=== PATIENT | female | born 1935 | race Caucasian/White ===

== ENCOUNTER 2016-07-29 18:49 | Inpatient (IN) | payer MEDICARE, OTHER ==
[~2016-07-29] VITALS: Ht 157.5 cm; Wt 47.8 kg
[~2016-07-29 18:49] MED LIST: LACT PO; LEVA500T PO; LEVO.15 PO; PROT40TA PO; SODI650T PO
[2016-07-29 19:39] VITALS: BP 130/79; PULSE 117; RESP 22; TEMP 97.9; O2SAT 98
[2016-07-29] MEDS ORDERED: SODIUM CHLOR 0.9% 1000 ML INJ 1,000 ML IV SCH ×2 (20:05→22:15)
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
[2016-07-29] MEDS ORDERED: LORazepam 2 MG/ML VIAL IM ONE (20:15)
[2016-07-29] MEDS ORDERED: SODIUM CHLORIDE 0.9% FLUSH 5 ML FLUSH IVF PRN (20:15)
--- NOTE | 2016-07-29 20:31 | RADRPT ---
EXAM DATE/TIME: 07/29/2016 20:06 [facility] COMPARISON: CHEST SINGLE AP, December 15, 2015, 15:33. INDICATIONS : Short of breath. MEDICAL HISTORY : Hypertension. SURGICAL HISTORY : Cholecystectomy. ENCOUNTER: Initial ACUITY: 1 day PAIN SCORE: Non-responsive. LOCATION: Bilateral chest FINDINGS: A single view of the chest demonstrates the lungs to be symmetrically aerated without evidence of mas s, infiltrate or effusion. The cardiomediastinal contours are unremarkable. Osseous structures are intact and stable CONCLUSION: No acute disease. No significant change has occurred. Omid Rios MD on July 29, 2016 at 20:29 Board Certified Radiologist. This report was verified electronically.
[2016-07-29 21:40] LABS: AUTOMATED NEUTROPHIL # 9.2 TH/MM3 (1.8-7.7); BASOPHIL # 0.1 TH/MM3 (0-0.2); BASOPHIL % 0.9 % (0.0-2.0); EOSINOPHIL # 0.1 TH/MM3 (0-0.4); EOSINOPHIL % 1.1 % (0.0-4.0); HEMATOCRIT 34.8 % (35.0-46.0); HEMO FLAGS DIFF FINAL; LYMPH % 8.1 % (9.0-44.0); LYMPHOCYTE # 0.9 TH/MM3 (1.0-4.8); MEAN CELL VOLUME 92.4 FL (80.0-100.0); MEAN CORPUSCULAR HGB CONC 34.6 % (32.0-36.0); MONO % 5.8 % (0.0-8.0); NEUT % 84.1 % (16.0-70.0); PLATELET COUNT 252 TH/MM3 (150-450); RED BLOOD COUNT 3.76 MIL/MM3 (4.00-5.30); RED CELL DISTRIBUTION WIDTH 12.8 % (11.6-17.2); WHITE BLOOD COUNT 10.9 TH/MM3 (4.0-11.0)
[2016-07-29 21:47] LABS: APTT (PATIENT) 27.8 SEC (24.3-30.1); PROTHROMBIN TIME - PATIENT 10.8 SEC (9.8-11.6)
[2016-07-29 21:52] VITALS: BP 127/72; PULSE 100; RESP 18; TEMP 99; O2SAT 100
[2016-07-29 21:52] LABS: ANION GAP 8 MEQ/L (5-15); AST (GOT) 31 U/L (15-37); BICARBONATE 23.9 MEQ/L (21.0-32.0); BLOOD UREA NITROGEN 12 MG/DL (7-18); CHLORIDE 106 MEQ/L (98-107); GLOMERULAR FILTRATION RATE 66 ML/MIN (>89); POTASSIUM 4.7 MEQ/L (3.5-5.1); SODIUM (NA) 138 MEQ/L (136-145)
[2016-07-29 21:53] LABS: ALKALINE PHOSPHATASE 158 U/L (45-117); ALT (GPT) 21 U/L (10-53); TOTAL BILIRUBIN ADULT 0.6 MG/DL (0.2-1.0)
[2016-07-29 23:32] LABS: BACTERIA, URINE OCC /hpf; BLOOD, URINE SMALL (NEG); COMMENT (UR) CATH-CULTURE IND; CULTURE IF INDICATED CATH CULTURE IND; GLUCOSE,URINE NEG (NEG); KETONE, URINE NEG (NEG); MUCUS URINE FEW /lpf (OCC); SQUAMOUS EPITHELIAL CELL URINE 26 /hpf (0-5); URINE COLOR LIGHT-YELLOW (YELLW/STRAW)
[2016-07-29 23:33] LABS: NITRITE,URINE POS (NEG)
[2016-07-29] MEDS ORDERED: CEPH-460 PO (23:53)
[2016-07-30] MEDS ORDERED: cefTRIAXone INJ 1,000 MG in SODIUM CHLORIDE 0.9% INJ 100 ML IV ONE ×2
[2016-07-30] MEDS ORDERED: NORC5TAB PO (00:08)
[2016-07-30] MEDS ORDERED: GABA100C4 PO (00:08)
[2016-07-30] MEDS ORDERED: CYMB60CA PO (00:08)
[2016-07-30] MEDS ORDERED: LEVO.15 PO (00:08)
[2016-07-30] MEDS ORDERED: SODI650T PO (00:08)
[2016-07-30] MEDS ORDERED: PANT40TA3 PO (00:08)
[2016-07-30] MEDS ORDERED: ZANT150T2 PO (00:08)
[2016-07-30] MEDS ORDERED: XANA1TAB2 PO (00:08)
[2016-07-30] MEDS ORDERED: COLA100C3 PO (00:08)
[2016-07-30 01:33] LABS: AMPHETAMINE, URINE NEG (NEG); BARBITURATES, URINE NEG (NEG); COCAINE, URINE NEG (NEG)
[2016-07-30] MEDS ORDERED: diphenhydrAMINE HCL 50 MG CAP PO PRN (02:00)
[2016-07-30] MEDS ORDERED: LORazepam 0.5 MG TAB age > 65 yrs PO PRN (02:15)
[2016-07-30] MEDS ORDERED: diphenhydrAMINE HCL 50 MG CAP - HS PRN PO (02:15)
[2016-07-30] MEDS ORDERED: hydrOXYzine HCL 50 MG TAB PO PRN (02:15)
[2016-07-30] MEDS ORDERED: MAGNESIUM HYDROXIDE SUSP 30 ML CUP PO PRN (02:15)
[2016-07-30] MEDS ORDERED: ALUMINUM/MAGNESIUM/SIMETH 30 ML CUP PO PRN (02:15)
[2016-07-30] MEDS ORDERED: LORazepam 2 MG/ML VIAL - age > 65 yrs IM PRN (02:15)
[2016-07-30] MEDS ORDERED: ACETAMINOPHEN 325 MG TAB PO PRN (02:15)
[2016-07-30] MEDS ORDERED: diphenhydrAMINE HCL 50 MG/ML VIAL IM PRN (02:15)
--- NOTE | 2016-07-30 04:06 | PD.CONS ---
[facility] Request[facility] By Dr Montes De Oca Reason for Consult medical conditions management Primary Care Physician Unknown Diagnoses: History of Present Illness History from EMR, nursing staff, and review of transfer notes from the nursing facility. Patient herself is an elderly lady with baseline psychiatry issue and dementia with auditory hallucinations. She is unable to give any history. At the time of our exam, patient is covered in her blanket and is quite paranoid and would not let us talk to her. She kept stating that last and her psychiatry turbine technician caregiver next to her is scaring her. What made it worse was that one of the patients in the unit also started screaming and yelling and that's even scares patient more. Per patient's daughter, she reported to ER that the mom usually is not confused although she does have dementia. Patient was also on antibiotics at the nursing facility recently for urinary tract infection. In the emergency room, patient received 1 g IV Rocephin. UA which was done in ER is also positive for nitrites. Culture pending. Review of Systems ROS Limitations: Poor Historian (unable to obtain review of system.) Except as stated in HPI: all other systems reviewed are Neg Past Family Social History Allergies: Coded Allergies: No Known Allergies (Verified , 07/29/16) Past Medical History Per EMR: Hypertension Anemia Metabolic encephalopathy history CAD COPD Chronic kidney disease History of dysphagia History of odynophagia. History of small bowel obstruction Past Surgical History EGDs and colonoscopies Family History Unknown Social History Unknown Physical Exam Vital Signs Vital Signs Date Time Temp Pulse Resp B/P Pulse Ox O2 Delivery O2 Flow Rate FiO2 07/29/16 21:52 99.0 100 18 127/72 100 07/29/16 19:39 97.9 117 22 130/79 98 Physical Exam GENERAL: This is a elderly lady, in no apparent distress. Quite disheveled SKIN: limted exam, pt is covered in blanket, won't let me see HEAD: Atraumatic. Normocephalic. EYES: No scleral icterus. No injection or drainage. ENT: Nose without bleeding, purulent drainage or septal hematoma.. Airway patent. NECK: Trachea midline. No JVD CARDIOVASCULAR: was not able to examine, refused RESPIRATORY: was not able to examine, refused GASTROINTESTINAL: was not able to examine, refused MUSCULOSKELETAL: was not able to examine, refused NEUROLOGICAL: Awake, confused, paranoid. Motor and sensory grossly within normal limits.Normal speech. Laboratory Laboratory Tests Test 07/29/16 07/29/16 21:11 22:58 White Blood Count 10.9 Red Blood Count 3.76 Hemoglobin 12.0 Hematocrit 34.8 Mean Corpuscular Volume 92.4 Mean Corpuscular Hemoglobin 32.0 Mean Corpuscular Hemoglobin 34.6 Concent Red Cell Distribution Width 12.8 Platelet Count 252 Mean Platelet Volume 7.5 Neutrophils (%) (Auto) 84.1 Lymphocytes (%) (Auto) 8.1 Monocytes (%) (Auto) 5.8 Eosinophils (%) (Auto) 1.1 Basophils (%) (Auto) 0.9 Neutrophils # (Auto) 9.2 Lymphocytes # (Auto) 0.9 Monocytes # (Auto) 0.6 Eosinophils # (Auto) 0.1 Basophils # (Auto) 0.1 CBC Comment DIFF FINAL Differential Comment Prothrombin Time 10.8 Prothromb Time International 1.0 Ratio Activated Partial 27.8 Thromboplast Time Sodium Level 138 Potassium Level 4.7 Chloride Level 106 Carbon Dioxide Level 23.9 Anion Gap 8 Blood Urea Nitrogen 12 Creatinine 0.83 Estimat Glomerular Filtration 66 Rate Random Glucose 102 Lactic Acid Level 1.9 Calcium Level 9.1 Total Bilirubin 0.6 Aspartate Amino Transf 31 (AST/SGOT) Alanine Aminotransferase 21 (ALT/SGPT) Alkaline Phosphatase 158 Total Protein 7.4 Albumin 3.1 Urine Color LIGHT-YELLOW Urine Turbidity CLOUDY Urine pH 8.0 Urine Specific [place] 1.013 Urine Protein 30 Urine Glucose (UA) NEG Urine Ketones NEG Urine Occult Blood SMALL Urine Nitrite POS Urine Bilirubin NEG Urine Urobilinogen LESS THAN 2.0 Urine Leukocyte Esterase LARGE Urine RBC 14 Urine WBC Urine WBC Clumps FEW Urine Squamous Epithelial 26 Cells Urine Bacteria OCC Urine Mucus FEW Microscopic Urinalysis Comment CATH-CULTURE IND Urine Opiates Screen NEG Urine Barbiturates Screen NEG Urine Amphetamines Screen NEG Urine Benzodiazepines Screen POS Urine Cocaine Screen NEG Urine Cannabinoids Screen NEG Date/Time Procedure Status Source Growth 07/29/16 22:58 Urine Culture Received Urine Catheterized Urine Pending Result Diagram: 07/29/16211007/29/162110 Imaging Last 48 hours Impressions Chest X-Ray 07/29/162004 Signed Impressions: Service Date/Time: Friday, July 29, 2016 20:06 - CONCLUSION: No acute disease. No significant change has occurred. Omid Rios MD Assessment and Plan Problem List: (1) Dementia with behavioral disturbance ICD Code: F03.91 Status: Acute (2) Urinary tract infection ICD Code: N39.0 Status: Acute Assessment and Plan Impression: Dementia with psychosis and auditory hallucinations UTI Hypertension Anemia Metabolic encephalopathy history CAD COPD Chronic kidney disease History of dysphagia History of odynophagia. History of small bowel obstruction Plan: Patient history and physical is quite limited since she is actively hallucinating and not participating in examination. Patient's urine cultures will be followed. For now, I started patient on levofloxacin by mouth. Per patient's daughter, patient's psychosis and hallucinations were not this bad previously. There for there might be a component of urinary tract infection worsening her situation. As to her comorbid medical conditions, her home medications have been restarted by psychiatry team. This was checked against the medications list from [facility]. Agree with continuation of meds. DVT prophylaxiswith ambulation. We will follow patient along with you. Discussed Condition With patient, her psychiatry nurse Problem Qualifiers (1) Dementia with behavioral disturbance: Qualified Code: F03.91 - Dementia with behavioral disturbance, unspecified dementia type Santos Blackburn MD Jul 30, 2016 04:06
[2016-07-30] MEDS: LEVOTHYROXINE SODIUM 150 MCG TAB PO SCH (05:39)
[2016-07-30 06:08] VITALS: BP 136/62; PULSE 96; RESP 17; TEMP 98.1; O2SAT 94
[2016-07-30] MEDS ORDERED: ACETAMINOPHEN/HYDROcodone 325 MG/5 MG TAB PO PRN (06:15)
--- NOTE | 2016-07-30 08:21 | HHI.PR ---
Subjective Remarks Follow-up UTI. Patient confused stating she is afraid to swim. She appears afraid of something. Discussed with RN Objective Vitals Vital Signs Date Time Temp Pulse Resp B/P Pulse Ox O2 Delivery O2 Flow Rate FiO2 07/30/16 06:08 98.1 96 17 136/62 94 07/29/16 21:52 99.0 100 18 127/72 100 07/29/16 19:39 97.9 117 22 130/79 98 Result Diagram: 07/29/16211007/29/162110 Objective Remarks GENERAL: This is a well-nourished, well-developed patient, in distress crying. CARDIOVASCULAR: Regular rate and rhythm without murmurs, gallops, or rubs. RESPIRATORY: Clear to auscultation. Breath sounds equal bilaterally. No wheezes , rales, or rhonchi. GASTROINTESTINAL: Abdomen soft, non-tender, nondistended. Normal active bowel sounds MUSCULOSKELETAL: Extremities without clubbing, cyanosis, or edema. CVA tenderness bilaterally NEURO: Awake and confused. Moves all ext x4 Procedures none A/P Problem List: (1) Dementia with behavioral disturbance ICD Code: F03.91 Status: Acute (2) Urinary tract infection ICD Code: N39.0 Status: Acute Assessment and Plan Dementia with psychosis and auditory hallucinations. Further management by psychiatry UTI. Status post Rocephin continue Levaquin. Follow urine culture Chronic medical conditions of Hypertension, CAD, COPD and Chronic kidney disease DVT prophylaxiswith ambulation. We will follow patient along with you. Discussed with RN to clarify with family advanced directives Problem Qualifiers (1) Dementia with behavioral disturbance: Qualified Code: F03.91 - Dementia with behavioral disturbance, unspecified dementia type Dejuan Monique MD Jul 30, 2016 08:21
[2016-07-30] MEDS ORDERED: DOCUSATE SODIUM 100 MG CAP PO SCH (09:00)
[2016-07-30] MEDS ORDERED: SODIUM BICARBONATE 650 MG TAB PO SCH (09:00)
[2016-07-30] MEDS: DOCUSATE SODIUM 100 MG CAP PO SCH ×2 (09:00→21:14)
[2016-07-30] MEDS ORDERED: PANTOPRAZOLE SOD 40 MG DELAYED RELEASE TAB PO SCH (09:00)
[2016-07-30] MEDS ORDERED: FAMOTIDINE 20 MG TAB PO SCH (09:00)
[2016-07-30] MEDS: PANTOPRAZOLE SOD 40 MG DELAYED RELEASE TAB PO SCH (09:00)
[2016-07-30] MEDS ORDERED: GABAPENTIN 100 MG CAP PO SCH (09:00)
[2016-07-30] MEDS ORDERED: LEVOTHYROXINE SODIUM 150 MCG TAB PO SCH (09:00)
[2016-07-30] MEDS ORDERED: DULoxetine HCl DR 60 MG CAP PO SCH (09:00)
[2016-07-30] MEDS ORDERED: RANITIDINE HCL 150 MG TAB PO SCH (09:00)
[2016-07-30] MEDS: GABAPENTIN 100 MG CAP PO SCH ×3 (09:59→18:35)
[2016-07-30] MEDS: DULoxetine HCl DR 60 MG CAP PO SCH (10:00)
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
[2016-07-30] MEDS: SODIUM BICARBONATE 650 MG TAB PO SCH ×2 (10:52→18:34)
[2016-07-30] MEDS: LEVOFLOXACIN 750 MG TAB PO SCH (10:52)
[2016-07-30] MEDS: LACTIC ACID (AMMONIUM LACTATE) 12% LOTION 225 GM BTL TOPICAL SCH ×2 (11:30→21:00)
--- NOTE | 2016-07-30 18:34 | RADRPT ---
EXAM DATE/TIME: 07/30/2016 17:56 [place] COMPARISON: CT BRAIN W/O CONTRAST, December 15, 2015, 15:42. INDICATIONS : Altered mental status. RADIATION DOSE: 33.35 CTDIvol (mGy) MEDICAL HISTORY : Dementia. Cerebrovascular disease. Hypertension. Renal failure SURGICAL HISTORY : None. ENCOUNTER: Initial ACUITY: 1 day PAIN SCALE: Non-responsive LOCATION: Cranial TECHNIQUE: Multiple contiguous axial images were obtained of the head. Using automated exposure control and adj ustment of the mA and/or kV according to patient size, radiation dose was kept as low as reasonably a chievable to obtain optimal diagnostic quality images. FINDINGS: Mild diffuse cerebral atrophy is noted. There is no acute infarct, acute hemorrhage, mass effect or extra-axial fluid collections. Mild periventricular and subcortical white matter small vessel ischem ic changes are noted bilaterally. There is evidence of fluid levels within the left maxillary sinus and bilateral sphenoid sinuses as well as opacification of the left frontal sinuses suggesting acute sinusitis. Opacification of the left anterior ethmoid air cells is also noted. CONCLUSION: 1. Mild diffuse cerebral atrophy. 2. Mild periventricular white matter small vessel ischemic changes bilaterally. 3. No acute infarct, acute hemorrhage, mass effect or extra-axial fluid collections. 4. Air-fluid levels and opacification of the bilateral sphenoid sinuses, left maxillary sinus, left f rontal sinuses and anterior ethmoid air cells on the left suggestive of acute sinusitis. Hong Sarabia MD on July 30, 2016 at 18:15 Board Certified Radiologist. This report was verified electronically.
[2016-07-30 20:19] VITALS: BP 135/71; PULSE 89; RESP 16; TEMP 98.2; O2SAT 95
[2016-07-30] MEDS: HALOPERIDOL 1 MG TAB PO SCH (21:00)
[2016-07-31] MEDS: HALOPERIDOL 1 MG TAB PO PRN ×2 (04:23→23:07)
[2016-07-31 05:55] VITALS: BP 161/90; PULSE 84; RESP 17; TEMP 97.7; O2SAT 98
[2016-07-31] MEDS: LEVOTHYROXINE SODIUM 150 MCG TAB PO SCH (06:00)
[2016-07-31 09:04] LABS: ANION GAP 9 MEQ/L (5-15); BICARBONATE 22.8 MEQ/L (21.0-32.0); BLOOD UREA NITROGEN 10 MG/DL (7-18); CHLORIDE 106 MEQ/L (98-107); FREE T4 1.36 NG/DL (0.76-1.46); GLOMERULAR FILTRATION RATE 77 ML/MIN (>89); LDL CHOLESTEROL 24 MG/DL (0-99); POTASSIUM 3.7 MEQ/L (3.5-5.1); SODIUM (NA) 138 MEQ/L (136-145)
[2016-07-31] MEDS: SODIUM BICARBONATE 650 MG TAB PO SCH ×2 (09:07→17:42)
[2016-07-31] MEDS: GABAPENTIN 100 MG CAP PO SCH ×3 (09:08→17:42)
[2016-07-31] MEDS: PANTOPRAZOLE SOD 40 MG DELAYED RELEASE TAB PO SCH (09:08)
[2016-07-31] MEDS: HALOPERIDOL 1 MG TAB PO SCH ×2 (09:08→20:22)
[2016-07-31] MEDS: LEVOFLOXACIN 750 MG TAB PO SCH (09:08)
[2016-07-31] MEDS: DULoxetine HCl DR 60 MG CAP PO SCH (09:08)
[2016-07-31] MEDS: DOCUSATE SODIUM 100 MG CAP PO SCH ×2 (09:08→20:22)
--- NOTE | 2016-07-31 09:54 | HHI.PR ---
Subjective Remarks Follow-up sinusitis and UTI. Complains of left facial tenderness and left lower quadrant pain but no nausea, vomiting, fever and chills. She is less confused. Discussed with RN Objective Vitals Vital Signs Date Time Temp Pulse Resp B/P Pulse Ox O2 Delivery O2 Flow Rate FiO2 07/31/16 05:55 97.7 84 17 161/90 98 07/30/16 20:19 98.2 89 16 135/71 95 I/O 07/30/16 07/30/16 07/30/16 07/31/16 07/31/16 07/31/16 07:00 15:00 23:00 07:00 15:00 23:00 Intake Total 480 ml Balance 480 ml Intake Oral 480 ml # Voids 2 2 Result Diagram: 07/29/16 2111 07/31/16 0635 Imaging Last Impressions Head CT 07/30/16 0000 Signed Impressions: Service Date/Time: Saturday, July 30, 2016 17:56 - CONCLUSION: 1. Mild diffuse cerebral atrophy. 2. Mild periventricular white matter small vessel ischemic changes bilaterally. 3. No acute infarct, acute hemorrhage, mass effect or extra-axial fluid collections. 4. Air-fluid levels and opacification of the bilateral sphenoid sinuses, left maxillary sinus, left frontal sinuses and anterior ethmoid air cells on the left suggestive of acute sinusitis. Hong Sarabia MD Chest X-Ray 07/29/162004 Signed Impressions: Service Date/Time: Friday, July 29, 2016 20:06 - CONCLUSION: No acute disease. No significant change has occurred. Omid Rios MD Objective Remarks GENERAL: This is a well-nourished, well-developed patient, in no distress HEENT: There is tenderness over left frontal and left maxillary sinuses CARDIOVASCULAR: Regular rate and rhythm without murmurs, gallops, or rubs. RESPIRATORY: Clear to auscultation. Breath sounds equal bilaterally. No wheezes , rales, or rhonchi. GASTROINTESTINAL: Abdomen soft, slightly tender left lower quadrant, nondistended. Normal active bowel sounds MUSCULOSKELETAL: Extremities without clubbing, cyanosis, or edema. CVA tenderness bilaterally NEURO: Awake and confused. Moves all ext x4 Procedures none A/P Problem List: (1) Dementia with behavioral disturbance ICD Code: F03.91 Status: Acute (2) Urinary tract infection ICD Code: N39.0 Status: Acute Assessment and Plan Dementia with psychosis and auditory hallucinations. Further management by psychiatry UTI. Status post Rocephin continue Levaquin. Follow urine culture growing Escherichia coli Acute sinusitis. We'll change Levaquin to 750 mg daily for total of 10 days. Chronic medical conditions of Hypertension, CAD, COPD and Chronic kidney disease. BP slightly elevated start clonidine as needed and continue to monitor EKG tracing reviewed with sinus rhythm, poor R-wave progression QTc of 401 DVT prophylaxiswith ambulation. Follow-up advance directives with the family Problem Qualifiers (1) Dementia with behavioral disturbance: Qualified Code: F03.91 - Dementia with behavioral disturbance, unspecified dementia type Dejuan Monique MD Jul 31, 2016 09:53
[2016-07-31] MEDS ORDERED: cloNIDine HCL 0.1 MG TAB PO PRN (10:00)
[2016-07-31] MEDS: LACTIC ACID (AMMONIUM LACTATE) 12% LOTION 225 GM BTL TOPICAL SCH ×2 (10:04→20:22)
--- NOTE | 2016-07-31 11:06 | EKG ---
Date Performed: 07/30/2016 Time Performed: 13:20:13 PTAGE: 81 years EKG: Sinus rhythm SEPTAL MYOCARDIAL INFARCTION , PROBABLY OLD ABNORMAL ECG PREVIOUS TRACING : 12/15/2015 16.30 DOCTOR: Jesse Hawkins Interpretating Date/Time 07/31/2016 11:05:12
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
--- NOTE | 2016-07-31 11:36 | HHI.PYPN ---
Subjective Remarks Patient seen and examined. Chart reviewed. Patient did receive a PRN dose of Haldol yesterday for anxiety. Case discussed with nursing staff. On my examination today, patient is sitting on the day area. She is calm and pleasant but remains extremely confused on examination. She is oriented to person at most. Speech remains word salad and thought process remains disorganized. She is requiring assistance with ADLs such as toileting. No evident side effects from medications. Review of Systems ROS Limitations: Poor Historian Other No reported physical complaints Objective Alert: Yes [place]: Person Mood: Calm Affect: Blunted Memory Intact: Comment (impaired) Hallucinations: Other (no AVH) Delusions: No Delusion Type: Other (no ryan delusions) Suicidal: Ideation (no SI) Homicidal: Ideation (no HI) Insight/Judgement Poor, chronically so Remarks No abnormal motor movements noted. No hand tremor, no dystonia, no dyskinesia. Thought process disorganized. Speech rambling. Grooming and hygiene fair but only with assistance from staff. Labs Test 07/31/16 06:35 Sodium Level 138 MEQ/L Potassium Level 3.7 MEQ/L Chloride Level 106 MEQ/L Carbon Dioxide Level 22.8 MEQ/L Anion Gap 9 MEQ/L Blood Urea Nitrogen 10 MG/DL Creatinine 0.73 MG/DL Estimat Glomerular Filtration 77 ML/MIN Rate Random Glucose 81 MG/DL Calcium Level 9.3 MG/DL Triglycerides Level 110 MG/DL Cholesterol Level 100 MG/DL LDL Cholesterol 24 MG/DL HDL Cholesterol 54.0 MG/DL Cholesterol/HDL Ratio 1.85 RATIO Free Thyroxine 1.36 NG/DL Thyroid Stimulating Hormone 3.280 uIU/ML 3rd Gen Date/Time Procedure Status Source Growth 07/29/16 22:58 Urine Culture - Final Complete Urine Catheterized Urine Escherichia Coli Labs reviewed. Interval improvement in GFR. Urine culture is growing out Escherichia coli resistant only to amoxicillin Last Impressions Head CT 07/30/16 0000 Signed Impressions: Service Date/Time: Saturday, July 30, 2016 17:56 - CONCLUSION: 1. Mild diffuse cerebral atrophy. 2. Mild periventricular white matter small vessel ischemic changes bilaterally. 3. No acute infarct, acute hemorrhage, mass effect or extra-axial fluid collections. 4. Air-fluid levels and opacification of the bilateral sphenoid sinuses, left maxillary sinus, left frontal sinuses and anterior ethmoid air cells on the left suggestive of acute sinusitis. Hong Sarabia MD Chest X-Ray 07/29/162004 Signed Impressions: Service Date/Time: Friday, July 29, 2016 20:06 - CONCLUSION: No acute disease. No significant change has occurred. Omid Rios MD Vitals/IOs Vital Signs Date Time Temp Pulse Resp B/P Pulse Ox O2 Delivery O2 Flow Rate FiO2 07/31/16 05:55 97.7 84 17 161/90 98 Intake and Output 07/30/16 07/30/16 07/31/16 08:00 16:00 00:00 Intake Total 480 ml Balance 480 ml Assessment & Plan Problem List: (1) Delirium due to another medical condition Assessment & Plan: Due to UTI ICD Code: F05 (2) Dementia ICD Code: F03.90 Assessment & Plan Patient is presently calm and pleasant with treatment of UTI and addition of Haldol. Continue Haldol 1 mg twice daily with additional Haldol as needed for agitation. Continue other psychotropics as ordered. Continue other medications and care as ordered. Justification for Cont. Inpt. Monitoring for impairments in safety, so far none noted. Impairment in self- care. Complicating conditions, namely UTI with associated delirium. Discharge Planning Return to facility, hopefully within the next 1-2 days barring some clinical worsening. Request HC Surrog/Guard Advoc?: Yes Problem Qualifiers (1) Dementia: Qualified Code: G30.8 - Alzheimer's dementia with behavioral disturbance, unspecified timing of dementia onset Kolton Finney MD Jul 31, 2016 11:36
[2016-07-31 17:16] LABS: HEMOGLOBIN A1a 0.7 %; HEMOGLOBIN A1b 1.6 %; HEMOGLOBIN Ao 87.4 %; HEMOGLOBIN LA1C 1.7 %; HEMOGLOBIN P3 3.4 %
[2016-07-31 19:55] VITALS: BP 138/64; PULSE 91; RESP 17; TEMP 98.2; O2SAT 97
[2016-08-01 05:24] VITALS: BP 146/75; PULSE 83; RESP 17; TEMP 98.2; O2SAT 96
[2016-08-01] MEDS: LEVOTHYROXINE SODIUM 150 MCG TAB PO SCH ×3 (06:00→11:50)
[2016-08-01] MEDS: GABAPENTIN 100 MG CAP PO SCH ×3 (08:19→17:43)
[2016-08-01] MEDS: HALOPERIDOL 1 MG TAB PO SCH ×2 (08:19→21:48)
[2016-08-01] MEDS: DULoxetine HCl DR 60 MG CAP PO SCH ×2 (08:19→09:00)
[2016-08-01] MEDS: SODIUM BICARBONATE 650 MG TAB PO SCH ×3 (08:19→17:44)
[2016-08-01] MEDS: PANTOPRAZOLE SOD 40 MG DELAYED RELEASE TAB PO SCH ×2 (08:19→09:00)
[2016-08-01] MEDS: LEVOFLOXACIN 750 MG TAB PO SCH (09:00)
[2016-08-01] MEDS: LACTIC ACID (AMMONIUM LACTATE) 12% LOTION 225 GM BTL TOPICAL SCH ×2 (09:41→21:00)
--- NOTE | 2016-08-01 10:10 | HHI.PR ---
Subjective Remarks Follow-up sinusitis and UTI. States she is not feeling well today and wants to go home. Remains confused Objective Vitals Vital Signs Date Time Temp Pulse Resp B/P Pulse Ox O2 Delivery O2 Flow Rate FiO2 08/01/16 05:24 98.2 83 17 146/75 96 07/31/16 19:55 98.2 91 17 138/64 97 I/O 07/31/16 07/31/16 07/31/16 08/01/16 08/01/16 08/01/16 07:00 15:00 23:00 07:00 15:00 23:00 Intake Total 240 ml Balance 240 ml Intake Oral 240 ml # Voids 2 1 3 # Bowel Movements 1 Result Diagram: 07/29/16 2111 07/31/16 0635 Imaging Last Impressions Head CT 07/30/16 0000 Signed Impressions: Service Date/Time: Saturday, July 30, 2016 17:56 - CONCLUSION: 1. Mild diffuse cerebral atrophy. 2. Mild periventricular white matter small vessel ischemic changes bilaterally. 3. No acute infarct, acute hemorrhage, mass effect or extra-axial fluid collections. 4. Air-fluid levels and opacification of the bilateral sphenoid sinuses, left maxillary sinus, left frontal sinuses and anterior ethmoid air cells on the left suggestive of acute sinusitis. Hong Sarabia MD Chest X-Ray 07/29/162004 Signed Impressions: Service Date/Time: Friday, July 29, 2016 20:06 - CONCLUSION: No acute disease. No significant change has occurred. Omid Rios MD Objective Remarks GENERAL: This is a well-nourished, well-developed patient, in no distress HEENT: There is tenderness over left frontal and left maxillary sinuses CARDIOVASCULAR: Regular rate and rhythm without murmurs, gallops, or rubs. RESPIRATORY: Clear to auscultation. Breath sounds equal bilaterally. No wheezes , rales, or rhonchi. GASTROINTESTINAL: Abdomen soft, slightly tender left lower quadrant, nondistended. Normal active bowel sounds MUSCULOSKELETAL: Extremities without clubbing, cyanosis, or edema. No CVA tenderness bilaterally NEURO: Confused. Moves all ext x4 Procedures none A/P Problem List: (1) Dementia with behavioral disturbance ICD Code: F03.91 Status: Acute (2) Urinary tract infection ICD Code: N39.0 Status: Acute Assessment and Plan Dementia with psychosis and auditory hallucinations. Further management by psychiatry UTI. Status post Rocephin continue Levaquin. Follow urine culture growing Escherichia coli Acute sinusitis. We'll change Levaquin to 750 mg daily for total of 10 days till August 09 Chronic medical conditions of Hypertension, CAD, COPD and Chronic kidney disease. BP slightly elevated start clonidine as needed and continue to monitor EKG tracing reviewed with sinus rhythm, poor R-wave progression QTc of 401 DVT prophylaxiswith ambulation. Follow-up advance directives with the family Discharge Planning Patient medically stable, we'll sign off. Reconsult as needed Problem Qualifiers (1) Dementia with behavioral disturbance: Qualified Code: F03.91 - Dementia with behavioral disturbance, unspecified dementia type Dejuan Monique MD Aug 01, 2016 10:10
[2016-08-01] MEDS: HALOPERIDOL LACTATE 5 MG/ML AMP IM PRN (12:10)
--- NOTE | 2016-08-01 12:17 | HHI.PYPN ---
Subjective Remarks Patient seen and examined. Chart reviewed. Case discussed with nursing staff who reports patient refused her oral Haldol this morning. On my examination today, patient is sitting in the day room. She is crying and asking to go home. She is not aggressive or assaultive. She remains quite confused. No evident side effects from medications. Review of Systems ROS Limitations: Poor Historian Other No reported physical complaints Objective Alert: Yes [place]: Person Mood: Anxious Affect: Blunted Memory Intact: Comment (Remains impaired) Hallucinations: Other (no AVH) Delusions: No Delusion Type: Other (No delusions) Suicidal: Ideation (No SI) Homicidal: Ideation (No HI) Insight/Judgement Poor Remarks No abnormal motor movements noted. TP disorganized consistent with cognitive impairment. Speech rambling. Grooming and hygiene adequate only with staff assist. Labs Date/Time Procedure Status Source Growth 07/29/16 22:58 Urine Culture - Final Complete Urine Catheterized Urine Escherichia Coli Labs reviewed. Vitals/IOs Vital Signs Date Time Temp Pulse Resp B/P Pulse Ox O2 Delivery O2 Flow Rate FiO2 08/01/16 05:24 98.2 83 17 146/75 96 Intake and Output 07/31/16 07/31/16 08/01/16 08:00 16:00 00:00 Intake Total 240 ml Balance 240 ml Assessment & Plan Problem List: (1) Delirium due to another medical condition ICD Code: F05 (2) Dementia ICD Code: F03.90 Assessment & Plan Titrate scheduled Haldol to 1mg TID to target anxious distress in setting of delirium/dementia. I have added an IM backup option. Continue Haldol PRN. Continue Cymbalta. Hospitalist input noted. Antibiotic recs noted. Continue to monitor on the inpatient unit. Continue other medications and care as ordered. Justification for Cont. Inpt. Impairment in self-care. Impairment in reality construction secondary to dementia and delirium. Impairment in social function. Complicating conditions , namely delirium and UTI. Medication changes. Discharge Planning Return to her facility, hopefully tomorrow or perhaps shortly after the weekend. Request HC Surrog/Guard Advoc?: Yes Problem Qualifiers (1) Dementia: Qualified Code: G30.8 - Alzheimer's dementia with behavioral disturbance, unspecified timing of dementia onset Kolton Finney MD Aug 01, 2016 12:17
[2016-08-01] MEDS ORDERED: HALOPERIDOL LACTATE 5 MG/ML AMP IM PRN ×2 (12:30→21:00)
[2016-08-01 16:30] VITALS: BP 129/63; PULSE 82; RESP 17; TEMP 98.7; O2SAT 95
[2016-08-01] MEDS: HALOPERIDOL 1 MG TAB PO PRN (23:27)
[2016-08-02] MEDS: LEVOTHYROXINE SODIUM 150 MCG TAB PO SCH (05:17)
[2016-08-02 06:00] VITALS: BP 133/73; PULSE 89; RESP 18; TEMP 99.6
[2016-08-02] MEDS: HALOPERIDOL 1 MG TAB PO SCH ×3 (09:00→21:16)
[2016-08-02] MEDS: GABAPENTIN 100 MG CAP PO SCH ×3 (09:00→18:02)
[2016-08-02] MEDS: LACTIC ACID (AMMONIUM LACTATE) 12% LOTION 225 GM BTL TOPICAL SCH ×2 (09:00→21:16)
[2016-08-02] MEDS: HALOPERIDOL LACTATE 5 MG/ML AMP IM PRN (09:28)
[2016-08-02] MEDS: SODIUM BICARBONATE 650 MG TAB PO SCH ×3 (09:30→11:57)
[2016-08-02] MEDS: DULoxetine HCl DR 60 MG CAP PO SCH (09:30)
[2016-08-02] MEDS: LEVOFLOXACIN 750 MG TAB PO SCH (09:30)
[2016-08-02] MEDS: PANTOPRAZOLE SOD 40 MG DELAYED RELEASE TAB PO SCH (09:31)
--- NOTE | 2016-08-02 14:09 | HHI.PYPN ---
Subjective Remarks Patient seen on unit with nurse Ana, patient showing some decrease in the fluid intake appears to be somewhat dehydrated. Is being treated for UTI. Will reconsult hospitalist, and order CBC CMP and UA to assist them. Patient otherwise compliant medications continues confused and somewhat irritable labile Review of Systems Constitutional: DENIES: Diaphoretic episodes, Fatigue, Fever, Weight gain, Weight loss, Chills, Dizziness, Change in appetite, Night Sweats Endocrine: DENIES: Abnorml menstrual pattern, Heat/cold intolerance, Polydipsia , Polyuria, Polyphagia Eyes: DENIES: Blurred vision, Diplopia, Eye inflammation, Eye pain, Vision loss , Photosensitivity, Double Vision Ears, nose, mouth, throat: DENIES: Tinnitus, Hearing loss, Vertigo, Nasal discharge, Oral lesions, Throat pain, Hoarseness, Ear Pain, Running Nose, Epistaxis, Sinus Pain, Toothache, Odynophagia Respiratory: DENIES: Apneas, Cough, Snoring, Wheezing, Hemoptysis, Sputum production, Shortness of breath Cardiovascular: DENIES: Chest pain, Palpitations, Syncope, Dyspnea on Exertion , PND, Lower Extremity Edema, Orthopnea, Claudication Genitourinary: DENIES: Abnormal vaginal bleeding, Dysmenorrhea, Dyspareunia, Sexual dysfunction, Urinary frequency, Urinary incontinence, Urgency, Hematuria , Dysuria, Nocturia, Vaginal discharge Musculoskeletal: DENIES: Joint pain, Muscle aches, Stiffness, Joint Swelling, Back pain, Neck pain Integumentary: DENIES: Abnormal pigmentation, Pruritus, Rash, Nail changes, Breast masses, Breast skin changes, Nipple discharge Hematologic/lymphatic: DENIES: Bruising, Lymphadenopathy Immunologic/allergic: DENIES: Eczema, Urticaria Neurologic: DENIES: Abnormal gait, Headache, Localized weakness, Paresthesias, Seizures, Speech Problems, Tremor, Poor Balance Other Patient with history UTI appears to be showing some dehydration will reconsult hospitalist routine labs ordered Objective Alert: Yes [place]: Person Mood: Anxious Affect: Blunted Memory Intact: Comment (Remains impaired) Hallucinations: Other (no AVH) Delusions: No Delusion Type: Other (No delusions) Suicidal: Ideation (No SI) Homicidal: Ideation (No HI) Insight/Judgement Very poor Labs Date/Time Procedure Status Source Growth 07/29/16 22:58 Urine Culture - Final Complete Urine Catheterized Urine Escherichia Coli Vitals/IOs Vital Signs Date Time Temp Pulse Resp B/P Pulse Ox O2 Delivery O2 Flow Rate FiO2 08/02/16 06:00 99.6 89 18 133/73 08/01/16 16:30 95 Intake and Output 08/01/16 08/01/16 08/02/16 08:00 16:00 00:00 Intake Total 0 ml 240 ml 960 ml Balance 0 ml 240 ml 960 ml Assessment & Plan Problem List: (1) Delirium due to another medical condition ICD Code: F05 (2) Dementia ICD Code: F03.90 Assessment & Plan Estimated LOS: days patient continues confused disoriented will be getting hospitalist reconsult related to possible live UTI continuing Justification for Cont. Inpt. At this time patient will decompensate placed in the lower level of care Discharge Planning To be determined Request HC Surrog/Guard Advoc?: Yes Problem Qualifiers (1) Dementia: Qualified Code: G30.8 - Alzheimer's dementia with behavioral disturbance, unspecified timing of dementia onset Dominic Montes De Oca MD Aug 02, 2016 14:09
[2016-08-02 18:00] VITALS: BP 143/65; PULSE 100; RESP 17; TEMP 98.2; O2SAT 95
[2016-08-02 18:05] LABS: BASOPHIL % 0.3 % (0.0-2.0); EOSINOPHIL # 0.1 TH/MM3 (0-0.4); EOSINOPHIL % 1.2 % (0.0-4.0); HEMATOCRIT 38.5 % (35.0-46.0); HEMO FLAGS DIFF FINAL; LYMPH % 11.8 % (9.0-44.0); MEAN CELL VOLUME 93.3 FL (80.0-100.0); MEAN CORPUSCULAR HEMOGLOBIN 31.5 PG (27.0-34.0); MEAN CORPUSCULAR HGB CONC 33.7 % (32.0-36.0); MONO % 7.7 % (0.0-8.0); PLATELET COUNT 251 TH/MM3 (150-450); RED BLOOD COUNT 4.13 MIL/MM3 (4.00-5.30); RED CELL DISTRIBUTION WIDTH 12.9 % (11.6-17.2); WHITE BLOOD COUNT 8.8 TH/MM3 (4.0-11.0)
[2016-08-02 18:30] LABS: ALKALINE PHOSPHATASE 158 U/L (45-117); ALT (GPT) 21 U/L (10-53); ANION GAP 10 MEQ/L (5-15); AST (GOT) 20 U/L (15-37); BICARBONATE 25.4 MEQ/L (21.0-32.0); BLOOD UREA NITROGEN 16 MG/DL (7-18); CHLORIDE 105 MEQ/L (98-107); GLOMERULAR FILTRATION RATE 68 ML/MIN (>89); POTASSIUM 3.7 MEQ/L (3.5-5.1); SODIUM (NA) 140 MEQ/L (136-145); TOTAL BILIRUBIN ADULT 0.3 MG/DL (0.2-1.0)
[2016-08-02] MEDS: diphenhydrAMINE HCL 25 MG CAP PO SCH (21:15)
[2016-08-03 05:20] VITALS: BP 130/68; PULSE 77; RESP 16; TEMP 98.9; O2SAT 98
[2016-08-03] MEDS: LEVOTHYROXINE SODIUM 150 MCG TAB PO SCH (06:02)
[2016-08-03] MEDS: GABAPENTIN 100 MG CAP PO SCH ×3 (09:00→17:55)
[2016-08-03] MEDS: LEVOFLOXACIN 750 MG TAB PO SCH (09:00)
[2016-08-03] MEDS: HALOPERIDOL 1 MG TAB PO SCH ×3 (09:00→21:49)
[2016-08-03] MEDS: LACTIC ACID (AMMONIUM LACTATE) 12% LOTION 225 GM BTL TOPICAL SCH ×2 (09:00→21:00)
[2016-08-03] MEDS: SODIUM BICARBONATE 650 MG TAB PO SCH ×2 (09:00→17:55)
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
--- NOTE | 2016-08-03 12:46 | HHI.PYPN ---
Subjective Remarks Patient was seen and case discussed with nursing. Patient refuses her medications this morning. He was alert and oriented 1. Not cooperative and uninterested in the interview. Behaving well per nursing. Objective Alert: Yes [place]: Person Mood: Oppositional Affect: Blunted Memory Intact: Comment (Remains impaired) Hallucinations: Other (no AVH) Delusions: No Delusion Type: Other (No delusions) Suicidal: Ideation (No SI) Homicidal: Ideation (No HI) Insight/Judgement Poor Labs Test 08/02/16 17:44 White Blood Count 8.8 TH/MM3 Red Blood Count 4.13 MIL/MM3 Hemoglobin 13.0 GM/DL Hematocrit 38.5 % Mean Corpuscular Volume 93.3 FL Mean Corpuscular Hemoglobin 31.5 PG Mean Corpuscular Hemoglobin 33.7 % Concent Red Cell Distribution Width 12.9 % Platelet Count 251 TH/MM3 Mean Platelet Volume 6.6 FL Neutrophils (%) (Auto) 79.0 % Lymphocytes (%) (Auto) 11.8 % Monocytes (%) (Auto) 7.7 % Eosinophils (%) (Auto) 1.2 % Basophils (%) (Auto) 0.3 % Neutrophils # (Auto) 7.0 TH/MM3 Lymphocytes # (Auto) 1.0 TH/MM3 Monocytes # (Auto) 0.7 TH/MM3 Eosinophils # (Auto) 0.1 TH/MM3 Basophils # (Auto) 0.0 TH/MM3 CBC Comment DIFF FINAL Differential Comment Sodium Level 140 MEQ/L Potassium Level 3.7 MEQ/L Chloride Level 105 MEQ/L Carbon Dioxide Level 25.4 MEQ/L Anion Gap 10 MEQ/L Blood Urea Nitrogen 16 MG/DL Creatinine 0.81 MG/DL Estimat Glomerular Filtration 68 ML/MIN Rate Random Glucose 120 MG/DL Calcium Level 9.7 MG/DL Total Bilirubin 0.3 MG/DL Aspartate Amino Transf 20 U/L (AST/SGOT) Alanine Aminotransferase 21 U/L (ALT/SGPT) Alkaline Phosphatase 158 U/L Total Protein 7.6 GM/DL Albumin 3.3 GM/DL Date/Time Procedure Status Source Growth 07/29/16 22:58 Urine Culture - Final Complete Urine Catheterized Urine Escherichia Coli Vitals/IOs Vital Signs Date Time Temp Pulse Resp B/P Pulse Ox O2 Delivery O2 Flow Rate FiO2 08/03/16 05:20 98.9 77 16 130/68 98 Intake and Output 08/02/16 08/02/16 08/03/16 08:00 16:00 00:00 Intake Total 1320 ml 240 ml Balance 1320 ml 240 ml Assessment & Plan Problem List: (1) Delirium due to another medical condition ICD Code: F05 (2) Dementia ICD Code: F03.90 Assessment & Plan Continue current treatment plan Justification for Cont. Inpt. Patient will decompensate in a less restrictive setting Request HC Surrog/Guard Advoc?: Yes Problem Qualifiers (1) Dementia: Qualified Code: G30.8 - Alzheimer's dementia with behavioral disturbance, unspecified timing of dementia onset Darrin Alvarado DO Aug 03, 2016 12:46
[2016-08-03 18:42] VITALS: BP 135/70; PULSE 83; RESP 18; TEMP 97.4
[2016-08-03] MEDS: diphenhydrAMINE HCL 25 MG CAP PO SCH (21:49)
[2016-08-03] MEDS: CIPROFLOXACIN 250 MG TAB PO SCH (21:49)
[2016-08-04] MEDS: LEVOTHYROXINE SODIUM 150 MCG TAB PO SCH (06:03)
[2016-08-04 06:28] VITALS: BP 138/68; PULSE 73; RESP 17; TEMP 98; O2SAT 98
[2016-08-04] MEDS: PANTOPRAZOLE SOD 40 MG DELAYED RELEASE TAB PO SCH (09:00)
[2016-08-04] MEDS: LACTIC ACID (AMMONIUM LACTATE) 12% LOTION 225 GM BTL TOPICAL SCH (09:00)
[2016-08-04] MEDS: CIPROFLOXACIN 250 MG TAB PO SCH (09:00)
[2016-08-04] MEDS: SODIUM BICARBONATE 650 MG TAB PO SCH (09:00)
[2016-08-04] MEDS: HALOPERIDOL 1 MG TAB PO SCH ×2 (09:18→13:29)
[2016-08-04] MEDS: DULoxetine HCl DR 60 MG CAP PO SCH (09:18)
[2016-08-04] MEDS: GABAPENTIN 100 MG CAP PO SCH ×2 (09:19→13:29)
--- NOTE | 2016-08-04 11:20 | HHI.PYPN ---
Subjective Remarks Patient was seen and case discussed with nursing. Patient is alert and oriented 1. She is hard of hearing and mumbling and is difficult to understand for the interview. She is compliant with her medications and behaving well on the unit Objective Alert: Yes [place]: Person Mood: Anxious Affect: Restricted Memory Intact: Comment (poor) Hallucinations: Other (no AVH) Delusions: No Delusion Type: Other (unclear) Suicidal: Ideation (No SI) Homicidal: Ideation (No HI) Insight/Judgement Poor Vitals/IOs Vital Signs Date Time Temp Pulse Resp B/P Pulse Ox O2 Delivery O2 Flow Rate FiO2 08/04/16 06:28 98.0 73 17 138/68 98 Intake and Output 08/03/16 08/03/16 08/04/16 08:00 16:00 00:00 Intake Total 120 ml 600 ml 600 ml Balance 120 ml 600 ml 600 ml Assessment & Plan Problem List: (1) Delirium due to another medical condition ICD Code: F05 (2) Dementia ICD Code: F03.90 Assessment & Plan Continue current treatment plan Justification for Cont. Inpt. Patient will decompensate in a less restrictive setting Request HC Surrog/Guard Advoc?: Yes Problem Qualifiers (1) Dementia: Qualified Code: G30.8 - Alzheimer's dementia with behavioral disturbance, unspecified timing of dementia onset Darrin Alvarado DO Aug 04, 2016 11:20
[2016-08-04 16:59] LABS: BLOOD GAS BASE EXCESS -0.4 mmol/L (-2-2); BLOOD GAS HCO3 23 mmol/L (22-26); BLOOD GAS METHEMOGLOBIN 0.2 % (0-2); BLOOD GAS O2 HGB SATURATION 95 % (90-100); BLOOD GAS OXYGEN CONTENT 19.6 Vol % (12.0-20.0); BLOOD GAS PCO2 34 mmHg (38-42); BLOOD GAS PO2 78 mmHG (61-120); BLOOD GAS TOTAL HGB 14.7 G/DL (12.0-16.0); CRITICAL VALUE NO; DRAW SITE RT BRACHIAL; NUMBER OF ARTERIAL PUNCTURES 1; OXYGEN DEVICE ROOM AIR; STAT YES; TEMP CORR TO 98.6; ULNAR PULSE PRESENT
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
== END 2016-08-04 17:10 | disposition short-term general hospital (02) | DRG 57 ==
LOC: NEPC 18:49 → NEDA 07-30 01:01 → H250 07-30 01:45
PROVIDERS: ADMIT Psychiatry & Neurology Psychiatry; ATTEND Psychiatry & Neurology Psychiatry
PROC: 4A133B3 Monitoring of Arterial Pressure, Pulmonary, Percutaneous Approach (ICD-10-PCS; principal; 2016-08-04)
DX: G30.8 Other Alzheimer's disease (principal); F05 Delirium due to known physiological condition; N39.0 Urinary tract infection, site not specified; F02.81 Dementia in other diseases classified elsewhere, unspecified severity, with behavioral disturbance; R44.0 Auditory hallucinations; E78.5 Hyperlipidemia, unspecified; I25.10 Atherosclerotic heart disease of native coronary artery without angina pectoris; J44.9 Chronic obstructive pulmonary disease, unspecified; M19.90 Unspecified osteoarthritis, unspecified site; I12.9 Hypertensive chronic kidney disease with stage 1 through stage 4 chronic kidney disease, or unspecified chronic kidney disease; N18.9 Chronic kidney disease, unspecified; B96.20 Unspecified Escherichia coli [E. coli] as the cause of diseases classified elsewhere; J01.90 Acute sinusitis, unspecified; Z91.14 Patient's other noncompliance with medication regimen; E86.0 Dehydration; H91.90 Unspecified hearing loss, unspecified ear; Z91.81 History of falling; Z86.73 Personal history of transient ischemic attack (TIA), and cerebral infarction without residual deficits
CPT/HCPCS: 36600; 70450; 71010; 80048; 80053; 80061; 80307; 81001; 82805; 83036; 83605; 84439; 84443; 85025; 85610; 85730; 87077; 87086; 87186; 93005; 96361; 96365; 96372; J0696; J1630; J2060; J7030

== ENCOUNTER 2016-08-04 16:45 | Inpatient (IN) | payer MEDICARE, OTHER ==
[~2016-08-04 16:45] MED LIST changes: +CEPH-460 PO; +COLA100C3 PO; +CYMB60CA PO; +GABA100C4 PO; -LACT PO; -LEVA500T PO; +NORC5TAB PO; +PANT40TA3 PO; -PROT40TA PO; +XANA1TAB2 PO; +ZANT150T2 PO
[2016-08-04] MEDS ORDERED: NALOXONE HCL 0.4 MG/ML AMP IV PRN (17:45)
[2016-08-04] MEDS ORDERED: SODIUM CHLORIDE 0.9% FLUSH 10 ML FLUSH IV FLUSH PRN (17:45)
[2016-08-04] MEDS ORDERED: ONDANSETRON HCL 4 MG/2 ML VIAL IVP PRN (17:45)
[2016-08-04] MEDS ORDERED: ACETAMINOPHEN 325 MG TAB PO PRN (17:45)
[2016-08-04] MEDS ORDERED: DOCUSATE SODIUM 100 MG CAP PO SCH (18:00)
--- NOTE | 2016-08-04 18:03 | HHI.HP ---
[facility] Admission Diagnosis Diagnoses: Chief Complaint: DEVONTE Zaragoza Travel History International Travel<30 Days: No Contact w/Intl Traveler <30 Da: No Traveled to Known Affected Are: No History of Present Illness This is a 81 year old female patient with past medical history which includes hypertension, anemia, metabolic encephalopathy history, CAD, COPD, chronic kidney disease, dysphagia, odontophobia and small bowel obstruction. Information gathered from patient as well as prior computerized charting. Patient was transferred from inpatient psychiatric center due to change in status, altered mental status. The patient was reportedly in her regular state of health until approximately 4 PM this afternoon. At baseline patient is alert and oriented to person and confused but typically awake and alert throughout the day. Patient did have history of UTI which she had been intermittently refusing antibiotics. Patient had received Rocephin IV times 1, Levaquin by mouth 2 and Cipro times one by mouth. Patient had also been given Haldol 1 mg by mouth at 1329. Patient also found to have small hematoma on forehead. Patient was found to be lethargic and minimally responsive. Therefore probably/rapid response was called. Vital signs obtained with pressure 121/57 oxygen saturation 97% heart rate 68 respiratory rate 10, ABG reviewed and includes: PH 7.45 PCO2 34 PO2 78 O2 saturation 95 base excess -0.4 bicarbonate 23 on room air. At this time patient continues to be lethargic and with an minimally responsive does withdrawal to pain and able to verbalize the word ouch. Pupils equally dilated and reactive. No focal deficits identified. Review of Systems ROS Limitations: Clinical Condition Except as stated in HPI: all other systems reviewed are Neg Past Family Social History Past Medical History hypertension, anemia, metabolic encephalopathy history, CAD, COPD, chronic kidney disease, dysphagia, odontophobia and small bowel obstruction Past Surgical History EGDs and colonoscopies Reported Medications Colace (Docusate Sodium) 100 Mg Cap 100 Mg PO BID Synthroid (Levothyroxine Sodium) 150 Mcg Tab 150 Mcg PO DAILY [place] (Hydrocodone-Acetaminophen) 5-325 mg Tab 1 Tab PO Q8HR PRN Xanax (Alprazolam) 1 Mg Tab 1 Mg PO BID PRN Gabapentin 100 Mg Cap 200 Mg PO TID Zantac (Ranitidine HCl) 150 Mg Tab 150 Mg PO BID Sodium Bicarbonate 650 Mg Tab 650 Mg PO BIDPC Pantoprazole (Pantoprazole Sodium) 40 Mg Tab 40 Mg PO DAILY Cymbalta DR (Duloxetine HCl) 60 Mg Capdr 60 Mg PO DAILY Allergies: Coded Allergies: No Known Allergies (Verified , 07/29/16) Active Ordered Medications Current Medications Medications (Trade) Dose Ordered Sig/[place] Route Start Time Stop Time Status Last Admin (NS 1000 ml Inj) 1,000 ml @ 75 mls/hr [id number] IV 08/04/16 17:38 UNV (NS Flush) 2 ml UNSCH PRN IV FLUSH 08/04/16 17:45 UNV (NS Flush) 2 ml BID IV FLUSH 08/04/16 21:00 UNV (Tylenol) 650 mg Q4H PRN PO 08/04/16 17:45 UNV (Zofran Inj) 4 mg Q6H PRN IVP 08/04/16 17:45 UNV (Colace) 100 mg Q12H PO 08/04/16 17:45 UNV (Narcan Inj) 0.4 mg UNSCH PRN IV 08/04/16 17:45 UNV Family History Unable to obtain at this time due to clinical condition Social History Unable to obtain at this time due to clinical condition Physical Exam Physical Exam GENERAL: This is a frail elderly 89-year-old female patient withdraws to pain appears lethargic SKIN: Scattered ecchymotic areas bilateral upper extremities, small hematoma noted hematoma noted on forehead HEAD: small hematoma noted hematoma noted on forehead EYES: Pupils are equally dilated and reactive Extraocular motions intact. No scleral icterus. No injection or drainage. CARDIOVASCULAR: Regular rate and rhythm without murmurs, gallops, or rubs. RESPIRATORY: Clear to auscultation. Breath sounds equal bilaterally. No wheezes , rales, or rhonchi. GASTROINTESTINAL: Abdomen soft, non-tender, nondistended. No guarding. MUSCULOSKELETAL: Extremities without clubbing, cyanosis, or edema. No joint tenderness, effusion, or edema noted. No calf tenderness. Negative Homans sign bilaterally. NEUROLOGICAL: Lethargic No focal deficits identified- withdraws all 4 extremities equally to pain. 3 out of 5 muscle strength in all muscle groups. Assessment and Plan Assessment and Plan This is a 81 year old female patient with past medical history which includes hypertension, anemia, metabolic encephalopathy history, CAD, COPD, chronic kidney disease, dysphagia, odontophobia and small bowel obstruction. Patient was transferred from inpatient psychiatric center due to change in status, altered mental status. The patient was reportedly in her regular state of health until approximately 4 PM this afternoon. At baseline patient is alert and oriented to person and confused but typically awake and alert throughout the day. Patient did have history of UTI which she had been intermittently refusing antibiotics. Patient had also been given Haldol 1 mg by mouth at 1329. Patient also found to have small hematoma on forehead. Patient was found to be lethargic and minimally responsive. Altered mental status: possible metabolic encephalopathy secondary to urinary tract infection and noncompliance with medication versus reaction to medication versus trauma versus CVA Stat CT of the head Stat Twelve-lead EKG Stat CBC, BMP, troponin ABG reviewed by myself as well as Dr. Dykes: ABG reviewed and includes: PH 7.45 PCO2 34 PO2 78 O2 saturation 95 base excess -0.4 bicarbonate 23 on room air Start Rocephin 1 g every 24 hours, repeat UA Continuous telemetry monitoring Nothing by mouth at this time Dementia with psychosis and hallucinations- consult psychiatry Chronic medical conditions of Hypertension, CAD, COPD and Chronic kidney disease - stable continue home medications DVT prophylaxiswith SCDs Discussed with family Nurse, psychiatric and MedSurg RN Written by Yasmine Sanchez, acting as scribe for Dr. Dykes on 08/04/16 at 17:58. All or portions of this note were transcribed by scribe Yasmine sanchez. I , Dr. Karson Martinez personally performed the history, physical exam, and medical decision making; and confirmed the accuracy of the information in the transcribed note. Authenticated by Dr. Karson Martinez on 08/11/16 at 23:48. Physician Certification 2 Midnight Certification Type: Admission for Inpatient Services Order for Inpatient Services The services are ordered in accordance with Medicare regulations or non- Medicare payer requirements, as applicable. In the case of services not specified as inpatient-only, they are appropriately provided as inpatient services in accordance with the 2-midnight benchmark. Estimated LOS (days): 3 days is the estimated time the patient will need to remain in the hospital, assuming treatment plan goals are met and no additional complications. Post-Hospital Plan: Not yet determined Yasmine Sanchez Aug 04, 2016 18:03 Karson Suresh MD Aug 11, 2016 23:49
[2016-08-04 18:32] LABS: BLOOD GAS BASE EXCESS -0.4 mmol/L (-2-2); BLOOD GAS HCO3 23 mmol/L (22-26); BLOOD GAS METHEMOGLOBIN 0.2 % (0-2); BLOOD GAS O2 HGB SATURATION 95 % (90-100); BLOOD GAS OXYGEN CONTENT 19.6 Vol % (12.0-20.0); BLOOD GAS PCO2 34 mmHg (38-42); BLOOD GAS PO2 78 mmHG (61-120); BLOOD GAS TOTAL HGB 14.7 G/DL (12.0-16.0); CRITICAL VALUE NO; FIO2 21 %; OXYGEN DEVICE ROOM AIR; TEMP CORR TO 98.6
[2016-08-04 18:33] LABS: DRAW SITE RT BRACHIAL; NUMBER OF ARTERIAL PUNCTURES 1; STAT YES
--- NOTE | 2016-08-04 18:41 | RADRPT ---
EXAM DATE/TIME: 08/04/2016 18:25 [facility] COMPARISON: No previous studies available for comparison. INDICATIONS : Altered mental status. RADIATION DOSE: 40.96 CTDIvol (mGy) MEDICAL HISTORY : Stroke. Dementia. Hypertension. SURGICAL HISTORY : None. ENCOUNTER: Initial ACUITY: 1 day PAIN SCALE: 0/10 LOCATION: Bilateral head TECHNIQUE: Multiple contiguous axial images were obtained of the head. Using automated exposure control and adj ustment of the mA and/or kV according to patient size, radiation dose was kept as low as reasonably a chievable to obtain optimal diagnostic quality images. FINDINGS: CEREBRUM: The ventricles are normal for age. No evidence of midline shift, mass lesion, hemorrhage or acute in farction. No extra-axial fluid collections are seen. POSTERIOR FOSSA: The cerebellum and brainstem are intact. The 4th ventricle is midline. The cerebellopontine angle i s unremarkable. EXTRACRANIAL: The visualized portion of the orbits is intact. Partial opacification of the frontal sinus. SKULL: The calvaria is intact. No evidence of skull fracture. CONCLUSION: 1. No acute intracranial abnormalities. Frontal sinus disease. Albino Callaway MD on August 04, 2016 at 18:38 Board Certified Radiologist. This report was verified electronically.
[2016-08-04] MEDS: SODIUM CHLOR 0.9% 1000 ML INJ 1,000 ML IV SCH (18:46)
[2016-08-04] MEDS: cefTRIAXone INJ 1,000 MG in SODIUM CHLORIDE 0.9% INJ 100 ML IV SCH (18:46)
[2016-08-04 19:08] VITALS: BP 139/67; PULSE 77; RESP 18; TEMP 95.7; O2SAT 98
[2016-08-04 19:29] LABS: AUTOMATED NEUTROPHIL # 5.5 TH/MM3 (1.8-7.7); BASOPHIL # 0.1 TH/MM3 (0-0.2); BASOPHIL % 0.7 % (0.0-2.0); EOSINOPHIL # 0.4 TH/MM3 (0-0.4); EOSINOPHIL % 4.3 % (0.0-4.0); HEMATOCRIT 44.9 % (35.0-46.0); HEMO FLAGS DIFF FINAL; LYMPH % 21.8 % (9.0-44.0); MEAN CORPUSCULAR HEMOGLOBIN 31.4 PG (27.0-34.0); MONO % 11.9 % (0.0-8.0); NEUT % 61.3 % (16.0-70.0); PLATELET COUNT 196 TH/MM3 (150-450); RED BLOOD COUNT 4.58 MIL/MM3 (4.00-5.30); RED CELL DISTRIBUTION WIDTH 13.5 % (11.6-17.2)
--- NOTE | 2016-08-04 19:36 | RADRPT ---
EXAM DATE/TIME: 08/04/2016 18:30 [facility] COMPARISON: CHEST SINGLE AP, July 29, 2016, 20:06. INDICATIONS : Short of Breath MEDICAL HISTORY : Stroke. Dementia. Hypertension. SURGICAL HISTORY : None. ENCOUNTER: Subsequent ACUITY: 1 day PAIN SCORE: Non-responsive. LOCATION: Bilateral chest FINDINGS: A single view of the chest demonstrates the lungs to be symmetrically aerated without evidence of mas s, infiltrate or effusion. The cardiomediastinal contours are unremarkable. Osseous structures are intact. CONCLUSION: 1. No focal consolidation or effusion. Mildly tortuous aorta. Albino Callaway MD on August 04, 2016 at 19:33 Board Certified Radiologist. This report was verified electronically.
[2016-08-04 19:55] LABS: ALKALINE PHOSPHATASE 160 U/L (45-117); ALT (GPT) 22 U/L (10-53); ANION GAP 8 MEQ/L (5-15); AST (GOT) 27 U/L (15-37); BICARBONATE 22.9 MEQ/L (21.0-32.0); BLOOD UREA NITROGEN 17 MG/DL (7-18); CHLORIDE 107 MEQ/L (98-107); GLOMERULAR FILTRATION RATE 83 ML/MIN (>89); POTASSIUM 4.6 MEQ/L (3.5-5.1); SODIUM (NA) 138 MEQ/L (136-145); TOTAL BILIRUBIN ADULT 0.6 MG/DL (0.2-1.0)
[2016-08-04] MEDS: DOCUSATE SODIUM 100 MG CAP PO SCH (20:34)
[2016-08-04] MEDS: SODIUM CHLORIDE 0.9% FLUSH 10 ML FLUSH IV FLUSH SCH (20:35)
[2016-08-04 21:00] VITALS: PULSE 88
[2016-08-05] VITALS (9 sets, daily range): BP systolic 132–163; BP diastolic 67–87; PULSE 87–99; RESP 16–20; TEMP 96.1–98; O2SAT 95–99
[2016-08-05] MEDS ORDERED: HALOPERIDOL LACTATE 5 MG/ML AMP IM PRN (00:30)
[2016-08-05] MEDS: LEVOTHYROXINE SODIUM 150 MCG TAB PO SCH (06:23)
[2016-08-05] MEDS: SODIUM CHLOR 0.9% 1000 ML INJ 1,000 ML IV SCH ×2 (07:20→20:40)
[2016-08-05 08:17] LABS: AUTOMATED NEUTROPHIL # 7.4 TH/MM3 (1.8-7.7); BASOPHIL # 0.1 TH/MM3 (0-0.2); BASOPHIL % 0.8 % (0.0-2.0); EOSINOPHIL # 0.3 TH/MM3 (0-0.4); HEMATOCRIT 40.1 % (35.0-46.0); HEMO FLAGS DIFF FINAL; LYMPH % 14.9 % (9.0-44.0); LYMPHOCYTE # 1.5 TH/MM3 (1.0-4.8); MEAN CELL VOLUME 93.7 FL (80.0-100.0); MEAN CORPUSCULAR HEMOGLOBIN 31.2 PG (27.0-34.0); MEAN CORPUSCULAR HGB CONC 33.3 % (32.0-36.0); MONO % 7.5 % (0.0-8.0); NEUT % 73.8 % (16.0-70.0); PLATELET COUNT 216 TH/MM3 (150-450); RED BLOOD COUNT 4.28 MIL/MM3 (4.00-5.30); RED CELL DISTRIBUTION WIDTH 12.6 % (11.6-17.2)
[2016-08-05 08:45] LABS: ANION GAP 9 MEQ/L (5-15); BICARBONATE 22.4 MEQ/L (21.0-32.0); BLOOD UREA NITROGEN 15 MG/DL (7-18); CHLORIDE 110 MEQ/L (98-107); GLOMERULAR FILTRATION RATE 90 ML/MIN (>89); POTASSIUM 4.3 MEQ/L (3.5-5.1); SODIUM (NA) 141 MEQ/L (136-145)
[2016-08-05] MEDS: SODIUM CHLORIDE 0.9% FLUSH 10 ML FLUSH IV FLUSH SCH ×2 (09:00→21:00)
[2016-08-05] MEDS: DOCUSATE SODIUM 100 MG CAP PO SCH ×2 (09:38→21:46)
[2016-08-05] MEDS: PANTOPRAZOLE SOD 40 MG DELAYED RELEASE TAB PO SCH (09:38)
[2016-08-05] MEDS ORDERED: HALOPERIDOL LACTATE 5 MG/ML AMP IV PRN (11:15)
--- NOTE | 2016-08-05 11:38 | HHI.PYPN ---
Subjective Remarks Patient was seen today for psychiatric evaluation, she was found agitated, restless, screaming in the bed, trying actually to jump over the bed, stating that she is seeing fire in the building is on fire, patient keep asking me to take it out of the building. Patient is not redirectable verbally, in spite of reassurance she perseverates. She seems to be very anxious, distressed and scared. As per nurse in charge, patient has been agitated on and off, disorganized, requesting to have a personal with her all the time because she is afraid that the building is going to explode. I recommended to give 1 mg of Haldol IV stat to calm the patient down. Review of Systems ROS Limitations: Uncooperative Objective Alert: Yes [place]: Person Mood: Angry, Other Affect: Other (euphoric) Memory Intact: Comment (unable to be assessed ) Hallucinations: Visual Delusions: No Delusion Type: Paranoid Suicidal: Ideation (unable to be assessed) Homicidal: Ideation (unable to be assessed) Insight/Judgement poor Labs Test 08/04/16 08/04/16 08/05/16 08/05/16 16:45 18:56 00:17 08:06 Blood Gas Puncture Site RT BRACHIAL Blood Gas Patient Temperature 98.6 Blood Gas HCO3 23 mmol/L Blood Gas Base Excess -0.4 mmol/L Blood Gas Oxygen Saturation 95 % Arterial Blood pH 7.45 Arterial Blood Partial 34 mmHg Pressure CO2 Arterial Blood Partial 78 mmHG Pressure O2 Arterial Blood Oxygen Content 19.6 Vol % Arterial Blood 1.0 % Carboxyhemoglobin Arterial Blood Methemoglobin 0.2 % Blood Gas Hemoglobin 14.7 G/DL Oxygen Delivery Device ROOM AIR Blood Gas Inspired Oxygen 21 % White Blood Count 9.0 TH/MM3 10.0 TH/MM3 Red Blood Count 4.58 MIL/MM3 4.28 MIL/MM3 Hemoglobin 14.4 GM/DL 13.3 GM/DL Hematocrit 44.9 % 40.1 % Mean Corpuscular Volume 98.0 FL 93.7 FL Mean Corpuscular Hemoglobin 31.4 PG 31.2 PG Mean Corpuscular Hemoglobin 32.0 % 33.3 % Concent Red Cell Distribution Width 13.5 % 12.6 % Platelet Count 196 TH/MM3 216 TH/MM3 Mean Platelet Volume 7.0 FL 6.9 FL Neutrophils (%) (Auto) 61.3 % 73.8 % Lymphocytes (%) (Auto) 21.8 % 14.9 % Monocytes (%) (Auto) 11.9 % 7.5 % Eosinophils (%) (Auto) 4.3 % 3.0 % Basophils (%) (Auto) 0.7 % 0.8 % Neutrophils # (Auto) 5.5 TH/MM3 7.4 TH/MM3 Lymphocytes # (Auto) 2.0 TH/MM3 1.5 TH/MM3 Monocytes # (Auto) 1.1 TH/MM3 0.7 TH/MM3 Eosinophils # (Auto) 0.4 TH/MM3 0.3 TH/MM3 Basophils # (Auto) 0.1 TH/MM3 0.1 TH/MM3 CBC Comment DIFF FINAL DIFF FINAL Differential Comment Sodium Level 138 MEQ/L 141 MEQ/L Potassium Level 4.6 MEQ/L 4.3 MEQ/L Chloride Level 107 MEQ/L 110 MEQ/L Carbon Dioxide Level 22.9 MEQ/L 22.4 MEQ/L Anion Gap 8 MEQ/L 9 MEQ/L Blood Urea Nitrogen 17 MG/DL 15 MG/DL Creatinine 0.68 MG/DL 0.64 MG/DL Estimat Glomerular Filtration 83 ML/MIN 90 ML/MIN Rate Random Glucose 82 MG/DL 105 MG/DL Calcium Level 9.7 MG/DL 9.5 MG/DL Total Bilirubin 0.6 MG/DL Aspartate Amino Transf 27 U/L (AST/SGOT) Alanine Aminotransferase 22 U/L (ALT/SGPT) Alkaline Phosphatase 160 U/L Troponin I LESS THAN 0.02 LESS THAN 0.02 LESS THAN 0.02 NG/ML NG/ML NG/ML Total Protein 7.7 GM/DL Albumin 3.5 GM/DL Vitals/IOs Vital Signs Date Time Temp Pulse Resp B/P Pulse Ox O2 Delivery O2 Flow Rate FiO2 08/05/16 09:30 96.2 99 20 136/87 96 08/05/16 08:33 21 Assessment & Plan Problem List: (1) Delirium due to another medical condition Assessment & Plan: Patient is acutely delirious, unable to participate in the psychiatric reevaluation due to the level of agitation, disorientation and disorganization. Order Haldol 1 mg IV stat to calm the patient down. Start Seroquel 25 mg twice a day for psychosis and behavior control. Patient will need to continue her psychiatric hospitalization after medically stable, could be transferred to the med psych floor o or regular psychiatry, if fully medically clear. ICD Code: F05 Assessment & Plan Estimated LOS: days Justification for Cont. Inpt. Patient is to continue psychiatric hospitalization for stabilization, she might benefit of being transferred to the med/psych to continue medical treatment and also for behavioral control. Maximo Lombardi MD Aug 05, 2016 11:38
[2016-08-05] MEDS: cefTRIAXone INJ 1,000 MG in SODIUM CHLORIDE 0.9% INJ 100 ML IV SCH (16:34)
--- NOTE | 2016-08-05 17:04 | HHI.PR ---
Objective Vitals Vital Signs Date Time Temp Pulse Resp B/P Pulse Ox O2 Delivery O2 Flow Rate FiO2 08/05/16 16:11 96.7 97 18 150/77 98 08/05/16 12:35 97.7 91 18 154/83 97 08/05/16 09:30 96.2 99 20 136/87 96 08/05/16 08:33 95 21 08/05/16 08:00 90 08/05/16 05:27 97.3 90 16 132/78 98 08/05/16 00:00 98.0 87 18 138/67 99 08/04/16 21:00 88 08/04/16 19:08 95.7 77 18 139/67 98 Result Diagram: 08/05/16 0806 08/05/16 0806 Karson Suresh MD Aug 05, 2016 17:04
--- NOTE | 2016-08-05 17:31 | HHI.PR ---
Subjective Remarks Patient is awake - as per RN combative and getting agitated vital signs stable afebrile Objective Vitals Vital Signs Date Time Temp Pulse Resp B/P Pulse Ox O2 Delivery O2 Flow Rate FiO2 08/05/16 16:11 96.7 97 18 150/77 98 08/05/16 12:35 97.7 91 18 154/83 97 08/05/16 09:30 96.2 99 20 136/87 96 08/05/16 08:33 95 21 08/05/16 08:00 90 08/05/16 05:27 97.3 90 16 132/78 98 08/05/16 00:00 98.0 87 18 138/67 99 08/04/16 21:00 88 08/04/16 19:08 95.7 77 18 139/67 98 Result Diagram: 08/05/16 0806 08/05/16 0806 Imaging Last Impressions Head CT 08/04/16 0000 Signed Impressions: Service Date/Time: Thursday, August 04, 2016 18:25 - CONCLUSION: 1. No acute intracranial abnormalities. Frontal sinus disease. Albino Callaway MD Chest X-Ray 08/04/16 0000 Signed Impressions: Service Date/Time: Thursday, August 04, 2016 18:30 - CONCLUSION: 1. No focal consolidation or effusion. Mildly tortuous aorta. Albino Callaway MD Objective Remarks GENERAL: This is a frail elderly 89-year-old female in [facility] SKIN: Scattered ecchymotic areas bilateral upper extremities, small hematoma noted hematoma noted on forehead HEAD: small hematoma noted hematoma noted on forehead EYES: Pupils are equally dilated and reactive Extraocular motions intact. No scleral icterus. No injection or drainage. CARDIOVASCULAR: Regular rate and rhythm without murmurs, gallops, or rubs. RESPIRATORY: Clear to auscultation. Breath sounds equal bilaterally. No wheezes , rales, or rhonchi. GASTROINTESTINAL: Abdomen soft, non-tender, nondistended. No guarding. MUSCULOSKELETAL: Extremities without clubbing, cyanosis, or edema. No joint tenderness, effusion, or edema noted. No calf tenderness. Negative Homans sign bilaterally. NEUROLOGICAL:Awake and alert. No focal deficits identified- withdraws all 4 extremities equally to pain. 3 out of 5 muscle strength in all muscle groups. Medications and IVs Current Medications Medications (Trade) Dose Ordered Sig/Jaydon Route Start Time Stop Time Status Last Admin (NS 1000 ml Inj) 1,000 ml @ 75 mls/hr [id number] IV 08/04/16 18:00 08/05/16 07:20 (NS Flush) 2 ml UNSCH PRN IV FLUSH 08/04/16 17:45 (NS Flush) 2 ml BID IV FLUSH 08/04/16 21:00 08/05/16 09:00 (Tylenol) 650 mg Q4H PRN PO 08/04/16 17:45 (Zofran Inj) 4 mg Q6H PRN IVP 08/04/16 17:45 Naloxone HCl 0.4 mg 0.4 mg UNSCH PRN IV 08/04/16 17:45 (Rocephin Inj/NS Inj) 100 ml @ 200 mls/hr Q24H IV 08/04/16 18:00 08/05/16 16:34 (Colace) 100 mg BID PO 08/04/16 21:00 08/05/16 09:38 (Synthroid) 150 mcg DAILY@06 PO 08/05/16 06:00 08/05/16 06:23 (Protonix) 40 mg DAILY PO 08/05/16 09:00 08/05/16 09:38 (Haldol Inj) 1 mg Q12H PRN IV 08/05/16 11:15 (SEROquel) 25 mg BID PO 08/05/16 21:00 Urinary Catheter: No Vascular Central Line Catheter: No A/P Assessment and Plan This is a 81 year old female patient with past medical history which includes hypertension, anemia, metabolic encephalopathy history, CAD, COPD, chronic kidney disease, dysphagia, odontophobia and small bowel obstruction. Patient was transferred from inpatient psychiatric center due to change in status, altered mental status. The patient was reportedly in her regular state of health until approximately 4 PM this afternoon. At baseline patient is alert and oriented to person and confused but typically awake and alert throughout the day. Patient did have history of UTI which she had been intermittently refusing antibiotics. Patient had also been given Haldol 1 mg by mouth at 1329. Patient also found to have small hematoma on forehead. Patient was found to be lethargic and minimally responsive. Acute encephalopathy: Toxic to the hospital versus metabolic due to UTI. Suspect more to be toxic. Head CT did not show any intracranial abnormalities. Twelve-lead EKG shows sinus rhythm and 67 bpm, no ST-T changes. Reviewed by me. Troponin negative 3. ABG reviewed by myself : PH 7.45 PCO2 34 PO2 78 O2 saturation 95 base excess - 0.4 bicarbonate 23 on room air. Continue Rocephin 1 g every 24 hours. Repeat urinalysis pending. No evidence on telemetry. Continue to monitor telemetry. Dementia with psychosis and hallucinations- Appreciate psychiatry recommendations. Patient was started on Seroquel 25 mg by mouth twice a day. Patient will need to be transferred to the med psych floor or regular psychiatry if fully medically clear. Chronic medical conditions of Hypertension, CAD, COPD and Chronic kidney disease - stable continue home medications DVT prophylaxiswith SCDs Discharge Planning Continue to monitor and the medical floor. Possible discharge to psychiatry in a.[place]. Karson Suresh MD Aug 05, 2016 17:31
--- NOTE | 2016-08-05 18:13 | EKG ---
Date Performed: 08/04/2016 Time Performed: 18:02:06 PTAGE: 81 years EKG: Sinus rhythm BORDERLINE LEFT AXIS DEVIATION LOW QRS VOLTAGE IN PRECORDIAL LEADS Septal myocardial infarction-age undetermined. Since previous tracing, no significant change noted BORDERLINE ECG PREVIOUS TRACING : 07/30/2016 13.20 DOCTOR: Ascencion Sánchez Interpretating Date/Time 08/05/2016 18:11:36
[2016-08-05 18:24] LABS: BLOOD, URINE NEG (NEG); GLUCOSE,URINE NEG (NEG); KETONE, URINE NEG (NEG); MUCUS URINE FEW /lpf (OCC); NITRITE,URINE NEG (NEG); URINE COLOR YELLOW (YELLW/STRAW)
[2016-08-05 18:25] LABS: COMMENT (UR) CATH-CULT NOT IND; CULTURE IF INDICATED CATH CULTURE NOT IND
[2016-08-05] MEDS: QUEtiapine FUMARATE 25 MG TAB PO SCH (21:46)
[2016-08-06 00:33] VITALS: BP 134/76; PULSE 92; RESP 18; TEMP 95.7; O2SAT 100
[2016-08-06 05:06] VITALS: BP 134/72; PULSE 88; RESP 18; TEMP 97.3; O2SAT 96
[2016-08-06] MEDS: SODIUM CHLOR 0.9% 1000 ML INJ 1,000 ML IV SCH (05:53)
[2016-08-06] MEDS: LEVOTHYROXINE SODIUM 150 MCG TAB PO SCH (05:53)
[2016-08-06 08:00] VITALS: PULSE 80
[2016-08-06 08:12] VITALS: BP 144/71; PULSE 80; RESP 18; TEMP 96.6; O2SAT 98
[2016-08-06] MEDS: DOCUSATE SODIUM 100 MG CAP PO SCH (08:46)
[2016-08-06] MEDS: SODIUM CHLORIDE 0.9% FLUSH 10 ML FLUSH IV FLUSH SCH (08:46)
[2016-08-06] MEDS: PANTOPRAZOLE SOD 40 MG DELAYED RELEASE TAB PO SCH (08:46)
[2016-08-06] MEDS: QUEtiapine FUMARATE 25 MG TAB PO SCH (08:46)
[2016-08-06 12:00] VITALS: BP 129/66; PULSE 98; RESP 18; TEMP 97.6; O2SAT 100
--- NOTE | 2016-08-06 12:02 | HHI.PYPN ---
Subjective Remarks Patient was seen for psychiatric reevaluation today, she was found in the nurse station seating and chatting with the nurse aide, she was calm, superficially cooperative, pleasantly confused and disoriented, she says that she feels fine, she doesn't have any pain, she denies depressive symptoms, she denies anxiety, she denies perceptual disturbances, she denies suicidal or homicidal ideation, she denies visual and auditory hallucinations. Patient is just oriented in person. As per nurses patient has been episodically combative, agitated and aggressive, but last night a little less severe than previous nights. Review of Systems Constitutional: DENIES: Diaphoretic episodes, Fatigue, Fever, Weight gain, Weight loss, Chills, Dizziness, Change in appetite, Night Sweats Endocrine: DENIES: Abnorml menstrual pattern, Heat/cold intolerance, Polydipsia , Polyuria, Polyphagia Eyes: DENIES: Blurred vision, Diplopia, Eye inflammation, Eye pain, Vision loss , Photosensitivity, Double Vision Ears, nose, mouth, throat: DENIES: Tinnitus, Hearing loss, Vertigo, Nasal discharge, Oral lesions, Throat pain, Hoarseness, Ear Pain, Running Nose, Epistaxis, Sinus Pain, Toothache, Odynophagia Respiratory: DENIES: Apneas, Cough, Snoring, Wheezing, Hemoptysis, Sputum production, Shortness of breath Cardiovascular: DENIES: Chest pain, Palpitations, Syncope, Dyspnea on Exertion , PND, Lower Extremity Edema, Orthopnea, Claudication Gastrointestinal: DENIES: Abdominal pain, Black stools, Bloody stools, Constipation, Diarrhea, Nausea, Vomiting, Difficulty Swallowing, Anorexia Musculoskeletal: DENIES: Joint pain, Muscle aches, Stiffness, Joint Swelling, Back pain, Neck pain Integumentary: DENIES: Abnormal pigmentation, Pruritus, Rash, Nail changes, Breast masses, Breast skin changes, Nipple discharge Hematologic/lymphatic: DENIES: Bruising, Lymphadenopathy Immunologic/allergic: DENIES: Eczema, Urticaria Neurologic: DENIES: Abnormal gait, Headache, Localized weakness, Paresthesias, Seizures, Speech Problems, Tremor, Poor Balance Psychiatric: COMPLAINS OF: Agitation, DENIES: Anxiety, Confusion, Mood changes , Depression, Hallucinations, Suicidal Ideation, Homicidal Ideation, Delusions Objective Alert: Yes [place]: Person Mood: Angry, Other Affect: Other (euphoric) Memory Intact: Comment (unable to be assessed ) Hallucinations: Visual Delusions: No Delusion Type: Paranoid Suicidal: Ideation (unable to be assessed) Homicidal: Ideation (unable to be assessed) Insight/Judgement poor Labs Test 08/05/16 18:00 Urine Color YELLOW Urine Turbidity CLEAR Urine pH 6.0 Urine Specific [place] 1.017 Urine Protein NEG mg/dL Urine Glucose (UA) NEG mg/dL Urine Ketones NEG mg/dL Urine Occult Blood NEG Urine Nitrite NEG Urine Bilirubin NEG Urine Urobilinogen LESS THAN 2.0 MG/DL Urine Leukocyte Esterase NEG Urine RBC 1 /hpf Urine WBC 2 /hpf Urine Mucus FEW /lpf Microscopic Urinalysis Comment CATH-CULT NOT IND Vitals/IOs Vital Signs Date Time Temp Pulse Resp B/P Pulse Ox O2 Delivery O2 Flow Rate FiO2 08/06/16 08:12 96.6 80 18 144/71 98 08/05/16 08:33 21 Intake and Output 08/05/16 08/05/16 08/06/16 08:00 16:00 00:00 Intake Total 304 ml Balance 304 ml Assessment & Plan Problem List: (1) Delirium due to another medical condition Assessment & Plan: Patient continues to be agitated, combative episodically. Will continue current medications. Patient can be transfer either to regular psych or MedPsych depending of the medical need. I spoke personally with Dr. Dykes who feels that the patient would be better in the MedPsych unit. ICD Code: F05 (2) Dementia ICD Code: F03.90 Assessment & Plan Estimated LOS: days Justification for Cont. Inpt. Patient needs to continue the process of psychiatric hospitalization for stabilization Problem Qualifiers (1) Dementia: Maximo Lombardi MD Aug 06, 2016 12:02
[2016-08-06] MEDS ORDERED: QUET1TAB7 PO (12:23)
[2016-08-06] MEDS ORDERED: HALO5P IV (12:23)
--- NOTE | 2016-08-06 12:24 | HHI.DCPOC ---
Discharge Care Plan Diagnosis: (1) Dementia with behavioral disturbance (2) Delirium (3) Urinary tract infection (4) Hypothyroidism (5) Acute kidney injury (6) Toxic encephalopathy Goals to Promote Your Health * To prevent worsening of your condition and complications * To maintain your health at the optimal level Directions to Meet Your Goals Take your medications as prescribed Follow your dietary instruction Follow activity as directed Keep your appointments as scheduled Take your immunizations and boosters as scheduled If your symptoms worsen call your PCP, if no PCP go to Urgent Care Center or Emergency Room Smoking is Dangerous to Your Health. Avoid second hand smoke Call the 24-hour hour crisis hotline for domestic abuse at Karson Suresh MD Aug 06, 2016 12:24
[2016-08-06] MEDS ORDERED: AUGM250S2 PO (12:26)
--- NOTE | 2016-08-06 12:32 | HHI.DS ---
Discharge Summary Admission Date Aug 04, 2016 at 16:45 Discharge Date: Aug 06, 2016 Admitting Diagnosis Encephalopathy, Dementia, UTI (1) Dementia with behavioral disturbance ICD Code: F03.91 Diagnosis: Principal (2) Hypothyroidism ICD Code: E03.9 Diagnosis: Principal (3) Toxic encephalopathy ICD Code: G92 Diagnosis: Principal (4) Urinary tract infection ICD Code: N39.0 Diagnosis: Principal (5) Delirium ICD Code: R41.0 Diagnosis: Principal Procedures none Brief History - From Admission This is a 81 year old female patient with past medical history which includes hypertension, anemia, metabolic encephalopathy history, CAD, COPD, chronic kidney disease, dysphagia, odontophobia and small bowel obstruction. Information gathered from patient as well as prior computerized charting. Patient was transferred from inpatient psychiatric center due to change in status, altered mental status. The patient was reportedly in her regular state of health until approximately 4 PM this afternoon. At baseline patient is alert and oriented to person and confused but typically awake and alert throughout the day. Patient did have history of UTI which she had been intermittently refusing antibiotics. Patient had received Rocephin IV times 1, Levaquin by mouth 2 and Cipro times one by mouth. Patient had also been given Haldol 1 mg by mouth at 1329. Patient also found to have small hematoma on forehead. Patient was found to be lethargic and minimally responsive. Therefore probably/rapid response was called. Vital signs obtained with pressure 121/57 oxygen saturation 97% heart rate 68 respiratory rate 10, ABG reviewed and includes: PH 7.45 PCO2 34 PO2 78 O2 saturation 95 base excess -0.4 bicarbonate 23 on room air. At this time patient continues to be lethargic and with an minimally responsive does withdrawal to pain and able to verbalize the word ouch. Pupils equally dilated and reactive. No focal deficits identified. CBC/BMP: 08/05/16 0806 08/05/16 0806 Significant Findings Laboratory Tests Test 08/04/16 08/04/16 08/05/16 08/05/16 16:45 18:56 00:17 08:06 Arterial Blood pH 7.45 (7.380-7.420) Arterial Blood Partial 34 mmHg (38-42) Pressure CO2 Monocytes (%) (Auto) 11.9 % (0.0-8.0) Eosinophils (%) (Auto) 4.3 % (0.0-4.0) Monocytes # (Auto) 1.1 TH/MM3 (0-0.9) Estimat Glomerular Filtration 83 ML/MIN (>89) Rate Alkaline Phosphatase 160 U/L (45-117) Troponin I LESS THAN 0.02 LESS THAN 0.02 LESS THAN 0.02 NG/ML NG/ML NG/ML (0.02-0.05) (0.02-0.05) (0.02-0.05) Mean Platelet Volume 6.9 FL (7.0-11.0) Neutrophils (%) (Auto) 73.8 % (16.0-70.0) Chloride Level 110 MEQ/L (98-107) Test 08/05/16 18:00 Urine Mucus FEW /lpf (OCC) Imaging Last Impressions Head CT 08/04/16 0000 Signed Impressions: Service Date/Time: Thursday, August 04, 2016 18:25 - CONCLUSION: 1. No acute intracranial abnormalities. Frontal sinus disease. Albino Callaway MD Chest X-Ray 08/04/16 0000 Signed Impressions: Service Date/Time: Thursday, August 04, 2016 18:30 - CONCLUSION: 1. No focal consolidation or effusion. Mildly tortuous aorta. Albino Callaway MD PE at Discharge GENERAL: This is a frail elderly 89-year-old female in [facility] SKIN: Scattered ecchymotic areas bilateral upper extremities, small hematoma noted hematoma noted on forehead HEAD: small hematoma noted hematoma noted on forehead EYES: Pupils are equally dilated and reactive Extraocular motions intact. No scleral icterus. No injection or drainage. CARDIOVASCULAR: Regular rate and rhythm without murmurs, gallops, or rubs. RESPIRATORY: Clear to auscultation. Breath sounds equal bilaterally. No wheezes , rales, or rhonchi. GASTROINTESTINAL: Abdomen soft, non-tender, nondistended. No guarding. MUSCULOSKELETAL: Extremities without clubbing, cyanosis, or edema. No joint tenderness, effusion, or edema noted. No calf tenderness. Negative Homans sign bilaterally. NEUROLOGICAL:Awake and alert. No focal deficits identified- withdraws all 4 extremities equally to pain. 3 out of 5 muscle strength in all muscle groups. Pt update on day of discharge Patient awake. Less agitated. UA negative. Will discharge patient back to psychiatry. Patient is medically cleared to go back to psychiatry. Hospital Course Acute encephalopathy: Toxic to the hospital versus metabolic due to UTI. Suspect more to be toxic. Head CT did not show any intracranial abnormalities. Twelve-lead EKG shows sinus rhythm and 67 bpm, no ST-T changes. Reviewed by me. Troponin negative 3. ABG reviewed by myself : PH 7.45 PCO2 34 PO2 78 O2 saturation 95 base excess - 0.4 bicarbonate 23 on room air. Continue Rocephin 1 g every 24 hours. Repeat urinalysis pending. Encephalopathy most likely toxic Dementia with psychosis and hallucinations- Appreciate psychiatry recommendations. Patient was started on Seroquel 25 mg by mouth twice a day. Patient will need to be transferred to the [facility] psych floor or regular psychiatry if fully medically clear. Chronic medical conditions of Hypertension, CAD, COPD and Chronic kidney disease - stable continue home medications DVT prophylaxiswith SCDs Pt Condition on Discharge: Stable Discharge Disposition: Disc to Psych Care Fac Discharge Time: > 30 minutes Discharge Instructions DIET: Follow Instructions for: As Tolerated, No Restrictions Speech Therapy-Diet Recommends: Soft, [place] Thickened Liquids Activities you can perform: Regular-No Restrictions New Medications: Amoxicillin-Clavulanate Liq (Augmentin Liq) 250-62.5 Mg/5 Ml Susp 500 MG PO BID 500 mg (10 mL). Substitute the 250-62.5 mg/5 ml susp. for the 500 mg tab for adults having difficulty swallowing. Infection #200 Ref 0 ML Haloperidol Inj (Haldol Inj) 5 Mg/Ml Inj 1 MG IV Q12H PRN SEVERE AGITATION #2 INJECTION Quetiapine (Quetiapine) 25 Mg Tab 25 MG PO BID Agitation #62 TAB Continued Medications: Docusate Sodium (Colace) 100 Mg Cap 100 MG PO BID Constipation #[address] (Cymbalta DR) 60 Mg Capdr 60 MG PO DAILY #30 Ref 0 CAP Gabapentin (Gabapentin) 100 Mg Cap 200 MG PO TID #90 Ref 0 CAP Levothyroxine (Synthroid) 150 Mcg Tab 150 MCG PO DAILY Thyroid #30 Ref 0 TAB Ranitidine (Zantac) 150 Mg Tab 150 MG PO BID Reduce Stomach Acid #60 Ref 0 TAB Discontinued Medications: Alprazolam (Xanax) 1 Mg Tab 1 MG PO BID PRN ANXIETY Ref 0 TAB Cephalexin (Keflex) 500 Mg Cap 500 MG PO Q8H Infection #30 Ref 0 CAP Hydrocodone-Acetaminophen ([place]) 5-325 mg Tab 1 TAB PO Q8HR PRN PAIN Ref 0 TAB Pantoprazole (Pantoprazole) 40 Mg Tab 40 MG PO DAILY Reflux #30 Ref 0 TAB Sodium Bicarbonate (Sodium Bicarbonate) 650 Mg Tab 650 MG PO BIDPC #60 Ref 0 TAB Karson Suresh MD Aug 06, 2016 12:32
== END 2016-08-06 18:45 | DRG 92 ==
LOC: N05B 16:45
PROVIDERS: ADMIT Hospitalist; ATTEND Hospitalist
DX: G92 Toxic encephalopathy (principal); F05 Delirium due to known physiological condition; N39.0 Urinary tract infection, site not specified; F03.91 Unspecified dementia, unspecified severity, with behavioral disturbance; J44.9 Chronic obstructive pulmonary disease, unspecified; I12.9 Hypertensive chronic kidney disease with stage 1 through stage 4 chronic kidney disease, or unspecified chronic kidney disease; N18.9 Chronic kidney disease, unspecified; I25.10 Atherosclerotic heart disease of native coronary artery without angina pectoris; S00.83XA Contusion of other part of head, initial encounter; E03.9 Hypothyroidism, unspecified; R13.10 Dysphagia, unspecified; Z91.14 Patient's other noncompliance with medication regimen
CPT/HCPCS: 36600; 70450; 71010; 80048; 80053; 81001; 82805; 84484; 85025; 93005; J0696; J1630; J7030

== ENCOUNTER 2016-08-06 15:00 | Inpatient (IN) | payer MEDICARE, OTHER ==
[~2016-08-06 15:00] MED LIST changes: +AUGM250S2 PO; +HALO5P IV; +QUET1TAB7 PO
[2016-08-06 20:08] VITALS: BP 146/72; PULSE 92; RESP 17; TEMP 99.4; O2SAT 99
[2016-08-06] MEDS ORDERED: HALOPERIDOL LACTATE 5 MG/ML AMP IM PRN (22:00)
[2016-08-06] MEDS ORDERED: MAGNESIUM HYDROXIDE SUSP 30 ML CUP PO PRN (22:00)
[2016-08-06] MEDS ORDERED: ALUMINUM/MAGNESIUM/SIMETH 30 ML CUP PO PRN (22:00)
[2016-08-07 05:20] VITALS: BP 126/69; PULSE 86; RESP 17; TEMP 97; O2SAT 97
[2016-08-07 08:10] LABS: ANION GAP 8 MEQ/L (5-15); BLOOD UREA NITROGEN 11 MG/DL (7-18); CHLORIDE 112 MEQ/L (98-107); GLOMERULAR FILTRATION RATE 90 ML/MIN (>89); POTASSIUM 3.7 MEQ/L (3.5-5.1); SODIUM (NA) 142 MEQ/L (136-145)
[2016-08-07 08:19] LABS: FREE T4 1.43 NG/DL (0.76-1.46); HDL CHOLESTEROL 47.3 MG/DL (40.0-60.0); LDL CHOLESTEROL 13 MG/DL (0-99)
--- NOTE | 2016-08-07 10:40 | HHI.HP ---
Provisional Diagnosis Admission Date Aug 06, 2016 at 15:00 [place] I. 1. Dementia, likely of the Alzheimer's type with behavioral disturbance [place] II. Deferred Certification of Person's Competence To Provide Express and Informed Consent I have personally examined Brandy Carter , a person being served at [facility] on, Aug 07, 2016 10:40. Express and informed consent means consent voluntarily given in writing, by a competent person, after sufficient explanation and disclosure of the subject matter involved to enable the person to make a knowing and willful decision without any element of force, fraud, deceit, duress, or other form of constraint or coercion. This person is 18 years of age or older, is not now known to be incompetent to consent to treatment with a guardian advocate, and does not have a health care surrogate or proxy currently making medical treatment decisions. I have found this person to be one of the following: [] Competent to provide express and informed consent, as defined above, for voluntary admission to this facility and is competent to provide express and informed consent for treatment. He/she has the consistent capacity to make well reasoned, willful, and knowing decisions concerning his or her medical or mental health treatment. The person fully and consistently understands the purpose of the admission for examination/placement and is fully capable of personally exercising all rights assured [place] [x] Incompetent to provide express and informed consent to voluntary admission, and this is incompetent to provide express and informed consent to treatment. The person must be transferred to involuntary status and a petition for a guardian advocate filed with the Circuit Court. [] Refusing to provide express and informed consent to voluntary admission but is competent to provide express and informed consent for treatment. The person must be discharged or transferred to involuntary status. Form shall be completed within 24 hours of a person's arrival at the receiving facility and filed in the clinical record of each person: 1. Admitted on a voluntary basis 2. Permitted to provide express and informed consent to his/her own treatment 3. Allowed to transfer from involuntary to voluntary status 4. Prior to permitting a person to consent to his or her own treatment after having been previously found incompetent to consent to treatment. History of Present Illness Capacity: Lacks Capacity HPI Ms. Carter is a 81-year-old female with a history of dementia transferred back to the inpatient psychiatric unit following medical clearance. She is presently on involuntary status with a healthcare surrogate/guardian advocate and will go to [place] [facility] tomorrow, 08/08. Patient was admitted to the psychiatric unit on 07/30 for agitation at her nursing facility, and her hospital course was fairly uneventful until 08/04 when the patient was noted to be somewhat more lethargic. A [facility] was called and the patient was taken to the medical floor for further evaluation. Patient was seen in consultation by Dr. Lombardi on the medical floor, and he started patient on Seroquel. I have reviewed the electronic medical record including the records from patient's medical hospital stay. Patient seen and examined. Chart reviewed. Case discussed with nursing staff. On my examination today, patient is dozing in the day area. She awakens easily to voice. She remains quite confused and mental status testing is limited because of her baseline poor mental state, but I suspect her memory remains markedly impaired. She is not able to follow simple commands. She resists efforts to reposition her arms, e.g. for examination of motor tone. She says no more than a few words, and these are largely non-sensical. Psychiatric interview remains limited because of her mental state, and I am unable to obtain any past psychiatric, family, chem dep or social history from this patient for this reason. Review of Systems ROS Limitations: Poor Historian Other Patient does not verbalize any physical complaints. Past Psych History Violence risk - others (6 mos) Unpredictable secondary to dementia, but she is presently calm. Violence risk - self (6 mos) Lower risk. Substance Abuse History Drugs/Alcohol past 12 months Unable to obtain from patient. Past Family Social History Coded Allergies: No Known Allergies (Verified , 07/29/16) Past Medical History See EMR Active Scripts Amoxicillin-Clavulanate Liq (Augmentin Liq)250-62.5 Mg/5 Ml [id number] Mg PO BID # 200 ML Ref 0 500 mg (10 mL). Substitute the 250-62.5 mg/5 ml susp. for the 500 mg tab for adults having difficulty swallowing. Prov:Karson Suresh MD 08/06/16 Haloperidol Inj (Haldol Inj)5 Mg/Ml Inj1 Mg IV Q12H PRN (SEVERE AGITATION) #2 INJECTION Prov:Karson Suresh MD 08/06/16 Quetiapine 25 Mg Tab25 Mg PO BID #62 TAB Prov:Karson Suresh MD 08/06/16 Reported Medications Docusate Sodium (Colace)100 Mg [id number] Mg PO BID #60 CAP Ref 0 07/30/16 Levothyroxine (Synthroid)150 Mcg Qjs272 Mcg PO DAILY #30 TAB Ref 0 07/30/16 Gabapentin 100 Mg Xmq290 Mg PO TID #90 CAP Ref 0 07/30/16 Ranitidine (Zantac)150 Mg Tmw007 Mg PO BID #60 TAB Ref 0 07/30/[address] (Cymbalta DR)60 Mg Capdr60 Mg PO DAILY #30 CAP Ref 0 07/30/16 Discontinued Reported Medications Hydrocodone-Acetaminophen ([place])5-325 mg Tab1 Tab PO Q8HR PRN (PAIN) Ref 0 07/30/16 Alprazolam (Xanax)1 Mg Tab1 Mg PO BID PRN (ANXIETY) Ref 0 07/30/16 Sodium Bicarbonate 650 Mg Jcc370 Mg PO BIDPC #60 TAB Ref 0 07/30/16 Pantoprazole 40 Mg Tab40 Mg PO DAILY #30 TAB Ref 0 07/30/16 Discontinued Scripts Cephalexin (Keflex)500 Mg Bmk329 Mg PO Q8H #30 CAP Ref 0 Prov:Yue Livingston MD 07/29/16 Current Medications Medications (Trade) Dose Ordered Sig/[place] Route Start Time Stop Time Status Last Admin (SEROquel) 50 mg HS PO 08/07/16 21:00 (Haldol Inj) 2 mg Q8H PRN IM 08/06/16 22:00 (Tylenol) 650 mg Q4H PRN PO 08/06/16 22:00 (Milk Of Magnesia Liq) 30 ml DAILY PRN PO 08/06/16 22:00 (Mag-Al Plus Susp Liq) 30 ml Q6H PRN PO 08/06/16 22:00 Family History Unable to obtain from patient. Social History Unable to obtain from patient. Patient's Strengths (min. 2) In a monitored setting. Not lethargic. Physical Exam PE completed by hospitalist prior to transfer back to inpatient psychiatry. On my exam, patient is sitting in eneida-chair in no acute distress. No abnormal motor movements noted. Labs and vital signs reviewed: Vital Signs Vital Signs Date Time Temp Pulse Resp B/P Pulse Ox O2 Delivery O2 Flow Rate FiO2 08/07/16 05:20 97.0 86 17 126/69 97 Lab Results Item Value Date Time White Blood Count 10.0 TH/MM3 08/05/16 0806 Hemoglobin 13.3 GM/DL 08/05/16 0806 Platelet Count 216 TH/MM3 08/05/16 0806 Sodium Level 142 MEQ/L 08/07/16 0620 Potassium Level 3.7 MEQ/L 08/07/16 0620 Chloride Level 112 MEQ/L H 08/07/16 0620 Carbon Dioxide Level 22.0 MEQ/L 08/07/16 0620 Blood Urea Nitrogen 11 MG/DL 08/07/16 0620 Creatinine 0.64 MG/DL 08/07/16 0620 Estimat Glomerular Filtration Rate 90 ML/MIN 08/07/16 0620 Hemoglobin A1c 4.8 % 07/31/16 0635 Aspartate Amino Transf (AST/SGOT) 27 U/L 08/04/16 1856 Alanine Aminotransferase (ALT/SGPT) 22 U/L 08/04/16 1856 Alkaline Phosphatase 160 U/L H 08/04/16 1856 Troponin I LESS THAN 0.02 NG/ML L 08/05/16 0806 Free Thyroxine 1.43 NG/DL 08/07/16 0620 Thyroid Stimulating Hormone 3rd Gen 1.100 uIU/ML 08/07/16 0620 Chest XR and Head CT obtained on medical floor were both negative for acute process. Mental Status Examination Patient is in hospital gown. She is somewhat disheveled and maintaining basic hygiene only with assistance of staff. No motor abnormalities noted. Language and fund of knowledge are reduced for age. Memory likely remains significantly impaired by formal mental status testing is limited by patient's degree of cognitive impairment. Minimal spontaneous speech, most of which is nonsensical. Difficult therefore to assess mood or thought content; the patient does not spontaneously verbalize any SI, HI or AVH or delusional material. Affect is blunted. Thought process disorganized consistent with dementia diagnosis. Insight and judgment are poor. Assessment & Plan Problem List: (1) Dementia ICD Code: F03.90 Assessment & Plan This is a 81-year-old female readmitted to the inpatient psychiatric unit after having been taken to the medical floor for evaluation of altered mental status. Patient appears to be back to her baseline mental status on my examination today him although she remains quite cognitively impaired. She is presently calm and pleasant and was started on some Seroquel by the psychiatric [facility] w[facility] consultant on the medical floor. I will plan to admit the patient to the psychiatric unit for further observation for her dementia with behavioral disturbance, and it is my hope to place her in relatively short order. Admit inpatient. Involuntary status. Petition and request for healthcare surrogate and guardian advocate have already been completed. Consult of the hospitalist to continue to follow for the medical floor. Consult PT and falls precautions. I have adjusted patient's diet to soft with nectar liquids as recommended on discharge from medical floor. Continue Seroquel 25 mg twice daily with Haldol as needed for agitation. Continue Cymbalta for now. Continue Synthroid, gabapentin and Augmentin pending adjustments by the hospitalist. I will once again switch her ranitidine to a PPI as H2 receptor antagonists can worsen mental status. Vitals every shift. Counselor to see. Disposition planning. Estimated length of stay: 5-7 days Discharge Planning Placement, either at originating facility or new facility. I have left a VM for counselor to discuss dispo planning options. Request HC Surrog/Guard Advoc?: Yes Problem Qualifiers (1) Dementia: Qualified Code: G30.8 - Alzheimer's dementia with behavioral disturbance, unspecified timing of dementia onset Kolton Finney MD Aug 07, 2016 10:40
[2016-08-07] MEDS ORDERED: HALOPERIDOL LACTATE 5 MG/ML AMP IV PRN (11:30)
[2016-08-07] MEDS ORDERED: GABAPENTIN 100 MG CAP PO SCH (13:00)
[2016-08-07 15:59] LABS: HEMOGLOBIN A1a 0.7 %; HEMOGLOBIN A1b 1.6 %; HEMOGLOBIN Ao 87.5 %; HEMOGLOBIN LA1C 1.7 %; HEMOGLOBIN P3 3.4 %
--- NOTE | 2016-08-07 16:11 | PD.CONS ---
HPI Service [facility] Consult Requested By Psychiatry team Reason for Consult Medical management Primary Care Physician Unknown Diagnoses: History of Present Illness Patient is a 81 year old female with past medical history of hypertension, anemia, metabolic encephalopathy, CAD, COPD, CK D, dysphasia, dementia, small bowel obstruction. As per review of records, patient was transferred from inpatient psychiatric unit due to change in mental status. She was found to be lethargic and minimally responsive. Patient with a history of urinary tract infection and was treated intermittently secondary to refusal of antibiotic use. She was admitted in the medical floor with acute encephalopathy and urinary tract infection. Diagnostic studies including CT of the head was done with negative results. Patient was treated with IV antibiotic for urinary tract infection. Her medical condition has improved. However, patient continues to have poor by mouth intake secondary to dementia. She is now in inpatient psychiatry unit for further management. Consulted for medical management. Patient seen today. She is sitting in a Hannah chair. Eyes were closed. Able to open her eyes with tactile stimulation. Unable to follow commands or response to questions. Appears to be lethargic. As per nursing, patient was given her Neurontin medication. Review of Systems ROS Limitations: Clinical Condition, Altered Mental Status Past Family Social History Allergies: Coded Allergies: No Known Allergies (Verified , 07/29/16) Past Medical History Per review of records hypertension, anemia, metabolic encephalopathy history, CAD, COPD, chronic kidney disease, dysphagia, odontophobia and small bowel obstruction Past Surgical History Per review of records EGDs and colonoscopies Reported Medications Colace (Docusate Sodium) 100 Mg Cap 100 Mg PO BID Synthroid (Levothyroxine Sodium) 150 Mcg Tab 150 Mcg PO DAILY [place] (Hydrocodone-Acetaminophen) 5-325 mg Tab 1 Tab PO Q8HR PRN Xanax (Alprazolam) 1 Mg Tab 1 Mg PO BID PRN Gabapentin 100 Mg Cap 200 Mg PO TID Zantac (Ranitidine HCl) 150 Mg Tab 150 Mg PO BID Sodium Bicarbonate 650 Mg Tab 650 Mg PO BIDPC Pantoprazole (Pantoprazole Sodium) 40 Mg Tab 40 Mg PO DAILY Cymbalta DR (Duloxetine HCl) 60 Mg Capdr 60 Mg PO DAILY Active Ordered Medications Current Medications Medications (Trade) Dose Ordered Sig/[place] Route Start Time Stop Time Status Last Admin (Tylenol) 650 mg Q4H PRN PO 08/06/16 22:00 (Milk Of Magnesia Liq) 30 ml DAILY PRN PO 08/06/16 22:00 (Mag-Al Plus Susp Liq) 30 ml Q6H PRN PO 08/06/16 22:00 (Augmentin 250 Mg/5 ml Liq) 500 mg BID PO 08/07/16 21:00 (Colace) 100 mg BID PO 08/07/16 21:00 (Cymbalta Dr) 60 mg DAILY PO 08/08/16 09:00 (Neurontin) 200 mg TID PO 08/07/16 13:00 08/07/16 13:00 (SEROquel) 25 mg BID PO 08/07/16 21:00 (Synthroid) 150 mcg DAILY@06 PO 08/08/16 06:00 (Haldol Inj) 1 mg Q8HR PRN IM 08/07/16 14:00 (Protonix) 20 mg DAILY PO 08/08/16 09:00 Family History Unable to obtain Social History Unable to obtain Physical Exam Vital Signs Vital Signs Date Time Temp Pulse Resp B/P Pulse Ox O2 Delivery O2 Flow Rate FiO2 08/07/16 05:20 97.0 86 17 126/69 97 08/06/16 20:08 99.4 92 17 146/72 99 Physical Exam GENERAL: This is a frail elderly 89-year-old female, appears lethargic SKIN: Scattered ecchymotic areas bilateral upper extremities, small hematoma noted hematoma noted on forehead HEAD: small hematoma noted hematoma noted on forehead EYES: Pupils are equally dilated and reactive Extraocular motions intact. No scleral icterus. No injection or drainage. CARDIOVASCULAR: Regular rate and rhythm without murmurs, gallops, or rubs. RESPIRATORY: Clear to auscultation. Breath sounds equal bilaterally. No wheezes , rales, or rhonchi. GASTROINTESTINAL: Abdomen soft, non-tender, nondistended. Bowel sounds hypoactive MUSCULOSKELETAL: Extremities without clubbing, cyanosis, trace bilateral lower extremity edema. NEUROLOGICAL: Lethargic. Minimal incomprehensible verbalization. Does not follow commands. Does not respond to any questions. Laboratory Laboratory Tests Test 08/07/16 06:20 Sodium Level 142 Potassium Level 3.7 Chloride Level 112 Carbon Dioxide Level 22.0 Anion Gap 8 Blood Urea Nitrogen 11 Creatinine 0.64 Estimat Glomerular Filtration 90 Rate Random Glucose 83 Calcium Level 9.3 Triglycerides Level 117 Cholesterol Level 84 LDL Cholesterol 13 HDL Cholesterol 47.3 Cholesterol/HDL Ratio 1.77 Free Thyroxine 1.43 Thyroid Stimulating Hormone 1.100 3rd Gen Result Diagram: 08/07/16 0620 Assessment and Plan Problem List: (1) Dementia ICD Code: F03.90 Status: Acute (2) Acute kidney injury ICD Code: N17.9 Status: Acute (3) Hypothyroidism ICD Code: E03.9 Status: Chronic Assessment and Plan Patient is a 81 year old female with past medical history of hypertension, anemia, metabolic encephalopathy, CAD, COPD, CK D, dysphasia, dementia, small bowel obstruction. As per review of records, patient was transferred from inpatient psychiatric unit due to change in mental status. She was found to be lethargic and minimally responsive. Patient with a history of urinary tract infection and was treated intermittently secondary to refusal of antibiotic use. She was admitted in the medical floor with acute encephalopathy and urinary tract infection. Diagnostic studies including CT of the head was done with negative results. Patient was treated with IV antibiotic for urinary tract infection. Her medical condition has improved. However, patient continues to have poor by mouth intake secondary to dementia. She is now in inpatient psychiatry unit for further management. Consulted for medical management Dementia with behavioral disturbance - managed by psychiatry team Urinary tract infection, recurrent - Review of records showed, Head CT negative for any intracranial abnormalities. EKG shows sinus rhythm rate of 67, no ST changes, troponin negative 3 - Patient was treated with IV ceftriaxone, Cipro by mouth - Continues to be lethargic on and off. May need to discontinue some of her medications with sedative effect. - Continue with Augmentin. May benefit with switching over to suspension if patient is having difficulty taking by mouth pills Poor by mouth intake - Patient possibly with end stage dementia/ advanced dementia that mainly contributes to not recognizing the need to eat or drink - Primary team to consider discussing Hospice/palliative care vs PEG with family as she is unlikely to survive the following weeks to months without proper nutrition. Chronic medical conditions of Hypertension, CAD, COPD and Chronic kidney disease - stable continue home medications DVT prop teds/ SCD Thank you for this consultation. We will follow patient with you. Written by Manisha Quan, acting as scribe for Dr. Iqbal on 08/07/16 at 16: 10. All or portions of this note were transcribed by scribe [Manisha Quan]. I, Dr. Stephanie Iqbal personally performed the history, physical exam, and medical decision making; and confirmed the accuracy of the information in the transcribed note. Authenticated by Dr. Stephanie Iqbal on 08/07/16 at 1630. Code Status Full code Discussed Condition With Discussed with patient, nursing, Dr. Finney Problem Qualifiers (1) Dementia: Qualified Code: G30.8 - Alzheimer's dementia with behavioral disturbance, unspecified timing of dementia onset Manisha Solorio Aug 07, 2016 16:11 Stephanie Iqbal MD Aug 07, 2016 20:56
[2016-08-07 18:45] VITALS: BP 135/73; PULSE 85; RESP 16; TEMP 97.9; O2SAT 100
[2016-08-07] MEDS: AMOXICILLIN/CLAVUL SUSP 250 MG/5 ML 100 ML BTL PO SCH (20:35)
[2016-08-07] MEDS: DOCUSATE SODIUM 100 MG CAP PO SCH (20:36)
[2016-08-07] MEDS ORDERED: QUEtiapine FUMARATE 25 MG TAB PO SCH ×2 (21:00)
[2016-08-08 05:00] VITALS: BP 134/64; PULSE 88; RESP 17; TEMP 98.1; O2SAT 97
[2016-08-08] MEDS: LEVOTHYROXINE SODIUM 150 MCG TAB PO SCH (06:00)
[2016-08-08] MEDS ORDERED: LEVOTHYROXINE SODIUM 150 MCG TAB PO SCH (09:00)
[2016-08-08] MEDS: DOCUSATE SODIUM 100 MG CAP PO SCH ×2 (09:25→21:00)
[2016-08-08] MEDS: PANTOPRAZOLE SOD 20 MG DELAYED RELEASE TAB PO SCH (09:25)
[2016-08-08] MEDS: AMOXICILLIN/CLAVUL SUSP 250 MG/5 ML 100 ML BTL PO SCH ×2 (09:37→21:00)
--- NOTE | 2016-08-08 11:45 | HHI.PYPN ---
Subjective Remarks Patient seen and case discussed with nursing staff. Chart reviewed. Oral intake has picked up somewhat. For me today, the patient is sitting in a Hannah chair. She is considerably more awake and alert today. I do note that she did not receive any Seroquel overnight due to lack of consent. She remains profoundly confused. She is asking for some soda. Later, when she has been given some on her lunch tray, she pours it on the floor. Spoke with pt's granddaughter, Ms. Jonnathan Carter, who was appointed by diving judge as patient's HCS. Ms. Carter notes that patient has no history of aggressive behaviors, and so the report that she received from patient's nursing facility that she had become violent came as a surprise. She does note that the facility had been suggesting to her to place the patient in a different facility. I have reviewed treatment plan with granddaughter and discussed use of medications, including Seroquel. We discuss R/B/A of this med, and I highlight the black box warning re: increased risk of in demented elderly along with more typical side effects from this agent. We discuss possible need for PEG, and granddaughter says that pt's daughter had pursued aggressive measures in the last years of her life and seeing this, patient had articulated a clear preference NOT to have a PEG. If PO intake becomes consistently poor, granddaughter wants us to pursue hospice. Review of Systems ROS Limitations: Poor Historian (severe cognitive impairment) Other Offers no physical complaints but severe cognitive impairment interferes Objective Alert: Yes [place]: Person (disoriented) Mood: Calm Affect: Restricted (mildly dysphoric) Memory Intact: Comment (suspect this remains profoundly impaired) Hallucinations: Other (no AVH) Delusions: No Delusion Type: Other (no ryan delusions) Suicidal: Ideation (no SI) Homicidal: Ideation (no HI) Insight/Judgement Poor Remarks No motor abnormalities noted. Grooming and hygiene maintained only with staff assist. Able to form some sentences. Labs Labs reviewed. No new labs. Vitals/IOs Vital Signs Date Time Temp Pulse Resp B/P Pulse Ox O2 Delivery O2 Flow Rate FiO2 08/08/16 05:00 98.1 88 17 134/64 97 Intake and Output 08/07/16 08/07/16 08/08/16 08:00 16:00 00:00 Intake Total 60 ml 60 ml 0 ml Balance 60 ml 60 ml 0 ml Assessment & Plan Problem List: (1) Dementia ICD Code: F03.90 Assessment & Plan Patient seems more alert today. I wonder if this is from not being on Seroquel. I do think she could benefit from a smaller dose of Seroquel to manage behaviors and anxiety, and so I will taper Seroquel to 12.5mg BID. Continue other psychotropics as ordered. Hospitalist clinical program consultant input noted and appreciated. Oral intake seems to be improving but patient's healthcare surrogate articulates a clear preference not to pursue PEG should oral intake become poor. Patient's case was presented to the [place] act court and the case was placed in continuance for a period of 4 weeks. Justification for Cont. Inpt. Impairment and self-care. Impairment in reality construction. Medication changes. High risk for decompensation in a less restrictive environment. Discharge Planning Patient will likely require new placement, and this is what granddaughter prefers anyway. I have asked the counselor to begin making referrals. Request HC Surrog/Guard Advoc?: Yes Problem Qualifiers (1) Dementia: Qualified Code: G30.8 - Alzheimer's dementia with behavioral disturbance, unspecified timing of dementia onset Kolton Finney MD Aug 08, 2016 11:45
[2016-08-08] MEDS ORDERED: PILL SPLITTER OTHER PRN (12:30)
[2016-08-08 17:55] VITALS: BP 153/77; PULSE 98; RESP 16; TEMP 97.7; O2SAT 97
[2016-08-08] MEDS: QUEtiapine FUMARATE 25 MG TAB PO SCH (20:45)
[2016-08-09 04:59] VITALS: BP 138/77; PULSE 87; RESP 16; TEMP 98.1
[2016-08-09] MEDS: LEVOTHYROXINE SODIUM 150 MCG TAB PO SCH (05:40)
[2016-08-09] MEDS: DOCUSATE SODIUM 100 MG CAP PO SCH ×2 (09:00→20:38)
[2016-08-09] MEDS: PANTOPRAZOLE SOD 20 MG DELAYED RELEASE TAB PO SCH (09:00)
[2016-08-09] MEDS: QUEtiapine FUMARATE 25 MG TAB PO SCH ×2 (09:00→20:38)
[2016-08-09] MEDS: DULoxetine HCl DR 60 MG CAP PO SCH (09:00)
[2016-08-09] MEDS: AMOXICILLIN/CLAVUL SUSP 250 MG/5 ML 100 ML BTL PO SCH ×2 (09:00→20:37)
--- NOTE | 2016-08-09 13:40 | HHI.PYPN ---
Subjective Remarks Patient seen and examined. Chart reviewed. Case discussed with nursing staff reports that the patient is considerably more alert. Charting indicates that patient's oral intake continues to improve. On my examination today, the patient is sitting calmly in the day area. No problematic behaviors noted. She remains extremely confused. She is requesting a piece of pound cake. No evident side effects from medications. Review of Systems ROS Limitations: Poor Historian Other Severe cognitive impairment limits review of systems Objective Alert: Yes [place]: Person (remains disoriented) Mood: Calm Affect: Blunted Memory Intact: Comment (profoundly impaired) Hallucinations: Other (no AVH) Delusions: No Delusion Type: Other (no delusions) Suicidal: Ideation (no SI) Homicidal: Ideation (no HI) Insight/Judgement Poor Remarks No motor abnormalities noted. Grooming and hygiene maintained only with staff assist. Labs Labs reviewed. No new labs. Vitals/IOs Vital Signs Date Time Temp Pulse Resp B/P Pulse Ox O2 Delivery O2 Flow Rate FiO2 08/09/16 04:59 98.1 87 16 138/77 08/08/16 17:55 97 Intake and Output 08/08/16 08/08/16 08/09/16 08:00 16:00 00:00 Intake Total 0 ml 600 ml 720 ml Balance 0 ml 600 ml 720 ml Assessment & Plan Problem List: (1) Dementia ICD Code: F03.90 Assessment & Plan Continue Seroquel 12.5 mg twice daily. Continue Cymbalta as ordered. Continue to monitor on the inpatient unit. Continue other medications and care as ordered. Patient's oral intake has improved, but should it persistently worsen , patient's healthcare surrogate does not wish to pursue PEG and so hospice consult would be appropriate at that time. Justification for Cont. Inpt. Impairment in self-care. High risk for decompensation in a less restrictive environment. Discharge Planning Placement. Request HC Surrog/Guard Advoc?: Yes Problem Qualifiers (1) Dementia: Qualified Code: G30.8 - Alzheimer's dementia with behavioral disturbance, unspecified timing of dementia onset Kolton Finney MD Aug 09, 2016 13:40
[2016-08-09 17:35] VITALS: BP 122/66; PULSE 86; RESP 16; TEMP 97.6; O2SAT 97
[2016-08-09 19:12] VITALS: BP 122/66; PULSE 86; RESP 16; TEMP 97.6; O2SAT 97
[2016-08-10 06:12] VITALS: BP 139/65; PULSE 88; RESP 16; TEMP 98; O2SAT 98
[2016-08-10] MEDS: LEVOTHYROXINE SODIUM 150 MCG TAB PO SCH (06:13)
[2016-08-10] MEDS: DOCUSATE SODIUM 100 MG CAP PO SCH ×2 (09:00→20:31)
[2016-08-10] MEDS: PANTOPRAZOLE SOD 20 MG DELAYED RELEASE TAB PO SCH (09:24)
[2016-08-10] MEDS: DULoxetine HCl DR 60 MG CAP PO SCH (09:24)
[2016-08-10] MEDS: AMOXICILLIN/CLAVUL SUSP 250 MG/5 ML 100 ML BTL PO SCH ×2 (09:25→20:30)
[2016-08-10] MEDS: QUEtiapine FUMARATE 25 MG TAB PO SCH ×2 (09:26→20:31)
[2016-08-10] MEDS ORDERED: LOPERAMIDE HCL 2 MG CAP PO ONE (14:00)
--- NOTE | 2016-08-10 14:01 | HHI.PYPN ---
Subjective Remarks Pt seen and discussed with staff. She remains confused and agitated at times. She is selectively mute. No aggression today. No SI/HI. Review of Systems Psychiatric: COMPLAINS OF: Confusion, Agitation Objective Alert: Yes [place]: Person (remains disoriented) Mood: Calm Affect: Blunted Memory Intact: Comment (severe impairment) Hallucinations: Other (no AVH) Delusions: No Delusion Type: Other (no delusions) Suicidal: Ideation (no SI) Homicidal: Ideation (no HI) Insight/Judgement poor Vitals/IOs Vital Signs Date Time Temp Pulse Resp B/P Pulse Ox O2 Delivery O2 Flow Rate FiO2 08/10/16 06:12 98.0 88 16 139/65 98 Intake and Output 08/09/16 08/09/16 08/10/16 08:00 16:00 00:00 Intake Total 0 ml 1080 ml 1320 ml Balance 0 ml 1080 ml 1320 ml Assessment & Plan Problem List: (1) Dementia ICD Code: F03.90 Assessment & Plan Continue current tx plan. Estimated LOS: days Justification for Cont. Inpt. agitation Request HC Surrog/Guard Advoc?: Yes Problem Qualifiers (1) Dementia: Qualified Code: G30.8 - Alzheimer's dementia with behavioral disturbance, unspecified timing of dementia onset Gala De La Garza MD Aug 10, 2016 14:01
--- NOTE | 2016-08-10 15:51 | HHI.PR ---
Subjective Remarks Follow-up visit HTN, anemia, COPD, CAD, dementia. Patient seen today. More awake and alert. Confused but able to follow commands. As per staff, patient likes to eat cake doesn't want to drink water. Patient states he likes to drink soda more than water or juice. Requesting for Pepsi. Otherwise, denies pain and discomfort. Denies SOB/ dyspnea. Denies chestpain, palpitations, headaches, dizziness. Denies fevers, chills, n/v/d. Objective Vitals Vital Signs Date Time Temp Pulse Resp B/P Pulse Ox O2 Delivery O2 Flow Rate FiO2 08/10/16 06:12 98.0 88 16 139/65 98 08/09/16 19:12 97.6 86 16 122/66 97 08/09/16 17:35 97.6 86 16 122/66 97 I/O 08/09/16 08/09/16 08/09/16 08/10/16 08/10/16 08/10/16 07:00 15:00 23:00 07:00 15:00 23:00 Intake Total 0 ml 1080 ml 480 ml 1020 ml 720 ml Output Total 4 ml Balance 0 ml 1080 ml 480 ml 1016 ml 720 ml Intake Oral 0 ml 1080 ml 480 ml 1020 ml 720 ml Output Stool Total 4 ml # Voids 1 2 3 Result Diagram: 08/07/16619 Objective Remarks GENERAL: This is a frail elderly 89-year-old female, appears lethargic SKIN: Scattered ecchymotic areas bilateral upper extremities, small hematoma noted hematoma noted on forehead HEAD: small hematoma noted hematoma noted on forehead EYES: Pupils are equally dilated and reactive Extraocular motions intact. No scleral icterus. No injection or drainage. CARDIOVASCULAR: Regular rate and rhythm without murmurs, gallops, or rubs. RESPIRATORY: Clear to auscultation. Breath sounds equal bilaterally. No wheezes , rales, or rhonchi. GASTROINTESTINAL: Abdomen soft, non-tender, nondistended. Bowel sounds hypoactive MUSCULOSKELETAL: Extremities without clubbing, cyanosis, trace bilateral lower extremity edema. NEUROLOGICAL: Awake and alert. Able to follow commands. Answers some of the questions. A/P Problem List: (1) Dementia ICD Code: F03.90 Status: Acute (2) Acute kidney injury ICD Code: N17.9 Status: Acute (3) Hypothyroidism ICD Code: E03.9 Status: Chronic Assessment and Plan Patient is a 81 year old female with past medical history of hypertension, anemia, metabolic encephalopathy, CAD, COPD, CK D, dysphasia, dementia, small bowel obstruction. As per review of records, patient was transferred from inpatient psychiatric unit due to change in mental status. She was found to be lethargic and minimally responsive. Patient with a history of urinary tract infection and was treated intermittently secondary to refusal of antibiotic use. She was admitted in the medical floor with acute encephalopathy and urinary tract infection. Diagnostic studies including CT of the head was done with negative results. Patient was treated with IV antibiotic for urinary tract infection. Her medical condition has improved. However, patient continues to have poor by mouth intake secondary to dementia. She is now in inpatient psychiatry unit for further management. Consulted for medical management Dementia with behavioral disturbance - managed by psychiatry team Urinary tract infection, recurrent - Review of records showed, Head CT negative for any intracranial abnormalities. EKG shows sinus rhythm rate of 67, no ST changes, troponin negative 3 - Patient was treated with IV ceftriaxone, Cipro by mouth - Continues to be lethargic on and off. May need to discontinue some of her medications with sedative effect. - Continue with Augmentin. May benefit with switching over to suspension if patient is having difficulty taking by mouth pills. To complete 08/19/16 Poor by mouth intake - Patient possibly with end stage dementia/ advanced dementia that mainly contributes to not recognizing the need to eat or drink - As per psychiatry note, they have discussed patient condition to the family. Family would like to proceed with hospice if the patient continues to decline with by mouth intake. Chronic medical conditions of Hypertension, CAD, COPD and Chronic kidney disease - stable continue home medications DVT prop teds/ SCD Stable from Hospitalist standpoint. We will sign off. Reconsult as needed. Problem Qualifiers (1) Dementia: Qualified Code: G30.8 - Alzheimer's dementia with behavioral disturbance, unspecified timing of dementia onset Manisha Solorio Aug 10, 2016 15:51 Dejuan Monique MD Aug 10, 2016 18:22
[2016-08-10 21:04] VITALS: BP 122/78; PULSE 90; TEMP 98.8; O2SAT 98
[2016-08-10] MEDS: HALOPERIDOL LACTATE 5 MG/ML AMP IM PRN (23:10)
[2016-08-11 05:10] VITALS: BP 137/66; PULSE 79; RESP 18; TEMP 98.1; O2SAT 97
[2016-08-11] MEDS: LEVOTHYROXINE SODIUM 150 MCG TAB PO SCH (06:41)
[2016-08-11] MEDS: PANTOPRAZOLE SOD 20 MG DELAYED RELEASE TAB PO SCH (09:00)
[2016-08-11] MEDS: DULoxetine HCl DR 60 MG CAP PO SCH (09:00)
[2016-08-11] MEDS: QUEtiapine FUMARATE 25 MG TAB PO SCH ×2 (09:00→20:33)
[2016-08-11] MEDS: DOCUSATE SODIUM 100 MG CAP PO SCH ×2 (09:00→20:33)
[2016-08-11] MEDS: AMOXICILLIN/CLAVUL SUSP 250 MG/5 ML 100 ML BTL PO SCH ×2 (09:12→20:32)
--- NOTE | 2016-08-11 15:36 | HHI.PYPN ---
Subjective Remarks Pt seen and discussed with staff. Pt has not been agitated today and has been compliant with care. She c/o of mild epigastric chest discomfort which was alleviated with Maalox. PO intake continues to be poor and pt has to be strongly encouraged to eat. No SI/HI Objective Alert: Yes [place]: Person Mood: Calm Affect: Blunted Memory Intact: Comment (severe impairment) Hallucinations: Other (no AVH) Delusions: No Delusion Type: Other (no delusions) Suicidal: Ideation (no SI) Homicidal: Ideation (no HI) Insight/Judgement poor Vitals/IOs Vital Signs Date Time Temp Pulse Resp B/P Pulse Ox O2 Delivery O2 Flow Rate FiO2 08/11/16 05:10 98.1 79 18 137/66 97 Intake and Output 08/10/16 08/10/16 08/11/16 08:00 16:00 00:00 Intake Total 660 ml 960 ml 480 ml Output Total 4 ml Balance 656 ml 960 ml 480 ml Assessment & Plan Problem List: (1) Dementia ICD Code: F03.90 Assessment & Plan Continue current tx plan. Estimated LOS: days Justification for Cont. Inpt. risk of decompensation Request HC Surrog/Guard Advoc?: Yes Problem Qualifiers (1) Dementia: Qualified Code: G30.8 - Alzheimer's dementia with behavioral disturbance, unspecified timing of dementia onset Gala De La Garza MD Aug 11, 2016 3:36 pm
[2016-08-11 16:48] LABS: CREATINE KINASE 57 U/L (26-192)
[2016-08-11 19:20] VITALS: BP 134/63; PULSE 86; RESP 17; TEMP 98.1; O2SAT 98
[2016-08-11 21:28] LABS: CREATINE KINASE 31 U/L (26-192)
[2016-08-11] MEDS: HALOPERIDOL LACTATE 5 MG/ML AMP IM PRN (23:26)
[2016-08-12] MEDS: LEVOTHYROXINE SODIUM 150 MCG TAB PO SCH (06:01)
[2016-08-12 06:09] VITALS: BP 131/69; PULSE 89; RESP 18; TEMP 97.7; O2SAT 97
[2016-08-12 07:07] LABS: CREATINE KINASE 61 U/L (26-192)
[2016-08-12] MEDS: DOCUSATE SODIUM 100 MG CAP PO SCH ×2 (09:00→21:08)
[2016-08-12] MEDS: PANTOPRAZOLE SOD 20 MG DELAYED RELEASE TAB PO SCH (09:42)
[2016-08-12] MEDS: QUEtiapine FUMARATE 25 MG TAB PO SCH ×2 (09:42→21:08)
[2016-08-12] MEDS: ACETAMINOPHEN 325 MG TAB PO PRN ×2 (09:42→23:00)
[2016-08-12] MEDS: DULoxetine HCl DR 60 MG CAP PO SCH (09:42)
[2016-08-12] MEDS: AMOXICILLIN/CLAVUL SUSP 250 MG/5 ML 100 ML BTL PO SCH ×2 (09:43→21:00)
--- NOTE | 2016-08-12 10:42 | HHI.PYPN ---
Subjective Remarks Patient seen and examined. Chart reviewed. Case discussed with nursing staff. Sleep reportedly somewhat poor overnight but patient has been no behavioral problem. On my examination today, patient is dozing in the day area. She is calm and pleasant. I see that oral intake is somewhat improved but this is with staff assist for the most part. Counselor reports [facility] is considering patient, and they told counselor they often collaborate with hospice. No evident side effects from medications. Review of Systems ROS Limitations: Poor Historian Except as stated in HPI: all other systems reviewed are Neg Objective Alert: Yes [place]: Person Mood: Calm Affect: Blunted Memory Intact: Comment (remains severely impaired) Hallucinations: Other (no AVH) Delusions: No Delusion Type: Other (no delusional material) Suicidal: Ideation (no SI) Homicidal: Ideation (no HI) Insight/Judgement Poor Remarks No motor abnormalities noted. Labs Test 08/11/16 08/11/16 08/12/16 15:09 20:45 06:08 Total Creatine Kinase 57 U/L 31 U/L 61 U/L Troponin I LESS THAN 0.02 LESS THAN 0.02 LESS THAN 0.02 NG/ML NG/ML NG/ML Labs reviewed. Vitals/IOs Vital Signs Date Time Temp Pulse Resp B/P Pulse Ox O2 Delivery O2 Flow Rate FiO2 08/12/16 06:09 97.7 89 18 131/69 97 Intake and Output 08/11/16 08/11/16 08/12/16 08:00 16:00 00:00 Intake Total 360 ml 1320 ml 960 ml Balance 360 ml 1320 ml 960 ml Assessment & Plan Problem List: (1) Dementia ICD Code: F03.90 Assessment & Plan Continue Seroquel and Cymbalta as ordered. I will go ahead and request hospice consultation to see if they can provide services. I did try to reach patient's granddaughter to discuss this but was unfortunately unable to do so due to the widespread [employer] outage. Continue other medications and care as ordered. Justification for Cont. Inpt. Risk for decompensation Discharge Planning Possible placement as noted above. Request HC Surrog/Guard Advoc?: Yes Problem Qualifiers (1) Dementia: Qualified Code: G30.8 - Alzheimer's dementia with behavioral disturbance, unspecified timing of dementia onset Kolton Finney MD Aug 12, 2016 10:42
--- NOTE | 2016-08-12 10:44 | EKG ---
Date Performed: 08/11/2016 Time Performed: 13:44:21 PTAGE: 81 years EKG: Sinus rhythm BORDERLINE LEFT AXIS DEVIATION LOW QRS VOLTAGE IN PRECORDIAL LEADS BORDERLINE ECG PREVIOUS TRACING : 08/04/2016 18.02 DOCTOR: Uday Boykin Interpretating Date/Time 08/12/2016 10:41:40
[2016-08-12 16:30] VITALS: BP 115/58; PULSE 86; RESP 18; TEMP 97.3; O2SAT 99
[2016-08-13] MEDS: LEVOTHYROXINE SODIUM 150 MCG TAB PO SCH (06:19)
[2016-08-13 06:21] VITALS: BP 132/68; PULSE 79; RESP 17; TEMP 98.1; O2SAT 98
[2016-08-13] MEDS: AMOXICILLIN/CLAVUL SUSP 250 MG/5 ML 100 ML BTL PO SCH ×2 (09:00→21:11)
[2016-08-13] MEDS: DULoxetine HCl DR 60 MG CAP PO SCH (09:12)
[2016-08-13] MEDS: PANTOPRAZOLE SOD 20 MG DELAYED RELEASE TAB PO SCH (09:12)
[2016-08-13] MEDS: QUEtiapine FUMARATE 25 MG TAB PO SCH ×2 (09:12→21:10)
[2016-08-13] MEDS: DOCUSATE SODIUM 100 MG CAP PO SCH ×2 (09:12→21:10)
[2016-08-13] MEDS ORDERED: LOPERAMIDE HCL 2 MG CAP PO PRN (12:15)
[2016-08-13 13:24] LABS: MAGNESIUM 2.6 MG/DL (1.5-2.5); POTASSIUM 4.2 MEQ/L (3.5-5.1)
--- NOTE | 2016-08-13 14:29 | HHI.PYPN ---
Subjective Remarks Patient seen and examined with nurse. Chart reviewed. Case discussed in treatment team with nurse, counselor and occupational therapist. Per nursing staff, patient was able to say her name but then speech was largely word salad. On my examination today, the patient seems a little more awake and interactive. She tells me "I don't know where I'm at." Remains quite confused. No behavioral problem. No evident side effects from medications. Nursing staff did subsequently inform me that the patient has had 2 episodes of copious diarrhea. I have ordered C. difficile PCR as well as a BMP and magnesium and have requested the hospitalist to follow up on this issue. Review of Systems ROS Limitations: Poor Historian Except as stated in HPI: all other systems reviewed are Neg Objective Alert: Yes [place]: Person Mood: Calm Affect: Appropriate Memory Intact: Comment (severely impaired) Hallucinations: Other (no AVH) Delusions: No Delusion Type: Other (no delusions) Suicidal: Ideation (no SI) Homicidal: Ideation (no HI) Insight/Judgement Poor Remarks No motor abnormalities noted Labs Test 08/13/16 12:58 Sodium Level 145 MEQ/L Potassium Level 4.2 MEQ/L Chloride Level 111 MEQ/L Carbon Dioxide Level 28.0 MEQ/L Anion Gap 6 MEQ/L Blood Urea Nitrogen 12 MG/DL Creatinine 0.78 MG/DL Estimat Glomerular Filtration 71 ML/MIN Rate Random Glucose 107 MG/DL Calcium Level 9.7 MG/DL Magnesium Level 2.6 MG/DL Labs reviewed. Mildly decreased GFR. Vitals/IOs Vital Signs Date Time Temp Pulse Resp B/P Pulse Ox O2 Delivery O2 Flow Rate FiO2 08/13/16 06:21 98.1 79 17 132/68 98 Intake and Output 08/12/16 08/12/16 08/13/16 08:00 16:00 00:00 Intake Total 360 ml 1350 ml Balance 360 ml 1350 ml Assessment & Plan Problem List: (1) Dementia ICD Code: F03.90 Assessment & Plan Continue Seroquel and Cymbalta as ordered. Appreciate hospitalist input. Awaiting C. difficile PCR. Awaiting hospice input, I did call down today to the hospice office to request they sent someone to evaluate the patient. Continue to monitor on the inpatient unit. Continue other medications include as ordered. Justification for Cont. Inpt. Impairment in self-care. Complicating conditions. High risk for decompensation in a less restrictive environment. Discharge Planning Counselor is optimistic that she has a facility ready to accept the patient, hopefully before the end of the week. Request HC Surrog/Guard Advoc?: Yes Problem Qualifiers (1) Dementia: Qualified Code: G30.8 - Alzheimer's dementia with behavioral disturbance, unspecified timing of dementia onset Kolton Finney MD Aug 13, 2016 14:29
[2016-08-13 17:21] LABS: C. DIFF EPI 027 PRESUMPTIVE POSITIVE (NEGATIVE); C. DIFF TOXIN PCR POSITIVE (NEGATIVE)
[2016-08-13 18:06] VITALS: BP 131/68; PULSE 82; RESP 17; TEMP 98; O2SAT 96
[2016-08-14] MEDS: metroNIDAZOLE 500 MG TAB PO SCH ×4 (00:08→17:51)
[2016-08-14] MEDS: LEVOTHYROXINE SODIUM 150 MCG TAB PO SCH (05:41)
[2016-08-14 06:00] VITALS: BP 133/67; PULSE 81; RESP 18; TEMP 97.8; O2SAT 99
[2016-08-14 07:45] LABS: AUTOMATED NEUTROPHIL # 5.5 TH/MM3 (1.8-7.7); BASOPHIL # 0.1 TH/MM3 (0-0.2); BASOPHIL % 0.7 % (0.0-2.0); EOSINOPHIL # 0.4 TH/MM3 (0-0.4); EOSINOPHIL % 4.5 % (0.0-4.0); HEMATOCRIT 39.9 % (35.0-46.0); HEMO FLAGS DIFF FINAL; LYMPH % 18.6 % (9.0-44.0); LYMPHOCYTE # 1.5 TH/MM3 (1.0-4.8); MEAN CELL VOLUME 94.6 FL (80.0-100.0); MEAN CORPUSCULAR HEMOGLOBIN 31.5 PG (27.0-34.0); MEAN CORPUSCULAR HGB CONC 33.3 % (32.0-36.0); MONO % 6.7 % (0.0-8.0); NEUT % 69.5 % (16.0-70.0); PLATELET COUNT 153 TH/MM3 (150-450); RED BLOOD COUNT 4.21 MIL/MM3 (4.00-5.30); RED CELL DISTRIBUTION WIDTH 13.2 % (11.6-17.2); WHITE BLOOD COUNT 7.9 TH/MM3 (4.0-11.0)
[2016-08-14 08:17] LABS: MAGNESIUM 2.3 MG/DL (1.5-2.5); POTASSIUM 3.6 MEQ/L (3.5-5.1)
[2016-08-14 08:19] LABS: BICARBONATE 26.9 MEQ/L (21.0-32.0)
[2016-08-14] MEDS: PANTOPRAZOLE SOD 20 MG DELAYED RELEASE TAB PO SCH (08:28)
[2016-08-14] MEDS: QUEtiapine FUMARATE 25 MG TAB PO SCH ×2 (08:29→22:22)
[2016-08-14] MEDS: LACTOBACILLUS ACIDOPHILUS TAB PO SCH ×3 (08:29→17:51)
[2016-08-14] MEDS: DULoxetine HCl DR 60 MG CAP PO SCH (08:29)
[2016-08-14] MEDS ORDERED: POTASSIUM CHLORIDE 10 MEQ CONTROLLED RELEASE TAB PO ONE (08:45)
--- NOTE | 2016-08-14 11:45 | HHI.PYPN ---
Subjective Remarks Patient seen and examined. Chart reviewed. I note that patient's C. difficile PCR has come back positive. Patient has been placed on isolation precautions. Hospitalist is following along. Plan is for transfer to [facility] psych unit. Case discussed with nursing staff. On my examination today, patient is somewhat ill- appearing. She is sleeping but easily awakened. She remains confused. No evident side effects from medications. Review of Systems ROS Limitations: Poor Historian Except as stated in HPI: all other systems reviewed are Neg Objective Alert: Yes [place]: Person Mood: Calm Affect: Blunted Memory Intact: Comment (remains impaired) Hallucinations: Other (no AVH) Delusions: No Delusion Type: Other (no delusions elicited) Suicidal: Ideation (no SI) Homicidal: Ideation (no HI) Insight/Judgement Poor Remarks No motor abnormalities noted Labs Test 08/13/16 08/13/16 08/14/16 12:41 12:58 06:05 Stool C. difficile Toxin (PCR) POSITIVE Stl C. difficile Toxin PRESUMPTIVE Epiderm 027 POSITIVE Sodium Level 145 MEQ/L 144 MEQ/L Potassium Level 4.2 MEQ/L 3.6 MEQ/L Chloride Level 111 MEQ/L 108 MEQ/L Carbon Dioxide Level 28.0 MEQ/L 26.9 MEQ/L Anion Gap 6 MEQ/L 9 MEQ/L Blood Urea Nitrogen 12 MG/DL 10 MG/DL Creatinine 0.78 MG/DL 0.71 MG/DL Estimat Glomerular Filtration 71 ML/MIN 79 ML/MIN Rate Random Glucose 107 MG/DL 74 MG/DL Calcium Level 9.7 MG/DL 9.6 MG/DL Magnesium Level 2.6 MG/DL 2.3 MG/DL White Blood Count 7.9 TH/MM3 Red Blood Count 4.21 MIL/MM3 Hemoglobin 13.3 GM/DL Hematocrit 39.9 % Mean Corpuscular Volume 94.6 FL Mean Corpuscular Hemoglobin 31.5 PG Mean Corpuscular Hemoglobin 33.3 % Concent Red Cell Distribution Width 13.2 % Platelet Count 153 TH/MM3 Mean Platelet Volume 7.6 FL Neutrophils (%) (Auto) 69.5 % Lymphocytes (%) (Auto) 18.6 % Monocytes (%) (Auto) 6.7 % Eosinophils (%) (Auto) 4.5 % Basophils (%) (Auto) 0.7 % Neutrophils # (Auto) 5.5 TH/MM3 Lymphocytes # (Auto) 1.5 TH/MM3 Monocytes # (Auto) 0.5 TH/MM3 Eosinophils # (Auto) 0.4 TH/MM3 Basophils # (Auto) 0.1 TH/MM3 CBC Comment DIFF FINAL Differential Comment Labs reviewed. Vitals/IOs Vital Signs Date Time Temp Pulse Resp B/P Pulse Ox O2 Delivery O2 Flow Rate FiO2 08/14/16 06:00 97.8 81 18 133/67 99 Intake and Output 08/13/16 08/13/16 08/14/16 08:00 16:00 00:00 Intake Total 1120 ml 1200 ml Balance 1120 ml 1200 ml Assessment & Plan Problem List: (1) Dementia ICD Code: F03.90 Assessment & Plan Continue Seroquel as ordered. Continue Cymbalta as ordered. Hospitalist has added metronidazole for C. difficile. Transfer to the medical psychiatric unit for further care. Appreciate hospitalist input. Continue other medications and care as ordered. Nursing staff has notified patient's granddaughter. Justification for Cont. Inpt. Complicating conditions. Impairment in self-care. High risk for decompensation in a less restrictive environment. Discharge Planning Plan for placement is on hold pending resolution of C. difficile. Request HC Surrog/Guard Advoc?: Yes Problem Qualifiers (1) Dementia: Qualified Code: G30.8 - Alzheimer's dementia with behavioral disturbance, unspecified timing of dementia onset Kolton Finney MD Aug 14, 2016 11:45
[2016-08-14] MEDS: NS + KCL 20 MEQ INJ 1,000 ML IV SCH (14:43)
--- NOTE | 2016-08-14 15:38 | HHI.PR ---
Subjective Remarks Reconsulted for diarrhea. C. difficile positive. Patient complains of abdominal pain but no nausea. Discussed with RN, patient will be started on IV hydration secondary to continued diarrhea and decreased oral intake. She is a DO NOT RESUSCITATE per family. Objective Vitals Vital Signs Date Time Temp Pulse Resp B/P Pulse Ox O2 Delivery O2 Flow Rate FiO2 08/14/16 06:00 97.8 81 18 133/67 99 08/13/16 18:06 98.0 82 17 131/68 96 I/O 08/13/16 08/13/16 08/13/16 08/14/16 08/14/16 08/14/16 07:00 15:00 23:00 07:00 15:00 23:00 Intake Total 1120 ml 480 ml 780 ml 0 ml Balance 1120 ml 480 ml 780 ml 0 ml Intake Oral 1120 ml 480 ml 780 ml 0 ml # Voids 2 2 3 # Bowel Movements 3 Result Diagram: 08/14/16 0608/14/16 06 Objective Remarks GENERAL: This is a frail elderly 89-year-old female SKIN: Scattered ecchymotic areas bilateral upper extremities, small hematoma noted hematoma noted on forehead HEAD: small hematoma noted hematoma noted on forehead EYES: Pupils are equally dilated and reactive Extraocular motions intact. No scleral icterus. No injection or drainage. Mouth: Dry oral mucosa CARDIOVASCULAR: Regular rate and rhythm without murmurs, gallops, or rubs. RESPIRATORY: Clear to auscultation. Breath sounds equal bilaterally. No wheezes , rales, or rhonchi. GASTROINTESTINAL: Abdomen soft, non-tender, nondistended. Bowel sounds normoactive MUSCULOSKELETAL: Extremities without clubbing, cyanosis, trace bilateral lower extremity edema. NEUROLOGICAL: Awake and alert. Able to follow commands. Answers some of the questions. Procedures None A/P Problem List: (1) Dementia ICD Code: F03.90 Status: Acute (2) Acute kidney injury ICD Code: N17.9 Status: Acute (3) Hypothyroidism ICD Code: E03.9 Status: Chronic Assessment and Plan Patient is a 81 year old female with past medical history of hypertension, anemia, metabolic encephalopathy, CAD, COPD, CK D, dysphasia, dementia, small bowel obstruction. As per review of records, patient was transferred from inpatient psychiatric unit due to change in mental status. She was found to be lethargic and minimally responsive. Patient with a history of urinary tract infection and was treated intermittently secondary to refusal of antibiotic use. She was admitted in the medical floor with acute encephalopathy and urinary tract infection. Diagnostic studies including CT of the head was done with negative results. Patient was treated with IV antibiotic for urinary tract infection. Her medical condition has improved. However, patient continues to have poor by mouth intake secondary to dementia. She is now in inpatient psychiatry unit for further management. Consulted for medical management C. difficile colitis. Discontinue Augmentin and start Flagyl for 2 weeks and Lactinex. She has increased risk of dehydration, we'll start IV hydration and transferred to med psych floor. Dementia with behavioral disturbance - managed by psychiatry team Urinary tract infection, recurrent - Review of records showed, Head CT negative for any intracranial abnormalities. EKG shows sinus rhythm rate of 67, no ST changes, troponin negative 3 - Patient was treated with IV ceftriaxone, Cipro by mouth - Continues to be lethargic on and off. May need to discontinue some of her medications with sedative effect. - Discontinue Augmentin. Poor by mouth intake - Patient possibly with end stage dementia/ advanced dementia that mainly contributes to not recognizing the need to eat or drink - As per psychiatry note, they have discussed patient condition to the family. Family would like to proceed with hospice if the patient continues to decline with by mouth intake. Chronic medical conditions of Hypertension, CAD, COPD and Chronic kidney disease - stable continue home medications DVT prop teds/ SCD Problem Qualifiers (1) Dementia: Qualified Code: G30.8 - Alzheimer's dementia with behavioral disturbance, unspecified timing of dementia onset Dejuan Monique MD Aug 14, 2016 15:37
[2016-08-14 17:22] VITALS: BP 130/60; PULSE 88; RESP 16; TEMP 98.3; O2SAT 96
[2016-08-14] MEDS: ACETAMINOPHEN 325 MG TAB PO PRN (17:57)
[2016-08-15] MEDS: ACETAMINOPHEN 325 MG TAB PO PRN (00:24)
[2016-08-15 05:47] VITALS: BP 127/75; PULSE 83; RESP 16; TEMP 98.2; O2SAT 96
[2016-08-15] MEDS: LEVOTHYROXINE SODIUM 150 MCG TAB PO SCH (06:46)
[2016-08-15] MEDS: metroNIDAZOLE 500 MG TAB PO SCH ×3 (06:46→12:00)
[2016-08-15] MEDS: NS + KCL 20 MEQ INJ 1,000 ML IV SCH (07:00)
[2016-08-15] MEDS: DULoxetine HCl DR 60 MG CAP PO SCH (09:34)
[2016-08-15] MEDS: LACTOBACILLUS ACIDOPHILUS TAB PO SCH ×2 (09:34→12:53)
[2016-08-15] MEDS: QUEtiapine FUMARATE 25 MG TAB PO SCH ×2 (09:34→20:47)
[2016-08-15] MEDS: PANTOPRAZOLE SOD 20 MG DELAYED RELEASE TAB PO SCH (09:34)
--- NOTE | 2016-08-15 10:41 | HHI.PR ---
Subjective Remarks Follow-up on reconsult for diarrhea secondary to C. difficile infection. Patient seen and examined today. States she is still sick. Denies any abdominal pain or nausea/vomiting. Observed eating breakfast. Discussed with nursing staff, only one loose stool since yesterday afternoon. Patient denies any acute medical complaints at this time. Objective Vitals Vital Signs Date Time Temp Pulse Resp B/P Pulse Ox O2 Delivery O2 Flow Rate FiO2 08/15/16 05:47 98.2 83 16 127/75 96 08/14/16 17:22 98.3 88 16 130/60 96 I/O 08/14/16 08/14/16 08/14/16 08/15/16 08/15/16 08/15/16 07:00 15:00 23:00 07:00 15:00 23:00 Intake Total 780 ml 0 ml 740 ml 400 ml Balance 780 ml 0 ml 740 ml 400 ml Intake Oral 780 ml 0 ml 740 ml 400 ml # Voids 3 1 3 # Bowel Movements 1 Result Diagram: 08/14/1660408/14/16604 Objective Remarks GENERAL: This is a frail elderly 81-year-old female. Sitting up in hospital bed eating breakfast. SKIN: Scattered ecchymotic areas bilateral upper extremities HEAD: small hematoma noted on forehead EYES: Pupils are equally dilated and reactive. Extraocular motions intact. No scleral icterus. No injection or drainage. Mouth: MMM. CARDIOVASCULAR: Regular rate and rhythm without murmurs, gallops, or rubs. RESPIRATORY: Clear to auscultation. Breath sounds equal bilaterally. No wheezes , rales, or rhonchi. GASTROINTESTINAL: Abdomen soft, non-tender, nondistended. Bowel sounds normoactive MUSCULOSKELETAL: Extremities without clubbing, cyanosis, trace bilateral lower extremity edema. NEUROLOGICAL: Awake and alert. Able to follow commands. Answers some of the questions. Procedures None Medications and IVs Current Medications Medications (Trade) Dose Ordered Sig/Jaydon Route Start Time Stop Time Status Last Admin (Tylenol) 650 mg Q4H PRN PO 08/06/16 22:00 08/15/16 00:24 (Milk Of Magnesia Liq) 30 ml DAILY PRN PO 08/06/16 22:00 (Mag-Al Plus Susp Liq) 30 ml Q6H PRN PO 08/06/16 22:00 08/11/16 13:11 (Cymbalta Dr) 60 mg DAILY PO 08/08/16 09:00 08/15/16 09:34 (Neurontin) 200 mg TID PO 08/07/16 13:00 Hold 08/07/16 13:00 (Synthroid) 150 mcg DAILY@06 PO 08/08/16 06:00 08/15/16 06:46 (Haldol Inj) 1 mg Q8HR PRN IM 08/07/16 14:00 08/11/16 23:26 (Protonix) 20 mg DAILY PO 08/08/16 09:00 08/15/16 09:34 (SEROquel) 12.5 mg BID PO 08/08/16 21:00 08/15/16 09:34 (Pill Splitter) 1 ea UNSCH PRN OTHER 08/08/16 12:30 (Lactinex) 1 tab TID PO 08/14/16 09:00 08/15/16 09:34 Metronidazole 500 mg 500 mg Q6HR PO 08/14/16 00:00 08/27/16 23:59 08/15/16 06:46 (NS + KCl 20 Meq Inj) 1,000 ml @ 50 mls/hr Q20H IV 08/14/16 11:00 08/15/16 07:00 A/P Problem List: (1) Dementia ICD Code: F03.90 Status: Acute (2) Acute kidney injury ICD Code: N17.9 Status: Acute (3) Hypothyroidism ICD Code: E03.9 Status: Chronic Assessment and Plan Patient is a 81 year old female with past medical history of hypertension, anemia, metabolic encephalopathy, CAD, COPD, CKD, dysphasia, dementia, small bowel obstruction. As per review of records, patient was transferred from inpatient psychiatric unit due to change in mental status. She was found to be lethargic and minimally responsive. Patient with a history of urinary tract infection and was treated intermittently secondary to refusal of antibiotic use. She was admitted in the medical floor with acute encephalopathy and urinary tract infection. Diagnostic studies including CT of the head was done with negative results. Patient was treated with IV antibiotic for urinary tract infection. Her medical condition has improved. However, patient continues to have poor by mouth intake secondary to dementia. She is now in inpatient psychiatry unit for further management. Consulted for medical management C. difficile colitis. Decreasing amount of loose stools. Tolerating diet. Continue on Flagyl for 2 weeks and Lactinex. Continue with IVF. Dementia with behavioral disturbance - managed by psychiatry team - Review of records showed, Head CT negative for any intracranial abnormalities. EKG shows sinus rhythm rate of 67, no ST changes, troponin negative 3 Urinary tract infection, recurrent - Patient was treated with IV ceftriaxone, Cipro by mouth - Continues to be lethargic on and off. May need to discontinue some of her medications with sedative effect. - Augmentin discontinued. Poor by mouth intake - Witnessed eating some breakfast this morning - Patient possibly with end stage dementia/ advanced dementia that mainly contributes to not recognizing the need to eat or drink - As per psychiatry note, they have discussed patient condition to the family. Family would like to proceed with hospice if the patient continues to decline with by mouth intake. Inguinal rash, candidiasis - Discussed with nursing staff, will begin nystatin powder application twice a day Chronic medical conditions of Hypertension, CAD, COPD and Chronic kidney disease - stable continue home medications DVT prop teds/ SCD Written by Marissa Arizmendi PA-C acting as scribe for Dr. Monique on 08/15/16 at 10:36. All or portions of this note were transcribed by scribe Marissa Arizmendi PA-C . I, Dr. Dejuan Monique personally performed the history, physical exam, and medical decision making; and confirmed the accuracy of the information in the transcribed note. Authenticated by Dr. Dejuan Monique on 08/15/16 at 15:29. Problem Qualifiers (1) Dementia: Qualified Code: G30.8 - Alzheimer's dementia with behavioral disturbance, unspecified timing of dementia onset Marissa Arizmendi Aug 15, 2016 10:41 Dejuan Monique MD Aug 15, 2016 15:29
[2016-08-15 10:44] LABS: BICARBONATE 24.6 MEQ/L (21.0-32.0); POTASSIUM 4.2 MEQ/L (3.5-5.1)
[2016-08-15 10:49] LABS: MAGNESIUM 2.2 MG/DL (1.5-2.5)
--- NOTE | 2016-08-15 15:33 | HHI.PYPN ---
Subjective Remarks Patient seen today for psychiatric evaluation, patient is found eating cookies, pleasantly disoriented and confused, she says that she is happy, denies pain, denies discomfort, denies depressive symptoms, denies suicidal and homicidal ideation, she is compliant with medications, no aggressive behavior or agitation observed. Review of Systems Other No somatic complaints Objective Alert: Yes Donna: Person Mood: Calm Affect: Blunted Memory Intact: Comment (remains impaired) Hallucinations: Other (no AVH) Delusions: No Delusion Type: Other (no delusions elicited) Suicidal: Ideation (no SI) Homicidal: Ideation (no HI) Insight/Judgment Poor Labs Test 08/15/16 09:01 Sodium Level 144 MEQ/L Potassium Level 4.2 MEQ/L Chloride Level 112 MEQ/L Carbon Dioxide Level 24.6 MEQ/L Anion Gap 7 MEQ/L Blood Urea Nitrogen 8 MG/DL Creatinine 0.71 MG/DL Estimat Glomerular Filtration 79 ML/MIN Rate Random Glucose 88 MG/DL Calcium Level 9.5 MG/DL Magnesium Level 2.2 MG/DL Vitals/IOs Vital Signs Date Time Temp Pulse Resp B/P Pulse Ox O2 Delivery O2 Flow Rate FiO2 08/15/16 05:47 98.2 83 16 127/75 96 Intake and Output 08/14/16 08/14/16 08/15/16 08:00 16:00 00:00 Intake Total 60 ml 740 ml Balance 60 ml 740 ml Assessment & Plan Problem List: (1) Dementia Assessment & Plan: No psychotropic changes, patient would continue aggressive medical care for C. difficile, continue monitoring closely behavior and mood. ICD Code: F03.90 Assessment & Plan Estimated LOS: days Justification for Cont. Inpt. Patient has an elevated risk to decompensate out of the psychiatric unit. Request HC Surrog/Guard Advoc?: Yes Problem Qualifiers (1) Dementia: Qualified Code: G30.8 - Alzheimer's dementia with behavioral disturbance, unspecified timing of dementia onset Maximo Lombardi MD Aug 15, 2016 15:33
[2016-08-15 18:00] VITALS: BP 140/82; PULSE 86; RESP 17; TEMP 98; O2SAT 95
[2016-08-16] MEDS: NYSTATIN 100,000 U/GM PWD 15 GM BTL TOPICAL SCH ×3 (00:03→22:16)
[2016-08-16] MEDS: NS + KCL 20 MEQ INJ 1,000 ML IV SCH ×2 (03:53→22:10)
[2016-08-16] MEDS: HALOPERIDOL LACTATE 5 MG/ML AMP IM PRN (04:37)
[2016-08-16 05:40] LABS: BICARBONATE 21.5 MEQ/L (21.0-32.0); MAGNESIUM 2.1 MG/DL (1.5-2.5); POTASSIUM 4.2 MEQ/L (3.5-5.1)
[2016-08-16] MEDS: metroNIDAZOLE 500 MG TAB PO SCH ×4 (06:00→17:02)
[2016-08-16] MEDS: LEVOTHYROXINE SODIUM 150 MCG TAB PO SCH (06:00)
[2016-08-16] MEDS: LACTOBACILLUS ACIDOPHILUS TAB PO SCH ×4 (09:00→17:02)
--- NOTE | 2016-08-16 10:12 | HHI.PR ---
Subjective Remarks Follow-up on reconsult for diarrhea secondary to C. difficile infection. Patient seen and examined today. Patient continues to be pleasantly confused. Gives inappropriate responses to questions. No complaints of abdominal pain or nausea/vomiting. Discussed with nursing staff who states patient had 2 stools but was not documented if they were loose or formed. Objective Vitals Vital Signs Date Time Temp Pulse Resp B/P Pulse Ox O2 Delivery O2 Flow Rate FiO2 08/15/16 18:00 98.0 86 17 140/82 95 I/O 08/15/16 08/15/16 08/15/16 08/16/16 08/16/16 08/16/16 07:00 15:00 23:00 07:00 15:00 23:00 Intake Total 400 ml 480 ml 990 ml 0 ml Output Total 1 ml Balance 400 ml 480 ml 989 ml 0 ml Intake Oral 400 ml 480 ml 590 ml 0 ml IV Total 400 ml Output Stool Total 1 ml # Voids 3 2 2 # Bowel Movements 2 Result Diagram: 08/14/16 0605 08/16/16 0434 Objective Remarks GENERAL: This is a frail elderly 81-year-old female. Sitting up in bedside chair. Confused. SKIN: Scattered ecchymotic areas bilateral upper extremities HEAD: small hematoma noted on forehead EYES: Pupils are equally dilated and reactive. Extraocular motions intact. No scleral icterus. No injection or drainage. Mouth: MMM. CARDIOVASCULAR: Regular rate and rhythm without murmurs, gallops, or rubs. RESPIRATORY: Clear to auscultation. Breath sounds equal bilaterally. No wheezes , rales, or rhonchi. GASTROINTESTINAL: Abdomen soft, non-tender, nondistended. Bowel sounds normoactive MUSCULOSKELETAL: Extremities without clubbing, cyanosis, trace bilateral lower extremity edema. NEUROLOGICAL: Awake and alert. Able to follow commands. Answers some of the questions but inappropriately. Procedures None Medications and IVs Current Medications Medications (Trade) Dose Ordered Sig/Jaydon Route Start Time Stop Time Status Last Admin (Tylenol) 650 mg Q4H PRN PO 08/06/16 22:00 08/15/16 00:24 (Milk Of Magnesia Liq) 30 ml DAILY PRN PO 08/06/16 22:00 (Mag-Al Plus Susp Liq) 30 ml Q6H PRN PO 08/06/16 22:00 08/11/16 13:11 (Cymbalta Dr) 60 mg DAILY PO 08/08/16 09:00 08/15/16 09:34 (Neurontin) 200 mg TID PO 08/07/16 13:00 Hold 08/07/16 13:00 (Synthroid) 150 mcg DAILY@06 PO 08/08/16 06:00 08/15/16 06:46 (Haldol Inj) 1 mg Q8HR PRN IM 08/07/16 14:00 08/16/16 04:37 (Protonix) 20 mg DAILY PO 08/08/16 09:00 08/15/16 09:34 (SEROquel) 12.5 mg BID PO 08/08/16 21:00 08/15/16 20:47 (Pill Splitter) 1 ea UNSCH PRN OTHER 08/08/16 12:30 (Lactinex) 1 tab TID PO 08/14/16 09:00 08/15/16 12:53 Metronidazole 500 mg 500 mg Q6HR PO 08/14/16 00:00 08/27/16 23:59 08/16/16 00:00 (NS + KCl 20 Meq Inj) 1,000 ml @ 50 mls/hr Q20H IV 08/14/16 11:00 08/16/16 03:53 (Mycostatin Powder) 1 applic Q12HR TOPICAL 08/15/16 21:00 08/16/16 00:03 A/P Problem List: (1) Dementia ICD Code: F03.90 Status: Acute (2) Acute kidney injury ICD Code: N17.9 Status: Acute (3) Hypothyroidism ICD Code: E03.9 Status: Chronic Assessment and Plan Patient is a 81 year old female with past medical history of hypertension, anemia, metabolic encephalopathy, CAD, COPD, CKD, dysphasia, dementia, small bowel obstruction. As per review of records, patient was transferred from inpatient psychiatric unit due to change in mental status. She was found to be lethargic and minimally responsive. Patient with a history of urinary tract infection and was treated intermittently secondary to refusal of antibiotic use. She was admitted in the medical floor with acute encephalopathy and urinary tract infection. Diagnostic studies including CT of the head was done with negative results. Patient was treated with IV antibiotic for urinary tract infection. Her medical condition has improved. However, patient continues to have poor by mouth intake secondary to dementia. She is now in inpatient psychiatry unit for further management. Consulted for medical management C. difficile colitis. Decreasing amount of loose stools. Tolerating diet. Continue on Flagyl for 2 weeks and Lactinex. Continue with IVF. 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 Discussed with dayshift nurse who will administer the medication. She will also document today any continued stooling and its consistency. Dementia with behavioral disturbance - managed by psychiatry team - Review of records showed, Head CT negative for any intracranial abnormalities. EKG shows sinus rhythm rate of 67, no ST changes, troponin negative 3 Urinary tract infection, recurrent - Patient was treated with IV ceftriaxone, Cipro by mouth - Continues to be lethargic on and off. May need to discontinue some of her medications with sedative effect. - Augmentin discontinued. Poor by mouth intake - Patient possibly with end stage dementia/ advanced dementia that mainly contributes to not recognizing the need to eat or drink - As per psychiatry note, they have discussed patient condition to the family. Family would like to proceed with hospice if the patient continues to decline with by mouth intake. Inguinal rash, candidiasis - Discussed with nursing staff, continue nystatin powder application twice a day Chronic medical conditions of Hypertension, CAD, COPD and Chronic kidney disease - stable continue home medications DVT prop teds/ SCD DNR to be signed by daughter Discussed with patient and nursing staff Written by Marissa Arizmendi PA-C acting as scribe for Dr. Monique on 08/16/16 at 10:06. All or portions of this note were transcribed by scribe Marissa Arizmendi PA-C. I, Dr. Dejuan Monique personally performed the history, physical exam, and medical decision making; and confirmed the accuracy of the information in the transcribed note. Authenticated by Dr. Dejuan Monique on 08/16/16 at 16:47. Problem Qualifiers (1) Dementia: Qualified Code: G30.8 - Alzheimer's dementia with behavioral disturbance, unspecified timing of dementia onset Marissa Arizmendi Aug 16, 2016 10:12 Dejuan Monique MD Aug 16, 2016 16:47
[2016-08-16] MEDS: PANTOPRAZOLE SOD 20 MG DELAYED RELEASE TAB PO SCH (10:17)
[2016-08-16] MEDS: DULoxetine HCl DR 60 MG CAP PO SCH (10:18)
[2016-08-16] MEDS: QUEtiapine FUMARATE 25 MG TAB PO SCH ×2 (10:18→21:00)
--- NOTE | 2016-08-16 13:48 | HHI.PYPN ---
Subjective Remarks On psychiatric evaluation patient is calm, continues to be pleasantly demented, disoriented in time person and place, she says that she feels good and happy, but she has periods of irritability and hostility, as per medical notes review she is getting better medically, compliant with medications. Review of Systems Other She doesn't have any somatic complaints Objective Alert: Yes [place]: Person Mood: Calm Affect: Blunted Memory Intact: Comment (remains impaired) Hallucinations: Other (no AVH) Delusions: No Delusion Type: Other (no delusions elicited) Suicidal: Ideation (no SI) Homicidal: Ideation (no HI) Insight/Judgment Poor Labs Test 08/16/16 04:34 Sodium Level 141 MEQ/L Potassium Level 4.2 MEQ/L Chloride Level 110 MEQ/L Carbon Dioxide Level 21.5 MEQ/L Anion Gap 10 MEQ/L Blood Urea Nitrogen 7 MG/DL Creatinine 0.56 MG/DL Estimat Glomerular Filtration 104 ML/MIN Rate Random Glucose 81 MG/DL Calcium Level 9.5 MG/DL Magnesium Level 2.1 MG/DL Vitals/IOs Vital Signs Date Time Temp Pulse Resp B/P Pulse Ox O2 Delivery O2 Flow Rate FiO2 08/15/16 18:00 98.0 86 17 140/82 95 Intake and Output 08/15/16 08/15/16 08/16/16 08:00 16:00 00:00 Intake Total 400 ml 480 ml 990 ml Output Total 1 ml Balance 400 ml 480 ml 989 ml Assessment & Plan Problem List: (1) Dementia Assessment & Plan: Continue current psychotropics ICD Code: F03.90 Assessment & Plan Estimated LOS: days Justification for Cont. Inpt. Patient is to continue psychiatric hospitalization for stabilization of behavior and treatment of C. difficile infection. Request HC Surrog/Guard Advoc?: Yes Problem Qualifiers (1) Dementia: Qualified Code: G30.8 - Alzheimer's dementia with behavioral disturbance, unspecified timing of dementia onset Maximo Lombardi MD Aug 16, 2016 13:48
[2016-08-16 18:00] VITALS: BP 142/74; PULSE 89; RESP 15; TEMP 98.9; O2SAT 92
[2016-08-17] MEDS: metroNIDAZOLE 500 MG TAB PO SCH ×4 (06:00→18:00)
[2016-08-17] MEDS: LEVOTHYROXINE SODIUM 150 MCG TAB PO SCH (06:00)
[2016-08-17 06:22] VITALS: BP 136/75; PULSE 75; RESP 14; TEMP 98.4; O2SAT 98
[2016-08-17] MEDS: PANTOPRAZOLE SOD 20 MG DELAYED RELEASE TAB PO SCH (09:00)
[2016-08-17] MEDS: QUEtiapine FUMARATE 25 MG TAB PO SCH ×2 (09:45→21:00)
[2016-08-17] MEDS: LACTOBACILLUS ACIDOPHILUS TAB PO SCH ×3 (09:45→18:00)
[2016-08-17] MEDS: DULoxetine HCl DR 60 MG CAP PO SCH (09:45)
[2016-08-17] MEDS: NYSTATIN 100,000 U/GM PWD 15 GM BTL TOPICAL SCH ×2 (09:46→21:00)
[2016-08-17] MEDS ORDERED: LACTOBACILLUS ACIDOPHILUS TAB PO SCH (10:30)
--- NOTE | 2016-08-17 11:49 | HHI.PR ---
Subjective Remarks Follow-up visit C. difficile diarrhea. Patient seen today. States she continues to have some loose stools. As per nursing, patient still has loose stools but improved frequency. Patient continues to be confused but able to follow some commands and responds to some questions appropriately. Denies pain or discomfort, shortness of breath/dyspnea denies chest pain, palpitations, fevers, chills, nausea, vomiting. Objective Vitals Vital Signs Date Time Temp Pulse Resp B/P Pulse Ox O2 Delivery O2 Flow Rate FiO2 08/17/16 06:22 98.4 75 14 136/75 98 08/16/16 18:00 98.9 89 15 142/74 92 I/O 08/16/16 08/16/16 08/16/16 08/17/16 08/17/16 08/17/16 07:00 15:00 23:00 07:00 15:00 23:00 Intake Total 480 ml 420 ml Balance 480 ml 420 ml Intake Oral 480 ml 420 ml # Voids 1 # Bowel Movements 0 Result Diagram: 08/14/16 0605 08/16/16 0434 Objective Remarks GENERAL: This is a frail elderly 89-year-old female, no acute distress. SKIN: Scattered ecchymotic areas bilateral upper extremities HEAD: small hematoma noted hematoma noted on forehead EYES: Pupils are equally dilated and reactive. No scleral icterus. No injection or drainage. CARDIOVASCULAR: Regular rate and rhythm without murmurs, gallops, or rubs. RESPIRATORY: Clear to auscultation. Breath sounds equal bilaterally. No wheezes , rales, or rhonchi. GASTROINTESTINAL: Abdomen soft, non-tender, nondistended. Bowel sounds active 4. MUSCULOSKELETAL: Extremities without clubbing, cyanosis, trace bilateral lower extremity edema. NEUROLOGICAL: Awake and alert. Able to follow commands. Answers some of the questions. Procedures None A/P Problem List: (1) Dementia ICD Code: F03.90 Status: Acute (2) Acute kidney injury ICD Code: N17.9 Status: Acute (3) Hypothyroidism ICD Code: E03.9 Status: Chronic (4) C. difficile diarrhea ICD Code: A04.7 Status: Acute Assessment and Plan Patient is a 81 year old female with past medical history of hypertension, anemia, metabolic encephalopathy, CAD, COPD, CK D, dysphasia, dementia, small bowel obstruction. As per review of records, patient was transferred from inpatient psychiatric unit due to change in mental status. She was found to be lethargic and minimally responsive. Patient with a history of urinary tract infection and was treated intermittently secondary to refusal of antibiotic use. She was admitted in the medical floor with acute encephalopathy and urinary tract infection. Diagnostic studies including CT of the head was done with negative results. Patient was treated with IV antibiotic for urinary tract infection. Her medical condition has improved. However, patient continues to have poor by mouth intake secondary to dementia. She is now in inpatient psychiatry unit for further management. Consulted for medical management Dementia with behavioral disturbance - managed by psychiatry team C. difficile diarrhea - Continue Flagyl - Continue Lactinex twice a day - Encourage by mouth fluid intake. Continue IV fluids for now. Urinary tract infection, recurrent - Review of records showed, Head CT negative for any intracranial abnormalities. EKG shows sinus rhythm rate of 67, no ST changes, troponin negative 3 - Patient was treated with IV ceftriaxone, Cipro by mouth - Patient was on Augmentin prior to her period has been discontinued secondary to C. difficile. Poor by mouth intake - Patient possibly with end stage dementia/ advanced dementia that mainly contributes to not recognizing the need to eat or drink - As per psychiatry note, they have discussed patient condition to the family. Family would like to proceed with hospice if the patient continues to decline with by mouth intake. Inguinal rash, candidiasis - Discussed with nursing staff, continue nystatin powder application twice a day Chronic medical conditions of Hypertension, CAD, COPD and Chronic kidney disease - stable continue home medications DVT prop teds/ SCD Discussed with patient, nursing Written by Manisha Quan, on behalf of Dr. Dominguez on 08/17/16 at 11:48. All or portions of this note were transcribed by burak MARTINEZ. I, Dr. Aracelis Dominguez personally performed the history, physical exam, and medical decision making; and confirmed the accuracy of the information in the transcribed note. Authenticated by Dr. Aracelis Dominguez on 08/17/16 at 11:48. Problem Qualifiers (1) Dementia: Qualified Code: G30.8 - Alzheimer's dementia with behavioral disturbance, unspecified timing of dementia onset Manisha Solorio Aug 17, 2016 11:49 Aracelis Dominguez MD Aug 17, 2016 15:53
--- NOTE | 2016-08-17 14:27 | HHI.PYPN ---
Subjective Remarks Patient seen in the floor staff, chart review, patient, pleasant with me, possibly confused, though staff states towards late afternoon to evening she at times becomes more irritable. Compliant medications. For now continue treatment Review of Systems Except as stated in HPI: all other systems reviewed are Neg Objective Alert: Yes [place]: Person Mood: Calm Affect: Blunted Memory Intact: Comment (remains impaired) Hallucinations: Other (no AVH) Delusions: No Delusion Type: Other (no delusions elicited) Suicidal: Ideation (no SI) Homicidal: Ideation (no HI) Insight/Judgment Very poor Vitals/IOs Vital Signs Date Time Temp Pulse Resp B/P Pulse Ox O2 Delivery O2 Flow Rate FiO2 08/17/16 06:22 98.4 75 14 136/75 98 Intake and Output 08/16/16 08/16/16 08/17/16 08:00 16:00 00:00 Intake Total 0 ml 480 ml Balance 0 ml 480 ml Assessment & Plan Problem List: (1) Dementia ICD Code: F03.90 Assessment & Plan Estimated LOS: days patient continues confused demented, but no significant behavioral problems Justification for Cont. Inpt. At this time patient will decompensate if placed in a lower level of care Discharge Planning To be determined Request HC Surrog/Guard Advoc?: Yes Problem Qualifiers (1) Dementia: Qualified Code: G30.8 - Alzheimer's dementia with behavioral disturbance, unspecified timing of dementia onset Dominic Montes De Oca MD Aug 17, 2016 14:27
[2016-08-17 17:38] LABS: BICARBONATE 24.1 MEQ/L (21.0-32.0); POTASSIUM 4.1 MEQ/L (3.5-5.1)
[2016-08-17 19:00] VITALS: BP 137/72; PULSE 98; RESP 18; TEMP 97.9; O2SAT 98
[2016-08-17] MEDS: NS + KCL 20 MEQ INJ 1,000 ML IV SCH (19:00)
[2016-08-18] MEDS: HALOPERIDOL LACTATE 5 MG/ML AMP IM PRN (00:37)
[2016-08-18] MEDS: metroNIDAZOLE 500 MG TAB PO SCH ×5 (06:00→20:37)
[2016-08-18] MEDS: LEVOTHYROXINE SODIUM 150 MCG TAB PO SCH (06:00)
[2016-08-18 06:27] VITALS: BP 129/60; PULSE 77; RESP 16; TEMP 97.8; O2SAT 97
[2016-08-18 07:15] VITALS: BP 141/73; PULSE 67; RESP 15; TEMP 97.5; O2SAT 98
--- NOTE | 2016-08-18 08:39 | HHI.PYPN ---
Subjective Remarks Patient seen in her room with nurse 1, somewhat sedated due to her receiving when necessary of IM Haldol around midnight last night. Patient received when necessary I am Haldol's late in the evening on 08/10, 08/11, 08/16, and 08/18. Will adjust scheduled Seroquel to 12.5 mg by mouth 8 AM and 4 PM and and Seroquel 25 mg at at bedtime. Patient remains confused was pleasant but drowsy this morning Review of Systems Except as stated in HPI: all other systems reviewed are Neg Objective Alert: Yes [place]: Person Mood: Calm Affect: Blunted Memory Intact: Comment (remains impaired) Hallucinations: Other (no AVH) Delusions: No Delusion Type: Other (no delusions elicited) Suicidal: Ideation (no SI) Homicidal: Ideation (no HI) Insight/Judgment Very poor Labs Test 08/17/16 16:33 Sodium Level 140 MEQ/L Potassium Level 4.1 MEQ/L Chloride Level 109 MEQ/L Carbon Dioxide Level 24.1 MEQ/L Anion Gap 7 MEQ/L Blood Urea Nitrogen 13 MG/DL Creatinine 0.71 MG/DL Estimat Glomerular Filtration 79 ML/MIN Rate Random Glucose 110 MG/DL Calcium Level 9.3 MG/DL Vitals/IOs Vital Signs Date Time Temp Pulse Resp B/P Pulse Ox O2 Delivery O2 Flow Rate FiO2 08/18/16 07:15 97.5 67 15 141/73 98 Intake and Output 08/17/16 08/17/16 08/18/16 08:00 16:00 00:00 Intake Total 420 ml 240 ml Balance 420 ml 240 ml Assessment & Plan Problem List: (1) Dementia ICD Code: F03.90 Assessment & Plan Estimated LOS: days patient continues demented confused with psychotic features thinking she is seeing a small dog in her room. See medication adjustments above Justification for Cont. Inpt. At this time patient will decompensate if placed in a lower level of care Discharge Planning To be determined Request HC Surrog/Guard Advoc?: Yes Problem Qualifiers (1) Dementia: Qualified Code: G30.8 - Alzheimer's dementia with behavioral disturbance, unspecified timing of dementia onset Dominic Montes De Oca MD Aug 18, 2016 08:39
[2016-08-18] MEDS: LACTOBACILLUS ACIDOPHILUS TAB PO SCH ×3 (08:43→18:00)
[2016-08-18] MEDS: DULoxetine HCl DR 60 MG CAP PO SCH (08:43)
[2016-08-18] MEDS: PANTOPRAZOLE SOD 20 MG DELAYED RELEASE TAB PO SCH (08:44)
[2016-08-18] MEDS: NYSTATIN 100,000 U/GM PWD 15 GM BTL TOPICAL SCH ×3 (08:44→22:00)
--- NOTE | 2016-08-18 11:18 | HHI.PR ---
Subjective Remarks Follow-up visit C. difficile diarrhea. Patient seen today. Patient to sleep in. Arousable to tactile stimulation. Confuse. Unable to respond to questions. As per staff, patient has been hallucinating overnight she was given Haldol. Loose stools this morning 1. Patient appears comfortable. Objective Vitals Vital Signs Date Time Temp Pulse Resp B/P Pulse Ox O2 Delivery O2 Flow Rate FiO2 08/18/16 07:15 97.5 67 15 141/73 98 08/18/16 06:27 97.8 77 16 129/60 97 08/17/16 19:00 97.9 98 18 137/72 98 I/O 08/17/16 08/17/16 08/17/16 08/18/16 08/18/16 08/18/16 07:00 15:00 23:00 07:00 15:00 23:00 Intake Total 420 ml 240 ml 120 ml Balance 420 ml 240 ml 120 ml Intake Oral 420 ml 240 ml 120 ml # Voids 3 Result Diagram: 08/14/16 0605 08/17/16 1633 Objective Remarks GENERAL: This is a frail elderly 89-year-old female, no acute distress. SKIN: Scattered ecchymotic areas bilateral upper extremities HEAD: small hematoma noted hematoma noted on forehead EYES: Pupils are equally dilated and reactive. No scleral icterus. No injection or drainage. CARDIOVASCULAR: Regular rate and rhythm without murmurs, gallops, or rubs. RESPIRATORY: Clear to auscultation. Breath sounds equal bilaterally. No wheezes , rales, or rhonchi. GASTROINTESTINAL: Abdomen soft, non-tender, nondistended. Bowel sounds active 4. MUSCULOSKELETAL: Extremities without clubbing, cyanosis, trace bilateral lower extremity edema. NEUROLOGICAL: Drowsy. Able to follow some commands. Answers some of the questions. Procedures None A/P Problem List: (1) Dementia ICD Code: F03.90 Status: Acute (2) Acute kidney injury ICD Code: N17.9 Status: Acute (3) Hypothyroidism ICD Code: E03.9 Status: Chronic (4) C. difficile diarrhea ICD Code: A04.7 Status: Acute Assessment and Plan Patient is a 81 year old female with past medical history of hypertension, anemia, metabolic encephalopathy, CAD, COPD, CK D, dysphasia, dementia, small bowel obstruction. As per review of records, patient was transferred from inpatient psychiatric unit due to change in mental status. She was found to be lethargic and minimally responsive. Patient with a history of urinary tract infection and was treated intermittently secondary to refusal of antibiotic use. She was admitted in the medical floor with acute encephalopathy and urinary tract infection. Diagnostic studies including CT of the head was done with negative results. Patient was treated with IV antibiotic for urinary tract infection. Her medical condition has improved. However, patient continues to have poor by mouth intake secondary to dementia. She is now in inpatient psychiatry unit for further management. Consulted for medical management Dementia with behavioral disturbance - managed by psychiatry team C. difficile diarrhea - Continue Flagyl - Continue Lactinex twice a day - Encourage by mouth fluid intake. - Patient gives on pulling IV access. Will DC for now. Encourage by mouth intake. Monitor labs. Urinary tract infection, recurrent - Review of records showed, Head CT negative for any intracranial abnormalities. EKG shows sinus rhythm rate of 67, no ST changes, troponin negative 3 - Patient was treated with IV ceftriaxone, Cipro by mouth - Patient was on Augmentin prior to her period has been discontinued secondary to C. difficile. Poor by mouth intake - Patient possibly with end stage dementia/ advanced dementia that mainly contributes to not recognizing the need to eat or drink - As per psychiatry note, they have discussed patient condition to the family. Family would like to proceed with hospice if the patient continues to decline with by mouth intake. Inguinal rash, candidiasis - Discussed with nursing staff, continue nystatin powder application twice a day Chronic medical conditions of Hypertension, CAD, COPD and Chronic kidney disease - stable continue home medications DVT prop teds/ SCD Discussed with patient, nursing Written by Manisha Quan, acting as scribe for Dr. Dominguez on 08/18/16 at 11:17. All or portions of this note were transcribed by burak MARTINEZ. I, Dr. Aracelis Dominguez personally performed the history, physical exam, and medical decision making; and confirmed the accuracy of the information in the transcribed note. Authenticated by Dr. Aracelis Dominguez on 08/18/16 at 11:17. Problem Qualifiers (1) Dementia: Qualified Code: G30.8 - Alzheimer's dementia with behavioral disturbance, unspecified timing of dementia onset Manisha Solorio Aug 18, 2016 11:18 Aracelis Dominguez MD Aug 18, 2016 18:59
[2016-08-18] MEDS: NS + KCL 20 MEQ INJ 1,000 ML IV SCH (15:00)
[2016-08-18] MEDS: QUEtiapine FUMARATE 25 MG TAB PO SCH (16:00)
[2016-08-18 18:00] VITALS: BP 139/75; PULSE 95; RESP 16; TEMP 95.5; O2SAT 99
[2016-08-18 20:14] VITALS: BP 113/54; PULSE 95; RESP 16; TEMP 98.1; O2SAT 94
[2016-08-18] MEDS ORDERED: QUEtiapine FUMARATE 25 MG TAB PO SCH (21:00)
[2016-08-19 06:07] VITALS: BP 154/74; PULSE 86; RESP 16; TEMP 97.7; O2SAT 99
[2016-08-19] MEDS: LEVOTHYROXINE SODIUM 150 MCG TAB PO SCH (06:14)
[2016-08-19] MEDS: metroNIDAZOLE 500 MG TAB PO SCH ×2 (06:15→12:00)
[2016-08-19] MEDS: QUEtiapine FUMARATE 25 MG TAB PO SCH (08:00)
[2016-08-19] MEDS: LACTOBACILLUS ACIDOPHILUS TAB PO SCH ×2 (09:00→12:38)
[2016-08-19] MEDS: DULoxetine HCl DR 60 MG CAP PO SCH (09:00)
[2016-08-19] MEDS: PANTOPRAZOLE SOD 20 MG DELAYED RELEASE TAB PO SCH (09:00)
[2016-08-19] MEDS: NYSTATIN 100,000 U/GM PWD 15 GM BTL TOPICAL SCH (09:00)
[2016-08-19] MEDS ORDERED: NYST10007 TOPICAL (10:45)
[2016-08-19] MEDS ORDERED: METR-1 PO (10:45)
[2016-08-19] MEDS ORDERED: LACT PO (10:45)
--- NOTE | 2016-08-19 10:46 | HHI.PR ---
Objective Vitals Vital Signs Date Time Temp Pulse Resp B/P Pulse Ox O2 Delivery O2 Flow Rate FiO2 08/19/16 06:07 97.7 86 16 154/74 99 08/18/16 20:14 98.1 95 16 113/54 94 08/18/16 18:00 95.5 95 16 139/75 99 I/O 08/18/16 08/18/16 08/18/16 08/19/16 08/19/16 08/19/16 07:00 15:00 23:00 07:00 15:00 23:00 Intake Total 240 ml 760 ml 540 ml 360 ml Balance 240 ml 760 ml 540 ml 360 ml Intake Oral 240 ml 360 ml 240 ml 360 ml IV Total 400 ml 300 ml # Voids 2 1 # Bowel Movements 2 Result Diagram: 08/17/16 1633 Objective Remarks GENERAL: This is a frail elderly 89-year-old female, no acute distress. SKIN: Scattered ecchymotic areas bilateral upper extremities HEAD: small hematoma noted hematoma noted on forehead EYES: Pupils are equally dilated and reactive. No scleral icterus. No injection or drainage. CARDIOVASCULAR: Regular rate and rhythm without murmurs, gallops, or rubs. RESPIRATORY: Clear to auscultation. Breath sounds equal bilaterally. No wheezes , rales, or rhonchi. GASTROINTESTINAL: Abdomen soft, non-tender, nondistended. Bowel sounds active 4. MUSCULOSKELETAL: Extremities without clubbing, cyanosis, trace bilateral lower extremity edema. NEUROLOGICAL: Drowsy. Able to follow some commands. Answers some of the questions. Procedures None A/P Problem List: (1) Dementia ICD Code: F03.90 Status: Acute (2) Acute kidney injury ICD Code: N17.9 Status: Acute (3) Hypothyroidism ICD Code: E03.9 Status: Chronic (4) C. difficile diarrhea ICD Code: A04.7 Status: Acute Assessment and Plan Patient is a 81 year old female with past medical history of hypertension, anemia, metabolic encephalopathy, CAD, COPD, CK D, dysphasia, dementia, small bowel obstruction. As per review of records, patient was transferred from inpatient psychiatric unit due to change in mental status. She was found to be lethargic and minimally responsive. Patient with a history of urinary tract infection and was treated intermittently secondary to refusal of antibiotic use. She was admitted in the medical floor with acute encephalopathy and urinary tract infection. Diagnostic studies including CT of the head was done with negative results. Patient was treated with IV antibiotic for urinary tract infection. Her medical condition has improved. However, patient continues to have poor by mouth intake secondary to dementia. She is now in inpatient psychiatry unit for further management. Consulted for medical management Dementia with behavioral disturbance - managed by psychiatry team C. difficile diarrhea - Continue Flagyl - Continue Lactinex twice a day - Encourage by mouth fluid intake. - Patient gives on pulling IV access. Will DC for now. Encourage by mouth intake. Monitor labs. Urinary tract infection, recurrent - Review of records showed, Head CT negative for any intracranial abnormalities. EKG shows sinus rhythm rate of 67, no ST changes, troponin negative 3 - Patient was treated with IV ceftriaxone, Cipro by mouth - Patient was on Augmentin prior to her period has been discontinued secondary to C. difficile. Poor by mouth intake - Patient possibly with end stage dementia/ advanced dementia that mainly contributes to not recognizing the need to eat or drink - As per psychiatry note, they have discussed patient condition to the family. Family would like to proceed with hospice if the patient continues to decline with by mouth intake. Inguinal rash, candidiasis - Discussed with nursing staff, continue nystatin powder application twice a day Chronic medical conditions of Hypertension, CAD, COPD and Chronic kidney disease - stable continue home medications DVT prop teds/ SCD Discussed with patient, nursing Written by Manisha Quan, acting as scribe for Dr. Dominguez on 08/18/16 at 11:17. Problem Qualifiers (1) Dementia: Qualified Code: G30.8 - Alzheimer's dementia with behavioral disturbance, unspecified timing of dementia onset Manisha Solorio Aug 19, 2016 10:46
[2016-08-19] MEDS: NS + KCL 20 MEQ INJ 1,000 ML IV SCH (11:00)
[2016-08-19] MEDS ORDERED: QUET1TAB7 PO (12:36)
[2016-08-19] MEDS ORDERED: DULO1CAP3 PO (12:37)
[2016-08-19] MEDS ORDERED: LEVO.15 PO (12:37)
--- NOTE | 2016-08-19 12:46 | HHI.DS ---
Psychiatry Discharge Summary Inpatient Psychiatric care?: Yes Advance Directive: No Reason Not Provided: REFUSED Mental Health AdvanceDirective: No Health Care Proxy: Yes Admission Admission Date Aug 06, 2016 at 15:00 Admission Diagnosis: (1) Dementia with behavioral disturbance ICD Code: F03.91 Brief History Ms. Carter is a 81-year-old female with a history of dementia transferred back to the inpatient psychiatric unit following medical clearance. She is presently on involuntary status with a healthcare surrogate/guardian advocate and will go to [facility] tomorrow, 08/08. Patient was admitted to the psychiatric unit on 07/30 for agitation at her nursing facility, and her hospital course was fairly uneventful until 08/04 when the patient was noted to be somewhat more lethargic. A [facility] was called and the patient was taken to the medical floor for further evaluation. Patient was seen in consultation by Dr. Lombardi on the medical floor, and he started patient on Seroquel. I have reviewed the electronic medical record including the records from patient's medical hospital stay. Patient seen and examined. Chart reviewed. Case discussed with nursing staff. On my examination today, patient is dozing in the day area. She awakens easily to voice. She remains quite confused and mental status testing is limited because of her baseline poor mental state, but I suspect her memory remains markedly impaired. She is not able to follow simple commands. She resists efforts to reposition her arms, e.g. for examination of motor tone. She says no more than a few words, and these are largely non-sensical. Psychiatric interview remains limited because of her mental state, and I am unable to obtain any past psychiatric, family, chem dep or social history from this patient for this reason. Tobacco Use In Past 30 Days: No Tobacco Past 30 Days Alcohol Use: Never Hospital Course Patient was admitted in the hospital due to dementia with behavioral disturbances. Psychosocial and psychiatric assessment were immediately completed. Patient was restarted inappropriate psychotherapy, group activities , individual therapy and psychotropics. Patient showed good response, without significant side effects. During her stay in the hospital she had periods of agitation, hostility, but she was redirectable. She was mostly pleasantly confused and demented. During the hospitalization she develop C. difficile diarrhea, was transferred to the med psych unit to continue psychiatric treatment concomitantly with medical treatment. She got appropriate medications and was medically cleared. At the moment of the discharge patient is at baseline, and at her lowest risk of dangerousness. Results Blood Pressure 154 / 74 Vital Signs Date Time Temp Pulse Resp B/P Pulse Ox O2 Delivery O2 Flow Rate FiO2 08/19/16 06:07 97.7 86 16 154/74 99 Laboratory Tests Test 08/17/16 16:33 Chloride Level 109 MEQ/L (98-107) Estimat Glomerular Filtration 79 ML/MIN (>89) Rate Random Glucose 110 MG/DL (74-106) Summary of Major Lab Results Reviewed Summary of Procedures None Pending results at discharge: No Medications # of Antipsychotic meds at D/C: 1 Approp Antipsych med options 1 - Minimum of three failed multiple trials of monotherapy. 2 - Documented plan to taper to monotherapy due to previous use of multiple meds OR cross-taper in progress at D/C. 3 - Documentation of augmentation of Clozapine. 4 - Justification other than those listed in allowable values 1-3, document here : Discharge Discharge Date: Aug 19, 2016 Discharge Diagnosis: (1) Dementia ICD Code: F03.90 Mental Status Exam at Disch Elderly woman, superficially cooperative, distant, pleasantly confused and demented, good hygiene, in [employer], age appropriate, her speech is reticent and incoherent. Her mood is "okay". Affect is restricted. Thought process is illogical and tangential. Thought content is devoid of suicidal ideation, homicidal ideation, visual and auditory hallucinations. Insight is poor, judgment is poor, impulse control is good, memory is impaired. Pt Condition on Discharge: Stable Discharge Disposition: Discharge Home Discharge Instructions Diet Instructions: As Tolerated, No Restrictions, Heart Healthy Diet Activities you can perform: Non Weight Bearing Scheduled Appointment: [facility] Discharge Time > 30 minutes Discharge/Advance Care Plan Health Problems: (1) Dementia Goals to promote your health * To prevent worsening of your condition and complications * To maintain your health at the optimal level Directions to meet your goals Take your medications as prescribed Follow your dietary instruction Follow activity as directed Keep your appointments as scheduled Take your immunizations and boosters as scheduled If your symptoms worsen call your PCP, if no PCP go to Urgent Care Center or Emergency Room For 02/12 questions related to your inpatient stay or results of tests pending at discharge, please contact Dr. Maximo Lombardi at Smoking is Dangerous to Your Health. Avoid second hand smoking Problem Qualifiers (1) Dementia: Qualified Code: G30.8 - Alzheimer's dementia with behavioral disturbance, unspecified timing of dementia onset Maximo Lombardi MD Aug 19, 2016 12:46
--- NOTE | 2016-08-19 14:54 | HHI.PR ---
Subjective Remarks Follow-up visit C. difficile diarrhea. Patient seen today. Awake and alert. Confuse. Follows commands. Responds to some questions. BM is now slightly formed, pasty. Patient appears comfortable. Plan for discharge by primary team to [facility] facility for continued care. Objective Vitals Vital Signs Date Time Temp Pulse Resp B/P Pulse Ox O2 Delivery O2 Flow Rate FiO2 08/19/16 06:07 97.7 86 16 154/74 99 08/18/16 20:14 98.1 95 16 113/54 94 08/18/16 18:00 95.5 95 16 139/75 99 I/O 08/18/16 08/18/16 08/18/16 08/19/16 08/19/16 08/19/16 07:00 15:00 23:00 07:00 15:00 23:00 Intake Total 240 ml 760 ml 540 ml 4960 ml Balance 240 ml 760 ml 540 ml 4960 ml Intake Oral 240 ml 360 ml 240 ml 4960 ml IV Total 400 ml 300 ml # Voids 2 1 2 # Bowel Movements 2 1 Result Diagram: 08/17/16 1633 Objective Remarks GENERAL: This is a frail elderly 89-year-old female, no acute distress. SKIN: Scattered ecchymotic areas bilateral upper extremities HEAD: small hematoma noted hematoma noted on forehead EYES: Pupils are equally dilated and reactive. No scleral icterus. No injection or drainage. CARDIOVASCULAR: Regular rate and rhythm without murmurs, gallops, or rubs. RESPIRATORY: Clear to auscultation. Breath sounds equal bilaterally. No wheezes , rales, or rhonchi. GASTROINTESTINAL: Abdomen soft, non-tender, nondistended. Bowel sounds active 4. MUSCULOSKELETAL: Extremities without clubbing, cyanosis, trace bilateral lower extremity edema. NEUROLOGICAL: Drowsy. Able to follow some commands. Answers some of the questions. Procedures None A/P Problem List: (1) Dementia ICD Code: F03.90 Status: Acute (2) Acute kidney injury ICD Code: N17.9 Status: Acute (3) Hypothyroidism ICD Code: E03.9 Status: Chronic (4) C. difficile diarrhea ICD Code: A04.7 Status: Acute Assessment and Plan Patient is a 81 year old female with past medical history of hypertension, anemia, metabolic encephalopathy, CAD, COPD, CK D, dysphasia, dementia, small bowel obstruction. As per review of records, patient was transferred from inpatient psychiatric unit due to change in mental status. She was found to be lethargic and minimally responsive. Patient with a history of urinary tract infection and was treated intermittently secondary to refusal of antibiotic use. She was admitted in the medical floor with acute encephalopathy and urinary tract infection. Diagnostic studies including CT of the head was done with negative results. Patient was treated with IV antibiotic for urinary tract infection. Her medical condition has improved. However, patient continues to have poor by mouth intake secondary to dementia. She is now in inpatient psychiatry unit for further management. Consulted for medical management Dementia with behavioral disturbance - managed by psychiatry team C. difficile diarrhea - Continue Flagyl - Continue Lactinex twice a day - Encourage by mouth fluid intake. - Patient gives on pulling IV access. Will DC for now. Encourage by mouth intake. Urinary tract infection, recurrent - Review of records showed, Head CT negative for any intracranial abnormalities. EKG shows sinus rhythm rate of 67, no ST changes, troponin negative 3 - Patient was treated with IV ceftriaxone, Cipro by mouth - Patient was on Augmentin prior to her period has been discontinued secondary to C. difficile. Poor by mouth intake - Patient possibly with end stage dementia/ advanced dementia that mainly contributes to not recognizing the need to eat or drink - As per psychiatry note, they have discussed patient condition to the family. Family would like to proceed with hospice if the patient continues to decline with by mouth intake. Inguinal rash, candidiasis - Discussed with nursing staff, continue nystatin powder application twice a day Chronic medical conditions of Hypertension, CAD, COPD and Chronic kidney disease - stable continue home medications DVT prop teds/ SCD Discussed with patient, nursing Stable from Hospitalist standpoint. Cleared for discharge from hospitalist standpoint. Written by Manisha Quan, acting as scribe for Dr. Dominguez on 08/19/16 at 14:53. All or portions of this note were transcribed by burak MARTINEZ. I, Dr. Aracelis Dominguez personally performed the history, physical exam, and medical decision making; and confirmed the accuracy of the information in the transcribed note. Authenticated by Dr. Aracelis Dominguez on 08/19/16 at 14:53. Problem Qualifiers (1) Dementia: Qualified Code: G30.8 - Alzheimer's dementia with behavioral disturbance, unspecified timing of dementia onset Manisha Solorio Aug 19, 2016 14:54 Aracelis Dominguez MD Aug 20, 2016 18:24
== END 2016-08-19 14:45 | DRG 56 ==
LOC: H250 15:00 → H4EA 08-14 13:53
PROVIDERS: ADMIT Psychiatry & Neurology Psychiatry; ATTEND Psychiatry & Neurology Psychiatry
DX: G30.9 Alzheimer's disease, unspecified (principal); G93.40 Encephalopathy, unspecified; N17.9 Acute kidney failure, unspecified; A04.7 Enterocolitis due to Clostridium difficile; F02.81 Dementia in other diseases classified elsewhere, unspecified severity, with behavioral disturbance; B37.9 Candidiasis, unspecified; D64.9 Anemia, unspecified; N39.0 Urinary tract infection, site not specified; I12.9 Hypertensive chronic kidney disease with stage 1 through stage 4 chronic kidney disease, or unspecified chronic kidney disease; E03.9 Hypothyroidism, unspecified; F94.0 Selective mutism; N18.9 Chronic kidney disease, unspecified; I25.10 Atherosclerotic heart disease of native coronary artery without angina pectoris; J44.9 Chronic obstructive pulmonary disease, unspecified; R47.02 Dysphasia; Z66 Do not resuscitate
CPT/HCPCS: 76937; 80048; 80061; 82550; 83036; 83735; 84439; 84443; 84484; 85025; 87493; 93005; J1630; J3480

== ENCOUNTER 2016-09-13 21:05 | Inpatient (IN) | payer MEDICARE, OTHER ==
[~2016-09-13 21:05] MED LIST changes: -AUGM250S2 PO; -CEPH-460 PO; -CYMB60CA PO; +DULO1CAP3 PO; +LACT PO; +METR-1 PO; -NORC5TAB PO; +NYST10007 TOPICAL; -PANT40TA3 PO; -SODI650T PO; -XANA1TAB2 PO
[2016-09-13 21:26] VITALS: BP 157/75; PULSE 92; RESP 18; TEMP 98.2; TEMP 99; O2SAT 96
--- NOTE | 2016-09-13 21:29 | PD ---
Data Data Last Documented VS Vital Signs Date Time Temp Pulse Resp B/P Pulse Ox O2 Delivery O2 Flow Rate FiO2 09/13/16 21:26 98.2 92 18 157/75 96 Orders Electrocardiogram (09/13/16 21:21) Complete Blood Count With Diff (09/13/16 21:21) Basic Metabolic Panel (Bmp) (09/13/16 21:21) Prothrombin Time / Inr (Pt) (09/13/16 21:21) Act Partial Throm Time (Ptt) (09/13/16 21:21) Magnesium (Mg) (09/13/16 21:21) Chest, Single Ap (09/13/16 21:21) Iv Access Insert/Monitor (09/13/16 21:21) Hip, Uni(Ap&Lat) W Ap Pelvis (09/13/16 21:21) MDM Supervised Visit with ARIANNA: Yes Narrative Course The history, exam, and medical decision-making in the associated midlevel provider note were completed with my assistance. I reviewed and agree with the findings presented. I attest that I had a [id number] encounter with the patient on the same day, and personally performed and documented my assessment and findings in the medical record. *My assessment and Findings: This is a 81-year-old female who has a history of dementia who presents to the emergency department having had a fall 2 days ago. She has evidence of a femoral neck fracture on x-ray. She will be admitted for surgical management. Ludy Hodges MD September 13, 2016 21:29
--- NOTE | 2016-09-13 21:54 | RADRPT ---
EXAM DATE/TIME: 09/13/2016 21:42 [facility] COMPARISON: CT BRAIN W/O CONTRAST, August 04, 2016, 18:25. INDICATIONS : Trauma, fall. RADIATION DOSE: 56.35 CTDIvol (mGy) MEDICAL HISTORY : Non-responsive. SURGICAL HISTORY : Non-responsive. ENCOUNTER: Initial ACUITY: 1 day PAIN SCALE: Non-responsive LOCATION: cranial TECHNIQUE: Multiple contiguous axial images were obtained of the head. Using automated exposure control and adj ustment of the mA and/or kV according to patient size, radiation dose was kept as low as reasonably a chievable to obtain optimal diagnostic quality images. FINDINGS: CEREBRUM: The ventricles are normal for age. No evidence of midline shift, mass lesion, hemorrhage or acute in farction. No extra-axial fluid collections are seen. Chronic low attenuation again seen in the periv entricular white matter. POSTERIOR FOSSA: The cerebellum and brainstem are intact. The 4th ventricle is midline. The cerebellopontine angle i s unremarkable. EXTRACRANIAL: Mucoperiosteal thickening and fluid again seen in the left frontal and left sphenoid air cells. SKULL: The calvaria is intact. No evidence of skull fracture. CONCLUSION: No acute intracranial abnormality. Chronic white matter changes. Sinus disease as above. Dominic Pena MD on September 13, 2016 at 21:51 Board Certified Radiologist. This report was verified electronically.
--- NOTE | 2016-09-13 22:01 | RADRPT ---
EXAM DATE/TIME: 09/13/2016 21:32 [facility] COMPARISON: CHEST SINGLE AP, August 04, 2016, 18:30. INDICATIONS : Trauma to chest post fall 1 days ago MEDICAL HISTORY : None. SURGICAL HISTORY : None. ENCOUNTER: Initial ACUITY: 2 days PAIN SCORE: Non-responsive. LOCATION: Bilateral chest FINDINGS: There is a small left pleural effusion, new. Visualized osseous structures are grossly intact. No inf iltrate or pneumothorax seen. CONCLUSION: Small, nonspecific left pleural effusion. Dominic Pena MD on September 13, 2016 at 21:57 Board Certified Radiologist. This report was verified electronically.
--- NOTE | 2016-09-13 22:02 | RADRPT ---
EXAM DATE/TIME: 09/13/2016 21:32 [facility] COMPARISON: No previous studies available for comparison. INDICATIONS : Left hip pain after fall 1 days ago MEDICAL HISTORY : None. SURGICAL HISTORY : None. ENCOUNTER: Initial ACUITY: 2 days PAIN SCORE: 10/10 LOCATION: Left hip FINDINGS: There is an impacted subcapital fracture of the left femoral neck. Mild superior displacement present . Articular surfaces appear intact. No subluxation. CONCLUSION: Impacted and mildly displaced left femoral neck fracture. Dominic Pena MD on September 13, 2016 at 21:59 Board Certified Radiologist. This report was verified electronically.
[2016-09-13] MEDS ORDERED: LEXA10TA PO (22:04)
[2016-09-13] MEDS ORDERED: ACET325T PO (22:04)
[2016-09-13] MEDS ORDERED: CLON.5 PO (22:04)
[2016-09-13] MEDS ORDERED: MEMA1CAP2 PO (22:04)
[2016-09-13] MEDS ORDERED: VANC250C2 PO (22:04)
--- NOTE | 2016-09-13 22:29 | PD ---
HPI Chief Complaint: Fall Time Seen by Provider: 22:25 Travel History International Travel<30 days: No Contact w/Intl Traveler<30days: No Traveled to known affect area: No History of Present Illness HPI 81-year-old female that presents to the ED for evaluation of fall. Patient is not a good historian at all. She has a chronic history of dementia and lives at custodial. Unclear as to what happened but apparently she fell 2 days ago. Patient had x-rays performed at an outside facility which show a left hip fracture she was brought here. No other information is provided. Patient did come with paperwork from the custodial with labs from August but there is no other family member or anybody in the room with her. Patient has definite shortening of the left leg compared to the right. Some bruising noted on the hip. Patient cannot really tell me how much is her pain. No other signs of trauma noted. Again history is limited. patient does have pain when I move her leg. PFSH Past Medical History Arthritis: Yes Asthma: No Autoimmune Disease: No Heart Rhythm Problems: No Cancer: No Cardiovascular Problems: Yes High Cholesterol: Yes Chemotherapy: No Chest Pain: No Congestive Heart Failure: No COPD: Yes Cerebrovascular Accident: Yes (AHD, HTN ) Dementia: Yes Diabetes: No Diminished Hearing: No Endocrine: Yes Gastrointestinal Disorders: Yes (CHOLELITHIASIS, CHOLECYSTITIS ) GERD: Yes Genitourinary: No Headaches: No Hiatal Hernia: No Hypertension: Yes Immune Disorder: No Musculoskeletal: Yes Neurologic: No Psychiatric: Yes (dementia with behavioral disturbance) Reproductive: No Respiratory: Yes Migraines: No Radiation Therapy: No Renal Failure: Yes Seizures: No Sleep Apnea: No Thyroid Disease: Yes Ulcer: No Menopausal: Yes Past Surgical History Abdominal Surgery: No Cardiac Surgery: No Cholecystectomy: Yes Ear Surgery: No Endocrine Surgery: No Eye Surgery: No Genitourinary Surgery: No Gynecologic Surgery: Yes (C section) Oral Surgery: No Thoracic Surgery: No Other Surgery: Yes Social History Alcohol Use: No Tobacco Use: No Substance Use: No Allergies-Medications (Allergen,Severity, Reaction): Coded Allergies: No Known Allergies (Verified , 07/29/16) Reported Meds & Prescriptions Reported Meds & Active Scripts Active Synthroid (Levothyroxine Sodium) 150 Mcg Tab 150 Mcg PO DAILY@[address] (Duloxetine HCl) 60 Mg Capdr 60 Mg PO DAILY Quetiapine (Quetiapine Fumarate) 25 Mg Tab 12.5 Mg PO DAILY@08,16 Acidophilus/l-Sporogenes (Lactobacillus Acidophilus) 1 Tab Tab 1 Tab PO TID 10 Days Nystop Topical (Nystatin Topical) 100,000 Unit/Gm Powd 1 Applic TOPICAL Q12HR 7 Days Flagyl (Metronidazole) 500 Mg Tab 500 Mg PO Q6HR 8 Days Quetiapine (Quetiapine Fumarate) 25 Mg Tab 25 Mg PO BID Reported Zantac (Ranitidine HCl) 150 Mg Tab 150 Mg PO BID Review of Systems Except as stated in HPI: all other systems reviewed are Neg Physical Exam Narrative GENERAL: SKIN: Warm and dry. HEAD: Atraumatic. Normocephalic. EYES: Pupils equal and round. No scleral icterus. No injection or drainage. ENT: No nasal bleeding or discharge. Mucous membranes pink and moist. Tongue is midline. No uvula deviation. NECK: Trachea midline. No JVD. CARDIOVASCULAR: Regular rate and rhythm. No murmurs, S3, S4. RESPIRATORY: No accessory muscle use. Clear to auscultation. Breath sounds equal bilaterally. GASTROINTESTINAL: Abdomen soft, non-tender, nondistended. Hepatic and splenic margins not palpable. MUSCULOSKELETAL: Extremities without clubbing, cyanosis, or edema. No obvious deformities. Patient has pain with range of motion of the left hip. I cannot flex or extend it with the patient complaining of severe pain. Patient does have shortening of the left leg compared to the right. 2+ pulses bilaterally. Full range of motion of the upper extremities with no pain. No obvious cervical , thoracic, lumbar spine tenderness to palpation. NEUROLOGICAL: Awake and alert. No obvious cranial nerve deficits. Motor grossly within normal limits. Five out of 5 muscle strength in the arms and legs. Normal speech. PSYCHIATRIC: Appropriate mood and affect; insight and judgment normal. Data Data Last Documented VS Vital Signs Date Time Temp Pulse Resp B/P Pulse Ox O2 Delivery O2 Flow Rate FiO2 09/13/16 21:26 99.0 92 18 157/75 96 Orders Electrocardiogram (09/13/16 21:21) Complete Blood Count With Diff (09/13/16 21:21) Basic Metabolic Panel (Bmp) (09/13/16 21:21) Prothrombin Time / Inr (Pt) (09/13/16 21:21) Act Partial Throm Time (Ptt) (09/13/16 21:21) Magnesium (Mg) (09/13/16 21:21) Chest, Single Ap (09/13/16 21:21) Iv Access Insert/Monitor (09/13/16 21:21) Hip, Uni(Ap&Lat) W Ap Pelvis (09/13/16 21:21) Ct Brain W/O Iv Contrast(Rout) (09/13/16 ) Isolation 08,20 (09/13/16 21:31) Equip, Isolation Cart (09/13/16 21:31) Urinalysis - C+S If Indicated (09/13/16 22:11) Urinary Catheter Insert/Apply (09/13/16 22:11) Labs Laboratory Tests Test 09/13/16 22:30 White Blood Count 10.9 TH/MM3 Red Blood Count 4.41 MIL/MM3 Hemoglobin 14.2 GM/DL Hematocrit 41.3 % Mean Corpuscular Volume 93.8 FL Mean Corpuscular Hemoglobin 32.3 PG Mean Corpuscular Hemoglobin 34.4 % Concent Red Cell Distribution Width 13.3 % Platelet Count 121 TH/MM3 Mean Platelet Volume 7.5 FL Neutrophils (%) (Auto) 85.3 % Lymphocytes (%) (Auto) 6.4 % Monocytes (%) (Auto) 6.4 % Eosinophils (%) (Auto) 1.6 % Basophils (%) (Auto) 0.3 % Neutrophils # (Auto) 9.3 TH/MM3 Lymphocytes # (Auto) 0.7 TH/MM3 Monocytes # (Auto) 0.7 TH/MM3 Eosinophils # (Auto) 0.2 TH/MM3 Basophils # (Auto) 0.0 TH/MM3 CBC Comment DIFF FINAL Differential Comment MDM Medical Decision Making Medical Screen Exam Complete: Yes Emergency Medical Condition: Yes Medical Record Reviewed: Yes Interpretation(s) Last Impressions Hip and Pelvis X-Ray 09/13/162120 Signed Impressions: Service Date/Time: Tuesday, September 13, 2016 21:32 - CONCLUSION: Impacted and mildly displaced left femoral neck fracture. Dominic Pena MD Chest X-Ray 09/13/162120 Signed Impressions: Service Date/Time: Tuesday, September 13, 2016 21:32 - CONCLUSION: Small, nonspecific left pleural effusion. Dominic Pena MD Head CT 09/13/16 0000 Signed Impressions: Service Date/Time: Tuesday, September 13, 2016 21:42 - CONCLUSION: No acute intracranial abnormality. Chronic white matter changes. Sinus disease as above. Dominic Pena MD Differential Diagnosis Fracture versus sprain versus strain versus head injury Narrative Course 81-year-old female that presents to the ED for evaluation of left hip injury. Patient was properly examined and was found to have signs and symptoms concerning for fractures. Patient had imaging performed a different facility with a report that shows that she has a left femoral hip fracture. Patient was brought here for evaluation of this. No family members present at the time. At this time x-rays and imaging were ordered as there is no other history of what happened. X-ray here did show the left femoral neck fracture. Ortho was consulted and Albert from Dr. Alvarez's service recommends admission to medicine and clearance for patient to have surgery. Diagnosis Primary Impression: Hip fracture Qualified Code: S72.002A - Hip fracture, left, closed, initial encounter Additional Impressions: C. difficile diarrhea Dementia Qualified Code: G30.1 - Late onset Alzheimer's disease without behavioral disturbance Admitting Information Admitting Physician Requests: Admit Kobe Meyer September 13, 2016 22:29
[2016-09-13 22:42] LABS: AUTOMATED NEUTROPHIL # 9.3 TH/MM3 (1.8-7.7); BASOPHIL % 0.3 % (0.0-2.0); EOSINOPHIL # 0.2 TH/MM3 (0-0.4); EOSINOPHIL % 1.6 % (0.0-4.0); HEMATOCRIT 41.3 % (35.0-46.0); HEMO FLAGS DIFF FINAL; LYMPH % 6.4 % (9.0-44.0); LYMPHOCYTE # 0.7 TH/MM3 (1.0-4.8); MEAN CELL VOLUME 93.8 FL (80.0-100.0); MEAN CORPUSCULAR HEMOGLOBIN 32.3 PG (27.0-34.0); MEAN CORPUSCULAR HGB CONC 34.4 % (32.0-36.0); MONO % 6.4 % (0.0-8.0); NEUT % 85.3 % (16.0-70.0); PLATELET COUNT 121 TH/MM3 (150-450); RED BLOOD COUNT 4.41 MIL/MM3 (4.00-5.30); RED CELL DISTRIBUTION WIDTH 13.3 % (11.6-17.2); WHITE BLOOD COUNT 10.9 TH/MM3 (4.0-11.0)
[2016-09-13 23:16] LABS: BICARBONATE 22.1 MEQ/L (21.0-32.0); MAGNESIUM 2.3 MG/DL (1.5-2.5)
[2016-09-13 23:18] LABS: POTASSIUM 4.3 MEQ/L (3.5-5.1)
[2016-09-13 23:36] LABS: APTT (PATIENT) 28.9 SEC (24.3-30.1); PROTHROMBIN TIME - PATIENT 10.7 SEC (9.8-11.6)
[2016-09-14] VITALS (7 sets, daily range): BP systolic 114–162; BP diastolic 62–97; PULSE 86–92; RESP 16–18; TEMP 96.6–97.7; O2SAT 94–100
[2016-09-14] MEDS ORDERED: BISACODYL 10 MG SUPP RECTAL PRN (00:15)
[2016-09-14] MEDS ORDERED: ACETAMINOPHEN 325 MG TAB PO PRN (00:15)
[2016-09-14] MEDS ORDERED: SODIUM CHLORIDE 0.9% FLUSH 10 ML FLUSH IV FLUSH PRN (00:15)
[2016-09-14] MEDS ORDERED: ONDANSETRON HCL 4 MG/2 ML VIAL IVP PRN (00:15)
--- NOTE | 2016-09-14 00:23 | HHI.HP ---
[facility] Unknown Admission Diagnosis femoral neck fracture Diagnoses: (1) Fall Diagnosis: Principal (2) Hip fracture Diagnosis: Principal (3) C. difficile diarrhea Diagnosis: Principal (4) Dementia Diagnosis: Principal (5) Thrombocytopenia Diagnosis: Principal Travel History International Travel<30 Days: No Contact w/Intl Traveler <30 Da: No Traveled to Known Affected Are: No History of Present Illness This is a 81-year-old female with a PMH of HTN, COPD, CVA, C. Diff Colitis and Dementia who was sent to the ER from SNF for left hip fracture. Per report, pt had fall 2 days ago, details unclear as pt unable to provide history. Today, outpatient X-ray w/ left femoral neck fracture and pt sent to ER. On arrival, BP 157/75, HR 92, O2 sat 96% on RA, Temp 99.0. CBC unremarkable except for platelets 121, previously 153 on 08/14/16. INR 1.0. CT Head with no acute findings. Hip/Pelvis X-ray with impacted mildly displaced left femoral neck fracture. CXR with no acute findings except for small left pleural effusion. Ortho consulted by ER physician, plan is for surgical intervention, however pt currently undergoing treatment for C Diff Colitis w/ Vanc PO. Review of Systems Except as stated in HPI: all other systems reviewed are Neg Past Family Social History Past Medical History PMH: HTN, COPD, CVA, C. Diff Colitis and Dementia Past Surgical History PAST SURGICAL HISTORY: Allergies: Coded Allergies: No Known Allergies (Verified , 07/29/16) Family History PAST FAMILY HISTORY: Reviewed. No h/o DM or CAD Social History PAST SOCIAL HISTORY: Negative for alcohol, tobacco or drugs. Physical Exam Vital Signs Vital Signs Date Time Temp Pulse Resp B/P Pulse Ox O2 Delivery O2 Flow Rate FiO2 09/13/16 21:26 99.0 92 18 157/75 96 Physical Exam PE: GENERAL: Elderly female in no acute distress. HEENT: PERRLA, EOMI. No scleral icterus or conjunctival pallor. No lid lag or facial droop. CARDIOVASCULAR: Regular rate and rhythm. No obvious murmurs to auscultation. No chest tenderness to palpation. RESPIRATORY: No obvious rhonchi or wheezing. Clear to auscultation. Breath sounds equal bilaterally. GASTROINTESTINAL: Abdomen soft, non-tender, nondistended. BS normal. MUSCULOSKELETAL: Decreased ROM of LLE due to injury. Pulses intact. NEUROLOGICAL: Awake, alert. No focal neurologic deficits. Moving both upper and lower extremities spontaneously. Laboratory Laboratory Tests Test 09/13/16 22:30 White Blood Count 10.9 Red Blood Count 4.41 Hemoglobin 14.2 Hematocrit 41.3 Mean Corpuscular Volume 93.8 Mean Corpuscular Hemoglobin 32.3 Mean Corpuscular Hemoglobin 34.4 Concent Red Cell Distribution Width 13.3 Platelet Count 121 Mean Platelet Volume 7.5 Neutrophils (%) (Auto) 85.3 Lymphocytes (%) (Auto) 6.4 Monocytes (%) (Auto) 6.4 Eosinophils (%) (Auto) 1.6 Basophils (%) (Auto) 0.3 Neutrophils # (Auto) 9.3 Lymphocytes # (Auto) 0.7 Monocytes # (Auto) 0.7 Eosinophils # (Auto) 0.2 Basophils # (Auto) 0.0 CBC Comment DIFF FINAL Differential Comment Prothrombin Time 10.7 Prothromb Time International 1.0 Ratio Activated Partial 28.9 Thromboplast Time Sodium Level 142 Potassium Level 4.3 Chloride Level 109 Carbon Dioxide Level 22.1 Anion Gap 11 Blood Urea Nitrogen 13 Creatinine 0.71 Estimat Glomerular Filtration 79 Rate Random Glucose 108 Calcium Level 9.6 Magnesium Level 2.3 Result Diagram: 09/13/16222909/13/162229 Assessment and Plan Problem List: (1) Fall ICD Code: W19.XXXA Status: Acute (2) Hip fracture ICD Code: S72.009A Status: Acute (3) C. difficile diarrhea ICD Code: A04.7 Status: Acute (4) Thrombocytopenia ICD Code: D69.6 Status: Acute (5) Dementia ICD Code: F03.90 Status: Acute Assessment and Plan A/P: 1. Fall: s/p fall at SNF 2 days ago, details unclear, pt unable to provided history. CT Head w/ no acute findings, images reviewed by me. 2. Left Hip Fx: Outpatient X-ray 09/13/16 w/ left femoral neck fracture, Hip/ Pelvis X-ray confirming impacted and mildly displaced left femoral neck fracture , images reviewed by me. Ortho consulted by ER physician, plan is for surgical intervention. NPO, IVF, analgesics, antiemetics as needed. 3. C Diff Colitis: Currently undergoing treatment for C Diff. Isolation Precautions. Resume home Vanc PO. 4. Thrombocytopenia: Platelets 121, previously 153 on 08/14/16. No active bleeding at this time. Will monitor. Caution w/ anticoagulation. 5. Dementia: At baseline per reports. Resume home medications. 6. DVT Prophylaxis: Anticoagulation post op per Ortho 7. Social work for d/c planning as needed. 8. Case discussed w/ ER physician at length. Physician Certification 2 Midnight Certification Type: Admission for Inpatient Services Order for Inpatient Services The services are ordered in accordance with Medicare regulations or non- Medicare payer requirements, as applicable. In the case of services not specified as inpatient-only, they are appropriately provided as inpatient services in accordance with the 2-midnight benchmark. Estimated LOS (days): 2 days is the estimated time the patient will need to remain in the hospital, assuming treatment plan goals are met and no additional complications. Post-Hospital Plan: Not yet determined Problem Qualifiers (1) Hip fracture: Qualified Code: S72.002A - Hip fracture, left, closed, initial encounter (2) Dementia: Qualified Code: G30.1 - Late onset Alzheimer's disease without behavioral disturbance Abena Ring MD September 14, 2016 00:23
[2016-09-14 00:44] LABS: BACTERIA, URINE RARE /hpf; BLOOD, URINE SMALL (NEG); COMMENT (UR) CATH-CULTURE IND; CULTURE IF INDICATED CATH CULTURE IND; GLUCOSE,URINE NEG (NEG); KETONE, URINE NEG (NEG); MUCUS URINE FEW /lpf (OCC); NITRITE,URINE NEG (NEG); SQUAMOUS EPITHELIAL CELL URINE 3 /hpf (0-5); URINE COLOR YELLOW (YELLW/STRAW)
[2016-09-14] MEDS: SODIUM CHLOR 0.9% 1000 ML INJ 1,000 ML IV SCH ×3 (00:56→20:44)
[2016-09-14] MEDS: MORPHINE SULFATE 4 MG/ML INJ IV PRN ×3 (00:57→20:47)
[2016-09-14] MEDS: cefTRIAXone INJ 1,000 MG in SODIUM CHLORIDE 0.9% INJ 100 ML IV SCH (03:41)
[2016-09-14] MEDS: LEVOTHYROXINE SODIUM 150 MCG TAB PO SCH (06:26)
--- NOTE | 2016-09-14 06:46 | PD.ORT.PN ---
Subjective Subjective Remarks Patient confused from assisted. Fell 2 days ago with left hip pain. Patient has dementia and also C. difficile Objective Vitals Vital Signs Date Time Temp Pulse Resp B/P Pulse Ox O2 Delivery O2 Flow Rate FiO2 09/14/16 02:15 97.0 91 18 142/97 95 09/14/16 00:00 92 16 135/80 99 Room Air 09/13/16 21:26 99.0 92 18 157/75 96 I/O 09/13/16 09/13/16 09/13/16 09/14/16 09/14/16 09/14/16 07:00 15:00 23:00 07:00 15:00 23:00 Intake Total 0 ml Output Total 300 ml Balance -300 ml Intake Oral 0 ml Output Urine Total 300 ml # Bowel Movements 1 Result Diagram: 09/13/16222909/13/162229 Other Results Laboratory Tests Test 09/13/16 22:30 Prothrombin Time 10.7 SEC (9.8-11.6) Prothromb Time International 1.0 RATIO Ratio Imaging Last 24 hours Impressions Hip and Pelvis X-Ray 09/13/162120 Signed Impressions: Service Date/Time: Tuesday, September 13, 2016 21:32 - CONCLUSION: Impacted and mildly displaced left femoral neck fracture. Dominic Pena MD Chest X-Ray 09/13/162120 Signed Impressions: Service Date/Time: Tuesday, September 13, 2016 21:32 - CONCLUSION: Small, nonspecific left pleural effusion. Dominic Pena MD Objective Remarks Bilateral upper extremities: Full range of motion neurovascular intact Right lower extremity: Full range of motion neurovascular intact Left lower extremity: Pain with motion of hip. Distally intact sensation and movement of ankle and toes Assessment & Plan Assessment and Plan Left femoral neck fracture Nothing by mouth Sign consents Plan for surgery for left hip hemiarthroplasty with Praneeth Whitfield Jr. September 14, 2016 06:46
[2016-09-14] MEDS ORDERED: TRANEXAMIC ACID INJ 720 MG in SODIUM CHLORIDE 0.9% INJ 100 ML IV ONE (08:00)
[2016-09-14] MEDS ORDERED: PROPOFOL 200 MG/20 ML AMP IV ONE (08:58)
[2016-09-14] MEDS ORDERED: NEOSTIGMINE 3 MG/3 ML SYR IV ONE (08:58)
[2016-09-14] MEDS ORDERED: SODIUM CHLOR 0.9% 250 ML INJ 250 ML IV ONE (08:58)
[2016-09-14] MEDS ORDERED: PHENYLEPH/NS 1000 MCG/10 ML SYR IV ONE (08:58)
[2016-09-14] MEDS ORDERED: ONDANSETRON HCL 4 MG/2 ML VIAL IV PUSH ONE (08:58)
[2016-09-14] MEDS: SODIUM CHLORIDE 0.9% FLUSH 10 ML FLUSH IV FLUSH SCH ×2 (09:00→20:46)
[2016-09-14] MEDS: DULoxetine HCl DR 60 MG CAP PO SCH (09:00)
[2016-09-14] MEDS: ESCITALOPRAM OXALATE 10 MG TAB PO SCH (09:01)
[2016-09-14] MEDS: clonazePAM 0.5 MG TAB PO SCH ×2 (09:01→20:44)
[2016-09-14] MEDS: VANCOMYCIN 500 MG VIAL (FOR ORAL USE ONLY) PO SCH ×3 (09:01→17:18)
[2016-09-14] MEDS: LACTOBACILLUS ACIDOPHILUS TAB PO SCH ×3 (09:01→17:18)
[2016-09-14] MEDS: FAMOTIDINE 20 MG TAB PO SCH ×2 (09:01→20:44)
[2016-09-14] MEDS: QUEtiapine FUMARATE 25 MG TAB PO SCH ×2 (09:01→20:44)
--- NOTE | 2016-09-14 09:29 | MB ---
cc: BRIAN RUST DATE OF CONSULTATION: 09/14/2016 REASON FOR CONSULTATION: Left femoral neck fracture. CONSULTING PHYSICIAN Dr. Ring. HISTORY OF PRESENT ILLNESS: Brandy is a 81-year-old female who has history of hypertension, COPD, history of CVA, history of C diff colitis. She also has dementia. She lives in the [facility]. She had a fall approximately 2 days ago. The patient unable to give any clear history. She complains of left hip pain. Pain is worse with movement. She has been unable to stand or ambulate. PAST MEDICAL HISTORY The patient is in an unable to give any information regarding past medical history, Social history, family history or review of systems. Chart was reviewed. ILLNESSES: Hypertension COPD History of CVA. C-Difficile colitis Dementia. PAST SURGICAL HISTORY: section. ALLERGIES NONE. FAMILY HISTORY Unobtainable. SOCIAL HISTORY Unobtainable. REVIEW OF SYSTEMS Unobtainable PHYSICAL EXAMINATION IN GENERAL: The patient is a 81-year female who is confused. She is awake. VITAL SIGNS: Temperature 97.0, pulse 91, respirations 18, blood pressure 142/92, O2 sat 95% on room air. HEAD, EYES, EARS, NOSE, AND THROAT: Head: The patient is normocephalic. Pupils are equal. NECK: Soft, nontender. Trachea is midline. ABDOMEN: Soft, nontender, nondistended. EXTREMITIES: Examination of bilateral upper extremities reveals no pain with shoulder, elbow or wrist motion. She has good cap refill fingers. Skin is intact both hands. Examination of left leg reveals pain with any hip motion. She has no tension on the tibia or ankle. Skin is intact. Dorsalis pedis pulses palpable. Examination of right leg reveals no pain with hip, knee or ankle motion. Skin is intact. Dorsalis pedis pulses palpable. X-RAYS X-rays of left hip reviewed it the patient has a displaced left femoral neck fracture. IMPRESSION 1. Dementia 2. History of CVA 3. Recent C diff colitis infection. 4. Osteoporosis 5. Displaced left femoral neck fracture. PLAN The treatment options, at this point we include a left hip hemiarthroplasty versus open reduction internal fixation. Given the patient's osteoporosis and displacement of fracture. She would be the best suited for a left hip hemiarthroplasty. Risks of surgery include bleeding, infection, injuries to arteries, nerves or blood vessels, hip dislocation, leg length discrepancies, infection as well as medical complications including blood clot, stroke, heart attack and . All questions were answered. I will attempt to contact family for consents. A mid-level provider in my office (nurse practitioner or physician video library assistant) may see this patient on follow-up visits and continue to implement the objectives of this plan including: Starting or adjusting medications, injections , cast application, orthotics, brace application, physical therapy, radiological studies (including x-ray, MRI, CT, ultrasound, bone scan), vascular studies, neurologic studies, specialist consultation, and proceeding with surgical management, as appropriate. MD WILLARD Brannon/winsome /6:46 AM /9:04 AM MTDRa
--- NOTE | 2016-09-14 10:03 | EKG ---
Date Performed: 09/13/2016 Time Performed: 22:12:42 PTAGE: 81 years EKG: Sinus rhythm SEPTAL MYOCARDIAL INFARCTION ABNORMAL ECG PREVIOUS TRACING : 08/11/2016 13.44 DOCTOR: Rakel Khalil Interpretating Date/Time 09/14/2016 10:02:37
[2016-09-14] MEDS ORDERED: GENTAMICIN SULFATE 80 MG/2 ML VIAL ONE (10:38)
[2016-09-14] MEDS ORDERED: ceFAZolin 2 GM PREMIX 50 ML ONE (10:38)
[2016-09-14] MEDS ORDERED: VANCOMYCIN HCL 1000 MG VIAL ONE (10:38)
[2016-09-14] MEDS ORDERED: TRANEXAMIC ACID INJ 1,000 MG/10 ML AMP ONE (10:39)
--- NOTE | 2016-09-14 11:04 | PD.OP ---
cc: Leonard Alvarez MD Operative Report Date of Surgery: September 14, 2016 Preoperative Diagnosis: Displaced left femoral neck fracture Postoperative Diagnosis: Procedure: Left hip bipolar jono-arthroplasty Anesthesia: Gen. Surgeon: Leonard Alvarez [employer] Mechanical Designer(s): PARADISE Ferreira PA-C The surgical procedure was assisted by my physician legal support assistant. My P.A. presence was necessary throughout this case for the manipulation and positioning of the surgical extremity. My P.A. was assisting me throughout the duration of this procedure. The skill set of a physician legal support assistant was medically necessary to complete this procedure. During the surgical case the surgical consultant was working at the back table and the physician legal support assistant was directly assisting me. Operation and Findings: PLAN OF ACTIVITY Weight bear as tolerated. IMPLANTS USED DePuy Corail size [12] stem with size [44] bipolar head and [1.5] neck. DRAIN: 7 mm Farooq-Villafana drain DETAILS OF PROCEDURE This patient was brought into the operating room and placed on the OR table. The patient was given anesthesia. The patient received IV antibiotics. The patient was then placed in lateral decubitus position. The hip and leg were prepped with alcohol, followed by Hibiclens and draped in a usual sterile fashion. Clean air was used for this procedure. Time out procedure was performed. The procedure began with a 5 inch incision over the posterolateral hip. The subcutaneous tissue was dissected with the Bovie. The iliotibial band were split in line with fibers. The Charnley retractor was placed. The piriformis and external rotators were released from the femur and tagged with a #1 Vicryl suture. The capsule is now incised and tagged with #1 Vicryl. The femoral neck fracture was now visualized. A corkscrew was now used to remove the femoral head. The femoral head was sized and measured. Soft tissue was now protected. The hip skid was placed underneath the femoral neck. An oscillating saw was used to make a femoral neck cut. At this point attention was turned to preparation of the proximal femur. A box osteotome was used to remove the lateral cortex of the femoral neck. The T- handle reamer was used to open the femoral canal. Next, the canal was broached. A lateralizing reamer was used to help lateralize the prosthesis. At this point a trial head and neck were placed. The hip was reduced. The patient was found to have excellent stability with good range of motion. Trial components were removed. Soft tissue and bone were thoroughly irrigated. A Corail stem was now opened. The stem was now impacted into the proximal femur. Care was taken to keep appropriate anteversion. The head and neck were now impacted onto the stem. The hip was again reduced. The hip was found to have good range of motion and good stability. Leg lengths were clinically equal. The wound was thoroughly irrigated. The capsule, piriformis and iliotibial band were closed with #1 Vicryl. Subcutaneous tissue was closed with 3-0 Vicryl. The skin was closed with tameka. A sterile dressing was applied with Primapore. The patient was placed into a knee immobilizer. The patient was awakened and transferred to the recovery room in stable condition. Needle and sponge counts were correct. Leonard Alvarez MD September 14, 2016 11:04
[2016-09-14] MEDS ORDERED: MORPHINE SULFATE 4 MG/ML INJ IV PUSH PRN (11:15)
[2016-09-14] MEDS ORDERED: SODIUM CHLORIDE 0.9% FLUSH 5 ML FLUSH IVF PRN (11:15)
[2016-09-14] MEDS ORDERED: Post-op Orders (for Pharmacy) MISC XX ONE (11:15)
[2016-09-14] MEDS ORDERED: ceFAZolin INJ 1,000 MG VIAL IV ONE (11:20)
[2016-09-14] MEDS ORDERED: ERGOCALCIFEROL (VIT D2) 50,000 UNIT CAP PO ONE (11:30)
[2016-09-14] MEDS ORDERED: DO NOT ADM ANY ANTICOAGULANT DRUGS PRN (12:21)
[2016-09-14] MEDS ORDERED: *morphine SULFATE 8 MG/ML PERIprocedure ONLY ONE ×2 (13:20→13:50)
--- NOTE | 2016-09-14 13:29 | RADRPT ---
EXAM DATE/TIME: 09/14/2016 13:02 [facility] COMPARISON: HIP LEFT (AP&LAT 2/3VWS) W AP PELVIS, September 13, 2016, 21:32. INDICATIONS : Post op left total hip replacement. MEDICAL HISTORY : None. SURGICAL HISTORY : None. ENCOUNTER: Initial ACUITY: 1 day PAIN SCORE: Non-responsive. LOCATION: Left hip. FINDINGS: AP and crosstable lateral views of the left hip were obtained and demonstrate the patient is status p ost arthroplasty. The femoral and acetabular components are intact and in normal alignment. There is an adjacent surgical drain and soft tissue swelling. CONCLUSION: Expected postoperative change status post arthroplasty. Praneeth Fuller MD on September 14, 2016 at 13:24 Board Certified Radiologist. This report was verified electronically.
[2016-09-14] MEDS ORDERED: ceFAZolin 2 GM PREMIX 50 ML IV SCH (17:00)
[2016-09-14] MEDS: SODIUM CHLORIDE 0.9% FLUSH 5 ML FLUSH IVF SCH (20:46)
[2016-09-14] MEDS ORDERED: NAMZARIC PO SCH (21:00)
[2016-09-15] VITALS: BP 118/66; PULSE 84; RESP 18; TEMP 97.3; O2SAT 98
[2016-09-15] MEDS: VANCOMYCIN INJ 1,000 MG in SODIUM CHLOR 0.9% 250 ML INJ 250 ML IV SCH ×2 (00:27→11:28)
[2016-09-15 04:00] VITALS: BP 131/68; PULSE 76; RESP 18; TEMP 96.5; O2SAT 100
[2016-09-15] MEDS: cefTRIAXone INJ 1,000 MG in SODIUM CHLORIDE 0.9% INJ 100 ML IV SCH (04:14)
[2016-09-15 04:17] LABS: HEMATOCRIT 36.1 % (35.0-46.0); REVIEW FLAG FINAL
[2016-09-15 04:20] LABS: AUTOMATED NEUTROPHIL # 7.1 TH/MM3 (1.8-7.7); BASOPHIL % 0.2 % (0.0-2.0); EOSINOPHIL % 0.1 % (0.0-4.0); HEMATOCRIT 35.7 % (35.0-46.0); LYMPH % 5.3 % (9.0-44.0); LYMPHOCYTE # 0.4 TH/MM3 (1.0-4.8); MEAN CELL VOLUME 96.3 FL (80.0-100.0); MEAN CORPUSCULAR HEMOGLOBIN 31.6 PG (27.0-34.0); MEAN CORPUSCULAR HGB CONC 32.8 % (32.0-36.0); MONO % 7.8 % (0.0-8.0); NEUT % 86.6 % (16.0-70.0); PLATELET COUNT 97 TH/MM3 (150-450); RED BLOOD COUNT 3.71 MIL/MM3 (4.00-5.30); WHITE BLOOD COUNT 8.2 TH/MM3 (4.0-11.0)
[2016-09-15 04:24] LABS: ALT (GPT) 443 U/L (10-53); ANION GAP 6 MEQ/L (5-15); AST (GOT) 405 U/L (15-37); BICARBONATE 25.1 MEQ/L (21.0-32.0); BLOOD UREA NITROGEN 13 MG/DL (7-18); CHLORIDE 114 MEQ/L (98-107); GLOMERULAR FILTRATION RATE 100 ML/MIN (>89); HEMO FLAGS AUTO DIFF; POTASSIUM 4.5 MEQ/L (3.5-5.1); SODIUM (NA) 145 MEQ/L (136-145)
[2016-09-15 04:26] LABS: ALKALINE PHOSPHATASE 252 U/L (45-117); TOTAL BILIRUBIN ADULT 1.8 MG/DL (0.2-1.0)
[2016-09-15] MEDS: SODIUM CHLOR 0.9% 1000 ML INJ 1,000 ML IV SCH ×2 (05:15→19:55)
[2016-09-15] MEDS: LEVOTHYROXINE SODIUM 150 MCG TAB PO SCH (05:15)
[2016-09-15 08:00] VITALS: BP 132/65; PULSE 72; RESP 17; TEMP 96.9; O2SAT 99
[2016-09-15] MEDS: SODIUM CHLORIDE 0.9% FLUSH 5 ML FLUSH IVF SCH ×2 (08:05→19:54)
[2016-09-15] MEDS: FAMOTIDINE 20 MG TAB PO SCH ×2 (08:07→19:53)
[2016-09-15] MEDS: LACTOBACILLUS ACIDOPHILUS TAB PO SCH ×3 (08:07→16:59)
[2016-09-15] MEDS: ESCITALOPRAM OXALATE 10 MG TAB PO SCH (08:07)
[2016-09-15] MEDS: SODIUM CHLORIDE 0.9% FLUSH 10 ML FLUSH IV FLUSH SCH ×2 (08:08→19:54)
[2016-09-15] MEDS: VANCOMYCIN 500 MG VIAL (FOR ORAL USE ONLY) PO SCH ×3 (08:08→17:00)
[2016-09-15] MEDS: clonazePAM 0.5 MG TAB PO SCH ×2 (08:08→19:54)
[2016-09-15] MEDS: DULoxetine HCl DR 60 MG CAP PO SCH (08:08)
[2016-09-15] MEDS: CHOLECALCIFEROL (VIT D3) 5000 UNIT CAP PO SCH (08:08)
[2016-09-15] MEDS: QUEtiapine FUMARATE 25 MG TAB PO SCH ×2 (08:08→19:53)
[2016-09-15] MEDS: MORPHINE SULFATE 4 MG/ML INJ IV PRN ×2 (08:23→16:55)
[2016-09-15 08:32] LABS: PLATELET ESTIMATE SMEAR LOW (NORMAL); PLATELET MORPHOLOGY NORMAL (NORMAL); SCAN/DIFF AUTO DIFF CONFIRMED
--- NOTE | 2016-09-15 09:32 | PD.ORT.PN ---
Subjective Subjective Remarks Dimension, confused Objective Vitals Vital Signs Date Time Temp Pulse Resp B/P Pulse Ox O2 Delivery O2 Flow Rate FiO2 09/15/16 08:00 96.9 72 17 132/65 99 09/15/16 04:00 96.5 76 18 131/68 100 09/15/16 00:00 97.3 84 18 118/66 98 09/14/16 20:00 96.6 91 18 162/90 98 09/14/16 16:00 96.9 89 16 119/66 100 09/14/16 14:00 97.4 92 16 122/64 98 09/14/16 13:45 97.3 95 10 129/68 100 Nasal Cannula 3 09/14/16 13:30 98 10 134/68 100 Nasal Cannula 3 09/14/16 13:15 97 12 151/81 99 Nasal Cannula 3 09/14/16 13:00 100 11 100 Nasal Cannula 3 09/14/16 12:45 101 12 100 Nasal Cannula 3 09/14/16 12:30 101 13 99 Nasal Cannula 3 09/14/16 12:22 97.5 103 10 133/67 100 Nasal Cannula 3 09/14/16 11:30 97.1 90 17 114/62 94 I/O 09/14/16 09/14/16 09/14/16 09/15/16 09/15/16 09/15/16 07:00 15:00 23:00 07:00 15:00 23:00 Intake Total 0 ml 1020 ml 920 ml 1000 ml 120 ml Output Total 300 ml 629 ml 550 ml 555 ml Balance -300 ml 391 ml 370 ml 445 ml 120 ml Intake Oral 0 ml 120 ml 120 ml 0 ml 120 ml IV Total 400 ml 800 ml 1000 ml Other 500 ml Output Urine Total 300 ml 600 ml 550 ml 550 ml Drainage Total 4 ml 0 ml 5 ml Estimated Blood Loss 25 ml # Bowel Movements 1 0 Result Diagram: 09/15/1630109/15/16301 Imaging Last 24 hours Impressions Hip and Pelvis X-Ray 09/13/162120 Signed Impressions: Service Date/Time: Tuesday, September 13, 2016 21:32 - CONCLUSION: Impacted and mildly displaced left femoral neck fracture. Dominic Pena MD Chest X-Ray 09/13/162120 Signed Impressions: Service Date/Time: Tuesday, September 13, 2016 21:32 - CONCLUSION: Small, nonspecific left pleural effusion. Dominic Pena MD Objective Remarks Bilateral upper extremities: Full range of motion neurovascular intact Right lower extremity: Full range of motion neurovascular intact Left lower extremity: Clean dry dressings and intact.Distally intact sensation and movement of ankle and toes Assessment & Plan Assessment and Plan Left hip hemiarthroplasty POD 1 PT weightbearing as tolerated with posterior hip precautions Discontinue drain and begin daily dressing changes POD [address] when in bed Lovenox Discharge to rehabilitation when medically stable in bed available Follow-up with Dr. Alvarez or PA in 2 weeks Praneeth Moreno Jr. September 15, 2016 09:32
[2016-09-15] MEDS ORDERED: XARE10TA PO (09:39)
[2016-09-15] MEDS ORDERED: NORC5TAB PO (09:39)
[2016-09-15] MEDS: ENOXAPARIN SODIUM 30 MG/0.3 ML SYRINGE SQ SCH (11:28)
--- NOTE | 2016-09-15 11:54 | HHI.PR ---
Subjective Remarks patient drowsy- just got medicated complained of pain earlier per staff- baseline dementia- not ff commands worked with PT earlier baseline ? have to find out from facility- looks like she is not that much ambulatory with baseline dementia ate 100% per staff Objective Vitals Vital Signs Date Time Temp Pulse Resp B/P Pulse Ox O2 Delivery O2 Flow Rate FiO2 09/15/16 08:00 96.9 72 17 132/65 99 09/15/16 04:00 96.5 76 18 131/68 100 09/15/16 00:00 97.3 84 18 118/66 98 09/14/16 20:00 96.6 91 18 162/90 98 09/14/16 16:00 96.9 89 16 119/66 100 09/14/16 14:00 97.4 92 16 122/64 98 09/14/16 13:45 97.3 95 10 129/68 100 Nasal Cannula 3 09/14/16 13:30 98 10 134/68 100 Nasal Cannula 3 09/14/16 13:15 97 12 151/81 99 Nasal Cannula 3 09/14/16 13:00 100 11 100 Nasal Cannula 3 09/14/16 12:45 101 12 100 Nasal Cannula 3 09/14/16 12:30 101 13 99 Nasal Cannula 3 09/14/16 12:22 97.5 103 10 133/67 100 Nasal Cannula 3 I/O 09/14/16 09/14/16 09/14/16 09/15/16 09/15/16 09/15/16 07:00 15:00 23:00 07:00 15:00 23:00 Intake Total 0 ml 1020 ml 920 ml 1000 ml 120 ml Output Total 300 ml 629 ml 550 ml 555 ml Balance -300 ml 391 ml 370 ml 445 ml 120 ml Intake Oral 0 ml 120 ml 120 ml 0 ml 120 ml IV Total 400 ml 800 ml 1000 ml Other 500 ml Output Urine Total 300 ml 600 ml 550 ml 550 ml Drainage Total 4 ml 0 ml 5 ml Estimated Blood Loss 25 ml # Bowel Movements 1 0 Result Diagram: 09/15/1630109/15/16 030 Imaging Last Impressions Hip and Pelvis X-Ray 09/14/16 1102 Signed Impressions: Service Date/Time: Wednesday, September 14, 2016 13:02 - CONCLUSION: Expected postoperative change status post arthroplasty. Praneeth Fuller MD Chest X-Ray 09/13/161 Signed Impressions: Service Date/Time: Tuesday, September 13, 2016 21:32 - CONCLUSION: Small, nonspecific left pleural effusion. Dominic Pena MD Head CT 09/13/16 0000 Signed Impressions: Service Date/Time: Tuesday, September 13, 2016 21:42 - CONCLUSION: No acute intracranial abnormality. Chronic white matter changes. Sinus disease as above. Dominic Pena MD Objective Remarks anicteric, drowsy no nuchal rigdity no rales regular rhtyhm abdomen-soft + bowel sounds extremities- post op dressing- EVARISTO bulb in place withdraws all extremities to stimulus Procedures left hip arthroplasty- 09/14 Urinary Catheter: Yes Loo insert reason: Prolonged Immobilization Date of Insertion: September 13, 2016 A/P Problem List: (1) Fall ICD Code: W19.XXXA Status: Acute (2) Hip fracture ICD Code: S72.009A Status: Acute (3) C. difficile diarrhea ICD Code: A04.7 Status: Acute (4) Thrombocytopenia ICD Code: D69.6 Status: Acute (5) Dementia ICD Code: F03.90 Status: Acute Assessment and Plan A/P: 1. Fall: s/p fall at [facility] 2 [facility] ago, details unclear, pt unable to provided history. CT Head w/ no acute findings, images reviewed by me. 2. Left Hip Fx: Outpatient X-ray 09/13/16 w/ left femoral neck fracture, Hip/ Pelvis X-ray confirming impacted and mildly displaced left femoral neck fracture , S/P hip arthroplasty 09/14 3. C Diff Colitis: Currently undergoing treatment for C Diff. Isolation Precautions. on Vanc PO. 4. Thrombocytopenia: Platelets 121, previously 153 on 08/14/16. No active bleeding at this time. Will monitor. Caution w/ anticoagulation. 5. Dementia: At baseline per reports. Resume home medications. 6. DVT Prophylaxis: Anticoagulation post op per Ortho 7. Social work for d/c planning as needed. - ff along with us Problem Qualifiers (1) Hip fracture: Qualified Code: S72.002A - Hip fracture, left, closed, initial encounter (2) Dementia: Qualified Code: G30.1 - Late onset Alzheimer's disease without behavioral disturbance Maribell Weller MD September 15, 2016 11:54
[2016-09-15 12:00] VITALS: BP 99/57; PULSE 87; RESP 18; TEMP 97.6; O2SAT 96
[2016-09-15 16:00] VITALS: BP 123/67; PULSE 90; RESP 17; TEMP 97.6; O2SAT 97
[2016-09-15] MEDS: ACETAMINOPHEN/HYDROcodone 325 MG/5 MG TAB PO PRN (18:38)
[2016-09-15 20:00] VITALS: BP 125/62; PULSE 90; RESP 19; TEMP 97.7; O2SAT 97
[2016-09-16] VITALS: BP 118/61; PULSE 83; RESP 18; TEMP 97.9; O2SAT 100
[2016-09-16] MEDS: cefTRIAXone INJ 1,000 MG in SODIUM CHLORIDE 0.9% INJ 100 ML IV SCH (02:49)
[2016-09-16] MEDS: LEVOTHYROXINE SODIUM 150 MCG TAB PO SCH (04:58)
[2016-09-16] MEDS ORDERED: WALKER/ADULT/FO1 MIS (06:51)
--- NOTE | 2016-09-16 06:51 | PD.ORT.PN ---
Subjective Subjective Remarks POD 2 s/p left hip hemiarthroplasty doing well. pain controlled. resting comfortably Objective Vitals Vital Signs Date Time Temp Pulse Resp B/P Pulse Ox O2 Delivery O2 Flow Rate FiO2 09/16/16 00:00 97.9 83 18 118/61 100 09/15/16 20:00 97.7 90 19 125/62 97 09/15/16 16:00 97.6 90 17 123/67 97 09/15/16 12:00 97.6 87 18 99/57 96 09/15/16 08:00 96.9 72 17 132/65 99 I/O 09/15/16 09/15/16 09/15/16 09/16/16 09/16/16 09/16/16 07:00 15:00 23:00 07:00 15:00 23:00 Intake Total 1000 ml 2727 ml 360 ml 240 ml Output Total 555 ml 610 ml 600 ml 250 ml Balance 445 ml 2117 ml -240 ml -10 ml Intake Oral 0 ml 360 ml 240 ml 240 ml IV Total 1000 ml 2367 ml 120 ml Output Urine Total 550 ml 600 ml 600 ml 250 ml Drainage Total 5 ml 10 ml 0 ml 0 ml # Bowel Movements 0 Result Diagram: 09/15/16 0302 09/15/16 0302 Imaging Last 24 hours Impressions Hip and Pelvis X-Ray 09/13/162120 Signed Impressions: Service Date/Time: Tuesday, September 13, 2016 21:32 - CONCLUSION: Impacted and mildly displaced left femoral neck fracture. Dominic Pena MD Chest X-Ray 09/13/162120 Signed Impressions: Service Date/Time: Tuesday, September 13, 2016 21:32 - CONCLUSION: Small, nonspecific left pleural effusion. Dominic Pena MD Objective Remarks Left lower extremity: Clean dry dressings and intact.Distally intact sensation and movement of ankle and toes. +knee brace Assessment & Plan Assessment and Plan 1) Left hip hemiarthroplasty POD 2 PT weightbearing as tolerated with posterior hip precautions Discontinue drain and begin daily dressing changes POD [address] when in bed Lovenox Discharge to rehabilitation when medically stable in bed available Follow-up with Dr. Alvarez or PA in 2 weeks Albert Porras September 16, 2016 06:50
[2016-09-16 08:00] VITALS: BP 128/64; PULSE 87; RESP 18; TEMP 97; O2SAT 99
[2016-09-16] MEDS: DULoxetine HCl DR 60 MG CAP PO SCH (08:10)
[2016-09-16] MEDS: LACTOBACILLUS ACIDOPHILUS TAB PO SCH ×2 (08:10→12:35)
[2016-09-16] MEDS: clonazePAM 0.5 MG TAB PO SCH (08:10)
[2016-09-16] MEDS: QUEtiapine FUMARATE 25 MG TAB PO SCH (08:10)
[2016-09-16] MEDS: FAMOTIDINE 20 MG TAB PO SCH (08:10)
[2016-09-16] MEDS: ESCITALOPRAM OXALATE 10 MG TAB PO SCH (08:10)
[2016-09-16] MEDS: CHOLECALCIFEROL (VIT D3) 5000 UNIT CAP PO SCH (08:10)
[2016-09-16] MEDS: VANCOMYCIN 500 MG VIAL (FOR ORAL USE ONLY) PO SCH ×2 (08:11→12:35)
[2016-09-16] MEDS: ACETAMINOPHEN/HYDROcodone 325 MG/5 MG TAB PO PRN ×2 (08:28→12:51)
--- NOTE | 2016-09-16 08:57 | HHI.PR ---
Subjective Remarks awake and alert, appears comfortable, smiled po 100% - needs to be redirected earlier was in pain, crying, cussing at night nurse per initial PT assessment- likely non ambulatory Objective Vitals Vital Signs Date Time Temp Pulse Resp B/P Pulse Ox O2 Delivery O2 Flow Rate FiO2 09/16/16 00:00 97.9 83 18 118/61 100 09/15/16 20:00 97.7 90 19 125/62 97 09/15/16 16:00 97.6 90 17 123/67 97 09/15/16 12:00 97.6 87 18 99/57 96 I/O 09/15/16 09/15/16 09/15/16 09/16/16 09/16/16 09/16/16 07:00 15:00 23:00 07:00 15:00 23:00 Intake Total 1000 ml 2727 ml 360 ml 240 ml Output Total 555 ml 610 ml 600 ml 250 ml Balance 445 ml 2117 ml -240 ml -10 ml Intake Oral 0 ml 360 ml 240 ml 240 ml IV Total 1000 ml 2367 ml 120 ml Output Urine Total 550 ml 600 ml 600 ml 250 ml Drainage Total 5 ml 10 ml 0 ml 0 ml # Bowel Movements 0 Result Diagram: 09/15/16 0302 09/15/16 0302 Imaging Last Impressions Hip and Pelvis X-Ray 09/14/16 1102 Signed Impressions: Service Date/Time: Wednesday, September 14, 2016 13:02 - CONCLUSION: Expected postoperative change status post arthroplasty. Praneeth Fuller MD Chest X-Ray 09/13/161 Signed Impressions: Service Date/Time: Tuesday, September 13, 2016 21:32 - CONCLUSION: Small, nonspecific left pleural effusion. Dominic Pena MD Head CT 09/13/16 0000 Signed Impressions: Service Date/Time: Tuesday, September 13, 2016 21:42 - CONCLUSION: No acute intracranial abnormality. Chronic white matter changes. Sinus disease as above. Dominic Pena MD Objective Remarks anicteric, alert no nuchal rigidity no rales regular rhythm abdomen-soft + bowel sounds extremities- post op dressing- EVARISTO bulb in place, immobilizer in place- left LE- good pulses withdraws toes/feet to stimulus Procedures left hip arthroplasty- 09/14 Date of Insertion: September 13, 2016 A/P Problem List: (1) Fall ICD Code: W19.XXXA Status: Acute (2) Hip fracture ICD Code: S72.009A Status: Acute (3) C. difficile diarrhea ICD Code: A04.7 Status: Acute (4) Thrombocytopenia ICD Code: D69.6 Status: Acute (5) Dementia ICD Code: F03.90 Status: Acute Assessment and Plan A/P: 1. Fall: s/p fall at [facility] 2 days ago, details unclear, pt unable to provided history. CT Head w/ no acute findings, 2. Left Hip Fx: S/P left hip arthroplasty 09/14. PT 3. C Diff Colitis: Currently undergoing treatment for C Diff ? . No diarrhea here. Isolation Precautions. on Vanc PO per investigation she has been on it x 3 weeks. will give x 5 dyas more since we will place her on augmentin for Grp D UTI. 4. Thrombocytopenia: Platelets 121, previously 153 on 08/14/16. No active bleeding at this time. Will monitor. Caution w/ anticoagulation. 5. Dementia: At baseline per reports. Resume home medications. 6. DVT Prophylaxis: Anticoagulation post op per Ortho- Lovenox. Xarelto on DC 7. Social work for d/c planning as needed. 8 elevated LFTs. no baseline deshawn comparison. recheck in am at [facility] to ff 9 UTI- Group D. start Augmentin 875 mg po bid x 5 days. . we will ff final C and S - CM ff along with us DC planning today if arranged DC jameson in am 09/17 Problem Qualifiers (1) Hip fracture: Qualified Code: S72.002A - Hip fracture, left, closed, initial encounter (2) Dementia: Qualified Code: G30.1 - Late onset Alzheimer's disease without behavioral disturbance Maribell Weller MD September 16, 2016 08:57
[2016-09-16] MEDS: SODIUM CHLORIDE 0.9% FLUSH 5 ML FLUSH IVF SCH (09:00)
[2016-09-16] MEDS ORDERED: clonazePAM 0.5 MG TAB PO SCH (09:00)
[2016-09-16] MEDS: SODIUM CHLORIDE 0.9% FLUSH 10 ML FLUSH IV FLUSH SCH (09:00)
[2016-09-16] MEDS ORDERED: PILL SPLITTER OTHER PRN (09:15)
[2016-09-16] MEDS ORDERED: QUEtiapine FUMARATE 25 MG TAB PO SCH (09:15)
[2016-09-16] MEDS ORDERED: DULO1CAP3 PO (09:51)
[2016-09-16] MEDS ORDERED: VANC500I3 PO (09:51)
[2016-09-16] MEDS ORDERED: CLON.5 PO (09:51)
[2016-09-16] MEDS ORDERED: CHOL5000 PO (09:51)
[2016-09-16] MEDS ORDERED: AMOX875T2 PO (09:51)
[2016-09-16] MEDS ORDERED: QUET1TAB7 PO (09:51)
--- NOTE | 2016-09-16 10:04 | HHI.DS ---
Discharge Summary Admission Date September 13, 2016 at 23:50 Discharge Date: September 16, 2016 Admitting Diagnosis femoral neck fracture (1) Fall ICD Code: W19.XXXA Diagnosis: Principal (2) Hip fracture ICD Code: S72.009A Diagnosis: Principal (3) elevLFTS Diagnosis: Secondary (4) C. difficile diarrhea ICD Code: A04.7 Diagnosis: Secondary (5) Thrombocytopenia ICD Code: D69.6 Diagnosis: Secondary (6) Dementia ICD Code: F03.90 Diagnosis: Secondary Procedures left hip arthroplasty- 09/14 Brief History - From Admission This is a 81-year-old female with a PMH of HTN, COPD, CVA, C. Diff Colitis and Dementia who was sent to the ER from SNF for left hip fracture. Per report, pt had fall 2 days ago, details unclear as pt unable to provide history. Today, outpatient X-ray w/ left femoral neck fracture and pt sent to ER. On arrival, BP 157/75, HR 92, O2 sat 96% on RA, Temp 99.0. CBC unremarkable except for platelets 121, previously 153 on 08/14/16. INR 1.0. CT Head with no acute findings. Hip/Pelvis X-ray with impacted mildly displaced left femoral neck fracture. CXR with no acute findings except for small left pleural effusion. Ortho consulted by ER physician, plan is for surgical intervention, however pt currently undergoing treatment for C Diff Colitis w/ Vanc PO. CBC/BMP: 09/15/16 0302 09/15/16 0302 Significant Findings Laboratory Tests Test 09/13/16 09/14/16 09/15/16 22:30 00:15 03:02 Platelet Count 121 TH/MM3 97 TH/MM3 (150-450) (150-450) Neutrophils (%) (Auto) 85.3 % 86.6 % (16.0-70.0) (16.0-70.0) Lymphocytes (%) (Auto) 6.4 % 5.3 % (9.0-44.0) (9.0-44.0) Neutrophils # (Auto) 9.3 TH/MM3 (1.8-7.7) Lymphocytes # (Auto) 0.7 TH/MM3 0.4 TH/MM3 (1.0-4.8) (1.0-4.8) Chloride Level 109 MEQ/L 114 MEQ/L (98-107) (98-107) Estimat Glomerular Filtration 79 ML/MIN (>89) Rate Random Glucose 108 MG/DL (74-106) Urine Turbidity HAZY (CLEAR) Urine Occult Blood SMALL (NEG) Urine Leukocyte Esterase MOD (NEG) Urine WBC 10 /hpf (0-5) Urine Bacteria RARE /hpf (NONE) Urine Mucus FEW /lpf (OCC) Red Blood Count 3.71 MIL/MM3 (4.00-5.30) Platelet Estimate LOW (NORMAL) Total Bilirubin 1.8 MG/DL (0.2-1.0) Aspartate Amino Transf 405 U/L (15-37) (AST/SGOT) Alanine Aminotransferase 443 U/L (10-53) (ALT/SGPT) Alkaline Phosphatase 252 U/L (45-117) Total Protein 6.0 GM/DL (6.4-8.2) Albumin 2.7 GM/DL (3.4-5.0) 25-Hydroxy Vitamin D Total 7.4 ng/ML (30-100) Imaging Last Impressions Hip and Pelvis X-Ray 09/14/16 1102 Signed Impressions: Service Date/Time: Wednesday, September 14, 2016 13:02 - CONCLUSION: Expected postoperative change status post arthroplasty. Praneeth Fuller MD Chest X-Ray 09/13/16 2121 Signed Impressions: Service Date/Time: Tuesday, September 13, 2016 21:32 - CONCLUSION: Small, nonspecific left pleural effusion. Dominic Pena MD Head CT 09/13/16 0000 Signed Impressions: Service Date/Time: Tuesday, September 13, 2016 21:42 - CONCLUSION: No acute intracranial abnormality. Chronic white matter changes. Sinus disease as above. Dominic Pena MD PE at Discharge anicteric, alert no nuchal rigidity no rales regular rhythm abdomen-soft + bowel sounds extremities- post op dressing- EVARISTO bulb in place, immobilizer in place- left LE- good pulses withdraws toes/feet to stimulus Pt update on day of discharge awake and alert, good po comfortable PT ongoing Hospital Course 1. Fall: s/p fall at SNF 2 days ago, details unclear, pt unable to provided history. CT Head w/ no acute findings, 2. Left Hip Fx: S/P left hip arthroplasty 09/14. PT 3. C Diff Colitis: Currently undergoing treatment for C Diff ? . No diarrhea here. Isolation Precautions. on Vanc PO per investigation she has been on it x 3 weeks. will give x 5 dyas more since we will place her on augmentin for Grp D UTI. 4. Thrombocytopenia: Platelets 121, previously 153 on 08/14/16. No active bleeding at this time. Will monitor. Caution w/ anticoagulation. 5. Dementia: At baseline per reports. Resume home medications. 6. DVT Prophylaxis: Anticoagulation post op per Ortho- Lovenox. Xarelto on DC 7. Social work for d/c planning as needed. 8 elevated LFTs. recheck in 09/27 [facility] MD to ff. CT of abdomen- unremarkable. If persistently elevated- further blood work. avoid hepatotoxic drugs. No Acetaminophen products. last LFTs from 07/2016- normal. r/o drug induced. Recheck hepatic panel in SNF in 1-2 days 9 UTI- culture back- VRE > 100,000. Start on Macrobid bid x 5 days. Morgagnella is less than 10,000 colonies. Dc augmentin. Repeat UA as OP after course of Macrobid - ff along with DC planning today if arranged DC barba in am 09/17 Pt Condition on Discharge: Stable Discharge Disposition: Discharge to [facility] Discharge Time: <= 30 minutes Discharge Instructions DIET: Follow Instructions for: As Tolerated, No Restrictions Speech Therapy-Diet Recommends: Regular Activities you can perform: Weight Bearing as Stephanie Activities to Avoid: Prolonged Standing, Strenuous Activity Other Activity Instructions: Please do barba catheter tomorrow 09/17 Follow up Referrals: Orthopedics - 2 Weeks [facility] with Leonard Siddiqi MD New Orders: HEPATIC FUNCTION GRANT - 09/18/16 URINALYSIS - 09/23/16 US Abdomen Complete - 09/18/16 New Medications: Nitrofurantoin Monohydrate Macrocrystals (Macrobid) 100 Mg Cap 100 MG PO BID Infection Days 5 Ref 0 CAP Oxycodone (Roxicodone) 5 Mg Tab 5 MG PO Q6H PRN PAIN #20 Ref 0 TAB Rivaroxaban (Xarelto) 10 Mg Tab 10 MG PO DAILY Blood Clot Prevention #14 Ref 0 TAB Walker/Adult/Folding (Walker/Adult/Folding) 1 Mis Mis 1 EA .ROUTE DIRECTED #1 Ref 0 EA Cholecalciferol (Vitamin D3) 5,000 Unit Cap 5000 UNITS PO DAILY vitsupp #30 CAP Clonazepam (Klonopin) 0.5 Mg Tab 0.25 MG PO BID dem Days [address] (Duloxetine DR) 60 Mg Capdr 60 MG PO DAILY dem Days 30 CAP Quetiapine (Quetiapine) 25 Mg Tab 12.5 MG PO BID dem Days 10 TAB Vancomycin Inj (Vancomycin Inj) 500 Mg Inj 250 MG PO TID Infection Days 5 INJECTION Continued Medications: Escitalopram (Lexapro) 10 Mg Tab 10 MG PO DAILY #30 Ref 0 TAB Lactobacillus Acidophilus (Acidophilus/l-Sporogenes) 1 Tab Tab 1 TAB PO TID Probiotic Days 10 TAB Levothyroxine (Synthroid) 150 Mcg Tab 150 MCG PO DAILY@06 health #30 TAB Memantine-Donepezil (Namzaric) 28-10 Mg Cap 1 CAP PO HS Alzheimer Dementia #30 Ref 0 CAP Discontinued Medications: Acetaminophen (Acetaminophen) 325 Mg Tab 650 MG PO Q4H PRN PAIN SCALE 1 TO 10 TAB Clonazepam (Klonopin) 0.5 Mg Tab 0.5 MG PO BID #60 Ref 0 TAB Quetiapine (Quetiapine) 25 Mg Tab 25 MG PO BID Agitation #62 TAB Ranitidine (Zantac) 150 Mg Tab 150 MG PO BID Reduce Stomach Acid #60 Ref 0 TAB Vancomycin (Vancomycin) 250 Mg Cap 250 MG PO TID Infection Ref 0 CAP Maribell Weller MD September 16, 2016 10:04
[2016-09-16] MEDS ORDERED: AMOXICILLIN/CLAVULANATE K 875 MG TAB PO SCH (11:00)
--- NOTE | 2016-09-16 11:45 | RADRPT ---
EXAM DATE/TIME: 09/16/2016 11:09 [facility] COMPARISON: No previous studies available for comparison. INDICATIONS : Abnormal liver function test. ORAL CONTRAST: No oral contrast ingested. RADIATION DOSE: 9.96 CTDIvol (mGy) MEDICAL HISTORY : Cardiovascular disease. Renal failure, chronic. Hypertension.Alzheimers SURGICAL HISTORY : Cholecystectomy. Dementia ENCOUNTER: Initial ACUITY: 1 day PAIN SCALE: 0/10 LOCATION: abdomen TECHNIQUE: Volumetric scanning of the abdomen was performed. Using automated exposure control and adjustment of the mA and/or kV according to patient size, radiation dose was kept as low as reasonably achievable to obtain optimal diagnostic quality images. FINDINGS: Minimal bibasilar parenchymal changes are noted worse on the left. The liver is free of focal defects. There is no intrahepatic biliary duct dilatation. The spleen is unremarkable. The adrenals and kidneys are unremarkable Pelvis are previous colonic surgery is seen in the right upper quadrant. Diverticuli are present in the sigmoid colon Review of bone windows reveals significant degenerative changes in the lumbar spine and about both SI joints. CONCLUSION: 1. Gallbladder is surgically absent. 2. There is no intrahepatic biliary duct dilatation 3. Evidence for previous colonic surgery is noted 4. Lack of intravenous contrast makes detection of subtle lesions difficult. Juan M Silverio MD FACR on September 16, 2016 at 11:39 Board Certified Radiologist. This report was verified electronically.
[2016-09-16 12:00] VITALS: BP 103/57; PULSE 79; RESP 17; TEMP 98.7; O2SAT 94
[2016-09-16] MEDS: ENOXAPARIN SODIUM 30 MG/0.3 ML SYRINGE SQ SCH (12:35)
[2016-09-16] MEDS ORDERED: OXYC1TAB13 PO ×2 (14:34→14:40)
[2016-09-16] MEDS ORDERED: MACR100C2 PO (15:23)
== END 2016-09-16 16:30 | DRG 470 ==
LOC: NEPE 21:05 → NEDA 23:50 → N07A 09-14 01:57
PROVIDERS: ADMIT Internal Medicine; ATTEND Internal Medicine
PROC: 0SRS0JA Replacement of Left Hip Joint, Femoral Surface with Synthetic Substitute, Uncemented, Open Approach (ICD-10-PCS; principal; 2016-09-15)
DX: S72.002A Fracture of unspecified part of neck of left femur, initial encounter for closed fracture (principal); D69.6 Thrombocytopenia, unspecified; G30.1 Alzheimer's disease with late onset; N39.0 Urinary tract infection, site not specified; F02.80 Dementia in other diseases classified elsewhere, unspecified severity, without behavioral disturbance, psychotic disturbance, mood disturbance, and anxiety; J44.9 Chronic obstructive pulmonary disease, unspecified; I10 Essential (primary) hypertension; W18.30XA Fall on same level, unspecified, initial encounter; Y93.9 Activity, unspecified; Y92.129 Unspecified place in nursing home as the place of occurrence of the external cause; Y99.9 Unspecified external cause status; Z86.73 Personal history of transient ischemic attack (TIA), and cerebral infarction without residual deficits; M81.0 Age-related osteoporosis without current pathological fracture; Z86.19 Personal history of other infectious and parasitic diseases
CPT/HCPCS: 70450; 71010; 73502; 74150; 80048; 80053; 81001; 82306; 83735; 85014; 85018; 85025; 85610; 85730; 87077; 87086; 87186; 93005; C1776; J0690; J0696; J1580; J1650; J2270; J2370; J2405; J2710; J3010; J3370; J7030; J7050; L1830

== ENCOUNTER 2016-11-21 13:10 | Inpatient (IN) | payer MEDICARE, OTHER ==
[~2016-11-21] VITALS: Ht 152.4 cm; Wt 50.6 kg
[~2016-11-21 13:10] MED LIST changes: +CHOL5000 PO; +CLON.5 PO; -COLA100C3 PO; -GABA100C4 PO; -HALO5P IV; +LEXA10TA PO; +MACR100C2 PO; +MEMA1CAP2 PO; -METR-1 PO; -NYST10007 TOPICAL; +OXYC1TAB13 PO; +VANC500I3 PO; +WALKER/ADULT/FO1 MIS; +XARE10TA PO; -ZANT150T2 PO
[2016-11-21 13:20] VITALS: BP 138/65; PULSE 70; RESP 16; TEMP 99; O2SAT 96
--- NOTE | 2016-11-21 13:28 | PD ---
HPI Chief Complaint: altered mental status Time Seen by Provider: 13:25 Travel History International Travel<30 days: No Contact w/Intl Traveler<30days: No Traveled to known affect area: No History of Present Illness HPI 81-year-old female was brought in by EMS from half-way for being found poorly responsive. Patient on a baseline has dementia but usually she is talkative. Today she was found after breakfast to be poorly responsive. Her blood sugar was within normal range. When EMS arrived she was nonverbal. Eyes closed. Vital signs were stable otherwise. She has been pretty much nonverbal and eyes closed and she is been here in the emergency room. She is unable to give any history at this point given her state. Patient is a DNR. [facility] Past Medical History Narrative Medical List of her past medical, surgical, social and family history is reviewed from the nursing note. Alzheimer's Disease: Yes Arthritis: Yes Asthma: No Autoimmune Disease: No Heart Rhythm Problems: No Cancer: No Cardiovascular Problems: Yes High Cholesterol: Yes Chemotherapy: No Chest Pain: No Congestive Heart Failure: No COPD: Yes Cerebrovascular Accident: Yes (AHD, HTN ) Dementia: Yes Diabetes: No Diminished Hearing: No Endocrine: Yes Gastrointestinal Disorders: Yes (CHOLELITHIASIS, CHOLECYSTITIS ) GERD: Yes Genitourinary: No Headaches: No Hiatal Hernia: No Hypertension: Yes Immune Disorder: No Implanted Vascular Access Dvce: Yes Musculoskeletal: Yes Neurologic: No Psychiatric: Yes (dementia with behavioral disturbance) Reproductive: No Respiratory: Yes Migraines: No Radiation Therapy: No Renal Failure: Yes Seizures: No Sleep Apnea: No Thyroid Disease: Yes Ulcer: No Menopausal: Yes Past Surgical History Abdominal Surgery: No Cardiac Surgery: No Cholecystectomy: Yes Ear Surgery: No Endocrine Surgery: No Eye Surgery: No Genitourinary Surgery: No Gynecologic Surgery: Yes (C section) Oral Surgery: No Thoracic Surgery: No Other Surgery: Yes Social History Alcohol Use: No Tobacco Use: No Substance Use: No Allergies-Medications (Allergen,Severity, Reaction): Coded Allergies: *MDRO Multi-Drug Resistant Organism (Verified Adverse Reaction, Unknown, ) VRE (urine)-09/14/16 Comments List of her allergies reviewed from the nursing note. Reported Meds & Prescriptions Reported Meds & Active Scripts Active Roxicodone (Oxycodone HCl) 5 Mg Tab 5 Mg PO Q6H PRN Vitamin D3 (Cholecalciferol) 5,000 Unit Cap 5,000 Units PO DAILY Synthroid (Levothyroxine Sodium) 150 Mcg Tab 150 Mcg PO DAILY@[address] (Duloxetine HCl) 60 Mg Capdr 60 Mg PO DAILY Reported Acidophilus Capsule (L. Acidophilus/Pectin, [place]) 1 Each Capsule 1 Cap PO TID Klonopin (Clonazepam) 0.5 Mg Tab 0.5 Mg PO Q12HR Klonopin (Clonazepam) 0.5 Mg Tab 0.5 Mg PO Q6HR PRN Namzaric (Memantine-Donepezil) 28-10 Mg Cap 1 Cap PO HS Lexapro (Escitalopram Oxalate) 10 Mg Tab 10 Mg PO DAILY Risperdal Consta Inj (Risperidone) 25 Mg Inj 25 Mg IM Q14D Narrative Medication List of her home medications reviewed from the nursing note. Review of Systems Except as stated in HPI: all other systems reviewed are Neg Physical Exam Narrative GENERAL: Nonverbal, poorly responsive, elderly and frail, looks older than her age SKIN: Focused skin assessment warm/dry. HEAD: Atraumatic. Normocephalic. EYES: Pupils equal and round. No scleral icterus. No injection or drainage. ENT: No nasal bleeding or discharge. Mucous membranes pink and moist. NECK: Trachea midline. No JVD. CARDIOVASCULAR: Regular rate and rhythm. No murmur appreciated. RESPIRATORY: No accessory muscle use. Clear to auscultation. Breath sounds equal bilaterally. GASTROINTESTINAL: Abdomen soft, non-tender, nondistended. Hepatic and splenic margins not palpable. MUSCULOSKELETAL: No obvious deformities. No clubbing. No cyanosis. No edema. NEUROLOGICAL: GCS of 10, nonverbal PSYCHIATRIC: Unable to assess Data Data Last Documented VS Vital Signs Date Time Temp Pulse Resp B/P Pulse Ox O2 Delivery O2 Flow Rate FiO2 11/21/16 13:20 99.0 70 16 138/[address] Brain W/O Iv Contrast(Rout) (11/21/16 ) Complete Blood Count With Diff (11/21/16 13:59) Comprehensive Metabolic Panel (11/21/16 13:59) Creatine Kinase (Cpk) (11/21/16 13:59) Prothrombin Time / Inr (Pt) (11/21/16 13:59) Troponin I (11/21/16 13:59) Thyroid Stimulating Hormone (11/21/16 13:59) Urinalysis - C+S If Indicated (11/21/16 13:59) Lactic Acid Sepsis Protocol (11/21/16 13:59) Blood Culture (11/21/16 13:59) Chest, Single Ap (11/21/16 13:59) Blood Glucose (11/21/16 13:59) Ecg Monitoring (11/21/16 13:59) Iv Access Insert/Monitor (11/21/16 13:59) Oximetry (11/21/16 13:59) Sodium Chloride 0.9% Flush (Ns Flush) (11/21/16 14:00) Urinary Catheter Insert/Apply (11/21/16 14:16) Urine Culture (11/21/16 14:30) Ceftriaxone Inj (Rocephin Inj) (11/21/16 15:45) Admit Order (Ed Use Only) (11/21/16 16:37) Labs Laboratory Tests Test 11/21/16 11/21/16 11/21/16 14:15 14:30 14:40 Prothrombin Time 10.5 SEC Prothromb Time International 1.0 RATIO Ratio Sodium Level 141 MEQ/L Potassium Level 4.1 MEQ/L Chloride Level 106 MEQ/L Carbon Dioxide Level 26.2 MEQ/L Anion Gap 9 MEQ/L Blood Urea Nitrogen 15 MG/DL Creatinine 0.82 MG/DL Estimat Glomerular Filtration 67 ML/MIN Rate Random Glucose 74 MG/DL Calcium Level 9.7 MG/DL Total Bilirubin 0.5 MG/DL Aspartate Amino Transf 21 U/L (AST/SGOT) Alanine Aminotransferase 19 U/L (ALT/SGPT) Alkaline Phosphatase 108 U/L Total Creatine Kinase 34 U/L Troponin I LESS THAN 0.02 NG/ML Total Protein 7.9 GM/DL Albumin 3.4 GM/DL Thyroid Stimulating Hormone 1.160 uIU/ML 3rd Gen White Blood Count 6.6 TH/MM3 Red Blood Count 4.39 MIL/MM3 Hemoglobin 13.6 GM/DL Hematocrit 41.2 % Mean Corpuscular Volume 93.8 FL Mean Corpuscular Hemoglobin 31.0 PG Mean Corpuscular Hemoglobin 33.0 % Concent Red Cell Distribution Width 14.0 % Platelet Count 148 TH/MM3 Mean Platelet Volume 7.6 FL Neutrophils (%) (Auto) 70.8 % Lymphocytes (%) (Auto) 16.7 % Monocytes (%) (Auto) 7.1 % Eosinophils (%) (Auto) 4.8 % Basophils (%) (Auto) 0.6 % Neutrophils # (Auto) 4.6 TH/MM3 Lymphocytes # (Auto) 1.1 TH/MM3 Monocytes # (Auto) 0.5 TH/MM3 Eosinophils # (Auto) 0.3 TH/MM3 Basophils # (Auto) 0.0 TH/MM3 CBC Comment DIFF FINAL Differential Comment Urine Color YELLOW Urine Turbidity CLOUDY Urine pH 6.0 Urine Specific [place] 1.019 Urine Protein TRACE mg/dL Urine Glucose (UA) NEG mg/dL Urine Ketones NEG mg/dL Urine Occult Blood MOD Urine Nitrite POS Urine Bilirubin NEG Urine Urobilinogen LESS THAN 2.0 MG/DL Urine Leukocyte Esterase LARGE Urine RBC 3 /hpf Urine WBC /hpf Urine Squamous Epithelial 4 /hpf Cells Urine Amorphous Sediment RARE Urine Bacteria MANY /hpf Microscopic Urinalysis Comment CATH-CULTURE IND Lactic Acid Level 1.7 mmol/L MDM Medical Decision Making Medical Screen Exam Complete: Yes Emergency Medical Condition: Yes Medical Record Reviewed: Yes Differential Diagnosis UTI, sepsis, pneumonia, intracranial bleed Narrative Course 4:27 PM the test results are back. UA strongly positive for UTI. Chemistry is within normal range. CT head and chest x-ray do not show any acute changes. Patient was given 1 g of Rocephin and IV fluid bolus. I to admit her. Awaiting for the admitting team to call back. Procedures EKG Prior to Arrival: No Diagnosis Primary Impression: Altered mental status Qualified Code: R41.82 - Altered mental status, unspecified altered mental status type Additional Impressions: Dementia Qualified Code: F03.90 - Dementia without behavioral disturbance, unspecified dementia type UTI (urinary tract infection) Qualified Code: N39.0 - Urinary tract infection without hematuria, site unspecified Admitting Information Admitting Physician Requests: it Olivia Pierce MD Nov 21, 2016 13:28
[2016-11-21] MEDS ORDERED: SODIUM CHLORIDE 0.9% FLUSH 5 ML FLUSH IV FLUSH PRN (14:00)
--- NOTE | 2016-11-21 14:05 | RADRPT ---
EXAM DATE/TIME: 11/21/2016 13:44 [facility] COMPARISON: CT BRAIN W/O CONTRAST, August 04, 2016, 18:25. INDICATIONS : Fell yesterday. Lethargy today. RADIATION DOSE: 53.48 CTDIvol (mGy) MEDICAL HISTORY : Dementia. Alzheimer's. Cardiovascular diseaseHypertension. SURGICAL HISTORY : None. ENCOUNTER: Initial ACUITY: 1 day PAIN SCALE: Non-responsive LOCATION: cranial TECHNIQUE: Multiple contiguous axial images were obtained of the head. Using automated exposure control and adj ustment of the mA and/or kV according to patient size, radiation dose was kept as low as reasonably a chievable to obtain optimal diagnostic quality images. DICOM format image data is available electro nically for review and comparison. FINDINGS: There is no evidence for intracranial hemorrhage, mass effect, mass lesions, or edema. The visualize d bony structures appear intact. Slight degree of brain atrophy is seen. Slight periventricular whit e matter changes are seen nonspecific mostly consistent with chronic small vessel ischemic changes. There are no signs of acute infarction for technique. There is mild mucoperiosteal thickening within the left frontal sinus. CONCLUSION: There is no evidence of any significant hemorrhage or mass effect. Samira Garibay MD on November 21, 2016 at 14:02 Board Certified Radiologist. This report was verified electronically.
--- NOTE | 2016-11-21 14:28 | RADRPT ---
EXAM DATE/TIME: 11/21/2016 14:07 [facility] COMPARISON: CHEST SINGLE AP, September 13, 2016, 21:32. INDICATIONS : Unresponsive MEDICAL HISTORY : Unresponsive SURGICAL HISTORY : Unresponsive ENCOUNTER: Initial ACUITY: 1 day PAIN SCORE: Non-responsive. LOCATION: Bilateral chest FINDINGS: A single view of the chest demonstrates the lungs to be symmetrically aerated without evidence of mas s, infiltrate or effusion. The cardiomediastinal contours are unremarkable. Osseous structures are intact. A degenerative thoracic spine. Cholecystectomy clips. CONCLUSION: No acute disease. José Antonio Jacobs Jr., MD on November 21, 2016 at 14:25 Board Certified Radiologist. This report was verified electronically.
[2016-11-21] MEDS ORDERED: CLON.5 PO ×2 (14:44)
[2016-11-21] MEDS ORDERED: RISP25P IM (14:44)
[2016-11-21] MEDS ORDERED: L. A1CAP PO (14:44)
[2016-11-21 15:17] LABS: AUTOMATED NEUTROPHIL # 4.6 TH/MM3 (1.8-7.7); BASOPHIL % 0.6 % (0.0-2.0); EOSINOPHIL # 0.3 TH/MM3 (0-0.4); EOSINOPHIL % 4.8 % (0.0-4.0); HEMATOCRIT 41.2 % (35.0-46.0); HEMO FLAGS DIFF FINAL; LYMPH % 16.7 % (9.0-44.0); LYMPHOCYTE # 1.1 TH/MM3 (1.0-4.8); MEAN CELL VOLUME 93.8 FL (80.0-100.0); MONO % 7.1 % (0.0-8.0); NEUT % 70.8 % (16.0-70.0); PLATELET COUNT 148 TH/MM3 (150-450); RED BLOOD COUNT 4.39 MIL/MM3 (4.00-5.30); WHITE BLOOD COUNT 6.6 TH/MM3 (4.0-11.0)
[2016-11-21 15:30] LABS: PROTHROMBIN TIME - PATIENT 10.5 SEC (9.8-11.6)
[2016-11-21 15:31] LABS: BACTERIA, URINE MANY /hpf; BLOOD, URINE MOD (NEG); GLUCOSE,URINE NEG (NEG); KETONE, URINE NEG (NEG); SQUAMOUS EPITHELIAL CELL URINE 4 /hpf (0-5); URINE COLOR YELLOW (YELLW/STRAW)
[2016-11-21 15:32] LABS: COMMENT (UR) CATH-CULTURE IND; CULTURE IF INDICATED CATH CULTURE IND; NITRITE,URINE POS (NEG)
[2016-11-21] MEDS ORDERED: cefTRIAXone INJ 1,000 MG in SODIUM CHLORIDE 0.9% INJ 100 ML IV ONE (15:45)
[2016-11-21 16:22] LABS: ALKALINE PHOSPHATASE 108 U/L (45-117); ALT (GPT) 19 U/L (10-53); ANION GAP 9 MEQ/L (5-15); AST (GOT) 21 U/L (15-37); BICARBONATE 26.2 MEQ/L (21.0-32.0); BLOOD UREA NITROGEN 15 MG/DL (7-18); CHLORIDE 106 MEQ/L (98-107); CREATINE KINASE 34 U/L (26-192); GLOMERULAR FILTRATION RATE 67 ML/MIN (>89); POTASSIUM 4.1 MEQ/L (3.5-5.1); SODIUM (NA) 141 MEQ/L (136-145); TOTAL BILIRUBIN ADULT 0.5 MG/DL (0.2-1.0)
[2016-11-21 18:06] VITALS: BP 160/78; PULSE 79; RESP 17; O2SAT 97
[2016-11-21] MEDS ORDERED: clonazePAM 0.5 MG TAB PO PRN (18:15)
--- NOTE | 2016-11-21 18:46 | HHI.HP ---
HPI Service [facility] Primary Care Physician Unknown Admission Diagnosis UTI, altered mental status Diagnoses: Chief Complaint: Encephalopathy change in mental status Travel History International Travel<30 Days: No Contact w/Intl Traveler <30 Da: No Traveled to Known Affected Are: No History of Present Illness Patient is a 81-year-old female who was sent here from a nearby retirement facility, with history of baseline dementia however patient is still interactive alert to self wheelchair-bound still however this morning was noted to be lethargic. Was sent in here and on evaluation by the ER physician placed a Loo catheter and drained very cloudy urine. Full of sediments. Patient was given 1 L IV bolus and patient seems to be more awake after the bolus per staff nurse. Patient admitted for further evaluation. Review of Systems ROS Limitations: Clinical Condition Past Family Social History Past Medical History Review of medical records Baseline dementia History of elevated LFTs History of UTI History of hypertension History of cerebrovascular accident History C. 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 Very dry oral mucosa SKIN: Some ecchymoses or lesions. Cool and dry. HEAD: Atraumatic. Normocephalic. No temporal or scalp tenderness. EYES: Pupils equal round and reactive. Extraocular motions intact. No scleral icterus. No injection or drainage. ENT: Nose without bleeding, very dry oral mucosa Throat without erythema, tonsillar hypertrophy or exudate. Uvula midline. Airway patent. NECK: Trachea midline. No JVD or lymphadenopathy. Supple, nontender, no meningeal signs. CARDIOVASCULAR: Regular rate and rhythm RESPIRATORY: Decreased breath sounds no Rales wheezes GASTROINTESTINAL: Abdomen soft, non-tender, . No guarding. MUSCULOSKELETAL: Extremities without clubbing, cyanosis, or edema. Some spontaneous movement. Withdraws or biology specialist when hands are held and withdrawal state from stimulation. NEUROLOGICAL: Lethargic cranial nerves grossly intact weak gag reflex was all extremities to withdrawal Laboratory Laboratory Tests Test 11/21/16 11/21/16 11/21/16 14:15 14:30 14:40 White Blood Count 6.6 Red Blood Count 4.39 Hemoglobin 13.6 Hematocrit 41.2 Mean Corpuscular Volume 93.8 Mean Corpuscular Hemoglobin 31.0 Mean Corpuscular Hemoglobin 33.0 Concent Red Cell Distribution Width 14.0 Platelet Count 148 Mean Platelet Volume 7.6 Neutrophils (%) (Auto) 70.8 Lymphocytes (%) (Auto) 16.7 Monocytes (%) (Auto) 7.1 Eosinophils (%) (Auto) 4.8 Basophils (%) (Auto) 0.6 Neutrophils # (Auto) 4.6 Lymphocytes # (Auto) 1.1 Monocytes # (Auto) 0.5 Eosinophils # (Auto) 0.3 Basophils # (Auto) 0.0 CBC Comment DIFF FINAL Differential Comment Prothrombin Time 10.5 Prothromb Time International 1.0 Ratio Sodium Level 141 Potassium Level 4.1 Chloride Level 106 Carbon Dioxide Level 26.2 Anion Gap 9 Blood Urea Nitrogen 15 Creatinine 0.82 Estimat Glomerular Filtration 67 Rate Random Glucose 74 Calcium Level 9.7 Total Bilirubin 0.5 Aspartate Amino Transf 21 (AST/SGOT) Alanine Aminotransferase 19 (ALT/SGPT) Alkaline Phosphatase 108 Total Creatine Kinase 34 Troponin I LESS THAN 0.02 Total Protein 7.9 Albumin 3.4 Thyroid Stimulating Hormone 1.160 3rd Gen Urine Color YELLOW Urine Turbidity CLOUDY Urine pH 6.0 Urine Specific [place] 1.019 Urine Protein TRACE Urine Glucose (UA) NEG Urine Ketones NEG Urine Occult Blood MOD Urine Nitrite POS Urine Bilirubin NEG Urine Urobilinogen LESS THAN 2.0 Urine Leukocyte Esterase LARGE Urine RBC 3 Urine WBC Urine Squamous Epithelial 4 Cells Urine Amorphous Sediment RARE Urine Bacteria MANY Microscopic Urinalysis Comment CATH-CULTURE IND Lactic Acid Level 1.7 Date/Time Procedure Status Source Growth 11/21/16 14:40 Aerobic Blood Culture Received Blood Peripheral Pending 11/21/16 14:40 Anaerobic Blood Culture Received Blood Peripheral Pending 11/21/16 14:30 Urine Culture Received Urine Catheterized Urine Pending Result Diagram: 11/21/16 1415 11/21/16 1415 Imaging Last Impressions Chest X-Ray 11/21/16 1359 Signed Impressions: Service Date/Time: , November 21, 2016 14:07 - CONCLUSION: No acute disease. José Antonio Jacobs Jr., MD Head CT 11/21/16 0000 Signed Impressions: Service Date/Time: , November 21, 2016 13:44 - CONCLUSION: There is no evidence of any significant hemorrhage or mass effect. Samira Garibay MD Septic Shock Reassessment Heart: Regular rate and rhythm Lungs: Clear Skin: Warm Peripheral Pulses: Bounding Right Radial Bounding Left Radial Bounding Right Popliteal Bounding Left Popliteal Bounding Right Dorsalis Pedis Bounding Left Dorsalis Pedis Bounding Right Posterior Tibial Bounding Left Posterior Tibial Assessment and Plan Assessment and Plan 81-year-old female presenting with Change in mental status likely secondary to infection with baseline dementia Sepsis syndrome due to UTI. Loo placed with cloudy urine Follow final culture and sensitivity Patient started on Rocephin. We'll continue Clinically dehydrated start patient on IV fluid normal saline 75 cc an hour History of COPD in the history of status post CVA History of C. difficile colitis Nothing by mouth for now until fully awake. Teds for DVT prophylaxis Speech therapy consult in a.m. to evaluate. Physician Certification 2 Midnight Certification Type: Admission for Inpatient Services Order for Inpatient Services The services are ordered in accordance with Medicare regulations or non- Medicare payer requirements, as applicable. In the case of services not specified as inpatient-only, they are appropriately provided as inpatient services in accordance with the 2-midnight benchmark. Estimated LOS (days): 3 days is the estimated time the patient will need to remain in the hospital, assuming treatment plan goals are met and no additional complications. Post-Hospital Plan: Not yet determined Maribell Weller MD Nov 21, 2016 18:46
[2016-11-21 19:24] VITALS: BP 117/68; PULSE 69; RESP 14; TEMP 98; O2SAT 97
[2016-11-21] MEDS: DEXT 5%-NACL 0.9% 1000 ML INJ 1,000 ML IV SCH (19:47)
[2016-11-21 20:10] VITALS: BP 122/65; PULSE 75; RESP 18; TEMP 96.2; O2SAT 96
[2016-11-21] MEDS: DONEPEZIL HCL 5 MG TAB PO SCH (20:27)
[2016-11-21] MEDS: MEMANTINE HCL 10 MG TAB PO SCH (20:27)
[2016-11-21] MEDS ORDERED: risperiDONE EXT REL INJ 25 MG/2 ML VIAL IM SCH (21:00)
[2016-11-21] MEDS ORDERED: NON-FORMULARY DRUG (Memantine-Donepezil (Namzaric) 1 CAP) PO SCH (21:00)
[2016-11-22 00:21] VITALS: BP 100/60; PULSE 69; RESP 19; TEMP 97.1; O2SAT 94
[2016-11-22 04:45] VITALS: BP 111/60; PULSE 67; RESP 19; TEMP 97; O2SAT 95
[2016-11-22] MEDS: LEVOTHYROXINE SODIUM 150 MCG TAB PO SCH (04:48)
[2016-11-22] MEDS: DEXT 5%-NACL 0.9% 1000 ML INJ 1,000 ML IV SCH ×2 (05:54→11:22)
[2016-11-22 08:00] VITALS: BP 115/63; PULSE 64; RESP 18; TEMP 96.1; O2SAT 96
--- NOTE | 2016-11-22 10:27 | HHI.PR ---
Subjective Remarks patient smiled when awakened, stated her name softly gripped hands when held Objective Vitals Vital Signs Date Time Temp Pulse Resp B/P Pulse Ox O2 Delivery O2 Flow Rate FiO2 11/22/16 08:00 96.1 64 18 115/63 96 11/22/16 04:45 97.0 67 19 111/60 95 11/22/16 00:21 97.1 69 19 100/60 94 11/21/16 20:10 96.2 75 18 122/65 96 11/21/16 19:24 98.0 69 14 117/68 97 Room Air 11/21/16 18:06 79 17 160/78 97 Room Air 11/21/16 13:20 99.0 70 16 138/65 96 I/O 11/21/16 11/21/16 11/21/16 11/22/16 11/22/16 11/22/16 07:00 15:00 23:00 07:00 15:00 23:00 Intake Total 0 ml 0 ml Output Total 225 ml 150 ml Balance -225 ml -150 ml Intake Oral 0 ml 0 ml Output Urine Total 225 ml 150 ml # Bowel Movements 0 0 Result Diagram: 11/21/16 1415 11/21/16 1415 Imaging Last Impressions Chest X-Ray 11/21/16 1359 Signed Impressions: Service Date/Time: November 14:07 - CONCLUSION: No acute disease. José Antonio Jacobs Jr., MD Head CT 11/21/16 0000 Signed Impressions: Service Date/Time: November 13:44 - CONCLUSION: There is no evidence of any significant hemorrhage or mass effect. Samira Garibay MD Objective Remarks lethargic, smiled anicteric no gag reflex lungs- decreased breath sounds regular rhythm abdomen soft, nontender extremities- no edema- gripped hands when held barba - draining grossly more clearer sacral decubitus stage 2 Urinary Catheter: Yes Assessment to: Continue Barba insert reason: Prolonged Immobilization Date of Insertion: Nov 21, 2016 A/P Assessment and Plan 81-year-old female presenting with Change in mental status likely secondary to infection with baseline dementia- slightly more awake and stated her name Sepsis syndrome due to UTI. Barba placed with cloudy urine 11/21 Follow final culture and sensitivity Patient started on Rocephin. We'll continue Clinically dehydrated start patient on IV fluid normal saline 75 cc an hour History of COPD in the history of status post CVA History of C. difficile colitis- monitor on antibiotics Nothing by mouth for now until fully awake.- speech therapy for swallowing Teds for DVT prophylaxis Speech therapy consult in a.m. to evaluate. consider palliative care consult DNR Maribell Weller MD Nov 22, 2016 10:27
--- NOTE | 2016-11-22 10:36 | PD.WCN.NOT ---
Wound Consult Description: Wounds and Buttocks Communicated with: RN Davy [address] [place] [address] and Doctor Nithin Recommendation: Please cleanse wounds to sacrum and R buttock with normal saline and apply skin prep to periwound and before applying adhesive foam dressing. Please change dressing every 3 days or PRN if saturated or dislodged. Additional Information: atient seen on for evaluation of wounds on buttocks. Patient turned to R side with assistance of speech writer and removed adhesive foam dressing covering hydrocolloid dressing. Removed hydrocolloid dressing reveal stage 2 pressure injury to sacrum. Wound presents with 100% pink tissue and no active drainage. Wound bed appears to be dry. Wound measurements are as follows 0.6cm x 1cm x ~< 0.1 cm Periwound noted with dry scab at 3 o'clock but is other mccormack unremarkable. R buttock is noted with small area of partial thickness skin loss that measures ~0.5cm x ~0.4cm x ~<0.1 cm. Wound probably caused by adhesive from hydrocolloid that was removed. Wound bed is dry without active drainage. Cleansed wound to R buttock sacrum with normal saline and applied skin prep to periwounds. Applied adhesive foam dressing to over sacrum and R buttock wounds. Clotilde Arroyo [facility] Nov 22, 2016 10:36
[2016-11-22] MEDS: MEMANTINE HCL 10 MG TAB PO SCH ×2 (11:17→21:04)
[2016-11-22] MEDS: DULoxetine HCl DR 60 MG CAP PO SCH (11:17)
[2016-11-22] MEDS: cefTRIAXone INJ 1,000 MG in SODIUM CHLORIDE 0.9% INJ 100 ML IV SCH (11:18)
[2016-11-22] MEDS: CHOLECALCIFEROL (VIT D3) 5000 UNIT CAP PO SCH (11:20)
[2016-11-22 12:00] VITALS: BP 116/58; PULSE 62; RESP 18; TEMP 97.1; O2SAT 94
[2016-11-22 16:00] VITALS: BP 111/59; PULSE 74; RESP 18; TEMP 97; O2SAT 100
[2016-11-22] MEDS ORDERED: cefTRIAXone INJ 1,000 MG in SODIUM CHLORIDE 0.9% INJ 100 ML IV SCH (16:00)
[2016-11-22 20:00] VITALS: BP 110/75; PULSE 95; RESP 17; TEMP 97.5; O2SAT 98
[2016-11-22] MEDS: DONEPEZIL HCL 5 MG TAB PO SCH (21:04)
[2016-11-23] VITALS: BP 109/60; PULSE 79; RESP 16; TEMP 98.2; O2SAT 97
[2016-11-23] MEDS: DEXT 5%-NACL 0.9% 1000 ML INJ 1,000 ML IV SCH ×3 (03:19→23:52)
[2016-11-23 04:00] VITALS: BP 116/69; PULSE 77; RESP 16; TEMP 97.7; O2SAT 100
[2016-11-23] MEDS: LEVOTHYROXINE SODIUM 150 MCG TAB PO SCH (05:34)
[2016-11-23 08:00] VITALS: BP 119/56; PULSE 64; RESP 18; TEMP 96.6; O2SAT 96
[2016-11-23] MEDS: MEMANTINE HCL 10 MG TAB PO SCH ×2 (09:09→21:22)
[2016-11-23] MEDS: cefTRIAXone INJ 1,000 MG in SODIUM CHLORIDE 0.9% INJ 100 ML IV SCH (09:09)
[2016-11-23] MEDS: DULoxetine HCl DR 60 MG CAP PO SCH (09:09)
[2016-11-23] MEDS: CHOLECALCIFEROL (VIT D3) 5000 UNIT CAP PO SCH (09:09)
--- NOTE | 2016-11-23 09:58 | HHI.PR ---
Subjective Remarks patient awake and alert, smiled needs assitance with eating stated her name when asked, ff some commands appears comfortable Objective Vitals Vital Signs Date Time Temp Pulse Resp B/P Pulse Ox O2 Delivery O2 Flow Rate FiO2 11/23/16 04:00 97.7 77 16 116/69 100 11/23/16 00:00 98.2 79 16 109/60 97 11/22/16 20:00 97.5 95 17 110/75 98 11/22/16 16:00 97.0 74 18 111/59 100 11/22/16 12:00 97.1 62 18 116/58 94 I/O 11/22/16 11/22/16 11/22/16 11/23/16 11/23/16 11/23/16 07:00 15:00 23:00 07:00 15:00 23:00 Intake Total 0 ml 1464 ml 360 ml 240 ml Output Total 150 ml 350 ml 250 ml 300 ml Balance -150 ml 1114 ml 110 ml -60 ml Intake Oral 0 ml 240 ml 360 ml 240 ml IV Total 1224 ml Output Urine Total 150 ml 350 ml 250 ml 300 ml # Bowel Movements 0 1 Result Diagram: 11/21/16 1415 11/21/16 1415 Imaging Last Impressions Chest X-Ray 11/21/16 1359 Signed Impressions: Service Date/Time: November 14:07 - CONCLUSION: No acute disease. José Antonio Jacobs Jr., MD Head CT 11/21/16 0000 Signed Impressions: Service Date/Time: November 13:44 - CONCLUSION: There is no evidence of any significant hemorrhage or mass effect. K. Chris Garibay MD Objective Remarks more awake , stated her name, gripped when hands held and asked to anicteric lungs- decreased breath sounds regular rhythm abdomen soft, nontender extremities- no edema- gripped hands when held barba - draining grossly clear urine sacral decubitus stage 2 Urinary Catheter: Yes Assessment to: Continue Barba insert reason: Prolonged Immobilization Date of Insertion: Nov 21, 2016 A/P Assessment and Plan 81-year-old female presenting with Change in mental status likely secondary to infection with baseline dementia- - MS improving Sepsis syndrome due to Gram negative UTI. Babra placed with cloudy urine 11/21 Follow final culture and sensitivity- still pending Patient started on Rocephin.11/21 We'll continue History of COPD in the history of status post CVA History of C. difficile colitis- monitor on antibiotics speech therapy ff- pureed diet Teds for DVT prophylaxis PT consult- out of bed to chair bid consider palliative care consult DNR Maribell Weller MD Nov 23, 2016 09:58
[2016-11-23 12:00] VITALS: BP 120/68; PULSE 77; RESP 18; TEMP 96.8; O2SAT 100
[2016-11-23 12:39] LABS: POTASSIUM 3.5 MEQ/L (3.5-5.1)
[2016-11-23 16:00] VITALS: BP 121/64; PULSE 77; RESP 18; TEMP 97.4; O2SAT 94
[2016-11-23 20:05] VITALS: BP 123/65; PULSE 74; RESP 16; TEMP 98; O2SAT 100
[2016-11-23] MEDS: DONEPEZIL HCL 5 MG TAB PO SCH (21:00)
[2016-11-24] VITALS: BP 130/70; PULSE 70; RESP 17; TEMP 97.7; O2SAT 98
[2016-11-24 04:00] VITALS: BP 124/65; PULSE 71; RESP 16; TEMP 96.9; O2SAT 95
[2016-11-24] MEDS: LEVOTHYROXINE SODIUM 150 MCG TAB PO SCH (06:03)
[2016-11-24 08:00] VITALS: BP 118/67; PULSE 72; RESP 18; TEMP 97.1; O2SAT 98
[2016-11-24] MEDS ORDERED: CIPROFLOXACIN 500 MG TAB PO SCH (09:00)
--- NOTE | 2016-11-24 09:00 | HHI.PR ---
Subjective Remarks awake and alert, stated her name, ff commands patient ate well - feeding herself with assistance Objective Vitals Vital Signs Date Time Temp Pulse Resp B/P Pulse Ox O2 Delivery O2 Flow Rate FiO2 11/24/16 04:00 96.9 71 16 124/65 95 11/24/16 01:11 Room Air 11/24/16 00:00 97.7 70 17 130/70 98 11/23/16 20:05 98.0 74 16 123/65 100 11/23/16 16:00 97.4 77 18 121/64 94 11/23/16 12:00 96.8 77 18 120/68 100 I/O 11/23/16 11/23/16 11/23/16 11/24/16 11/24/16 11/24/16 07:00 15:00 23:00 07:00 15:00 23:00 Intake Total 240 ml 914 ml 1242 ml Output Total 300 ml 1300 ml Balance -60 ml 914 ml -58 ml Intake Oral 240 ml 445 ml IV Total 914 ml 797 ml Output Urine Total 300 ml 1300 ml # Bowel Movements 1 Result Diagram: 11/21/16 1415 11/23/16 1150 Imaging Last Impressions Chest X-Ray 11/21/16 1359 Signed Impressions: Service Date/Time: November 14:07 - CONCLUSION: No acute disease. José Antonio Jacobs Jr., MD Head CT 11/21/16 0000 Signed Impressions: Service Date/Time: November 13:44 - CONCLUSION: There is no evidence of any significant hemorrhage or mass effect. K. Chris Garibay MD Objective Remarks awake and alert, stated her name, swallowed very well anicteric lungs- decreased breath sounds regular rhythm abdomen soft, nontender extremities- no edema- barba - draining grossly clear urine sacral decubitus stage 2 Date of Insertion: Nov 21, 2016 A/P Assessment and Plan 81-year-old female presenting with Change in mental status likely secondary to infection with baseline dementia- - MS improved Klebsiella UTI. - draining grossly clear urine got Rocephin x 3 days change to po ciprofloxacin 500 mg po bid x 4 days more History of COPD in the history of status post CVA History of C. difficile colitis- monitor on antibiotics- no diarrhea Sacral decubitus wound stage 2- wound care. wound care daily- appreciate wound care recommendations speech therapy ff- pureed diet Teds for DVT prophylaxis DNR DC to SNF today Will send there with barba catheter. On admission- barba was placed with very cloudy urine Voiding trial in SNF- patient needs to be sit up by staff and brought to the bathroom to void q 4-6 hours- with Dementia to avoid indwelling If they are unable to do this- then they can decide to keep barba in their discussion with SNF Maribell Cash MD Nov 24, 2016 09:00
[2016-11-24] MEDS ORDERED: CIPR-9 PO (09:10)
[2016-11-24] MEDS: DULoxetine HCl DR 60 MG CAP PO SCH (09:10)
[2016-11-24] MEDS: MEMANTINE HCL 10 MG TAB PO SCH (09:11)
[2016-11-24] MEDS ORDERED: ARIC5TAB2 PO (09:11)
[2016-11-24] MEDS: CHOLECALCIFEROL (VIT D3) 5000 UNIT CAP PO SCH (09:11)
--- NOTE | 2016-11-24 09:17 | HHI.DS ---
Discharge Summary Admission Date Nov 21, 2016 at 16:39 Discharge Date: Nov 24, 2016 Admitting Diagnosis UTI, altered mental status (1) Altered mental status ICD Code: R41.82 Diagnosis: Principal (2) UTI (urinary tract infection) ICD Code: N39.0 Diagnosis: Principal Procedures barba catheter placement- 11/21 Brief History - From Admission Patient is a 81-year-old female who was sent here from a nearby halfway facility, with history of baseline dementia however patient is still interactive alert to self wheelchair-bound still however this morning was noted to be lethargic. Was sent in here and on evaluation by the ER physician placed a Barba catheter and drained very cloudy urine. Full of sediments. Patient was given 1 L IV bolus and patient seems to be more awake after the bolus per staff nurse. Patient admitted for further evaluation. CBC/BMP: 11/21/16 1415 11/23/16 1150 Significant Findings Laboratory Tests Test 11/21/16 11/21/16 11/23/16 14:15 14:30 11:50 Estimat Glomerular Filtration 67 ML/MIN (>89) Rate Troponin I LESS THAN 0.02 NG/ML (0.02-0.05) Platelet Count 148 TH/MM3 (150-450) Neutrophils (%) (Auto) 70.8 % (16.0-70.0) Eosinophils (%) (Auto) 4.8 % (0.0-4.0) Urine Turbidity CLOUDY (CLEAR) Urine Occult Blood MOD (NEG) Urine Nitrite POS (NEG) Urine Leukocyte Esterase LARGE (NEG) Urine Bacteria MANY /hpf (NONE) Chloride Level 111 MEQ/L (98-107) Imaging Last Impressions Chest X-Ray 11/21/16 1359 Signed Impressions: Service Date/Time: , November 21, 2016 14:07 - CONCLUSION: No acute disease. José Antonio Jacobs Jr., MD Head CT 11/21/16 0000 Signed Impressions: Service Date/Time: , November 21, 2016 13:44 - CONCLUSION: There is no evidence of any significant hemorrhage or mass effect. Samira Garibay MD PE at Discharge awake and alert, stated her name, swallowed very well, actually feeding herself anicteric lungs- decreased breath sounds regular rhythm abdomen soft, nontender extremities- no edema- barba - draining grossly clear urine sacral decubitus stage 2 Pt update on day of discharge awake and alert, states her name feeding herselfg with supervision afebrile Hospital Course 81-year-old female presenting with Change in mental status likely secondary to infection with baseline dementia- - MS improved Klebsiella UTI. - draining grossly clear urine got Rocephin x 3 days change to po ciprofloxacin 500 mg po bid x 4 days more History of COPD in the history of status post CVA History of C. difficile colitis- monitor on antibiotics- no diarrhea Sacral decubitus wound stage 2- wound care. wound care daily- appreciate wound care recommendations cleanse wound on sacrum with NS and apply skin prep before applyimg adhesive foam dressing and change dressing every 3 days or prn if saturated or dislodged. speech therapy ff- pureed diet DNR DC to SNF today Will send there with barba catheter. On admission here from -- barba was placed with very cloudy urine Voiding trial in SNF- patient needs to be sit up by staff and brought to the bathroom to void q 4-6 hours- with Dementia to avoid indwelling If they are unable to do this- then they can decide to keep barba in their discussion with SNF Dialysis Clinical Manager to ff patient in SNF Pt Condition on Discharge: Stable Discharge Disposition: Discharge to SNF Discharge Time: <= 30 minutes Discharge Instructions DIET: Follow Instructions for: As Tolerated, No Restrictions Speech Therapy-Diet Recommends: Pureed, [place] Thickened Liquids Activities you can perform: Weight Bearing as Stephanie Other Activity Instructions: PT daily with supervision Follow up Referrals: PCP Follow-up - 11/26/16 with [facility] New Medications: Ciprofloxacin (Cipro) 500 Mg Tab 500 MG PO Q12HR UTI #7 TAB Donepezil HCl (Aricept) 5 Mg Tablet 10 MG PO HS dem Days 30 TAB Continued Medications: Cholecalciferol (Vitamin D3) 5,000 Unit Cap 5000 UNITS PO DAILY vitsupp #30 CAP Clonazepam (Klonopin) 0.5 Mg Tab 0.5 MG PO Q12HR Anxiety #60 Ref [address] (Dul[address]etine DR) 60 Mg Capdr 60 MG PO DAILY health #30 CAP Escitalopram (Lexapro) 10 Mg Tab 10 MG PO DAILY #30 Ref 0 TAB Levothyroxine (Synthroid) 150 Mcg Tab 150 MCG PO DAILY@06 health #30 TAB Oxycodone (Roxicodone) 5 Mg Tab 5 MG PO Q6H PRN PAIN #20 Ref 0 TAB Risperidone Inj (Risperdal Consta Inj) 25 Mg Inj 25 MG IM Q14D Dementia #2 Ref 0 VIAL Discontinued Medications: Clonazepam (Klonopin) 0.5 Mg Tab 0.5 MG PO Q6HR PRN ANXIETY Ref 0 TAB L. Acidophilus/Pectin, Badin (Acidophilus Capsule) 1 Each Capsule 1 CAP PO TID C-DIFF Memantine-Donepezil (Namzaric) 28-10 Mg Cap 1 CAP PO HS Alzheimer Dementia #30 Ref 0 CAP Maribell Weller MD Nov 24, 2016 09:17
[2016-11-24] MEDS ORDERED: NAME10TA PO (09:18)
--- NOTE | 2016-12-04 17:21 | PQ ---
Physician Query Response Document PATIENT: AZUCENA XAVIER : 1935 ADMIT DATE: 11/21/2016 4:39 PM DISCH DATE: 11/24/2016 1:50 PM RESPONDING PROVIDER #: James QUERY TEXT: Rule Out Sepsis Clarification Sepsis is documented in the Medical Record. Please clarify whether: -- Patient has sepsis - Please document confirmed, suspected or probable causative organism - Please document confirmed, suspected or probable localized infection - Please clarify if sepsis is related to a device - Please clarify if sepsis was present on admission -- Sepsis was ruled out (include corresponding diagnosis for patient?s clinical picture and treatment ) -- Patient had sepsis which is resolved -- Other, please specify If you have any additional questions/comments and/or concerns, please do not hesitate to reach out to the [facility]I/Coding Hotline, Ext. [phone]. The patient's Clinical Indicators include: H Sepsis syndrome due to UTI. Loo placed with cloudy urine. Progress Note 11/24/16 No sepsis indicators documented in ED, lactic acid on 11/21/16 normal at 1.7. Progress Note 11/22/16: Sepsis syndrome due to UTI. Progress Note 11/23/16: Sepsis syndrome due to Gram negative UTI. Query created by: Jyothi Burton on 11/27/2016 11:20 AM RESPONSE TEXT: Sepsis ruled out Electronically signed by: Maribell eWller MD 12/04/2016 5:17 PM
== END 2016-11-24 13:50 | DRG 689 ==
LOC: NEPE 13:10 → NEDA 16:39 → N06A 20:00
PROVIDERS: ADMIT Internal Medicine; ATTEND Internal Medicine
DX: N39.0 Urinary tract infection, site not specified (principal); B96.1 Klebsiella pneumoniae [K. pneumoniae] as the cause of diseases classified elsewhere; G93.40 Encephalopathy, unspecified; L89.152 Pressure ulcer of sacral region, stage 2; E86.0 Dehydration; F03.90 Unspecified dementia, unspecified severity, without behavioral disturbance, psychotic disturbance, mood disturbance, and anxiety; E07.9 Disorder of thyroid, unspecified; I10 Essential (primary) hypertension; Z86.73 Personal history of transient ischemic attack (TIA), and cerebral infarction without residual deficits; Z99.3 Dependence on wheelchair; Z66 Do not resuscitate
CPT/HCPCS: 51702; 70450; 71010; 80048; 80053; 81001; 82550; 83605; 84443; 84484; 85025; 85610; 87040; 87077; 87086; 87186; 87205; 96374; J0696; J2794; J7042

== ENCOUNTER 2017-05-06 18:52 | Observation (INO) | payer MEDICARE, OTHER ==
[~2017-05-06] VITALS: Ht 160 cm; Wt 48.0 kg
[~2017-05-06 18:52] MED LIST changes: +ARIC5TAB6 PO; +CIPR-9 PO; -LACT PO; -MACR100C2 PO; -MEMA1CAP2 PO; +NAME10TA PO; -QUET1TAB7 PO; +RISP25P IM; -VANC500I3 PO; -WALKER/ADULT/FO1 MIS; -XARE10TA PO
[2017-05-06 19:00] VITALS: BP 115/59; PULSE 87; RESP 20; TEMP 98.3; O2SAT 98
[2017-05-06] MEDS ORDERED: TETANUS/DIPHTHERIA TOXOID ADULT 0.5 ML VIAL IM ONE (19:30)
--- NOTE | 2017-05-06 19:30 | PD ---
HPI Chief Complaint: Fall Time Seen by Provider: 19:09 Travel History International Travel<30 days: No Contact w/Intl Traveler<30days: No Traveled to known affect area: No History of Present Illness HPI pt from [facility] and apparently fell and has laceration to her middle forehead , When I ask her if anything hurts her only reply is only complaint is that her" my back lower hurts " , only repsonse I was able to elicit from her. dementia and lack of transfer info make CC and HPI and ROS limited. Pt has obvious laceration skin tare to fore head 3 cm oozing blood, PFSH Past Medical History Alzheimer's Disease: Yes Arthritis: Yes Asthma: No Autoimmune Disease: No Heart Rhythm Problems: No Cancer: No Cardiovascular Problems: Yes High Cholesterol: Yes Chemotherapy: No Chest Pain: No Congestive Heart Failure: No COPD: Yes Cerebrovascular Accident: Yes (AHD, HTN ) Dementia: Yes Diabetes: No Diminished Hearing: No Endocrine: Yes Gastrointestinal Disorders: Yes (CHOLELITHIASIS, CHOLECYSTITIS ) GERD: Yes Genitourinary: No Headaches: No Hiatal Hernia: No Hypertension: Yes Immune Disorder: No Implanted Vascular Access Dvce: Yes Musculoskeletal: Yes Neurologic: No Psychiatric: Yes (dementia with behavioral disturbance) Reproductive: No Respiratory: Yes Migraines: No Radiation Therapy: No Renal Failure: Yes Seizures: No Sleep Apnea: No Thyroid Disease: Yes Ulcer: No ?: Not Menopausal: Yes Past Surgical History Abdominal Surgery: No Cardiac Surgery: No Cholecystectomy: Yes Ear Surgery: No Endocrine Surgery: No Eye Surgery: No Genitourinary Surgery: No Gynecologic Surgery: Yes (C section) Oral Surgery: No Thoracic Surgery: No Other Surgery: Yes Social History Tobacco Use: No Substance Use: No Allergies-Medications (Allergen,Severity, Reaction): Coded Allergies: *MDRO Multi-Drug Resistant Organism (Verified Adverse Reaction, Unknown, ) 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 Acidophilus/Pectin, [facility] [place] [employer]) 7.5 Mg (30 Million Cell)- 100 Mg Capsule TID Risperdal Consta Inj (Risperidone) 25 Mg Inj 25 Mg IM Q14D Klonopin (Clonazepam) 0.5 Mg Tab 0.5 Mg PO Q12HR Lexapro (Escitalopram Oxalate) 10 Mg Tab 10 Mg PO DAILY Review of Systems ROS Limitations: Clinical Condition, Poor Historian, Other: (dementia ) Physical Exam Narrative GENERAL: lac to forehead oozing blood , tearing from both eyes SKIN: Warm and dry.lac to forehead 3 cm and lac skin tare to left elbow exgtensor surface HEAD: Lac from traumatic. EYES: Pupils equal and round. No scleral icterus. No injection or drainage. tearing from both eyes ENT: No nasal bleeding or discharge. Mucous membranes pink and moist. NECK: Trachea midline. No JVD. CARDIOVASCULAR: Regular rate and rhythm. RESPIRATORY: No accessory muscle use. Clear to auscultation. Breath sounds equal bilaterally. GASTROINTESTINAL: Abdomen soft, non-tender, nondistended. Hepatic and splenic margins not palpable. MUSCULOSKELETAL: Extremities left elbow skin tare. No obvious deformities. BACK Stage four sacral breakdown, NEUROLOGICAL: Awake and alert . Psych not oriented to person place nor time , ( from her lac of answering any question) dementia or dilerium but lac of activity appear more like dementia. Data Data Last Documented VS Orders Orders Ct Brain W/O Iv Contrast(Rout) (05/06/17 ) Tetanus/Diphtheria Tox Adult (Tetanus/Di (05/06/17 19:30) Complete Blood Count With Diff (05/06/17 19:18) Comprehensive Metabolic Panel (05/06/17 19:18) Urinalysis - C+S If Indicated (05/06/17 19:18) Elbow, Limited (Ap&Lat) (05/06/17 ) Ct Abd/Pel W/O Iv Contrast (05/06/17 ) Ct Cerv Spine W/O Contrast (05/06/17 ) Prothrombin Time / Inr (Pt) (05/06/17 19:32) Wound Culture And Gram Stain (05/06/17 19:32) Blood Culture (05/06/17 19:34) Lidocai-Epi 2%-1:100,000 Inj (Xylocaine- (05/06/17 21:30) Sodium Chlor 0.9% 250 Ml Inj (Ns 250 Ml (05/06/17 23:00) Sodium Chlor 0.9% 1000 Ml Inj (Ns 1000 M (05/06/17 23:00) Urine Culture (05/06/17 22:50) Piperacil-Tazo 3.375 Gm Premix (Zosyn 3. (05/06/17 23:30) Piperacil-Tazo 3.375 Gm Premix (Zosyn 3. (05/06/17 23:30) Admit Order (Ed Use Only) (05/06/17 23:41) Consult Wound / Ostomy Nurse (05/07/17 ) Ceftriaxone Inj (Rocephin Inj) (05/07/17 01:00) Place In Observation (05/07/17 ) Vital Signs (Adult) Q4H (05/07/17 00:07) Activity Oob With Assistance (05/07/17 00:07) Intake + Output NED.QSHIFT (05/07/17 00:07) Sodium Chloride 0.9% Flush (Ns Flush) (05/07/17 00:15) Sodium Chloride 0.9% Flush (Ns Flush) (05/07/17 09:00) Acetaminophen (Tylenol) (05/07/17 00:15) Ondansetron Inj (Zofran Inj) (05/07/17 00:15) Complete Blood Count With Diff (05/08/17 06:00) Pt Request For Service (05/07/17 00:07) Enoxaparin Inj (Lovenox Inj) (05/07/17 00:15) Naloxone Inj (Narcan Inj) (05/07/17 00:15) Magnesium Hydroxide Liq (Milk Of Magnesi (05/07/17 00:15) Sennosides (Senokot) (05/07/17 00:15) Bisacodyl Supp (Dulcolax Supp) (05/07/17 00:15) Clonazepam (Klonopin) (05/07/17 09:00) Donepezil (Aricept) (05/07/17 21:00) Duloxetine (Cymbalta ) (05/07/17 09:00) Levothyroxine (Synthroid) (05/07/17 06:00) Memantine (Namenda) (05/07/17 09:00) Labs Laboratory Tests Test 05/06/17 19:31 05/06/17 22:50 White Blood Count 8.9 TH/MM3 Red Blood Count 3.99 MIL/MM3 Hemoglobin 12.5 GM/DL Hematocrit 37.3 % Mean Corpuscular Volume 93.4 FL Mean Corpuscular Hemoglobin 31.2 PG Mean Corpuscular Hemoglobin Concent 33.4 % Red Cell Distribution Width 13.9 % Platelet Count 175 TH/MM3 Mean Platelet Volume 7.9 FL Neutrophils (%) (Auto) 71.8 % Lymphocytes (%) (Auto) 16.7 % Monocytes (%) (Auto) 6.8 % Eosinophils (%) (Auto) 4.1 % Basophils (%) (Auto) 0.6 % Neutrophils # (Auto) 6.4 TH/MM3 Lymphocytes # (Auto) 1.5 TH/MM3 Monocytes # (Auto) 0.6 TH/MM3 Eosinophils # (Auto) 0.4 TH/MM3 Basophils # (Auto) 0.1 TH/MM3 CBC Comment DIFF FINAL Differential Comment Prothrombin Time 10.5 SEC Prothromb Time International Ratio 1.0 RATIO Blood Urea Nitrogen 9 MG/DL Creatinine 0.79 MG/DL Random Glucose 82 MG/DL Total Protein 7.1 GM/DL Albumin 2.9 GM/DL Calcium Level 9.8 MG/DL Alkaline Phosphatase 113 U/L Aspartate Amino Transf (AST/SGOT) 37 U/L Alanine Aminotransferase (ALT/SGPT) 43 U/L Total Bilirubin 0.5 MG/DL Sodium Level 140 MEQ/L Potassium Level 4.8 MEQ/L Chloride Level 108 MEQ/L Carbon Dioxide Level 22.8 MEQ/L Anion Gap 9 MEQ/L Estimat Glomerular Filtration Rate 70 ML/MIN Urine Color YELLOW Urine Turbidity CLOUDY Urine pH 7.5 Urine Specific [place] 1.018 Urine Protein 30 mg/dL Urine Glucose (UA) NEG mg/dL Urine Ketones NEG mg/dL Urine Occult Blood NEG Urine Nitrite POS Urine Bilirubin NEG Urine Urobilinogen LESS THAN 2.0 MG/DL Urine Leukocyte Esterase LARGE Urine RBC 10 /hpf Urine WBC 132 /hpf Urine Squamous Epithelial Cells 138 /hpf Urine Amorphous Sediment RARE Urine Bacteria MANY /hpf Urine Mucus FEW /lpf Microscopic Urinalysis Comment CULTURE INDICATED MDM Medical Decision Making Medical Screen Exam Complete: Yes Emergency Medical Condition: Yes Medical Record Reviewed: Yes Differential Diagnosis mechanical fall vs weakness fall from UTI or other infection , vs syncope of cardiac or neuro or PE likely. Narrative Course pt has CT head normal and lac repaired by Jonh MARTINEZ with good results and UTI , reviewed Med Hx records resistant Urine bact in the past [facility] admit Diagnosis Primary Impression: Head injury Qualified Codes: S09.90XA - Unspecified injury of head, initial encounter Additional Impression: Urinary tract infection Qualified Codes: N30.00 - Acute cystitis without hematuria Admitting Information Admitting Physician Requests: Admit Scripts Sulfamethoxazole/Trimethoprim (Sulfamethoxazole-Tmp Ss Tablet) 400 Mg-80 Mg Tablet 1 TAB PO Q12HR for UTI, #14 TAB Prov: Nirmala Pal PA-C 05/09/17 Cefuroxime (Ceftin) 250 Mg Tab 250 MG PO Q12HR for UTI, #14 TAB Prov: Nirmala Pal PA-C 05/09/17 Pa Gonzales MD May 06, 2017 19:30
[2017-05-06] MEDS ORDERED: TYLE325T PO (19:59)
[2017-05-06] MEDS ORDERED: TRAM50TA PO (19:59)
[2017-05-06] MEDS ORDERED: L. A1CAP (19:59)
[2017-05-06] MEDS ORDERED: MEMA1CAP2 PO (19:59)
--- NOTE | 2017-05-06 20:02 | RADRPT ---
EXAM DATE/TIME: 05/06/2017 19:28 [facility] COMPARISON: No previous studies available for comparison. INDICATIONS : Pain in left elbow after fall. MEDICAL HISTORY : Cardiovascular disease. Hypertension Renal failure, chronic. Alzheimers. SURGICAL HISTORY : Cholecystectomy. ENCOUNTER: Initial ACUITY: 1 day PAIN SCORE: 8/10 LOCATION: Left elbow. FINDINGS: Two view examination of the left elbow demonstrates no soft tissue swelling, joint effusion, fracture or dislocation. Bony mineralization is normal. CONCLUSION: Intact left elbow. Dominic Pena MD on May 06, 2017 at 19:59 Board Certified Radiologist. This report was verified electronically.
[2017-05-06] MEDS ORDERED: APLI5INJ2 (20:03)
[2017-05-06] MEDS ORDERED: ZINC220T PO (20:03)
[2017-05-06] MEDS ORDERED: CHOL50005 (20:03)
--- NOTE | 2017-05-06 20:05 | RADRPT ---
EXAM DATE/TIME: 05/06/2017 19:35 [facility] COMPARISON: CT BRAIN W/O CONTRAST, November 21, 2016, 13:44. INDICATIONS : Trauma; frontal laceration. RADIATION DOSE: 56.35 CTDIvol (mGy) MEDICAL HISTORY : Stroke. Dementia. Alzheimers. SURGICAL HISTORY : None. ENCOUNTER: Initial ACUITY: 1 day PAIN SCALE: 5/10 LOCATION: cranial TECHNIQUE: Multiple contiguous axial images were obtained of the head. Using automated exposure control and adj ustment of the mA and/or kV according to patient size, radiation dose was kept as low as reasonably a chievable to obtain optimal diagnostic quality images. DICOM format image data is available electro nically for review and comparison. FINDINGS: CEREBRUM: The ventricles are normal for age. No evidence of midline shift, mass lesion, hemorrhage or acute in farction. No extra-axial fluid collections are seen. Atrophy and chronic periventricular low-attenua tion seen. POSTERIOR FOSSA: The cerebellum and brainstem are intact. The 4th ventricle is midline. The cerebellopontine angle i s unremarkable. EXTRACRANIAL: Small frontal scalp contusion noted near the midline. SKULL: The calvaria is intact. No evidence of skull fracture. CONCLUSION: No bleed or other acute intracranial abnormality. Atrophy and chronic white matter changes are again noted. Dominic Pena MD on May 06, 2017 at 20:02 Board Certified Radiologist. This report was verified electronically.
--- NOTE | 2017-05-06 20:11 | RADRPT ---
EXAM DATE/TIME: 05/06/2017 19:36 [facility] COMPARISON: No previous studies available for comparison. INDICATIONS : Trauma; frontal laceration. RADIATION DOSE: 37.1 CTDIvol (mGy) MEDICAL HISTORY : Stroke. Dementia. Alzheimers. SURGICAL HISTORY : None. ENCOUNTER: Initial ACUITY: 1 day PAIN SCALE: 5/10 LOCATION: Bilateral facial TECHNIQUE: Volumetric scanning of the cervical spine was performed. Multiplanar reconstructions in the sagittal, coronal and oblique axial planes were performed. Using automated exposure control and adjustment o f the mA and/or kV according to patient size, radiation dose was kept as low as reasonably achievable to obtain optimal diagnostic quality images. DICOM format image data is available electronically f or review and comparison. FINDINGS: No fracture demonstrated of the cervical spine. Vertebral bodies have normal height. No subluxations. Moderate to severe disc space narrowing with left greater than right uncovertebral and facet osteoart hritis seen at C5/C6 and C6/C7. 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 Perivertebral soft tissues are within normal limits. CONCLUSION: Intact cervical spine. Degenerative changes as above. Dominic Pena MD on May 06, 2017 at 20:08 Board Certified Radiologist. This report was verified electronically.
--- NOTE | 2017-05-06 20:15 | RADRPT ---
EXAM DATE/TIME: 05/06/2017 19:43 [facility] COMPARISON: CT ABDOMEN & PELVIS W/O CONTRAST, December 15, 2015, 17:50. INDICATIONS : Trauma; frontal laceration. ORAL CONTRAST: No oral contrast ingested. RADIATION DOSE: 6.64 CTDIvol (mGy) MEDICAL HISTORY : Stroke. Dementia. Renal failure, chronic. SURGICAL HISTORY : None. ENCOUNTER: Initial ACUITY: 1 day PAIN SCALE: 5/10 LOCATION: Bilateral abdomen. TECHNIQUE: Volumetric scanning of the abdomen and pelvis was performed. Using automated exposure control and ad justment of the mA and/or kV according to patient size, radiation dose was kept as low as reasonably achievable to obtain optimal diagnostic quality images. DICOM format image data is available electro nically for review and comparison. FINDINGS: LOWER LUNGS: The visualized lower lungs are clear. LIVER: Homogeneous density without lesion. There is no dilation of the biliary tree. Previous cholecystecto my. SPLEEN: Normal size without lesion. PANCREAS: Within normal limits. KIDNEYS: Normal in size and shape. There is no mass, stone, or hydronephrosis. ADRENAL GLANDS: Within normal limits. VASCULAR: There is no aortic aneurysm. BOWEL/MESENTERY: A very large amount of stool is seen in the rectum. There is small to moderate low attenuation fluid in the pelvic cul-de-sac. ABDOMINAL WALL: Within normal limits. RETROPERITONEUM: There is no lymphadenopathy. BLADDER: No wall thickening or mass. REPRODUCTIVE: Within normal limits. INGUINAL: There is no lymphadenopathy or hernia. MUSCULOSKELETAL: Visualized osseous structures are intact. CONCLUSION: 1. Free fluid in the pelvic cavity, nonspecific but possibly on the basis of fecal impaction-related proctitis. 2. Otherwise negative. Dominic Pena MD on May 06, 2017 at 20:10 Board Certified Radiologist. This report was verified electronically.
[2017-05-06 20:48] LABS: AUTOMATED NEUTROPHIL # 6.4 TH/MM3 (1.8-7.7); BASOPHIL # 0.1 TH/MM3 (0-0.2); BASOPHIL % 0.6 % (0.0-2.0); EOSINOPHIL # 0.4 TH/MM3 (0-0.4); EOSINOPHIL % 4.1 % (0.0-4.0); HEMATOCRIT 37.3 % (35.0-46.0); HEMOGLOBIN 12.5 GM/DL (11.6-15.3); LYMPH % 16.7 % (9.0-44.0); LYMPHOCYTE # 1.5 TH/MM3 (1.0-4.8); MEAN CELL VOLUME 93.4 FL (80.0-100.0); MEAN CORPUSCULAR HEMOGLOBIN 31.2 PG (27.0-34.0); MEAN CORPUSCULAR HGB CONC 33.4 % (32.0-36.0); MEAN PLATELET VOLUME 7.9 FL (7.0-11.0); MONO % 6.8 % (0.0-8.0); MONOCYTE # 0.6 TH/MM3 (0-0.9); NEUT % 71.8 % (16.0-70.0); PLATELET COUNT 175 TH/MM3 (150-450); RED BLOOD COUNT 3.99 MIL/MM3 (4.00-5.30); RED CELL DISTRIBUTION WIDTH 13.9 % (11.6-17.2); WHITE BLOOD COUNT 8.9 TH/MM3 (4.0-11.0)
[2017-05-06 21:08] LABS: ALBUMIN 2.9 GM/DL (3.4-5.0); AST (GOT) 37 U/L (15-37); BICARBONATE 22.8 MEQ/L (21.0-32.0); BLOOD UREA NITROGEN 9 MG/DL (7-18); CALCIUM 9.8 MG/DL (8.5-10.1); CHLORIDE 108 MEQ/L (98-107); CREATININE 0.79 MG/DL (0.50-1.00); GLOMERULAR FILTRATION RATE 70 ML/MIN (>89); GLUCOSE,RANDOM 82 MG/DL (74-106); SODIUM (NA) 140 MEQ/L (136-145)
[2017-05-06 21:09] LABS: ALKALINE PHOSPHATASE 113 U/L (45-117); ALT (GPT) 43 U/L (10-53); TOTAL BILIRUBIN ADULT 0.5 MG/DL (0.2-1.0); TOTAL PROTEIN 7.1 GM/DL (6.4-8.2)
[2017-05-06 21:10] LABS: PROTHROMBIN TIME - PATIENT 10.5 SEC (9.8-11.6)
[2017-05-06 21:12] VITALS: BP 114/55; PULSE 88; RESP 18; O2SAT 95
[2017-05-06] MEDS ORDERED: LIDOCAINE 2%/EPINEPHrine 1:100,000 20ML MDV NERV BLOCK ONE (21:30)
--- NOTE | 2017-05-06 22:19 | PD ---
Physical Exam Time Seen by Provider: 22:10 Data Data Last Documented VS Vital Signs Date Time Temp Pulse Resp B/P (MAP) Pulse Ox O2 Delivery O2 Flow Rate FiO2 05/06/17 21:12 88 18 114/55 (74) 95 Room Air 05/06/17 19:[address] Brain W/O Iv Contrast(Rout) (05/06/17 ) Tetanus/Diphtheria Tox Adult (Tetanus/Di (05/06/17 19:30) Complete Blood Count With Diff (05/06/17 19:18) Comprehensive Metabolic Panel (05/06/17 19:18) Urinalysis - C+S If Indicated (05/06/17 19:18) Elbow, Limited (Ap&Lat) (05/06/17 ) Ct Abd/Pel W/O Iv Contrast (05/06/17 ) Ct Cerv Spine W/O Contrast (05/06/17 ) Prothrombin Time / Inr (Pt) (05/06/17 19:32) Wound Culture And Gram Stain (05/06/17 19:32) Blood Culture (05/06/17 19:34) Lidocai-Epi 2%-1:100,000 Inj (Xylocaine- (05/06/17 21:30) Labs Laboratory Tests Test 05/06/17 19:31 White Blood Count 8.9 TH/MM3 Red Blood Count 3.99 MIL/MM3 Hemoglobin 12.5 GM/DL Hematocrit 37.3 % Mean Corpuscular Volume 93.4 FL Mean Corpuscular Hemoglobin 31.2 PG Mean Corpuscular Hemoglobin Concent 33.4 % Red Cell Distribution Width 13.9 % Platelet Count 175 TH/MM3 Mean Platelet Volume 7.9 FL Neutrophils (%) (Auto) 71.8 % Lymphocytes (%) (Auto) 16.7 % Monocytes (%) (Auto) 6.8 % Eosinophils (%) (Auto) 4.1 % Basophils (%) (Auto) 0.6 % Neutrophils # (Auto) 6.4 TH/MM3 Lymphocytes # (Auto) 1.5 TH/MM3 Monocytes # (Auto) 0.6 TH/MM3 Eosinophils # (Auto) 0.4 TH/MM3 Basophils # (Auto) 0.1 TH/MM3 CBC Comment DIFF FINAL Differential Comment Prothrombin Time 10.5 SEC Prothromb Time International Ratio 1.0 RATIO Blood Urea Nitrogen 9 MG/DL Creatinine 0.79 MG/DL Random Glucose 82 MG/DL Total Protein 7.1 GM/DL Albumin 2.9 GM/DL Calcium Level 9.8 MG/DL Alkaline Phosphatase 113 U/L Aspartate Amino Transf (AST/SGOT) 37 U/L Alanine Aminotransferase (ALT/SGPT) 43 U/L Total Bilirubin 0.5 MG/DL Sodium Level 140 MEQ/L Potassium Level 4.8 MEQ/L Chloride Level 108 MEQ/L Carbon Dioxide Level 22.8 MEQ/L Anion Gap 9 MEQ/L Estimat Glomerular Filtration Rate 70 ML/MIN [facility] Medical Record Reviewed: Yes Supervised Visit with ARIANNA: No Narrative Course This patient has a laceration of the forehead which I was asked to repair. It was repaired using absorbable sutures. Procedures Procedure Narrative LACERATION LOCATION: Forehead LENGTH: [2 cm NUMBER OF STITCHES/GEOVANNY: 5 REPAIR: The area of the laceration was prepped with Betadine and sterilely draped. The laceration was infiltrated with 1% lidocaine with epinephrine. The wound was copiously irrigated and explored without evidence of foreign body , tendon injury or neurovascular injury. The wound was closed using 5-0 fast absorbing chromic simple interrupted. This was a single layer repair. A sterile dressing was applied. The patient was advised to keep the dressing clean and dry. Patient tolerated the procedure well. Jonh Rebolledo May 06, 2017 22:19
[2017-05-06 23:00] VITALS: BP 101/55; PULSE 77; RESP 18; O2SAT 98
[2017-05-06] MEDS ORDERED: SODIUM CHLOR 0.9% 250 ML INJ 250 ML IV ONE (23:00)
[2017-05-06 23:10] LABS: AMORPHOUS SEDIMENT, URINE RARE; BACTERIA, URINE MANY /hpf; BILIRUBIN, URINE NEG (NEG); BLOOD, URINE NEG (NEG); GLUCOSE,URINE NEG (NEG); KETONE, URINE NEG (NEG); MUCUS URINE FEW /lpf (OCC); NITRITE,URINE POS (NEG); PH, URINE 7.5 (5.0-8.5); SQUAMOUS EPITHELIAL CELL URINE 138 /hpf (0-5); URINE COLOR YELLOW (YELLW/STRAW); URINE LEUKOCYTE ESTERASE LARGE (NEG)
[2017-05-06] MEDS: SODIUM CHLOR 0.9% 1000 ML INJ 1,000 ML IV SCH (23:11)
[2017-05-06] MEDS ORDERED: PIPERACIL-TAZO 3.375 GM PREMIX 50 ML IV ONE ×2 (23:30)
[2017-05-07] VITALS (7 sets, daily range): BP systolic 99–130; BP diastolic 53–64; PULSE 65–77; RESP 16–18; TEMP 94.6–98.4; O2SAT 97–100
[2017-05-07] MEDS ORDERED: ONDANSETRON HCL 4 MG/2 ML VIAL IVP PRN (00:15)
[2017-05-07] MEDS ORDERED: RESP: ALBUTEROL 2.5 MG/IPRATROPIUM 0.5 MG NEB (PRN) NEB (00:15)
[2017-05-07] MEDS ORDERED: MAGNESIUM HYDROXIDE SUSP 30 ML CUP PO PRN (00:15)
[2017-05-07] MEDS ORDERED: SODIUM CHLORIDE 0.9% FLUSH 10 ML FLUSH IV FLUSH PRN (00:15)
[2017-05-07] MEDS ORDERED: BISACODYL 10 MG SUPP RECTAL PRN (00:15)
[2017-05-07] MEDS ORDERED: ACETAMINOPHEN 325 MG TAB PO PRN (00:15)
[2017-05-07] MEDS ORDERED: NALOXONE HCL 0.4 MG/ML AMP IV PUSH PRN (00:15)
[2017-05-07] MEDS ORDERED: SENNOSIDES 8.6 MG TAB PO PRN (00:15)
--- NOTE | 2017-05-07 00:45 | HHI.HP ---
HPI Service [facility] Primary Care Physician Kolton Ruffin MD Admission Diagnosis UTI fall weakness Diagnoses: Travel History International Travel<30 Days: No Contact w/Intl Traveler <30 Da: No Traveled to Known Affected Are: No History of Present Illness 82-year-old female with a past medical history significant for dementia, multiple UTIs, hypertension and history of CVA presents to the emergency department for evaluation of a laceration to her middle forehead. The patient lives in a [facility] facility and reportedly fell out of bed. She sustained a laceration to her left forehead and has an erythematous left elbow. The patient is talking incoherently. She denies any pain. UA consistent with urinary tract infection. No leukocytosis. Afebrile with stable vital signs. Review of Systems Unable to obtain secondary to clinical condition Past Family Social History Past Medical History Obtained from medical record: dementia, multiple UTIs, hypertension and history of CVA Past Surgical History Left hip repair Reported Medications Reported Meds & Active Scripts Active Namenda (Memantine) 10 Mg Tab 10 Mg PO BID 30 Days Aricept (Donepezil HCl) 5 Mg Tablet 10 Mg PO HS 30 Days Roxicodone (Oxycodone HCl) 5 Mg Tab 5 Mg PO Q6H PRN Vitamin D3 (Cholecalciferol) 5,000 Unit Cap 5,000 Units PO DAILY Synthroid (Levothyroxine Sodium) 150 Mcg Tab 150 Mcg PO DAILY@[address] (Duloxetine HCl) 60 Mg Capdr 60 Mg PO DAILY Reported Vitamin D3 (Cholecalciferol (Vitamin D3)) 5,000 Unit/Ml Drops Zinc Sulfate 220 Mg Tab 220 Mg PO DAILY Aplisol (Tuberculin Ppd) 5 Tub. Unit/0.1 Ml Inj Namzaric (Memantine-Donepezil) 28-10 Mg Cap 1 Cap PO HS Tramadol (Tramadol HCl) 50 Mg Tab 50 Mg PO Q8H PRN Tylenol (Acetaminophen) 325 Mg Tab 325 Mg PO ONCE Acidophilus Capsule (L. Acidophilus/Pectin, [place]) 7.5 Mg (30 Million Cell)- 100 Mg Capsule TID Risperdal Consta Inj (Risperidone) 25 Mg Inj 25 Mg IM Q14D Klonopin (Clonazepam) 0.5 Mg Tab 0.5 Mg PO Q12HR Lexapro (Escitalopram Oxalate) 10 Mg Tab 10 Mg PO DAILY Allergies: Coded Allergies: *MDRO Multi-Drug Resistant Organism (Verified Adverse Reaction, Unknown, ) VRE (urine)-09/14/16 Family History Unable to obtain Social History No tobacco, alcohol or substance abuse Physical Exam Vital Signs Vital Signs Date Time Temp Pulse Resp B/P (MAP) Pulse Ox O2 Delivery O2 Flow Rate FiO2 05/06/17 23:00 77 18 101/55 (70) 98 Room Air 05/06/17 21:12 88 18 114/55 (74) 95 Room Air 05/06/17 19:08 98 Room Air 05/06/17 19:00 98.3 87 20 115/59 (77) 98 Physical Exam GENERAL: Thin, female lying in bed SKIN: 3 cm laceration above the left eyebrow, status post repair, hemostatic. Stage IV sacral decubitus ulcer. HEAD: Normocephalic. No temporal or scalp tenderness. EYES: Pupils equal round and reactive. Extraocular motions intact. No scleral icterus. No injection or drainage. ENT: Nose without bleeding, purulent drainage or septal hematoma. Airway patent. NECK: Trachea midline. No JVD or lymphadenopathy. Supple, nontender, no meningeal signs. CARDIOVASCULAR: Regular rate and rhythm without murmurs, gallops, or rubs. RESPIRATORY: Clear to auscultation. Breath sounds equal bilaterally. No wheezes , rales, or rhonchi. GASTROINTESTINAL: Abdomen soft, non-tender, nondistended. No hepato-splenomegaly , or palpable masses. No guarding. MUSCULOSKELETAL: Extremities without clubbing, cyanosis, or edema. No joint tenderness, effusion, or edema noted. NEUROLOGICAL: Awake. Mumbling incoherently. Cranial nerves grossly intact. Spontaneous movement of all 4 extremities. Laboratory Laboratory Tests Test 05/06/17 19:31 05/06/17 22:50 White Blood Count 8.9 Red Blood Count 3.99 Hemoglobin 12.5 Hematocrit 37.3 Mean Corpuscular Volume 93.4 Mean Corpuscular Hemoglobin 31.2 Mean Corpuscular Hemoglobin Concent 33.4 Red Cell Distribution Width 13.9 Platelet Count 175 Mean Platelet Volume 7.9 Neutrophils (%) (Auto) 71.8 Lymphocytes (%) (Auto) 16.7 Monocytes (%) (Auto) 6.8 Eosinophils (%) (Auto) 4.1 Basophils (%) (Auto) 0.6 Neutrophils # (Auto) 6.4 Lymphocytes # (Auto) 1.5 Monocytes # (Auto) 0.6 Eosinophils # (Auto) 0.4 Basophils # (Auto) 0.1 CBC Comment DIFF FINAL Differential Comment Prothrombin Time 10.5 Prothromb Time International Ratio 1.0 Blood Urea Nitrogen 9 Creatinine 0.79 Random Glucose 82 Total Protein 7.1 Albumin 2.9 Calcium Level 9.8 Alkaline Phosphatase 113 Aspartate Amino Transf (AST/SGOT) 37 Alanine Aminotransferase (ALT/SGPT) 43 Total Bilirubin 0.5 Sodium Level 140 Potassium Level 4.8 Chloride Level 108 Carbon Dioxide Level 22.8 Anion Gap 9 Estimat Glomerular Filtration Rate 70 Urine Color YELLOW Urine Turbidity CLOUDY Urine pH 7.5 Urine Specific [place] 1.018 Urine Protein 30 Urine Glucose (UA) NEG Urine Ketones NEG Urine Occult Blood NEG Urine Nitrite POS Urine Bilirubin NEG Urine Urobilinogen LESS THAN 2.0 Urine Leukocyte Esterase LARGE Urine RBC 10 Urine WBC 132 Urine Squamous Epithelial Cells 138 Urine Amorphous Sediment RARE Urine Bacteria MANY Urine Mucus FEW Microscopic Urinalysis Comment CULTURE INDICATED Date/Time Source Procedure Growth Status 05/06/17 19:31 Blood Peripheral Aerobic Blood Culture Pending Received 05/06/17 19:31 Blood Peripheral Anaerobic Blood Culture Pending Received 05/06/17 22:50 Urine Clean Catch Urine Culture Pending Received 05/06/17 19:31 Wound Other Gram Stain Pending Received 05/06/17 19:31 Wound Other Wound Culture Pending Received Result Diagram: 05/06/17193005/06/171930 Caprini VTE Risk Assessment Caprini VTE Risk Assessment: Mod/High Risk (score >= 2) Caprini Risk Assessment Model Point Value = 1 Point Value = 2 Point Value = 3 Point Value = 5 Age 41-60 Minor surgery BMI > 25 kg/m2 Swollen legs Varicose veins or History of unexplained or recurrent spontaneous Oral contraceptives or hormone replacement Sepsis (< 1 month) Serious lung disease, including pneumonia (< 1 month) Abnormal pulmonary function Acute myocardial infarction Congestive heart failure (< 1 month) History of inflammatory bowel disease Medical patient at bed rest Age 61-74 Arthroscopic surgery Major open surgery (> 45 min) Laparoscopic surgery (> 45 min) Malignancy Confined to bed (> 72 hours) Immobilizing plaster cast Central venous access Age >= 75 History of VTE Family history of VTE Factor V Leiden Prothrombin [id number] Lupus anticoagulant Anticardiolipin antibodies Elevated serum homocysteine Heparin-induced thrombocytopenia Other congenital or acquired thrombophilia Stroke (< 1 month) Elective arthroplasty Hip, pelvis, or leg fracture Acute spinal cord injury (< 1 month) Prophylaxis Regimen Total Risk Factor Score Risk Level Prophylaxis Regimen 0-1 Low Early ambulation 2 Moderate Order ONE of the following: *Sequential Compression Device (SCD) *Heparin 5000 units SQ BID 3-4 Higher Order ONE of the following medications: *Heparin 5000 units SQ TID *Enoxaparin/Lovenox 40 mg SQ daily (WT < 150 kg, CrCl > 30 mL/min) *Enoxaparin/Lovenox 30 mg SQ daily (WT < 150 kg, CrCl > 10-29 mL/min) *Enoxaparin/Lovenox 30 mg SQ BID (WT < 150 kg, CrCl > 30 mL/min) AND/OR *Sequential Compression Device (SCD) 5 or more Highest Order ONE of the following medications: *Heparin 5000 units SQ TID (Preferred with Epidurals) *Enoxaparin/Lovenox 40 mg SQ daily (WT < 150 kg, CrCl > 30 mL/min) *Enoxaparin/Lovenox 30 mg SQ daily (WT < 150 kg, CrCl > 10-29 mL/min) *Enoxaparin/Lovenox 30 mg SQ BID (WT < 150 kg, CrCl > 30 mL/min) AND *Sequential Compression Device (SCD) Assessment and Plan Assessment and Plan Assessment/plan: 1. UTI Patient with history of multiple urinary tract infections including VRE, Escherichia coli, Klebsiella Most recent UTI in 11/25 positive for Klebsiella which was pansensitive Given Zosyn 1 in the ED Urine culture pending Rocephin Adjust antibiotics prn once culture results 2. Fall Patient sustained a forehead laceration and left elbow injury Cervical spine CT, head CT and elbow x-ray all negative for acute injury 3. Constipation CT of the abdomen/pelvis shows large amount of stool in the rectum Enemas, Dulcolax suppository 4. Dementia Continue home Aricept and Namenda 5. Hypothyroidism Continue home Synthroid 6. Stage IV Decubitus ulcer Wound care consulted FEN Heart healthy diet Electrolytes: monitor and replete prn Ana Fisher MD May 07, 2017 00:45
[2017-05-07] MEDS: ENOXAPARIN SODIUM 40 MG/0.4 ML SYRINGE SQ SCH (03:11)
[2017-05-07] MEDS: cefTRIAXone INJ 1,000 MG in SODIUM CHLORIDE 0.9% INJ 100 ML IV SCH (03:13)
[2017-05-07] MEDS: LEVOTHYROXINE SODIUM 150 MCG TAB PO SCH (06:00)
[2017-05-07] MEDS: DULoxetine HCl DR 60 MG CAP PO SCH (09:00)
[2017-05-07] MEDS: clonazePAM 0.5 MG TAB PO SCH ×2 (09:00→20:47)
[2017-05-07] MEDS: SODIUM CHLORIDE 0.9% FLUSH 10 ML FLUSH IV FLUSH SCH ×2 (09:00→20:47)
[2017-05-07] MEDS: MEMANTINE HCL 10 MG TAB PO SCH ×2 (09:00→20:47)
[2017-05-07] MEDS ORDERED: SOD PHOSPHATE/SOD BIPHOSPHATE (ADULT) ENEMA 133ML PR ONE (09:00)
--- NOTE | 2017-05-07 11:27 | PD.WCN.NOT ---
Wound Consult Description: Wound consult ordered by Pretty VALLECILLO for stage 4 pressure ulcer to sacrum Communicated with: Erica STEWART G pod, Recommendation: 1) Please reposition patient every 2 hours for offloading and comfort. 2) Irrigate Sacral wound with normal saline pat dry, Apply skin prep to crispin wound. 3) Lightly pack Maxsorb 2 (cut strips) in distal opening making contact with base of tunnel to proximal opening. 4) Cover with Optifoam gentle 4x4 or Sacral Optifoam upside down to avoid rectum area.Change dressing every 3-5 days or as needed for visible exudate. 5) Cleanse forehead laceration with normal saline skin prep over sutures leave open to air if no drainage BID.Cover with adaptic gauze and dry dressing if drainage noted. 6) Left elbow skin tear apply skin prep BID Additional Information: Patient was seen today by writer editor in G pod for Sacral pressure ulcer.Erica STEWART G pod present with writer editor.Patient requires max assist to reposition to left side. Mediplex removed from sacrum to expose stage 3 pressure injury measuring 2.9 x 1.6cm x 0.3cm tunneling noted from 7 O'clock to 3 O'clock with max depth @ 2 O'clock being 3.5cm with second opening measuring 1.2cm x 0.4cm. Wound base pink/red with thin layer of yellow slough biofilm. No fascia, Bone or tendon visible at this time.Scant serosanguineous drainage noted to prior dressing no odor noted.Wound irrigated with normal saline pat dry skin prep to periwound .Maxsorb cut in thin strips lightly packed in distal wound towards proximal opening 1 piece applied.Covered wound with upside down sacral Optifoam dated/ signed.L elbow skin tear well approximated skin flat even with wound edges measures 3.2cm x ~5.0cm.Skin prep applied left open to air no drainage or odor noted.Forehead laceration cleansed with normal saline skin prep applied no drainage noted at this time left open to air.Patient tolerated wound care well nonvocal to writer editor and assistant teacher primary.Patient repositioned to Left side. Kalie Garrett [facility] May 07, 2017 11:27
--- NOTE | 2017-05-07 13:27 | HHI.PR ---
Subjective Remarks Follow up for UTI, fall, constipation, dementia, decubitus ulcer. The patient is drowsy, awakens to touch, but does not participate in any conversation. RN reports the patient was more awake earlier today, smiling and moaning, but also did not participate in conversation. She does not verbalize any complaints. Left forehead laceration and hematoma noted. Vital signs reviewed and stable. Objective Vitals Vital Signs Date Time Temp Pulse Resp B/P (MAP) Pulse Ox O2 Delivery O2 Flow Rate FiO2 05/07/17 13:01 98.0 65 18 112/54 (73) 99 05/07/17 09:14 94.6 74 18 129/60 (83) 99 05/07/17 03:13 97.4 68 17 124/64 (84) 100 05/07/17 00:35 77 18 104/53 (70) 98 Room Air 05/06/17 23:00 77 18 101/55 (70) 98 Room Air 05/06/17 21:12 88 18 114/55 (74) 95 Room Air 05/06/17 19:08 98 Room Air 05/06/17 19:00 98.3 87 20 115/59 (77) 98 I/O 05/06/17 05/06/17 05/06/17 05/07/17 05/07/17 05/07/17 07:00 15:00 23:00 07:00 15:00 23:00 # Voids 2 Result Diagram: 05/06/17193005/06/171930 Imaging Last Impressions Head CT 05/06/17 0000 Signed Impressions: Service Date/Time: Saturday, May 06, 2017 19:35 - CONCLUSION: No bleed or other acute intracranial abnormality. Atrophy and chronic white matter changes are again noted. Dominic Pena MD Elbow X-Ray 05/06/17 0000 Signed Impressions: Service Date/Time: Saturday, May 06, 2017 19:28 - CONCLUSION: Intact left elbow. Dominic Pena MD Cervical Spine CT 05/06/17 0000 Signed Impressions: Service Date/Time: Saturday, May 06, 2017 19:36 - CONCLUSION: Intact cervical spine. Degenerative changes as above. Dominic Pena MD Abdomen/Pelvis CT 05/06/17 0000 Signed Impressions: Service Date/Time: Saturday, May 06, 2017 19:43 - CONCLUSION: 1. Free fluid in the pelvic cavity, nonspecific but possibly on the basis of fecal impaction-related proctitis. 2. Otherwise negative. Dominic Pena MD Objective Remarks GENERAL: Well-nourished, well-developed elderly female patient in NAD. SKIN: Warm and dry. Left forehead laceration s/p repair. HEENT: Normocephalic. Left forehead laceration and hematoma. Pupils equal and round. Mucous membranes pink and moist. NECK: Supple. Trachea midline. CARDIOVASCULAR: Regular rate and rhythm. S1, S2 noted. No murmur appreciated. RESPIRATORY: No accessory muscle use. Clear to auscultation. Breath sounds equal bilaterally. GASTROINTESTINAL: Abdomen soft, non-tender, nondistended. Normoactive bowel sounds x4. MUSCULOSKELETAL: Stage IV Sacral Pressure Ulcer. Extremities without clubbing, cyanosis, or edema. NEUROLOGICAL: Awake and alert. No obvious cranial nerve deficits. Motor grossly within normal limits. Nonverbal. PSYCHIATRIC: Calm mood; insight and judgment poor. Medications and IVs Current Medications Medications (Trade) Dose Ordered Sig/Jaydon Route Start Time Stop Time Status Last Admin Sodium Chloride 1,000 ml @ 42 mls/hr [id number] IV 05/06/17 23:00 05/06/17 23:11 Ceftriaxone Sodium 1000 mg/ Sodium Chloride 100 ml @ 200 mls/hr Q24H IV 05/07/17 01:00 05/07/17 03:13 (NS Flush) 2 ml UNSCH PRN IV FLUSH 05/07/17 00:15 (NS Flush) 2 ml BID IV FLUSH 05/07/17 09:00 (Tylenol) 650 mg Q4H PRN PO 05/07/17 00:15 (Zofran Inj) 4 mg Q6H PRN IVP 05/07/17 00:15 (Lovenox Inj) 40 mg Q24H SQ 05/07/17 00:15 05/07/17 03:11 (Narcan Inj) 0.4 mg UNSCH PRN IV PUSH 05/07/17 00:15 (Milk Of Magnesia Liq) 30 ml Q12H PRN PO 05/07/17 00:15 (Senokot) 17.2 mg Q12H PRN PO 05/07/17 00:15 (Dulcolax Supp) 10 mg DAILY PRN RECTAL 05/07/17 00:15 (KlonoPIN) 0.5 mg Q12HR PO 05/07/17 09:00 (Aricept) 10 mg HS PO 05/07/17 21:00 (Cymbalta Dr) 60 mg DAILY PO 05/07/17 09:00 (Synthroid) 150 mcg DAILY@06 PO 05/07/17 06:00 (Namenda) 10 mg BID PO 05/07/17 09:00 (Duoneb Neb) 1 ampule Q4HR NEB PRN NEB 05/07/17 00:15 A/P Problem List: (1) Urinary tract infection ICD Code: N39.0 - Urinary tract infection, site not specified Status: Acute (2) Dementia ICD Code: F03.90 - Unspecified dementia without behavioral disturbance Status: Acute (3) Fall ICD Code: W19.XXXA - Unspecified fall, initial encounter Status: Acute Assessment and Plan 82-year-old female with history of dementia, recurrent UTIs, hypertension, CVA, presents from SNF after falling out of bed sustaining forehead laceration UTI: Patient with history of multiple urinary tract infections including VRE, Escherichia coli, Klebsiella. Most recent UTI in 11/25 positive for Klebsiella which was pansensitive. Given Zosyn 1 in the ED -Urine culture pending -Continue IV Rocephin -Adjust antibiotics after culture resulted Fall: Patient sustained a forehead laceration and left elbow injury. Suspect secondary to chronic deconditioning, dementia, and UTI. -Cervical spine CT, head CT and elbow x-ray all negative for acute injury -Consult PT -Patient will return to SNF at discharge Constipation/Fecal Impaction: CT of the abdomen/pelvis shows large amount of stool in the rectum -Given Fleet Enema x1 -Dulcolax suppository prn -Patient having small soft BMs per RN, continue to monitor Dementia: chronic -Continue home Aricept and Namenda Hypothyroidism: chronic -Continue home Synthroid Stage IV Decubitus ulcer -Wound care consulted, appreciate recommendations DVT Prophylaxis: teds/SCDs, avoid chemoprophylaxis with recent fall/head trauma Discharge Planning Discharge pending urine culture and further clinical improvement. Possible discharge in 1-2 days. Nirmala Pal PA-C May 07, 2017 13:27
[2017-05-07] MEDS: DONEPEZIL HCL 5 MG TAB PO SCH (20:47)
[2017-05-07] MEDS: SODIUM CHLOR 0.9% 1000 ML INJ 1,000 ML IV SCH (22:49)
[2017-05-08] MEDS: cefTRIAXone INJ 1,000 MG in SODIUM CHLORIDE 0.9% INJ 100 ML IV SCH (01:20)
[2017-05-08] MEDS: ENOXAPARIN SODIUM 40 MG/0.4 ML SYRINGE SQ SCH (01:20)
[2017-05-08 04:00] VITALS: BP 116/58; PULSE 68; RESP 18; TEMP 98.1; O2SAT 95
[2017-05-08 05:44] LABS: AUTOMATED NEUTROPHIL # 6.1 TH/MM3 (1.8-7.7); BASOPHIL % 0.3 % (0.0-2.0); EOSINOPHIL # 0.1 TH/MM3 (0-0.4); EOSINOPHIL % 1.2 % (0.0-4.0); HEMATOCRIT 36.4 % (35.0-46.0); HEMOGLOBIN 11.8 GM/DL (11.6-15.3); LYMPH % 12.5 % (9.0-44.0); LYMPHOCYTE # 0.9 TH/MM3 (1.0-4.8); MEAN CELL VOLUME 95.1 FL (80.0-100.0); MEAN CORPUSCULAR HEMOGLOBIN 30.7 PG (27.0-34.0); MEAN CORPUSCULAR HGB CONC 32.3 % (32.0-36.0); MEAN PLATELET VOLUME 7.1 FL (7.0-11.0); MONO % 5.8 % (0.0-8.0); MONOCYTE # 0.4 TH/MM3 (0-0.9); NEUT % 80.2 % (16.0-70.0); PLATELET COUNT 151 TH/MM3 (150-450); RED BLOOD COUNT 3.83 MIL/MM3 (4.00-5.30); RED CELL DISTRIBUTION WIDTH 13.8 % (11.6-17.2); WHITE BLOOD COUNT 7.6 TH/MM3 (4.0-11.0)
[2017-05-08 06:07] LABS: ALBUMIN 2.8 GM/DL (3.4-5.0); ALKALINE PHOSPHATASE 104 U/L (45-117); ALT (GPT) 34 U/L (10-53); AST (GOT) 32 U/L (15-37); BICARBONATE 21.2 MEQ/L (21.0-32.0); BLOOD UREA NITROGEN 14 MG/DL (7-18); CALCIUM 9.6 MG/DL (8.5-10.1); CHLORIDE 115 MEQ/L (98-107); CREATININE 0.68 MG/DL (0.50-1.00); GLOMERULAR FILTRATION RATE 83 ML/MIN (>89); GLUCOSE,RANDOM 80 MG/DL (74-106); SODIUM (NA) 146 MEQ/L (136-145); TOTAL BILIRUBIN ADULT 0.4 MG/DL (0.2-1.0); TOTAL PROTEIN 6.9 GM/DL (6.4-8.2)
[2017-05-08 07:38] VITALS: BP 126/60; PULSE 80; RESP 18; TEMP 98.2; O2SAT 100
[2017-05-08] MEDS: SODIUM CHLORIDE 0.9% FLUSH 10 ML FLUSH IV FLUSH SCH ×2 (09:00→21:00)
[2017-05-08] MEDS: DULoxetine HCl DR 60 MG CAP PO SCH (09:44)
[2017-05-08] MEDS: MEMANTINE HCL 10 MG TAB PO SCH ×2 (09:44→21:28)
[2017-05-08] MEDS: clonazePAM 0.5 MG TAB PO SCH ×2 (09:45→21:29)
[2017-05-08] MEDS: LEVOTHYROXINE SODIUM 150 MCG TAB PO SCH (09:45)
--- NOTE | 2017-05-08 09:47 | HHI.PR ---
Subjective Remarks Follow up for fall, forehead hematoma/laceration, UTI, constipation, dementia, decubitus ulcer. The patient is awake, eyes open, following simple commands. When asked how she is doing, she states "I'm alright". She does not answer any further questions. No acute events overnight. Vital signs reviewed and stable. Objective Vitals Vital Signs Date Time Temp Pulse Resp B/P (MAP) Pulse Ox O2 Delivery O2 Flow Rate FiO2 05/08/17 07:38 98.2 80 18 126/60 (82) 100 05/08/17 04:00 98.1 68 18 116/58 (77) 95 05/07/17 23:22 98.0 68 18 104/58 (73) 97 05/07/17 22:14 98.4 68 18 99/53 (68) 97 05/07/17 16:10 95.9 65 16 130/63 (85) 100 05/07/17 13:01 98.0 65 18 112/54 (73) 99 I/O 05/07/17 05/07/17 05/07/17 05/08/17 05/08/17 05/08/17 07:00 15:00 23:00 07:00 15:00 23:00 Intake Total 795 ml Balance 795 ml IV Total 795 ml # Voids 2 # Bowel Movements 2 Result Diagram: 05/08/17 0527 05/08/17 0527 Imaging Last Impressions Head CT 05/06/17 0000 Signed Impressions: Service Date/Time: Saturday, May 06, 2017 19:35 - CONCLUSION: No bleed or other acute intracranial abnormality. Atrophy and chronic white matter changes are again noted. Dominic Pena MD Elbow X-Ray 05/06/17 0000 Signed Impressions: Service Date/Time: Saturday, May 06, 2017 19:28 - CONCLUSION: Intact left elbow. Dominic Pena MD Cervical Spine CT 05/06/17 0000 Signed Impressions: Service Date/Time: Saturday, May 06, 2017 19:36 - CONCLUSION: Intact cervical spine. Degenerative changes as above. Dominic Pena MD Abdomen/Pelvis CT 05/06/17 0000 Signed Impressions: Service Date/Time: Saturday, May 06, 2017 19:43 - CONCLUSION: 1. Free fluid in the pelvic cavity, nonspecific but possibly on the basis of fecal impaction-related proctitis. 2. Otherwise negative. Dominic Pena MD Objective Remarks GENERAL: Well-nourished, well-developed elderly female patient in NAD. SKIN: Warm and dry. Left forehead laceration s/p repair. HEENT: Normocephalic. Left forehead laceration and hematoma. Pupils equal and round. Mucous membranes pink and moist. NECK: Supple. Trachea midline. CARDIOVASCULAR: Regular rate and rhythm. S1, S2 noted. No murmur appreciated. RESPIRATORY: No accessory muscle use. Clear to auscultation. Breath sounds equal bilaterally. GASTROINTESTINAL: Abdomen soft, non-tender, nondistended. Normoactive bowel sounds x4. MUSCULOSKELETAL: Stage IV Sacral Pressure Ulcer. Extremities without clubbing, cyanosis, or edema. NEUROLOGICAL: Awake and alert. No obvious cranial nerve deficits. Motor grossly within normal limits. Normal speech. PSYCHIATRIC: Calm mood; insight and judgment poor. Medications and IVs Current Medications Medications (Trade) Dose Ordered Sig/Jaydon Route Start Time Stop Time Status Last Admin Sodium Chloride 1,000 ml @ 42 mls/hr [id number] IV 05/06/17 23:00 05/06/17 23:11 Ceftriaxone Sodium 1000 mg/ Sodium Chloride 100 ml @ 200 mls/hr Q24H IV 05/07/17 01:00 05/08/17 01:20 (NS Flush) 2 ml UNSCH PRN IV FLUSH 05/07/17 00:15 (NS Flush) 2 ml BID IV FLUSH 05/07/17 09:00 (Tylenol) 650 mg Q4H PRN PO 05/07/17 00:15 (Zofran Inj) 4 mg Q6H PRN IVP 05/07/17 00:15 (Lovenox Inj) 40 mg Q24H SQ 05/07/17 00:15 05/08/17 01:20 (Narcan Inj) 0.4 mg UNSCH PRN IV PUSH 05/07/17 00:15 (Milk Of Magnesia Liq) 30 ml Q12H PRN PO 05/07/17 00:15 (Senokot) 17.2 mg Q12H PRN PO 05/07/17 00:15 (Dulcolax Supp) 10 mg DAILY PRN RECTAL 05/07/17 00:15 (KlonoPIN) 0.5 mg Q12HR PO 05/07/17 09:00 05/07/17 20:47 (Aricept) 10 mg HS PO 05/07/17 21:00 05/07/17 20:47 (Cymbalta Dr) 60 mg DAILY PO 05/07/17 09:00 (Synthroid) 150 mcg DAILY@06 PO 05/07/17 06:00 (Namenda) 10 mg BID PO 05/07/17 09:00 05/07/17 20:47 (Duoneb Neb) 1 ampule Q4HR NEB PRN NEB 05/07/17 00:15 A/P Problem List: (1) Urinary tract infection ICD Code: N39.0 - Urinary tract infection, site not specified Status: Acute (2) Dementia ICD Code: F03.90 - Unspecified dementia without behavioral disturbance Status: Acute (3) Fall ICD Code: W19.XXXA - Unspecified fall, initial encounter Status: Acute Assessment and Plan 82-year-old female with history of dementia, recurrent UTIs, hypertension, CVA, presents from SNF after falling out of bed sustaining forehead laceration UTI: Patient with history of multiple UTIs including VRE, Escherichia coli, Klebsiella. Most recent UTI in 11/25 positive for Klebsiella which was pansensitive. Given Zosyn 1 in the ED -Preliminary urine culture with gram negative brenda, final culture pending -Continue IV Rocephin -Adjust antibiotics after culture resulted Fall: Patient sustained a forehead laceration and left elbow injury. Suspect secondary to chronic deconditioning, dementia, and UTI. -Cervical spine CT, head CT and elbow x-ray all negative for acute injury -Consult PT -Patient will return to SNF at discharge Constipation/Fecal Impaction: CT of the abdomen/pelvis shows large amount of stool in the rectum -Given Fleet Enema x1 -Dulcolax suppository prn -Patient had 2 large BMs per RN, resolved Dementia: chronic -Continue home Aricept and Namenda Hypothyroidism: chronic -Continue home Synthroid Stage IV Decubitus ulcer: chronic, present on admission -Wound care consulted, appreciate recommendations -wound culture with MRSA, likely colonized, patient afebrile and no leukocytosis DVT Prophylaxis: teds/SCDs, avoid chemoprophylaxis with recent fall/head trauma Discharge Planning Discharge pending urine culture. Possible discharge back to SNF later today. Nirmala Pal PA-C May 08, 2017 09:47
[2017-05-08 11:22] VITALS: BP 113/59; PULSE 84; RESP 18; TEMP 98.7; O2SAT 97
--- NOTE | 2017-05-08 15:14 | PD.CONS ---
History of Present Illness Service Infectious disease Consult Requested By Dr Ra Castellanos Reason for Consult Evaluate patient with UTI Primary Care Physician Kolton Ruffin MD Diagnoses: History of Present Illness Patient seen and examined. Records reviewed. Patient has history of dementia, and does not really give any good history. She is an 82-year-old female, resides in the long-term, reportedly fell out of bed, and sustained a laceration on her left for head. She was also noted to have some redness on her left elbow. In the emergency room she had repair of her laceration. X-ray of the left elbow did not show any evidence of fracture. Patient was not febrile. Her WBC is normal. Urinalysis was obtained, and a Barba catheter was placed to obtain the specimen. She has significant pyuria. CT of the abdomen and pelvis did not show any significant abnormality in the kidney as far as obstruction. Her urine culture is now reported as growing ESBL positive organism. She also has stage III decubitus ulcer in the coccyx. I have no information regarding how long she has had the ulcer in her coccyx. Infectious disease consultation has been requested to make recommendation regarding her UTI treatment. 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 Past Medical History Dementia Multiple UTI Hypertension History of CVA Past Surgical History L hip surgery Active Ordered Medications Current Medications Medications (Trade) Dose Ordered Sig/Jaydon Route Start Time Stop Time Status Last Admin Sodium Chloride 1,000 ml @ 42 mls/hr [id number] IV 05/06/17 23:00 05/06/17 23:11 Ceftriaxone Sodium 1000 mg/ Sodium Chloride 100 ml @ 200 mls/hr Q24H IV 05/07/17 01:00 05/08/17 01:20 (NS Flush) 2 ml UNSCH PRN IV FLUSH 05/07/17 00:15 (NS Flush) 2 ml BID IV FLUSH 05/07/17 09:00 (Tylenol) 650 mg Q4H PRN PO 05/07/17 00:15 (Zofran Inj) 4 mg Q6H PRN IVP 05/07/17 00:15 (Lovenox Inj) 40 mg Q24H SQ 05/07/17 00:15 05/08/17 01:20 (Narcan Inj) 0.4 mg UNSCH PRN IV PUSH 05/07/17 00:15 (Milk Of Magncristo Liq) 30 ml Q12H PRN PO 05/07/17 00:15 (Senokot) 17.2 mg Q12H PRN PO 05/07/17 00:15 (Dulcolax Supp) 10 mg DAILY PRN RECTAL 05/07/17 00:15 (KlonoPIN) 0.5 mg Q12HR PO 05/07/17 09:00 05/08/17 09:45 (Aricept) 10 mg HS PO 05/07/17 21:00 05/07/17 20:47 (Cymbalta Dr) 60 mg DAILY PO 05/07/17 09:00 05/08/17 09:44 (Synthroid) 150 mcg DAILY@06 PO 05/07/17 06:00 05/08/17 09:45 (Namenda) 10 mg BID PO 05/07/17 09:00 05/08/17 09:44 (Duoneb Neb) 1 ampule Q4HR NEB PRN NEB 05/07/17 00:15 Family History Not known Social History group home resident No smoking No alcohol abuse No illicit drugs Physical Exam Vital Signs Vital Signs Date Time Temp Pulse Resp B/P (MAP) Pulse Ox O2 Delivery O2 Flow Rate FiO2 05/08/17 11:22 98.7 84 18 113/59 (77) 97 05/08/17 07:38 98.2 80 18 126/60 (82) 100 05/08/17 04:00 98.1 68 18 116/58 (77) 95 05/07/17 23:22 98.0 68 18 104/58 (73) 97 05/07/17 22:14 98.4 68 18 99/53 (68) 97 05/07/17 16:10 95.9 65 16 130/63 (85) 100 Physical Exam GENERAL: Patient is a frail, thin, well-developed elderly female, awake, not verbal, following some commands, not in respiratory distress. SKIN: Cool and dry. No generalized rash. Has ecchymoses on her forehead and her LUE HEAD: Has sutured laceration on her L forehead, has contusion on L forehead and scalp. EYES: [place] conjunctiva. No petechia or hemorrhage. Sunken eyeballs, has some mild ptosis in L eye. Extraocular movements full and intact. No scleral icterus. Some mild drainage in her L eye. EARS, NOSE AND THROAT: Nose without bleeding or purulent nasal discharge. No sinus tenderness. Mucous membranes pink and moist. NECK: Trachea midline. Supple and not tender, no meningeal signs CARDIOVASCULAR: Regular rate and rhythm. No murmurs, rubs or gallops heard RESPIRATORY: Clear to auscultation. Breath sounds equal bilaterally. No rales , wheezing or rhonchi ABDOMEN: Soft, flat, non-tender, nondistended. Bowel sounds present and normoactive. No guarding. No rebound. No organomegaly. EXTREMITIES: No clubbing, cyanosis, or edema. There is a sealed avulsion on her L elbow with no evidence of infection. No calf tenderness. NEUROLOGICAL: Awake, following some commands, not talking, and not moving PSYCHIATRIC: Cooperative LINE: No evidence of infection BACK: There is a sacral decubitus with a 1.5 inch opening, and has multiple undermining, some mild periwound erythema, no odor, no purulence Laboratory Laboratory Tests Test 05/08/17 05:27 White Blood Count 7.6 Red Blood Count 3.83 Hemoglobin 11.8 Hematocrit 36.4 Mean Corpuscular Volume 95.1 Mean Corpuscular Hemoglobin 30.7 Mean Corpuscular Hemoglobin Concent 32.3 Red Cell Distribution Width 13.8 Platelet Count 151 Mean Platelet Volume 7.1 Neutrophils (%) (Auto) 80.2 Lymphocytes (%) (Auto) 12.5 Monocytes (%) (Auto) 5.8 Eosinophils (%) (Auto) 1.2 Basophils (%) (Auto) 0.3 Neutrophils # (Auto) 6.1 Lymphocytes # (Auto) 0.9 Monocytes # (Auto) 0.4 Eosinophils # (Auto) 0.1 Basophils # (Auto) 0.0 CBC Comment DIFF FINAL Differential Comment Blood Urea Nitrogen 14 Creatinine 0.68 Random Glucose 80 Total Protein 6.9 Albumin 2.8 Calcium Level 9.6 Alkaline Phosphatase 104 Aspartate Amino Transf (AST/SGOT) 32 Alanine Aminotransferase (ALT/SGPT) 34 Total Bilirubin 0.4 Sodium Level 146 Potassium Level 3.5 Chloride Level 115 Carbon Dioxide Level 21.2 Anion Gap 10 Estimat Glomerular Filtration Rate 83 Date/Time Source Procedure Growth Status 05/06/17 19:31 Blood Peripheral Aerobic Blood Culture - Preliminary NO GROWTH IN 2 DAYS Resulted 05/06/17 19:31 Blood Peripheral Anaerobic Blood Culture - Preliminary NO GROWTH IN 2 DAYS Resulted 05/06/17 22:50 Urine Clean Catch Urine Culture - Preliminary Escherichia Coli Esbl Positive Gram Negative Anthony Resulted 05/06/17 19:31 Wound Other Gram Stain - Final Complete 05/06/17 19:31 Wound Culture - Final S. Aureus Mrsa Complete Result Diagram: 05/08/17 0527 05/08/17 0527 Imaging RADIOLOGY STUDIES/FILMS REVIEWED Head CT 05/06/17 0000 Signed Impressions: Service Date/Time: Saturday, May 06, 2017 19:35 - CONCLUSION: No bleed or other acute intracranial abnormality. Atrophy and chronic white matter changes are again noted. Dominic Pena MD Elbow X-Ray 05/06/17 0000 Signed Impressions: Service Date/Time: Saturday, May 06, 2017 19:28 - CONCLUSION: Intact left elbow. Dominic Pena MD Cervical Spine CT 05/06/17 0000 Signed Impressions: Service Date/Time: Saturday, May 06, 2017 19:36 - CONCLUSION: Intact cervical spine. Degenerative changes as above. Dominic Pena MD Abdomen/Pelvis CT 05/06/17 0000 Signed Impressions: Service Date/Time: Saturday, May 06, 2017 19:43 - CONCLUSION: 1. Free fluid in the pelvic cavity, nonspecific but possibly on the basis of fecal impaction-related proctitis. 2. Otherwise negative. Dominic Pena MD Assessment and Plan Assessment and Plan IMPRESSION (+) UA, no barba, not retaining, initial volume on cath 15 ml, no fever, no leukocytosis - C/S GNR Laceration L forehead from fall, repaired Dementia Sacral decubitus, (+) C/S C/S colonization RECOMMENDATION Start Merem for now and follow C/S Will try to choose an oral Abx tpo Rx her UTI once C/S finalized Should be able to return to SNF once we get C/S I will follow along with you Thank you for this consultation Sydnee Cadena MD May 08, 2017 15:14
[2017-05-08] MEDS ORDERED: ASP: Documented ESBL, MDR A baumannii or P. aeruginosa PRN (15:15)
[2017-05-08] MEDS ORDERED: MISCELLANEOUS PHARMACY INFORMATION XX PRN (15:15)
[2017-05-08 15:30] VITALS: BP 127/60; PULSE 81; RESP 18; TEMP 97.7; O2SAT 97
[2017-05-08] MEDS: MEROPENEM INJ 1,000 MG in SODIUM CHLORIDE 0.9% INJ 100 ML IV SCH (16:45)
[2017-05-08 21:06] VITALS: BP 121/59; PULSE 68; RESP 18; TEMP 98.5; O2SAT 98
[2017-05-08] MEDS: DONEPEZIL HCL 5 MG TAB PO SCH (21:28)
[2017-05-09 00:20] VITALS: BP 114/62; PULSE 68; RESP 18; TEMP 98; O2SAT 95
[2017-05-09] MEDS: MEROPENEM INJ 1,000 MG in SODIUM CHLORIDE 0.9% INJ 100 ML IV SCH ×2 (00:30→08:42)
[2017-05-09] MEDS: SODIUM CHLOR 0.9% 1000 ML INJ 1,000 ML IV SCH (00:31)
[2017-05-09] MEDS: ENOXAPARIN SODIUM 40 MG/0.4 ML SYRINGE SQ SCH (00:31)
[2017-05-09] MEDS: LEVOTHYROXINE SODIUM 150 MCG TAB PO SCH (05:13)
[2017-05-09 05:14] VITALS: BP 116/56; PULSE 67; RESP 18; TEMP 97.8; O2SAT 97
[2017-05-09] MEDS: DULoxetine HCl DR 60 MG CAP PO SCH (08:46)
[2017-05-09] MEDS: clonazePAM 0.5 MG TAB PO SCH (08:46)
[2017-05-09] MEDS: MEMANTINE HCL 10 MG TAB PO SCH (08:46)
[2017-05-09] MEDS: SODIUM CHLORIDE 0.9% FLUSH 10 ML FLUSH IV FLUSH SCH (09:10)
[2017-05-09 09:42] VITALS: BP 118/50; PULSE 68; TEMP 97.9; O2SAT 96
--- NOTE | 2017-05-09 09:49 | HHI.PR ---
Subjective Remarks Follow up for fall, forehead laceration/hematoma, ESBL positive UTI, dementia. The patient is more awake and alert this morning. When asked how she is feeling , she smiles and states "I'm OK". She does not verbalize any medical complaints. She is having bowel movements. No acute events overnight. Vital signs reviewed and stable. Objective Vitals Vital Signs Date Time Temp Pulse Resp B/P (MAP) Pulse Ox O2 Delivery O2 Flow Rate FiO2 05/09/17 05:14 97.8 67 18 116/56 (76) 97 05/09/17 00:20 98.0 68 18 114/62 (79) 95 05/08/17 21:06 98.5 68 18 121/59 (79) 98 05/08/17 15:30 97.7 81 18 127/60 (82) 97 05/08/17 11:22 98.7 84 18 113/59 (77) 97 I/O 05/08/17 05/08/17 05/08/17 05/09/17 05/09/17 05/09/17 07:00 15:00 23:00 07:00 15:00 23:00 Intake Total 895 ml 100 ml 30 ml 100 ml Balance 895 ml 100 ml 30 ml 100 ml Intake Oral 30 ml IV Total 895 ml 100 ml 100 ml # Voids 2 2 2 4 # Bowel Movements 1 2 4 Result Diagram: 05/08/17 0527 05/08/17 0527 Imaging Last Impressions Head CT 05/06/17 0000 Signed Impressions: Service Date/Time: Saturday, May 06, 2017 19:35 - CONCLUSION: No bleed or other acute intracranial abnormality. Atrophy and chronic white matter changes are again noted. Dominic Pena MD Elbow X-Ray 05/06/17 0000 Signed Impressions: Service Date/Time: Saturday, May 06, 2017 19:28 - CONCLUSION: Intact left elbow. Dominic Pena MD Cervical Spine CT 05/06/17 0000 Signed Impressions: Service Date/Time: Saturday, May 06, 2017 19:36 - CONCLUSION: Intact cervical spine. Degenerative changes as above. Dominic Pena MD Abdomen/Pelvis CT 05/06/17 0000 Signed Impressions: Service Date/Time: Saturday, May 06, 2017 19:43 - CONCLUSION: 1. Free fluid in the pelvic cavity, nonspecific but possibly on the basis of fecal impaction-related proctitis. 2. Otherwise negative. Dominic Pena MD Objective Remarks GENERAL: Well-nourished, well-developed elderly female patient in NAD. Soft spoken, answers some questions. SKIN: Warm and dry. Left forehead laceration s/p repair. HEENT: Normocephalic. Left forehead hematoma. Pupils equal and round. Mucous membranes pink and moist. CARDIOVASCULAR: Regular rate and rhythm. S1, S2 noted. No murmur appreciated. RESPIRATORY: No accessory muscle use. Clear to auscultation. Breath sounds equal bilaterally. GASTROINTESTINAL: Abdomen soft, non-tender, nondistended. Normoactive bowel sounds x4. MUSCULOSKELETAL: Stage IV Sacral Pressure Ulcer. Extremities without clubbing, cyanosis, or edema. NEUROLOGICAL: Awake and alert. No obvious cranial nerve deficits. Motor grossly within normal limits. Normal speech. PSYCHIATRIC: Calm mood; insight and judgment poor. Medications and IVs Current Medications Medications (Trade) Dose Ordered Sig/Jaydon Route Start Time Stop Time Status Last Admin Sodium Chloride 1,000 ml @ 42 mls/hr [id number] IV 05/06/17 23:00 05/09/17 00:31 (NS Flush) 2 ml UNSCH PRN IV FLUSH 05/07/17 00:15 (NS Flush) 2 ml BID IV FLUSH 05/07/17 09:00 (Tylenol) 650 mg Q4H PRN PO 05/07/17 00:15 (Zofran Inj) 4 mg Q6H PRN IVP 05/07/17 00:15 (Lovenox Inj) 40 mg Q24H SQ 05/07/17 00:15 05/09/17 00:31 (Narcan Inj) 0.4 mg UNSCH PRN IV PUSH 05/07/17 00:15 (Milk Of Magnesia Liq) 30 ml Q12H PRN PO 05/07/17 00:15 (Senokot) 17.2 mg Q12H PRN PO 05/07/17 00:15 (Dulcolax Supp) 10 mg DAILY PRN RECTAL 05/07/17 00:15 (KlonoPIN) 0.5 mg Q12HR PO 05/07/17 09:00 05/09/17 08:46 (Aricept) 10 mg HS PO 05/07/17 21:00 05/08/17 21:28 (Cymbalta Dr) 60 mg DAILY PO 05/07/17 09:00 05/09/17 08:46 (Synthroid) 150 mcg DAILY@06 PO 05/07/17 06:00 05/09/17 05:13 (Namenda) 10 mg BID PO 05/07/17 09:00 05/09/17 08:46 (Duoneb Neb) 1 ampule Q4HR NEB PRN NEB 05/07/17 00:15 (ASP Crit: Doc ESBL, MDR A baumannii or P aer) 1 UNSCH X1 PRN .XX 05/08/17 15:15 05/09/17 15:14 ([facility] [place] [facility] Information) 1 UNSCH X1 PRN XX 05/08/17 15:15 05/09/17 15:14 (Bactrim 400-80 Mg) 1 tab Q12HR PO 05/09/17 09:30 05/16/17 09:29 UNV (Ceftin) 250 mg Q12HR PO 05/09/17 09:30 05/16/17 09:29 UNV A/P Problem List: (1) Urinary tract infection ICD Code: N39.0 - Urinary tract infection, site not specified Status: Acute (2) Dementia ICD Code: F03.90 - Unspecified dementia without behavioral disturbance Status: Acute (3) Fall ICD Code: W19.XXXA - Unspecified fall, initial encounter Status: Acute Assessment and Plan 82-year-old female with history of dementia, recurrent UTIs, hypertension, CVA, presents from SNF after falling out of bed sustaining forehead laceration UTI: Patient with history of multiple UTIs including VRE, Escherichia coli, Klebsiella. Most recent UTI in 11/25 positive for Klebsiella which was pansensitive. Given Zosyn 1 in the ED -Urine culture results with E. Coli ESBL Positive and Proteus Mirabilis -Consulted infectious disease, initially started on IV meropenem pending culture, now changed to Ceftin 250mg bid x1week and Bactrim DS 1 tab bid x1week. Fall: Patient sustained a forehead laceration and left elbow injury. Suspect secondary to chronic deconditioning, dementia, and UTI. -Cervical spine CT, head CT and elbow x-ray all negative for acute injury -Consult PT -Patient will return to SNF at discharge -Sutures placed by ER PA are fast-absorbing chromic sutures and should dissolve, recommend evaluation by PCP within 5 days. Constipation/Fecal Impaction: CT of the abdomen/pelvis shows large amount of stool in the rectum -Given Fleet Enema x1 -Dulcolax suppository prn -Patient has had multiple BMs, resolved Dementia: chronic -Continue home Aricept and Namenda Hypothyroidism: chronic -Continue home Synthroid Stage IV Decubitus ulcer: chronic, present on admission -Wound care consulted, appreciate recommendations -wound culture with MRSA, likely colonized, wound looks clean, patient afebrile and no leukocytosis; will hold off on antibiotics for now, discussed with ID DVT Prophylaxis: teds/SCDs, avoid chemoprophylaxis with recent fall/head trauma Discharge Planning Likely discharge back to SNF today if cleared by ID. 1100hrs: Patient cleared for discharge by ID. Will discharge back to SNF. See discharge summary. Nirmala Pal PA-C May 09, 2017 09:49
[2017-05-09] MEDS ORDERED: CEFU1TAB18 PO (09:52)
[2017-05-09] MEDS ORDERED: SULF400T18 PO (09:52)
--- NOTE | 2017-05-09 09:53 | HHI.DCPOC ---
Discharge Care Plan Diagnosis: (1) UTI due to extended-spectrum beta lactamase (ESBL) producing Escherichia coli (2) Urinary tract infection due to Proteus (3) Fall (4) Dementia Goals to Promote Your Health * To prevent worsening of your condition and complications * To maintain your health at the optimal level Directions to Meet Your Goals Take your medications as prescribed Follow your dietary instruction Follow activity as directed Keep your appointments as scheduled Take your immunizations and boosters as scheduled If your symptoms worsen call your PCP, if no PCP go to Urgent Care Center or Emergency Room Smoking is Dangerous to Your Health. Avoid second hand smoke Call the 24-hour hour crisis hotline for domestic abuse at Nirmala Pal PA-C May 09, 2017 9:53 am
[2017-05-09] MEDS ORDERED: CEFUROXIME AXETIL 250 MG TAB PO SCH (11:00)
[2017-05-09] MEDS ORDERED: SULFAMETHOXAZOLE-TRIMETHOPRIM 400-80 MG TAB PO SCH (11:00)
--- NOTE | 2017-05-09 11:31 | HHI.DS ---
Discharge Summary Admission Date May 07, 2017 at 00:11 Discharge Date: May 09, 2017 Admitting Diagnosis UTI fall weakness (1) UTI due to extended-spectrum beta lactamase (ESBL) producing Escherichia coli ICD Code: N39.0 - Urinary tract infection, site not specified; A49.8 - Other bacterial infections of unspecified site; Z16.12 - Extended spectrum beta lactamase (ESBL) resistance Diagnosis: Principal (2) Urinary tract infection due to Proteus ICD Code: N39.0 - Urinary tract infection, site not specified; B96.4 - Proteus (mirabilis) (morganii) as the cause of diseases classified elsewhere Diagnosis: Principal (3) Dementia ICD Code: F03.90 - Unspecified dementia without behavioral disturbance Diagnosis: Secondary Status: Acute (4) Fall ICD Code: W19.XXXA - Unspecified fall, initial encounter Diagnosis: Principal Status: Acute (5) Altered mental status ICD Code: R41.82 - Altered mental status, unspecified Diagnosis: Secondary Status: Acute Procedures Forehead laceration repair with fast absorbing sutures by ER PA on 05/06. Brief History - From Admission 82-year-old female with a past medical history significant for dementia, multiple UTIs, hypertension and history of CVA presents to the emergency department for evaluation of a laceration to her middle forehead. The patient lives in a shelter facility and reportedly fell out of bed. She sustained a laceration to her left forehead and has an erythematous left elbow. The patient is talking incoherently. She denies any pain. UA consistent with urinary tract infection. No leukocytosis. Afebrile with stable vital signs. CBC/BMP: 05/08/17 0527 05/08/17 0527 Significant Findings Laboratory Tests Test 05/06/17 19:31 05/06/17 22:50 05/08/17 05:27 Red Blood Count 3.99 MIL/MM3 (4.00-5.30) 3.83 MIL/MM3 (4.00-5.30) Neutrophils (%) (Auto) 71.8 % (16.0-70.0) 80.2 % (16.0-70.0) Eosinophils (%) (Auto) 4.1 % (0.0-4.0) Albumin 2.9 GM/DL (3.4-5.0) 2.8 GM/DL (3.4-5.0) Chloride Level 108 MEQ/L (98-107) 115 MEQ/L (98-107) Estimat Glomerular Filtration Rate 70 ML/MIN (>89) 83 ML/MIN (>89) Urine Turbidity CLOUDY (CLEAR) Urine Protein 30 mg/dL (NEG-TRACE) Urine Nitrite POS (NEG) Urine Leukocyte Esterase LARGE (NEG) Urine RBC 10 /hpf (0-3) Urine WBC 132 /hpf (0-5) Urine Bacteria MANY /hpf (NONE) Urine Mucus FEW /lpf (OCC) Lymphocytes # (Auto) 0.9 TH/MM3 (1.0-4.8) Sodium Level 146 MEQ/L (136-145) Imaging Last Impressions Head CT 05/06/17 0000 Signed Impressions: Service Date/Time: Saturday, May 06, 2017 19:35 - CONCLUSION: No bleed or other acute intracranial abnormality. Atrophy and chronic white matter changes are again noted. Dominic Pena MD Elbow X-Ray 05/06/17 0000 Signed Impressions: Service Date/Time: Saturday, May 06, 2017 19:28 - CONCLUSION: Intact left elbow. Dominic Pena MD Cervical Spine CT 05/06/17 0000 Signed Impressions: Service Date/Time: Saturday, May 06, 2017 19:36 - CONCLUSION: Intact cervical spine. Degenerative changes as above. Dominic Pena MD Abdomen/Pelvis CT 05/06/17 0000 Signed Impressions: Service Date/Time: Saturday, May 06, 2017 19:43 - CONCLUSION: 1. Free fluid in the pelvic cavity, nonspecific but possibly on the basis of fecal impaction-related proctitis. 2. Otherwise negative. Dominic Pena MD PE at Discharge GENERAL: Well-nourished, well-developed elderly female patient in NAD. Soft spoken, answers some questions. SKIN: Warm and dry. Left forehead laceration s/p repair. HEENT: Normocephalic. Left forehead hematoma. Pupils equal and round. Mucous membranes pink and moist. CARDIOVASCULAR: Regular rate and rhythm. S1, S2 noted. No murmur appreciated. RESPIRATORY: No accessory muscle use. Clear to auscultation. Breath sounds equal bilaterally. GASTROINTESTINAL: Abdomen soft, non-tender, nondistended. Normoactive bowel sounds x4. MUSCULOSKELETAL: Stage IV Sacral Pressure Ulcer. Extremities without clubbing, cyanosis, or edema. NEUROLOGICAL: Awake and alert. No obvious cranial nerve deficits. Motor grossly within normal limits. Normal speech. PSYCHIATRIC: Calm mood; insight and judgment poor. Pt update on day of discharge Follow up for fall, forehead laceration/hematoma, ESBL positive UTI, dementia. The patient is more awake and alert this morning. When asked how she is feeling , she smiles and states "I'm OK". She does not verbalize any medical complaints. She is having bowel movements. No acute events overnight. Vital signs reviewed and stable. Hospital Course 82-year-old female with history of dementia, recurrent UTIs, hypertension, CVA, presents from SNF after falling out of bed sustaining forehead laceration. Laceration was repaired in the ED by ER PA with 5 fast absorbing chromic sutures. Imaging studies were performed, Cervical spine CT, head CT and elbow x- ray all negative for acute injury. The patient was also noted to be more altered than baseline, speaking incoherently, very lethargic. CT abdomen showed large amount of stool in the rectum with fecal impaction. She was given Fleet Enema x1 and had multiple bowel movements. Constipation resolved. She was also found to have a UTI, initially on IV Rocephin however urine culture with E. Coli ESBL and 2nd organism gram negative brenda therefore ID was consulted and she was started on IV Meropenem, awaiting final culture of 2nd organism. The next day, urine culture resulted with E.Coli ESBL as well as Proteus Mirabilis. ID changed antibiotics to Ceftin 250mg bid x1week and Bactrim DS 1 tab bid x1week, and she was cleared for discharge by infectious disease. Also a wound culture of sacral decubitus ulcer was collected in the ED, culture with MRSA however likely colonized, wound looks clean, patient afebrile and no leukocytosis, no antibiotics recommended, discussed with ID. Wound care also saw the patient and gave recommendations to be continued at discharge. Throughout admission, patient 's mentation improved, she was awake, alert, smiling, answers few questions and follows simple commands. The patient was discharged back to SNF. Pt Condition on Discharge: Stable Discharge Disposition: Discharge to SNF Discharge Time: > 30 minutes Discharge Instructions DIET: Follow Instructions for: As Tolerated, No Restrictions Activities you can perform: Regular-No Restrictions Follow up Referrals: PCP Follow-up - 1 Week with Kolton Ruffin MD New Medications: Cefuroxime (Ceftin) 250 Mg Tab 250 MG PO Q12HR for UTI, #14 TAB Sulfamethoxazole/Trimethoprim (Sulfamethoxazole-Tmp Ss Tablet) 400 Mg-80 Mg Tablet 1 TAB PO Q12HR for UTI, #14 TAB Continued Medications: Acetaminophen (Tylenol) 325 Mg Tab 325 MG PO ONCE, #2 TAB 0 Refills Cholecalciferol (Vitamin D3) 5,000 Unit Cap 5000 UNITS PO DAILY for vitsupp, #30 CAP Clonazepam (Klonopin) 0.5 Mg Tab 0.5 MG PO Q12HR for Anxiety, #60 TAB 0 Refills Donepezil HCl (Aricept) 5 Mg Tablet 10 MG PO HS for dem for 30 Days, TAB Duloxetine DR (Duloxetine DR) 60 Mg Capdr 60 MG PO DAILY for health, #30 CAP Escitalopram (Lexapro) 10 Mg Tab 10 MG PO DAILY, #30 TAB 0 Refills L. Acidophilus/Pectin, Marie (Acidophilus Capsule) 7.5 Mg (30 Million Cell)- 100 Mg Capsule TID Levothyroxine (Synthroid) 150 Mcg Tab 150 MCG PO DAILY@06 for health, #30 TAB Memantine (Namenda) 10 Mg Tab 10 MG PO BID for demen for 30 Days, TAB Risperidone Inj (Risperdal Consta Inj) 25 Mg Inj 25 MG IM Q14D for Dementia, #2 VIAL 0 Refills Zinc Sulfate (Zinc Sulfate) 220 Mg Tab 220 MG PO DAILY for Nutritional Supplement, TAB 0 Refills Discontinued Medications: Cholecalciferol (Vitamin D3) (Vitamin D3) 5,000 Unit/Ml Drops Memantine-Donepezil (Namzaric) 28-10 Mg Cap 1 CAP PO HS for Alzheimer Dementia, #30 CAP 0 Refills Oxycodone (Roxicodone) 5 Mg Tab 5 MG PO Q6H PRN for PAIN, #20 TAB 0 Refills Tramadol (Tramadol) 50 Mg Tab 50 MG PO Q8H PRN for PAIN, TAB 0 Refills Tuberculin Ppd (Aplisol) 5 Tub. Unit/0.1 Ml Inj Nirmala Pal PA-C May 09, 2017 11:31
== END 2017-05-09 13:38 | disposition home or self-care (01) ==
LOC: NEPC 18:52 → NEDA 23:42 → UNDOADMIN 23:42 → NEDA 05-07 00:11 → INTOOBSV 05-07 00:11 → NEPGCP 05-07 01:07
PROVIDERS: ADMIT Hospitalist; ATTEND Hospitalist
DX: S01.81XA Laceration without foreign body of other part of head, initial encounter (principal); N39.0 Urinary tract infection, site not specified; B96.20 Unspecified Escherichia coli [E. coli] as the cause of diseases classified elsewhere; B96.4 Proteus (mirabilis) (morganii) as the cause of diseases classified elsewhere; F02.81 Dementia in other diseases classified elsewhere, unspecified severity, with behavioral disturbance; I10 Essential (primary) hypertension; J44.9 Chronic obstructive pulmonary disease, unspecified; G30.9 Alzheimer's disease, unspecified; L89.94 Pressure ulcer of unspecified site, stage 4; K21.9 Gastro-esophageal reflux disease without esophagitis; K56.41 Fecal impaction; L89.159 Pressure ulcer of sacral region, unspecified stage; L89.93 Pressure ulcer of unspecified site, stage 3; E03.9 Hypothyroidism, unspecified; E78.00 Pure hypercholesterolemia, unspecified; Z86.73 Personal history of transient ischemic attack (TIA), and cerebral infarction without residual deficits; Z87.440 Personal history of urinary (tract) infections; W06.XXXA Fall from bed, initial encounter
CPT/HCPCS: 12011; 70450; 72125; 73070; 74176; 80053; 81001; 85025; 85610; 87040; 87070; 87077; 87086; 87186; 87205; 90471; 90714; 92526; 92610; 96361; 96365; 96366; 96372; 97162; 99285; G0378; G8987; G8988; G8996; G8997; G8998; J0696; J1650; J2185; J2543; J7030; J7050